=== PATIENT | female | born 1955 | race Caucasian/White ===

== ENCOUNTER → 2019-08-16 | Outpatient (CLI) | payer MEDICARE, OTHER ==
[2019-08-16 16:14] LABS: HCT 39.5 % (34.0-46.0); HGB 12.7 gm/dL (11.4-16.0); MCH 26.3 pg (25.0-35.0); MCHC 32.1 g/dL (31.0-37.0); MCV 81.9 fL (80.0-100.0); Mean Platelet Volume 6.3; Platelet Count 313 k/uL (150-450); RBC 4.82 m/uL (3.80-5.40); RDW 14.7 % (11.5-15.5); WBC 6.7 k/uL (3.8-10.6)
[2019-08-16 16:20] LABS: INR 0.9 (<1.2); Partial Thromboplastin Time 24.9 sec (22.0-30.0); Prothrombin Time 9.8 sec (9.0-12.0)
[2019-08-16 16:54] LABS: ALT 26 U/L (9-52); AST 27 U/L (14-36); African American GFR (CKD) >90 (>60 ml/min/1.73 sqM); Albumin 4.6 g/dL (3.5-5.0); Alkaline Phosphatase 90 U/L (38-126); Anion Gap 10 mmol/L; Blood Urea Nitrogen 20 mg/dL (7-17); Carbon Dioxide 24 mmol/L (22-30); Chloride 104 mmol/L (98-107); Cholesterol 239 mg/dL (<200); Glucose 126 mg/dL (74-99); HDL Cholesterol 35 mg/dL (40-60); LDL Cholesterol,Calculated 151 mg/dL (0-99); Magnesium 1.9 mg/dL (1.6-2.3); Phosphorus 4.3 mg/dL (2.5-4.5); Potassium 4.5 mmol/L (3.5-5.1); Sodium 138 mmol/L (137-145); Total Bilirubin 0.6 mg/dL (0.2-1.3); Total Protein 8.1 g/dL (6.3-8.2); Triglycerides 264 mg/dL (<150)
[2019-08-17 00:29] LABS: Iron 64 ug/dL (50-170); Total Iron Binding Capacity 457 ug/dL (228-460)
[2019-08-17 00:39] LABS: Ferritin 9.2 ng/mL (10.0-291.0)
--- NOTE | 2019-08-17 04:02 | CT ---
EXAMINATION TYPE: CT abdomen pelvis w con DATE OF EXAM: 08/16/2019 COMPARISON: NONE HISTORY: 63-year-old female Epigastric pain and nausea. Diverticulitis, K57.30. TECHNIQUE: Contiguous axial scanning of the abdomen and pelvis following administration of 100 ml Iso sunny 300 IV contrast. Delayed images through the kidneys and coronal/sagittal reconstructions perform ed. CT DLP: 1454 mGycm Automated exposure control for dose reduction was used. FINDINGS: Heart borderline to mildly enlarged without pericardial effusion. Lung bases clear without pleural ef fusion. There may be a tiny hiatal hernia. Postsurgical changes of Eusebio-en-Y gastric bypass. No contrast accu mulation seen within the excluded stomach. Mild fluid within the excluded stomach. No focal liver lesion. Mild prominence to the bile duct and 8.6 mm within acceptable limits given pos tcholecystectomy status. Portal venous system is patent. Adrenal glands, kidneys, spleen, and pancreas appear within normal limits. A few scattered borderline sized mesenteric lymph nodes measuring up to 9 mm, for example, coronal im age 39. Borderline to mildly enlarged aortocaval lymph node at 1 cm, axial image 32. Findings likely reactive/post inflammatory. Mild atherosclerotic calcifications abdominal aorta and iliac arteries. Moderate to large sized left periumbilical omental fat-containing hernia. The abdominal wall defect m easures 4.5 cm wide and the hernia sac measures 9.0 cm wide and 10.4 cm craniocaudal, refer to sagitt al image 55. Additional small ventral midline epigastric hernias containing either omental fat or Reyes-type her nias involving the mid transverse colon. These multiple hernias span up to 8.6 cm craniocaudal, refer to sagittal image 55 with the largest of these measuring up to 4.4 cm wide. No dilated small bowel, free fluid, or free air. Normal appendix. Scattered siul-mg-obklrucy stool. No pericolonic inflammatory change. Bladder is urine distended. Uterus anteverted. Neither ovary well seen, likely small and postmenopaus al. Bulging laxity of the levator ani musculature with low positioning of the pelvic floor. No abnorm al fluid collection in the pelvis or pelvic lymphadenopathy. Bones: Hypertrophic facet arthropathy lower lumbar spine with grade 1 anterolisthesis at L4-L5. Moder ate to severe degenerative disc disease L5-S1. IMPRESSION: 1. MODERATE TO LARGE SIZED LEFT PERIUMBILICAL OMENTAL FAT CONTAINING HERNIA (ABDOMINAL WALL DEFECT ME ASURING 4.5 CM WIDE AND HERNIA SAC MEASURING UP TO 10.4 X 9.0 CM). 2. ADDITIONAL MULTIPLE SMALL VENTRAL MIDLINE EPIGASTRIC AND SUPRAUMBILICAL HERNIAS CONTAINING EITHER OMENTAL FAT OR REYES-TYPE HERNIAS INVOLVING THE MID TRANSVERSE COLON. THESE MULTIPLE HERNIAS SPAN U P TO 8.6 CM CRANIOCAUDAL WITH THE LARGEST HERNIA SAC MEASURING 4.4 CM WIDE. 3. POSSIBLE TINY HIATAL HERNIA. POSTSURGICAL CHANGES OF EUSEBIO-EN-Y GASTRIC BYPASS. PELVIC FLOOR RELAXA TION. NO SIGNIFICANT COLONIC DIVERTICULOSIS SEEN.
[2019-08-17 12:22] LABS: Zinc, Serum 80 ug/dL (60-130)
[2019-08-17 13:41] LABS: Vitamin A 43 ug/dL (38-106)
[2019-08-18 09:51] LABS: Vit B1(Thiamine) 62 ug/L (38-122)
== END | disposition home or self-care (01) ==
LOC: RADCTMAIN 14:49
PROVIDERS: ATTEND Surgery Plastic and Reconstructive Surgery
DX: K42.9 Umbilical hernia without obstruction or gangrene (principal); Z98.890 Other specified postprocedural states; E66.01 Morbid (severe) obesity due to excess calories; D50.8 Other iron deficiency anemias; K90.89 Other intestinal malabsorption; E55.9 Vitamin D deficiency, unspecified; K74.1 Hepatic sclerosis; N19 Unspecified kidney failure; K50.90 Crohn's disease, unspecified, without complications; E89.1 Postprocedural hypoinsulinemia
CPT/HCPCS: 84255; 84134; 84425; 80061; 80053; 82607; 82728; 82525; 82565; 82746; 83540; 83550; 83735; 84100; 84443; 84520; 84590; 84630; 85027; 85610; 85730; 82306; 83970; 83036; 74177; 36415; Q9967 ×2

== ENCOUNTER 2019-08-24 00:34 | Inpatient (IN) | payer MEDICARE, OTHER ==
[2019-08-24] MEDS ORDERED: ASPIRIN 81 MG PO STA (00:45)
[2019-08-24 01:01] LABS: Basophils % (A) 1 %; Eosinophils # (A) 0.1 k/uL (0-0.7); Eosinophils % (A) 2 %; HCT 38.8 % (34.0-46.0); HGB 12.6 gm/dL (11.4-16.0); Hypochromasia Slight; Lymphocytes # (A) 1.6 k/uL (1.0-4.8); Lymphocytes % (A) 26 %; MCH 26.8 pg (25.0-35.0); MCHC 32.4 g/dL (31.0-37.0); MCV 82.8 fL (80.0-100.0); Mean Platelet Volume 5.8; Monocytes # (A) 0.5 k/uL (0-1.0); Monocytes % (A) 8 %; Neutrophils # (A) 3.7 k/uL (1.3-7.7); Neutrophils % (A) 60 %; Platelet Count 272 k/uL (150-450); RBC 4.68 m/uL (3.80-5.40); RDW 14.6 % (11.5-15.5); WBC 6.2 k/uL (3.8-10.6)
[2019-08-24] MEDS ORDERED: NITROGLYCERIN OINT 1 INCH/GM PACKET TOPICAL STA (01:04)
[2019-08-24 01:15] LABS: ALT 24 U/L (9-52); AST 25 U/L (14-36); African American GFR (CKD) >90 (>60 ml/min/1.73 sqM); Albumin 4.5 g/dL (3.5-5.0); Alkaline Phosphatase 107 U/L (38-126); Anion Gap 11 mmol/L; Blood Urea Nitrogen 18 mg/dL (7-17); Calcium 9.4 mg/dL (8.4-10.2); Carbon Dioxide 23 mmol/L (22-30); Chloride 106 mmol/L (98-107); Glucose 141 mg/dL (74-99); Magnesium 2.1 mg/dL (1.6-2.3); Non-African American GFR(CKD) >90 (>60 ml/min/1.73 sqM); Sodium 140 mmol/L (137-145); Total Bilirubin 0.3 mg/dL (0.2-1.3); Total Protein 8.1 g/dL (6.3-8.2)
[2019-08-24 01:19] LABS: INR 0.9 (<1.2); Partial Thromboplastin Time 20.4 sec (22.0-30.0); Prothrombin Time 9.5 sec (9.0-12.0)
--- NOTE | 2019-08-24 01:32 | ED ---
Chest Pain HPI - General Chief Complaint: Chest Pain Stated Complaint: Chest Pain Source: patient, family Mode of arrival: ambulatory Limitations: no limitations - History of Present Illness Initial Comments: Lashonda is a 63 yo female with PMH of CAD and stenting in the past. Patient recently has been dealing with chest pain recently which she has attributed to her hiatal hernia. Patient reports that over the past few weeks she has been experiencing chest pain after eating, chest pain with any walking fast or activity, pain resolved with rest. Patient reports that this morning she was resting at home when she began to feel pressure in her chest. This is not similar to her previous cardiac chest pain but was worse than her usual GI pain so she decided to come to the ER for evaluation. Patient states that she underwent cardiac stenting in her early 40s. Since that time she takes a baby aspirin daily. She does not follow up with supervisor nurse. She was evaluated by supervisor nurse a few months ago and had an echo and was advised that she was medically cleared for surgical procedure or endoscopy. Patient is scheduled for endoscopy later today due to her persistent epigastric and chest pain. Patient does not believe she's had a cardiac catheterization or stress test since her stenting approximately 20 years ago. - Related Data Home Medications Medication Instructions Recorded Confirmed Aspirin 81 mg PO DAILY 08/23/19 08/23/19 Levothyroxine Sodium [Synthroid] 50 mcg PO DAILY 08/23/19 08/23/19 Lisinopril [Zestril] 10 mg PO DAILY 08/23/19 08/23/19 Pantoprazole Sodium [Protonix] 40 mg PO DAILY 08/23/19 08/23/19 amLODIPine [Norvasc] 5 mg PO DAILY 08/23/19 08/23/19 metFORMIN HCL [Glucophage] 500 mg PO BID 08/23/19 08/23/19 Allergies Allergy/AdvReac Type Severity Reaction Status Date / Time No Known Allergies Allergy Verified 08/24/19 00:44 Review of Systems ROS Statement: Those systems with pertinent positive or pertinent negative responses have been documented in the HPI. ROS Other: All systems not noted in ROS Statement are negative. EKG Findings - EKG Comments: EKG Findings:: EKG was obtained due to complaint of chest pain, EKG was obtained at 12:40 AM, rate 76 rhythm is sinus there is normal intervals, SD 138, QRS 138, QTC is 450 there is a left bundle branch block. There are no acute ST elevations or depressions no evidence of acute ischemia or infarction. There is no previous EKG for comparison. Past Medical History Past Medical History: Diabetes Mellitus, Hypertension Additional Past Medical History / Comment(s): hernia History of Any Multi-Drug Resistant Organisms: None Reported Past Surgical History: Bariatric Surgery, Section, Cholecystectomy, Heart Catheterization With Stent Past Psychological History: No Psychological Hx Reported Smoking Status: Never smoker Past Alcohol Use History: None Reported Past Drug Use History: None Reported General Exam - General Exam Comments Initial Comments: Physical Exam GENERAL: Patient is well-developed and well-nourished. Patient is nontoxic and well- hydrated and is in no distress. HENT: Normocephalic, Atraumatic. EYES: PERRL, EOMI PULMONARY: Unlabored respirations. No audible rales rhonchi or wheezing was noted. CARDIOVASCULAR: There is a regular rate and rhythm Systolic murmur Warm and well perfused extremities, radial, DP and PT pulses present and equal bilaterally No pulsatile abdominal mass, no abdominal bruit ABDOMEN: Soft and nontender with normal bowel sounds. SKIN: Skin is clear with no lesions or rashes and otherwise unremarkable. : Deferred NEUROLOGIC: Patient is alert and oriented x3. Moving all extremities spontaneously MUSCULOSKELETAL: Normal extremities with adequate strength and full range of motion. No lower extremity swelling or edema. No calf tenderness. PSYCHIATRIC: Normal psychiatric evaluation. Limitations: no limitations Course Vital Signs 08/24/19 08/24/19 00:39 01:44 Temperature 98.2 F 98.3 F Pulse Rate 73 70 Respiratory 18 18 Rate Blood Pressure 198/93 187/90 O2 Sat by Pulse 98 97 Oximetry Chest Pain [facility] The patient was seen and evaluated, history is obtained from the patient. Patient has been experiencing intermittent exertional chest pain that resolves with rest for a number of weeks to months. Patient is attributed this to a GI s ource however it sounds very suspicious for cardiac etiology. This evening patient developed pain at rest that was worse than her typical GI pain and prompted her to come to the ER for evaluation. EKG has a left bundle branch block there is no previous for evaluation. A full cardiac workup was initiated. Labs resulted with a mildly elevated troponin, I have a very high suspicion patient is experiencing cardiac ischemia due to coronary artery disease therefore heparin was ordered. Nitro paste was given. Patient's blood pressure remained elevated despite nitro paste and a dose of Lopressor. Patient will be admitted to the hospital for an acute coronary syndrome workup. Serial troponins were ordered. Nitropaste was ordered. Patient started on heparin drip. Cardiology was consult at. Disposition Clinical Impression: Unstable angina, Coronary artery disease, Hypertension, Obesity Disposition: ADMITTED IP TO THIS HOSP Condition: Serious Referrals: Thai Philip MD [Primary Care Provider] - 1-2 days
[2019-08-24] MEDS ORDERED: HEPARIN SODIUM,PORCINE 5,000 UNIT/ML 1 ML VIAL IV ONE (01:33)
--- NOTE | 2019-08-24 01:35 | XR ---
EXAMINATION TYPE: XR chest 2V DATE OF EXAM: 08/24/2019 COMPARISON: 07/06/2012 HISTORY: Chest pain TECHNIQUE: Frontal and lateral views of the chest are obtained. FINDINGS: Heart and mediastinum are normal. Lungs are clear. Diaphragm is normal. Bony thorax appear s normal. There are chest leads. IMPRESSION: Normal chest. No change.
[2019-08-24] MEDS: HEPARIN SOD,PORK IN 0.45% NACL 25,000 UNIT in 0.45% NACL 1 250ML.BAG IV SCH (01:45)
[2019-08-24] MEDS ORDERED: METOPROLOL TARTRATE 25 MG TAB PO STA (01:55)
[2019-08-24 06:23] LABS: Glucose,Whole Blood 160 mg/dL (75-99)
[2019-08-24] MEDS: NITROGLYCERIN OINT 1 INCH/GM PACKET TOPICAL SCH ×3 (06:30→17:10)
[2019-08-24] MEDS: INSULIN ASPART (NovoLOG) 100 UNIT/ML VIAL SQ SCH ×4 (06:30→22:03)
[2019-08-24] MEDS ORDERED: LOSARTAN 25 MG TAB PO SCH (09:00)
--- NOTE | 2019-08-24 09:00 | P.CRDCN ---
History of Present Illness Consult date: 08/24/19 Requesting physician: Emiliano Daigle Consult reason: chest pain Chief complaint: Chest pain History of present illness: This is a 63-year-old female with history of diabetes, hypertension, hyperlipidemia, hypothyroidism, strong family history of premature coronary artery disease, coronary artery disease herself, patient states that she has had myocardial infarctions in the past and stent placement done on 3 separate occasions, over 10 years ago according to her. She does not follow regularly with the rod finisher in the office. She is a nonsmoker. Patient does have a hernia in her abdomen, and has been experiencing some discomfort in the mid chest region which she has been attributing to her hernia. Patient states that prior to coming to the hospital discomfort she had in her chest was different and for this reason she took a sublingual nitroglycerin, she states that it relieved the symptoms and shortly thereafter she again experienced more symptoms. Patient did have some mild associated diaphoresis with this. Patient was actually scheduled today for an EGD procedure which has since been canceled. Chest x-ray is normal. EKG on presentation here showed a normal sinus rhythm with a left bundle-branch block pattern. Subsequent EKG showed a sinus bradycardia with a left bundle-branch block pattern. Blood pressure on arrival 198/93, heart rate in the 70s, 98% on room air. Blood pressure 188/80 this morning, heart rate in the 50s, 98% on room air. Laboratory data reviewed, white blood cell count 6.2, hemoglobin 12.6, platelet count 272. Sodium 140, potassium 4.0, BUN 18, creatinine 0.7. Initial troponin on presentation here 0.066, BNP . On the 14 of this month patient did have a CT of the abdomen performed which revealed a moderate to large sized left. Emboli, fat- containing hernia. Additional multiple small ventral midline epigastric and super a umbilical hernia as also noted. At the time of my examination this morning, the patient is currently chest pain-free. Past Medical History Past Medical History: Diabetes Mellitus, Hypertension Additional Past Medical History / Comment(s): hernia History of Any Multi-Drug Resistant Organisms: None Reported Past Surgical History: Bariatric Surgery, Section, Cholecystectomy, Heart Catheterization With Stent Past Anesthesia/Blood Transfusion Reactions: Previous Problems w/ Anesthesia, Postoperative Nausea & Vomiting (PONV) Additional Past Anesthesia/Blood Transfusion Reaction / Comment(s): post of nausea Date of Last Stent Placement:: 2003 Past Psychological History: No Psychological Hx Reported Smoking Status: Never smoker Past Alcohol Use History: None Reported Past Drug Use History: None Reported Medications and Allergies Home Medications Medication Instructions Recorded Confirmed Type Aspirin 81 mg PO DAILY 08/23/19 08/24/19 History Levothyroxine Sodium [Synthroid] 50 mcg PO DAILY 08/23/19 08/24/19 History Lisinopril [Zestril] 10 mg PO DAILY 08/23/19 08/24/19 History Pantoprazole Sodium [Protonix] 40 mg PO DAILY 08/23/19 08/24/19 History amLODIPine [Norvasc] 5 mg PO DAILY 08/23/19 08/24/19 History metFORMIN HCL [Glucophage] 500 mg PO BID 08/23/19 08/24/19 History Atorvastatin [Lipitor] 20 mg PO DAILY 08/24/19 08/24/19 History Allergies Allergy/AdvReac Type Severity Reaction Status Date / Time No Known Allergies Allergy Verified 08/24/19 00:44 Physical Exam Vitals: Vital Signs Temp Pulse Pulse Resp BP BP Pulse Ox 08/24/19 06:33 188/81 08/24/19 03:56 50 L 18 08/24/19 03:54 98.4 F 50 L 18 185/86 98 08/24/19 01:56 98.5 F 61 18 202/89 97 08/24/19 01:44 98.3 F 70 18 187/90 97 08/24/19 00:39 98.2 F 73 18 198/93 98 Intake and Output 08/23/19 08/24/19 08/24/19 22:59 06:59 14:59 Intake Total 0 Balance 0 Intake: Oral 0 Other: Voiding Method Toilet # Voids 1 Weight 86.1 kg PHYSICAL EXAMINATION: GENERAL: 63-year-old female in no acute distress at the time of my examination HEENT: Head is atraumatic, normocephalic. Pupils equal, round. Sclera anicteric. Conjunctiva are clear. Mucous membranes of the mouth are moist. Neck is supple. There is no elevated jugular venous pressure. No carotid bruit is heard. HEART EXAMINATION: Heart S1, S2 normal. No murmur or gallop heard. CHEST EXAMINATION: Lungs are clear to auscultation and precussion. No chest wall tenderness is noted on palpation or with deep breathing. ABDOMEN: Soft, obese, nontender. Bowel sounds are heard. No organomegaly noted. EXTREMITIES: 2+ peripheral pulses with no evidence of peripheral edema and no calf tenderness noted. NEUROLOGIC patient is awake, alert and oriented 3 . . Results 08/24/19 00:51 08/24/19 00:51 Cardiac Enzymes 08/24/19 08/24/19 Range/Units 00:51 00:51 AST 25 (14-36) U/L Troponin I 0.066 H* (0.000-0.034) ng/mL Coagulation 08/24/19 08/24/19 Range/Units 00:51 07:42 PT 9.5 (9.0-12.0) sec APTT 20.4 L 39.0 H (22.0-30.0) sec CBC 08/24/19 Range/Units 00:51 WBC 6.2 (3.8-10.6) k/uL RBC 4.68 (3.80-5.40) m/uL Hgb 12.6 (11.4-16.0) gm/dL Hct 38.8 (34.0-46.0) % Plt Count 272 (150-450) k/uL Comprehensive Metabolic Panel 08/24/19 Range/Units 00:51 Sodium 140 (137-145) mmol/L Potassium 4.0 (3.5-5.1) mmol/L Chloride 106 (98-107) mmol/L Carbon Dioxide 23 (22-30) mmol/L BUN 18 H (7-17) mg/dL Creatinine 0.70 (0.52-1.04) mg/dL Glucose 141 H (74-99) mg/dL Calcium 9.4 (8.4-10.2) mg/dL AST 25 (14-36) U/L ALT 24 (9-52) U/L Alkaline Phosphatase 107 (38-126) U/L Total Protein 8.1 (6.3-8.2) g/dL Albumin 4.5 (3.5-5.0) g/dL Current Medications Generic Name Dose Route Start Last Admin Trade Name Freq PRN Reason Stop Dose Admin Aspirin 325 mg 08/25/19 09:00 Aspirin PO DAILY TABATHA Heparin Sodium/Sodium Chloride 250 mls @ 9.634 mls/hr 08/24/19 01:45 08/24/19 01:45 25,000 unit/ Sodium Chloride IV 12 units/kg/hr .Q24H TABATHA 9.634 mls/hr Administration Protocol 12 UNITS/KG/HR Insulin Aspart 0 unit 08/24/19 07:30 08/24/19 06:30 Novolog SQ 1 unit ACHS TABATHA Administration Protocol Nitroglycerin 1 inch 08/24/19 06:00 08/24/19 06:30 Nitro-Bid Oint TOPICAL 1 inch Q6HR TABATHA Administration Intake and Output 08/23/19 08/24/19 08/24/19 22:59 06:59 14:59 Intake Total 0 Balance 0 Intake: Oral 0 Other: Voiding Method Toilet # Voids 1 Weight 86.1 kg 08/24/19 00:51 08/24/19 00:51 EKG Interpretations (text) EKG on presentation here showed a normal sinus rhythm with a left bundle-branch block. Assessment and Plan Plan: Assessment and plan #1 symptoms of midsternal chest pressure with associated diaphoresis, initial troponin 0.066, EKG shows a normal sinus rhythm with left bundle branch block pattern. Possible acute coronary syndrome. #2 large umbilical Hernia #3 known history of coronary artery disease with prior stent placement 3, the most recent being more than 10 years ago. 4 diabetes #5 hyperlipidemia #6 hypertensive urgency #7 strong family history of premature coronary artery disease Plan We'll obtain an echocardiogram with Doppler study as well as 2 subsequent t roponins. Her clinical picture is suggestive of possible acute coronary syndrome. She has been advised that she will need to undergo cardiac catheterization, the risks and the benefits of the procedure were explained to the patient in detail. We will also attempt to obtain records of patient's pr ior procedures. Continue aspirin, she metoprolol, and Lipitor 80 mg now and daily. Continue Nitropaste We'll also start the patient on an JIM inhibitor. Further recommendations will be based on these findings and the patient's clinical course. DNP note has been reviewed, I agree with a documented findings and plan of care. Patient was seen and examined.
[2019-08-24] MEDS ORDERED: ALPRAZolam 0.25 MG TAB PO PRN (09:13)
[2019-08-24] MEDS ORDERED: NITROGLYCERIN SL TABS 0.4 MG TAB SUBLINGUAL PRN (09:13)
[2019-08-24] MEDS ORDERED: ASPIRIN 325 MG TAB PO STA (09:13)
[2019-08-24] MEDS ORDERED: ATORVASTATIN 80 MG TAB PO STA (09:13)
[2019-08-24] MEDS ORDERED: SODIUM CHLORIDE 0.9% 1,000 ML in EMPTY BAG 1 BAG IV ONE (09:13)
[2019-08-24] MEDS ORDERED: ALPRAZolam 0.5 MG TAB PO PRN (09:13)
[2019-08-24] MEDS: METOPROLOL TARTRATE 25 MG TAB PO SCH ×2 (09:24→22:03)
[2019-08-24] MEDS: ATORVASTATIN 80 MG TAB PO SCH (09:24)
[2019-08-24] MEDS: ACETAMINOPHEN TAB 325 MG TAB PO PRN (09:24)
[2019-08-24] MEDS ORDERED: LISINOPRIL 10 MG TAB PO SCH ×2 (10:45→21:00)
--- NOTE | 2019-08-24 11:24 | P.GSCN ---
<Shahana Giraldo A - Last Filed: 08/24/19 11:18> History of Present Illness Consult date: 08/24/19 Reason for Consult: known patient Requesting physician: Emiliano Daigle History of present illness: CHIEF COMPLAINT: Known patient HISTORY OF PRESENT ILLNESS: 63-year-old female with a history of Eusebio-en-Y gastric bypass who was originally scheduled for EGD today with Dr. Yarbrough. Patient reports she developed chest pain and nausea last night and came to the ER to be evaluated. She has been evaluated by cardiology and is scheduled for a cardiac cath today. PAST MEDICAL HISTORY: See list. PAST SURGICAL HISTORY: See list. MEDICATIONS: See list. ALLERGIES: See list. SOCIAL HISTORY: No illicit drug use. REVIEW OF SYSTEMS: CONSTITUTIONAL: Denies fever or chills. HEENT: Denies blurred vision, vision changes, or eye pain. Denies hemoptysis ENDOCRINE: Denies heat or cold intolerance. CARDIOVASCULAR: Reports chest pain. RESPIRATORY: No shortness of breath. GASTROINTESTINAL: Reports nausea prior to hospitalization which has resolved. NEURO: Denies history of seizures. PSYCH: No depression or suicidal ideation HEMATOLOGIC: Denies bleeding disorders. LYMPHATIC: The patient denies any lumps and bumps around the neck. GENITOURINARY: Denies any blood in urine or increased urinary frequency. MUSCULOSKELETAL: Denies myalgias. Denies joint swelling. Denies decreased range of motion beyond patients baseline. SKIN: Denies pruitis. Denies rash. PHYSICAL EXAM: VITAL SIGNS: Reviewed. GENERAL: Well-developed in no acute distress. HEENT: No sclera icterus. Extraocular movements grossly intact. Moist buccal mucosa. Head is atraumatic, normocephalic. Hears conversational speech. No nasal drainage. NECK: Supple without lymphadenopathy. CHEST: Non-labored respirations and equal bilateral excursions. CARDIOVASCULAR: Regular rate with regular rhythm. Palpable 2+ radial pulses. ABDOMEN: Soft. Nondistended. Nontender. MUSCULOSKELETAL: No clubbing or cyanosis. NEUROLOGIC: No focal or lateralizing signs. Cranial nerves II through XII grossly intact. PSYCH: Appropriate affect. Alert and oriented to person, place and time. SKIN: Well perfused. Good skin turgor. LABORATORY DATA: WBC 6.2. Hemoglobin 12.6. Platelet count 272. Sodium 140. Potassium 4.0. BUN 18. Creatinine 0.70. Magnesium 2.1. Bilirubin 0.3. AST 25. ALT 24. BNP 436. Troponin 0.066. 0.071. IMAGING: CT abdomen and pelvis completed on 08/17/2019: Moderate to large sized left periumbilical omental fat containing hernia. Additional multiple small ventral midline epigastric and suprapubic umbilical hernias containing omental fat or Reyes type hernias involving the mid transverse colon. Possible small hiatal hernia. ASSESSMENT: 1. Chest pain 2. History of Eusebio-en-Y gastric bypass 3. History of known multiple hernias PLAN: Patients EGD has been cancelled for today. She has been evaluated by cardiology with plans for cardiac cath today. EGD will be rescheduled when patient is medically stable Nurse practitioner note has been reviewed by physician. Signing provider agrees with the documented findings, assessment, and plan of care. Past Medical History Past Medical History: Diabetes Mellitus, Hypertension Additional Past Medical History / Comment(s): hernia History of Any Multi-Drug Resistant Organisms: None Reported Past Surgical History: Bariatric Surgery, Section, Cholecystectomy, Heart Catheterization With Stent Past Anesthesia/Blood Transfusion Reactions: Previous Problems w/ Anesthesia, Postoperative Nausea & Vomiting (PONV) Additional Past Anesthesia/Blood Transfusion Reaction / Comm: post of nausea Date of Last Stent Placement:: 2003 Past Psychological History: No Psychological Hx Reported Smoking Status: Never smoker Past Alcohol Use History: None Reported Past Drug Use History: None Reported Medications and Allergies Home Medications Medication Instructions Recorded Confirmed Type Aspirin 81 mg PO DAILY 08/23/19 08/24/19 History Levothyroxine Sodium [Synthroid] 50 mcg PO DAILY 08/23/19 08/24/19 History Lisinopril [Zestril] 10 mg PO DAILY 08/23/19 08/24/19 History Pantoprazole Sodium [Protonix] 40 mg PO DAILY 08/23/19 08/24/19 History Atorvastatin [Lipitor] 20 mg PO DAILY 08/24/19 08/24/19 History metFORMIN HCL ER [Glucophage Xr] 500 mg PO BID 08/24/19 08/24/19 History Allergies Allergy/AdvReac Type Severity Reaction Status Date / Time No Known Allergies Allergy Verified 08/24/19 08:59 Surgical - Exam Vital Signs Temp Pulse Resp BP Pulse Ox 98.2 F 73 18 198/93 98 08/24/19 00:39 08/24/19 00:39 08/24/19 00:39 08/24/19 00:39 08/24/19 00:39 Results - Labs 08/24/19 00:51 08/24/19 00:51 Abnormal Lab Results - Last 24 Hours (Table) 08/24/19 08/24/19 08/24/19 Range/Units 00:51 00:51 00:51 APTT 20.4 L (22.0-30.0) sec BUN 18 H (7-17) mg/dL Glucose 141 H (74-99) mg/dL POC Glucose (mg/dL) (75-99) mg/dL Troponin I 0.066 H* (0.000-0.034) ng/mL 08/24/19 08/24/19 08/24/19 Range/Units 06:21 07:42 07:42 APTT 39.0 H (22.0-30.0) sec BUN (7-17) mg/dL Glucose (74-99) mg/dL POC Glucose (mg/dL) 160 H (75-99) mg/dL Troponin I 0.071 H* (0.000-0.034) ng/mL Diabetes panel 08/24/19 Range/Units 00:51 Sodium 140 (137-145) mmol/L Potassium 4.0 (3.5-5.1) mmol/L Chloride 106 (98-107) mmol/L Carbon Dioxide 23 (22-30) mmol/L BUN 18 H (7-17) mg/dL Creatinine 0.70 (0.52-1.04) mg/dL Glucose 141 H (74-99) mg/dL Calcium 9.4 (8.4-10.2) mg/dL AST 25 (14-36) U/L ALT 24 (9-52) U/L Alkaline Phosphatase 107 (38-126) U/L Total Protein 8.1 (6.3-8.2) g/dL Albumin 4.5 (3.5-5.0) g/dL Calcium panel 08/24/19 Range/Units 00:51 Calcium 9.4 (8.4-10.2) mg/dL Albumin 4.5 (3.5-5.0) g/dL Pituitary panel 08/24/19 Range/Units 00:51 Sodium 140 (137-145) mmol/L Potassium 4.0 (3.5-5.1) mmol/L Chloride 106 (98-107) mmol/L Carbon Dioxide 23 (22-30) mmol/L BUN 18 H (7-17) mg/dL Creatinine 0.70 (0.52-1.04) mg/dL Glucose 141 H (74-99) mg/dL Calcium 9.4 (8.4-10.2) mg/dL Adrenal panel 08/24/19 Range/Units 00:51 Sodium 140 (137-145) mmol/L Potassium 4.0 (3.5-5.1) mmol/L Chloride 106 (98-107) mmol/L Carbon Dioxide 23 (22-30) mmol/L BUN 18 H (7-17) mg/dL Creatinine 0.70 (0.52-1.04) mg/dL Glucose 141 H (74-99) mg/dL Calcium 9.4 (8.4-10.2) mg/dL Total Bilirubin 0.3 (0.2-1.3) mg/dL AST 25 (14-36) U/L ALT 24 (9-52) U/L Alkaline Phosphatase 107 (38-126) U/L Total Protein 8.1 (6.3-8.2) g/dL Albumin 4.5 (3.5-5.0) g/dL <Zaira Yarbrough - Last Filed: 08/25/19 20:06> History of Present Illness History of present illness: She was undergoing cardiac cath. Cardiac cath results pending. Upper endoscopy once medically stable and may be rescheduled as outpatient Past Medical History - Past Family History Mother Family Medical History: CVA/TIA, Diabetes Mellitus, Hypertension Father Family Medical History: Hyperlipidemia, Hypertension Brother(s) Family Medical History: Coronary Artery Disease (CAD) Additional Family Medical History / Comment(s): Both brother and sister diagnosed with heart disease for the age of 60, multiple family members on patient's mother's side with coronary artery disease status post bypass Sister(s) Family Medical History: Coronary Artery Disease (CAD) Surgical - Exam Vital Signs Temp Pulse Resp BP Pulse Ox 98.2 F 73 18 198/93 98 08/24/19 00:39 08/24/19 00:39 08/24/19 00:39 08/24/19 00:39 08/24/19 00:39 Results - Labs 08/25/19 05:14 08/25/19 05:14 Abnormal Lab Results - Last 24 Hours (Table) 08/24/19 08/24/19 08/25/19 Range/Units 20:00 21:01 05:14 Hgb (11.4-16.0) gm/dL Hct (34.0-46.0) % APTT 134.6 H* (22.0-30.0) sec Chloride (98-107) mmol/L Glucose (74-99) mg/dL POC Glucose (mg/dL) 160 H (75-99) mg/dL Hemoglobin A1c 6.9 H (4.0-6.0) % Albumin (3.5-5.0) g/dL Triglycerides (<150) mg/dL LDL Cholesterol, Calc (0-99) mg/dL HDL Cholesterol (40-60) mg/dL Ur Leukocyte Esterase (Negative) Urine Bacteria (None) /hpf Urine Mucus (None) /hpf 08/25/19 08/25/19 08/25/19 Range/Units 05:14 05:14 06:45 Hgb 10.8 L (11.4-16.0) gm/dL Hct 33.5 L (34.0-46.0) % APTT (22.0-30.0) sec Chloride 109 H (98-107) mmol/L Glucose 126 H (74-99) mg/dL POC Glucose (mg/dL) 137 H (75-99) mg/dL Hemoglobin A1c (4.0-6.0) % Albumin 3.4 L (3.5-5.0) g/dL Triglycerides 249 H (<150) mg/dL LDL Cholesterol, Calc 102 H (0-99) mg/dL HDL Cholesterol 25 L (40-60) mg/dL Ur Leukocyte Esterase (Negative) Urine Bacteria (None) /hpf Urine Mucus (None) /hpf 08/25/19 08/25/19 08/25/19 Range/Units 10:50 11:37 14:43 Hgb (11.4-16.0) gm/dL Hct (34.0-46.0) % APTT 30.7 H (22.0-30.0) sec Chloride (98-107) mmol/L Glucose (74-99) mg/dL POC Glucose (mg/dL) 158 H (75-99) mg/dL Hemoglobin A1c (4.0-6.0) % Albumin (3.5-5.0) g/dL Triglycerides (<150) mg/dL LDL Cholesterol, Calc (0-99) mg/dL HDL Cholesterol (40-60) mg/dL Ur Leukocyte Esterase Trace H (Negative) Urine Bacteria Rare H (None) /hpf Urine Mucus Rare H (None) /hpf 08/25/19 Range/Units 16:52 Hgb (11.4-16.0) gm/dL Hct (34.0-46.0) % APTT (22.0-30.0) sec Chloride (98-107) mmol/L Glucose (74-99) mg/dL POC Glucose (mg/dL) 121 H (75-99) mg/dL Hemoglobin A1c (4.0-6.0) % Albumin (3.5-5.0) g/dL Triglycerides (<150) mg/dL LDL Cholesterol, Calc (0-99) mg/dL HDL Cholesterol (40-60) mg/dL Ur Leukocyte Esterase (Negative) Urine Bacteria (None) /hpf Urine Mucus (None) /hpf Microbiology - Last 24 Hours (Table) 08/25/19 11:05 Nasal Screen MRSA/MSSA - Preliminary Nasal Swab Diabetes panel 08/25/19 08/25/19 Range/Units 05:14 05:14 Sodium 139 (137-145) mmol/L Potassium 4.1 (3.5-5.1) mmol/L Chloride 109 H (98-107) mmol/L Carbon Dioxide 23 (22-30) mmol/L BUN 17 (7-17) mg/dL Creatinine 0.66 (0.52-1.04) mg/dL Glucose 126 H (74-99) mg/dL Hemoglobin A1c 6.9 H (4.0-6.0) % Calcium 9.0 (8.4-10.2) mg/dL AST 22 (14-36) U/L ALT 30 (9-52) U/L Alkaline Phosphatase 69 (38-126) U/L Total Protein 6.4 (6.3-8.2) g/dL Albumin 3.4 L (3.5-5.0) g/dL Triglycerides 249 H (<150) mg/dL HDL Cholesterol 25 L (40-60) mg/dL Calcium panel 08/25/19 Range/Units 05:14 Calcium 9.0 (8.4-10.2) mg/dL Albumin 3.4 L (3.5-5.0) g/dL Pituitary panel 08/25/19 Range/Units 05:14 Sodium 139 (137-145) mmol/L Potassium 4.1 (3.5-5.1) mmol/L Chloride 109 H (98-107) mmol/L Carbon Dioxide 23 (22-30) mmol/L BUN 17 (7-17) mg/dL Creatinine 0.66 (0.52-1.04) mg/dL Glucose 126 H (74-99) mg/dL Calcium 9.0 (8.4-10.2) mg/dL Adrenal panel 08/25/19 Range/Units 05:14 Sodium 139 (137-145) mmol/L Potassium 4.1 (3.5-5.1) mmol/L Chloride 109 H (98-107) mmol/L Carbon Dioxide 23 (22-30) mmol/L BUN 17 (7-17) mg/dL Creatinine 0.66 (0.52-1.04) mg/dL Glucose 126 H (74-99) mg/dL Calcium 9.0 (8.4-10.2) mg/dL Total Bilirubin 0.4 (0.2-1.3) mg/dL AST 22 (14-36) U/L ALT 30 (9-52) U/L Alkaline Phosphatase 69 (38-126) U/L Total Protein 6.4 (6.3-8.2) g/dL Albumin 3.4 L (3.5-5.0) g/dL
[2019-08-24 11:57] LABS: Glucose,Whole Blood 147 mg/dL (75-99)
--- NOTE | 2019-08-24 12:00 | ECHOF ---
Referral Reason:chest pain MEASUREMENTS -------- HEIGHT: 154.9 cm WEIGHT: 85.7 kg BP: 188/81 RVIDd: 2.2 cm (< 3.3) IVSd: 1.7 cm (0.6 - 1.1) LVIDd: 4.2 cm (3.9 - 5.3) LVPWd: 1.8 cm (0.6 - 1.1) IVSs: 2.2 cm LVIDs: 2.6 cm LVPWs: 2.5 cm LAESV Index (A-L): 17.49 ml/m Ao Diam: 3.0 cm (2.0 - 3.7) AV Cusp: 2.1 cm (1.5 - 2.6) LA Diam: 4.2 cm (2.7 - 3.8) MV EXCURSION: 17.354 mm (> 18.000) MV EF SLOPE: 62 mm/s (70 - 150) EPSS: 0.8 cm MV E Dany: 0.72 m/s MV DecT: 241 ms MV A Dany: 0.97 m/s MV E/A Ratio: 0.75 RAP: 5.00 mmHg RVSP: 21.23 mmHg TAPSE: 20.82 mm FINDINGS -------- Sinus rhythm. This was a technically adequate study. The left ventricular size is normal. There is severe concentric left ventricular hypertrophy. Ove rall left ventricular systolic function is normal with, an EF between 55 - 60 %. Normal LAP Grade 1 Diastolic Dysfunction. The right ventricle is normal in size. The left atrial size is normal. Normal LA size by volume 22+/-6 ml/m2. The right atrial size is normal. Interatrial and interventricular septum intact. The aortic valve is trileaflet and appears structurally normal. The mitral valve is normal. The mitral valve leaflets are mildly thickened. Mild mitral regurgita tion is present. The tricuspid valve appears structurally normal. Mild tricuspid regurgitation present. Right vent ricular systolic pressure is normal at < 35 mmHg. There is no pulmonic regurgitation present. The aortic root size is normal. Normal inferior vena cava with normal inspiratory collapse consistent with estimated right atrial pre ssure of 5 mmHg. There is no pericardial effusion. CONCLUSIONS -------- 1. Sinus rhythm. 2. This was a technically adequate study. 3. The left ventricular size is normal. 4. There is severe concentric left ventricular hypertrophy. 5. Overall left ventricular systolic function is normal with, an EF between 55 - 60 %. 6. Normal LAP Grade 1 Diastolic Dysfunction. 7. The right ventricle is normal in size. 8. The left atrial size is normal. 9. Normal LA size by volume 22+/-6 ml/m2. 10. The right atrial size is normal. 11. Interatrial and interventricular septum intact. 12. The aortic valve is trileaflet and appears structurally normal. 13. The mitral valve is normal. 14. The mitral valve leaflets are mildly thickened. 15. Mild mitral regurgitation is present. 16. The tricuspid valve appears structurally normal. 17. Mild tricuspid regurgitation present. 18. Right ventricular systolic pressure is normal at < 35 mmHg. 19. There is no pulmonic regurgitation present. 20. The aortic root size is normal. 21. Normal inferior vena cava with normal inspiratory collapse consistent with estimated right atrial pressure of 5 mmHg. 22. There is no pericardial effusion. PIPE BUFFER: Dina eByer RDCS
[2019-08-24] MEDS: LEVOTHYROXINE 50 MCG TAB PO SCH (14:56)
[2019-08-24] MEDS: PANTOPRAZOLE 40 MG TABLET PO SCH (14:56)
[2019-08-24 17:01] LABS: Glucose,Whole Blood 122 mg/dL (75-99)
[2019-08-24] MEDS ORDERED: LIDOCAINE 1% INJ 10MG/ML (20 ML MDV) ONE (17:18)
[2019-08-24] MEDS ORDERED: VERAPAMIL 2.5 MG/ML 2 ML AMP ONE (17:18)
[2019-08-24] MEDS ORDERED: IV FLUID CONTINUATION 1,000 ML IV ONE (17:20)
--- NOTE | 2019-08-24 17:37 | P.HPIM ---
History of Present Illness H&P Date: 08/24/19 Chief Complaint: Chest heaviness History of presenting complaint: This is a very pleasant 63-year-old patient of Dr. Roca. Chronic stable medical conditions include diabetes, hypertension, hiatal hernia, hypothyroid, primary osteoarthritis. Patient has a known history of coronary artery disease stent. Last was several years ago. Has not had a stress test since then. Patient also being worked up by Dr. Walden for her hiatal hernia. Was supposed to have her endoscopy done today. Some of the symptoms she's been having was felt to be from a hiatal hernia. Does get some bloating and discomfort in the upper abdomen. Patient now presented to us last night she had heaviness in the central part of the chest. Last 4 good 2 hours. There was nausea. Dizziness. Emmett flushed. There was no radiation radiation to the neck or the arm. Troponin was started to to be positive. Review of systems: GEN.: Tired EYES: None HEENT: None NECK: None RESPIRATORY: None CARDIOVASCULAR: As above GASTROINTESTINAL: As above GENITOURINARY: None MUSCULOSKELETAL: Joint pains LYMPHATICS: None HEMATOLOGICAL: None PSYCHIATRY: None NEUROLOGICAL: None Past medical history to include: Coronary artery disease stent over 70 years ago, diverticulosis type II, hypertension, hiatal hernia with GERD Social history: Does not smoke or drink alcohol. Lives with her daughter. Physical examination: VITAL SIGNS: 98.2, 73, 18, 198/93, 98% room air GENERAL: BMI 35.3, sitting up but anxious. EYES: Pupils equal. Conjunctiva normal. HEENT: External appearance of nose and ears normal, oral cavity grossly normal. NECK: JVD not raised; masses not palpable. HEART: First and second heart sounds are normal; no edema. LUNGS: Respiratory rate normal; clear to auscultation. ABDOMEN: Soft, mild epigastric tenderness, liver spleen not palpable, no masses palpable. PSYCH: Alert and oriented x3; mood and affect normal. NEUROLOGICAL: Cranial nerves grossly intact; no facial asymmetry, power and sensation grossly intact. LYMPHATICS: No lymph nodes palpable in the axilla and neck MUSCULOSKELETAL: Evidence of OA in the hands INVESTIGATIONS, reviewed in the clinical context: White count 6.2 hemoglobin 12.6 platelets 272 potassium 4 creatinine 0.7 Troponin I 0.066, 0.071, 0.065 ProBNP 436 EKG tracing personally reviewed by me-sinus rhythm left bundle branch block Chest x-ray film personally reviewed by me-lung galvin clear Assessment: -Acute non-Q-wave myocardial infarction -Known coronary artery disease with prior stent -Diabetes mellitus type 2 on oral hypoglycemic -Essential hypertension -Hiatal hernia, symptomatic with GERD -Hypothyroid -Primary osteoarthritis -Obesity BMI 35.3 Plan: Home medications resumed. Patient with IV heparin. Patient will need a cardiac catheterization. Hypothermia could be addressed down the road. Care was discussed with the patient. Questions were answered. Consultations made both cardiology and Dr. Walden from general surgery Past Medical History Past Medical History: Diabetes Mellitus, Hypertension Additional Past Medical History / Comment(s): hernia History of Any Multi-Drug Resistant Organisms: None Reported Past Surgical History: Bariatric Surgery, Section, Cholecystectomy, Heart Catheterization With Stent Past Anesthesia/Blood Transfusion Reactions: Previous Problems w/ Anesthesia, Postoperative Nausea & Vomiting (PONV) Additional Past Anesthesia/Blood Transfusion Reaction / Comment(s): post of nausea Date of Last Stent Placement:: 2003 Past Psychological History: No Psychological Hx Reported Smoking Status: Never smoker Past Alcohol Use History: None Reported Past Drug Use History: None Reported - Past Family History Mother Family Medical History: Diabetes Mellitus, Hypertension Father Family Medical History: Hyperlipidemia, Hypertension Medications and Allergies Home Medications Medication Instructions Recorded Confirmed Type Aspirin 81 mg PO DAILY 08/23/19 08/24/19 History Levothyroxine Sodium [Synthroid] 50 mcg PO DAILY 08/23/19 08/24/19 History Lisinopril [Zestril] 10 mg PO DAILY 08/23/19 08/24/19 History Pantoprazole Sodium [Protonix] 40 mg PO DAILY 08/23/19 08/24/19 History Atorvastatin [Lipitor] 20 mg PO DAILY 08/24/19 08/24/19 History metFORMIN HCL ER [Glucophage Xr] 500 mg PO BID 08/24/19 08/24/19 History Allergies Allergy/AdvReac Type Severity Reaction Status Date / Time No Known Allergies Allergy Verified 08/24/19 08:59 Physical Exam Vitals: Vital Signs Temp Pulse Pulse Resp BP BP Pulse Ox 08/24/19 15:16 48 L 176/79 97 08/24/19 12:00 46 L 157/71 97 08/24/19 09:14 96.8 F L 54 L 175/79 96 08/24/19 08:00 96.8 F L 54 L 175/79 96 08/24/19 06:33 188/81 08/24/19 03:56 50 L 18 08/24/19 03:54 98.4 F 50 L 18 185/86 98 08/24/19 01:56 98.5 F 61 18 202/89 97 08/24/19 01:44 98.3 F 70 18 187/90 97 08/24/19 00:39 98.2 F 73 18 198/93 98 Intake and Output 08/24/19 08/24/19 08/24/19 06:59 14:59 22:59 Intake Total 424.503 0 Balance 424.503 0 Intake: Intake, IV Titration 424.503 Amount Heparin Sod,Pork in 0.45% 74.503 NaCl 25,000 unit In 0.45 % NaCl 1 250ml.bag @ 12 UNITS/KG/HR 9.634 mls/hr IV .Q24H [facility] Rx#: [id number] Sodium Chloride 0.9% 1, 350 000 ml In Empty Bag 1 bag @ 1 ML/KG/HR 86.1 mls/hr IV .[id number] [facility] Rx#: [id number] Oral 0 0 Other: Voiding Method Toilet # Voids 1 3 # Bowel Movements 1 Weight 86.1 kg Results CBC & Chem 7: 08/24/19 00:51 08/24/19 00:51 Labs: Abnormal Lab Results - Last 24 Hours (Table) 08/24/19 08/24/19 08/24/19 Range/Units 00:51 00:51 00:51 APTT 20.4 L (22.0-30.0) sec BUN 18 H (7-17) mg/dL Glucose 141 H (74-99) mg/dL POC Glucose (mg/dL) (75-99) mg/dL Troponin I 0.066 H* (0.000-0.034) ng/mL 08/24/19 08/24/19 08/24/19 Range/Units 06:21 07:42 07:42 APTT 39.0 H (22.0-30.0) sec BUN (7-17) mg/dL Glucose (74-99) mg/dL POC Glucose (mg/dL) 160 H (75-99) mg/dL Troponin I 0.071 H* (0.000-0.034) ng/mL 08/24/19 08/24/19 08/24/19 Range/Units 11:43 12:07 16:42 APTT (22.0-30.0) sec BUN (7-17) mg/dL Glucose (74-99) mg/dL POC Glucose (mg/dL) 147 H 122 H (75-99) mg/dL Troponin I 0.065 H* (0.000-0.034) ng/mL Thrombosis Risk Factor Assmnt - Choose All That Apply Any of the Below Risk Factors Present?: Yes Other Risk Factors: Yes Each Risk Factor Represents 2 Points: Age 61-74 years Other congenital or acquired thrombophilia - If yes, enter type in comment: No Thrombosis Risk Factor Assessment Total Risk Factor Score: 2 Thrombosis Risk Factor Assessment Level: Low Risk
[2019-08-24] MEDS ORDERED: MIDAZOLAM 2 MG/2 ML VIAL IV ONE ×3 (17:38→17:45)
[2019-08-24] MEDS ORDERED: hydrALAZINE HCL 20 MG/ML 1 ML VIAL IV ONE (17:40)
[2019-08-24] MEDS ORDERED: LIDOCAINE 1% INJ 10MG/ML (20 ML MDV) SQ ONE (17:41)
[2019-08-24] MEDS ORDERED: hydrALAZINE HCL 20 MG/ML 1 ML VIAL ONE (17:41)
[2019-08-24] MEDS ORDERED: ENALAPRILAT 1.25 MG/ML 1 ML VIAL IV ONE ×2 (17:43→17:46)
[2019-08-24] MEDS ORDERED: HEPARIN SODIUM 1,000 UN/ML (10ML VL) IV ONE (17:44)
[2019-08-24] MEDS ORDERED: VERAPAMIL SYRINGE (5 MG/10 ML) INTRAARTER ONE ×3 (17:44→17:58)
[2019-08-24] MEDS ORDERED: HEPARIN SODIUM 1,000 UN/ML (10ML VL) ONE (17:45)
[2019-08-24] MEDS ORDERED: ENALAPRILAT 1.25 MG/ML 1 ML VIAL ONE (17:47)
[2019-08-24] MEDS ORDERED: IOPAMIDOL-370 125ML BTL INJ ONE ×3 (17:56→17:59)
[2019-08-24] MEDS ORDERED: SODIUM CHLORIDE 0.9% 1,000 ML IV ONE (18:11)
[2019-08-24] MEDS ORDERED: RX INFO: IV CONTRAST WAS GIVEN 1 EACH MISC MISCELLANE PRN (18:14)
[2019-08-24] MEDS ORDERED: SODIUM CHLORIDE 0.9% 1,000 ML IV SCH (18:15)
[2019-08-24 18:24] LABS: Glucose,Whole Blood 113 mg/dL (75-99)
[2019-08-24 20:12] LABS: Basophils % (A) 0 %; Eosinophils # (A) 0.1 k/uL (0-0.7); Eosinophils % (A) 2 %; HCT 36.8 % (34.0-46.0); HGB 11.5 gm/dL (11.4-16.0); Hypochromasia Moderate; Lymphocytes # (A) 2.5 k/uL (1.0-4.8); Lymphocytes % (A) 37 %; MCH 26.6 pg (25.0-35.0); MCHC 31.4 g/dL (31.0-37.0); MCV 84.6 fL (80.0-100.0); Mean Platelet Volume 5.8; Monocytes # (A) 0.4 k/uL (0-1.0); Monocytes % (A) 6 %; Neutrophils # (A) 3.5 k/uL (1.3-7.7); Neutrophils % (A) 52 %; Platelet Count 273 k/uL (150-450); RBC 4.35 m/uL (3.80-5.40); RDW 14.7 % (11.5-15.5); WBC 6.7 k/uL (3.8-10.6)
[2019-08-24 20:34] LABS: Prothrombin Time 10.5 sec (9.0-12.0)
[2019-08-24 20:42] LABS: Partial Thromboplastin Time 134.6 sec (22.0-30.0)
[2019-08-24] MEDS ORDERED: metFORMIN 500 MG TAB PO SCH (21:00)
[2019-08-24 21:03] LABS: Glucose,Whole Blood 160 mg/dL (75-99)
--- NOTE | 2019-08-24 22:01 | CC ---
CARDIAC CATHETERIZATION REPORT DATE OF SERVICE: August 24, 2019 PERFORMING PHYSICIAN: Mc Payton MD. PROCEDURE PERFORMED: 1. Selective right and left coronary angiogram. 2. Left heart catheterization. INDICATION: This is a very pleasant 63-year-old female patient with a past medical history significant for coronary artery disease and prior coronary artery stenting as well as diabetes, hypertension, and dyslipidemia, presented to the hospital with chest discomfort and ruled in for acute [id number] myocardial infarction. She underwent an echocardiogram which revealed normal LV function. Because of that, a heart catheterization was advised. APPROACH: Right radial artery. COMPLICATION: None. LEVEL OF SEDATION: Moderate with sedation length of 20 minutes. PROCEDURE DESCRIPTION: After obtaining an informed consent, the patient was brought to the cardiac construction or leak gang laborer. The right radial artery was cannulated using micropuncture technique, the micropuncture wire passed easily then I placed a 6-Maltese sheath in the right radial artery. After that, I did give the patient 2 mg of verapamil IA and 10,000 units of heparin IV. Subsequently I did selective right and left coronary angiogram using JR4 and JL3.5 catheters. Heart catheterization was performed using 5-Maltese pigtail catheter. The procedure was completed without any complication. SELECTIVE CORONARY ANGIOGRAM: 1. The right coronary artery is a large caliber vessel and it is a dominant vessel. The proximal RCA appeared to have mild disease only. The mid RCA appeared to have mild disease only as well. The RCA distally is chronically occluded just before the bifurcation into PDA and PLV branches and fills by collaterals from the left coronary system. 2. The left main is calcified with eccentric lesion involving the bifurcation of the circumflex and LAD and the lesion appeared to be in the range of 70%. 3. The left circumflex is a large caliber vessel. It is a nondominant vessel. The ostial circ appeared to be involved in the lesion from the left main and appeared to be diseased in the range of 80% to 90%. The circumflex in the midportion is stented with mild to moderate in-stent restenosis. The stent extends into OM1, which is a large caliber vessel and seems to have mild disease only. 4. The LAD: The ostial LAD appeared to be involved in the lesion from the left main. The proximal LAD appeared to have intermediate disease only. It gives rise into a large diagonal branch which has intermediate to severe disease in the midportion. The mid LAD has another tubular lesion appeared to be in the range of 70% to 80%. The LAD does reach the apex. HEMODYNAMICS: The left ventricular end-diastolic pressure appeared to be 12 mmHg without significant gradient across aortic valve. CONCLUSION: 1. Calcified right and left coronary systems. 2. 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 3. Severe disease involving the distal left main as well as involving the ostial left circumflex and LAD. 4. Critical disease involving the left circumflex. 5. Severe disease involving the LAD/diagonal system. POSTPROCEDURE MANAGEMENT: 1. Given the above anatomy, I did recommend the patient to be seen by cardiothoracic surgeon for evaluation of coronary artery bypass grafting. 2. Beside that, I am going to increase the dose of losartan for better blood pressure control. 3. Continue aspirin as well as high-intensity statin. 4. Restart the patient back on heparin once we achieve hemostasis at the right radial site. 5. Transfer the patient to the intensive care unit. MMODL / IJN: [id number] /
[2019-08-25] MEDS: NITROGLYCERIN OINT 1 INCH/GM PACKET TOPICAL SCH ×5 (00:33→23:05)
[2019-08-25] MEDS: HEPARIN SOD,PORK IN 0.45% NACL 25,000 UNIT in 0.45% NACL 1 250ML.BAG IV SCH ×2 (05:08→08:33)
[2019-08-25 06:01] LABS: HCT 33.5 % (34.0-46.0); HGB 10.8 gm/dL (11.4-16.0); MCH 26.7 pg (25.0-35.0); MCHC 32.1 g/dL (31.0-37.0); MCV 83.1 fL (80.0-100.0); Mean Platelet Volume 6.6; Platelet Count 256 k/uL (150-450); RBC 4.03 m/uL (3.80-5.40); RDW 15.1 % (11.5-15.5); WBC 6.7 k/uL (3.8-10.6)
[2019-08-25 06:11] LABS: ALT 30 U/L (9-52); AST 22 U/L (14-36); African American GFR (CKD) >90 (>60 ml/min/1.73 sqM); Albumin 3.4 g/dL (3.5-5.0); Alkaline Phosphatase 69 U/L (38-126); Anion Gap 7 mmol/L; Blood Urea Nitrogen 17 mg/dL (7-17); Carbon Dioxide 23 mmol/L (22-30); Chloride 109 mmol/L (98-107); Cholesterol 177 mg/dL (<200); Glucose 126 mg/dL (74-99); HDL Cholesterol 25 mg/dL (40-60); LDL Cholesterol,Calculated 102 mg/dL (0-99); Non-African American GFR(CKD) >90 (>60 ml/min/1.73 sqM); Potassium 4.1 mmol/L (3.5-5.1); Sodium 139 mmol/L (137-145); Total Bilirubin 0.4 mg/dL (0.2-1.3); Total Protein 6.4 g/dL (6.3-8.2); Triglycerides 249 mg/dL (<150)
[2019-08-25 06:47] LABS: Glucose,Whole Blood 137 mg/dL (75-99)
[2019-08-25] MEDS: INSULIN ASPART (NovoLOG) 100 UNIT/ML VIAL SQ SCH ×4 (07:00→20:23)
[2019-08-25] MEDS: PANTOPRAZOLE 40 MG TABLET PO SCH (07:00)
[2019-08-25] MEDS: LEVOTHYROXINE 50 MCG TAB PO SCH (07:00)
[2019-08-25] MEDS: LOSARTAN 50 MG TAB PO SCH (08:33)
[2019-08-25] MEDS: ASPIRIN 81 MG PO SCH (08:33)
[2019-08-25] MEDS: ATORVASTATIN 80 MG TAB PO SCH (08:33)
[2019-08-25] MEDS: METOPROLOL TARTRATE 25 MG TAB PO SCH (08:48)
[2019-08-25] MEDS ORDERED: ASPIRIN 325 MG TAB PO SCH (09:00)
--- NOTE | 2019-08-25 09:00 | P.CNPUL ---
History of Present Illness Consult date: 08/25/19 Requesting physician: Yonny Marcano Reason for consult: other (Critical care management) Chief complaint: Epigastric pain, chest pain History of present illness: This is a very pleasant 63-year-old female patient who follows with Dr. Roca as her primary care physician. She has a history of diabetes mellitus, gastroesophageal reflux disease, hypertension, hyperlipidemia, hypothyroidism, coronary artery disease with previous stent placement. She also has a history of gastric bypass surgery and a hiatal hernia. She was actually scheduled to come see Dr. Walden yesterday for an EGD based on recent complaints of indigestion especially following meals. The night before however the pain gets too uncomfortable and she presented here early in the morning on 08/24/2019 with ongoing chest discomfort. She was utilizing nitroglycerin with some relief. She did undergo coronary cardiac catheterization yesterday and was found to have chronic total occlusion of the distal RCA which may be an in-stent stenosis, severe disease involving the distal left main as well as the ostial left cir cumflex and LAD. Preserved LV function with ejection fraction 55-60%. She's been seen and evaluated by cardiothoracic surgery. We are consulted for the same. She is currently resting comfortably in bed. Awake and alert in no acute distress. Denies any chest discomfort currently. No shortness of breath, cough or congestion. No palpitations or lightheadedness. On room air. No previous history of any form of pulmonary disease. No COPD or asthma. Nonsmoker. No inhalers or oxygen at home. Lung function testing pending. Chest x-ray reveals no acute cardiopulmonary process. She remains on a heparin drip. White count 6.7. Hemoglobin 10.8. Peak troponin 0.071. Creatinine 0.66. Review of Systems REVIEW OF SYSTEMS: CONSTITUTIONAL: Denies any recent significant weight loss or weight gain. EYES: Denies change in vision. EARS, NOSE, MOUTH, THROAT: Denies headaches, denies sore throat. CARDIOVASCULAR: Positive for chest pain, no palpitations or syncopal episodes. RESPIRATORY: Denies shortness of breath, cough, congestion or hemoptysis. GASTROINTESTINAL: Denies change in appetite, positive for epigastric pain GENITOURINARY: Denies hematuria, denies infections. MUSKULOSKELETAL: Denies pain, denies swelling. INTEGUMENTARY: Denies rash, denies eczema. NEUROLOGICAL: Denies recent memory loss, no recent seizure activity. PSYCHIATRIC: Denies anxiety, denies depression. HEMATOLOGIC/LYMPHATIC: Denies anemia, denies enlarged lymph nodes. Past Medical History Past Medical History: Diabetes Mellitus, Hypertension Additional Past Medical History / Comment(s): hernia History of Any Multi-Drug Resistant Organisms: None Reported Past Surgical History: Bariatric Surgery, Section, Cholecystectomy, Heart Catheterization With Stent Past Anesthesia/Blood Transfusion Reactions: Previous Problems w/ Anesthesia, Postoperative Nausea & Vomiting (PONV) Additional Past Anesthesia/Blood Transfusion Reaction / Comment(s): post of nausea Date of Last Stent Placement:: 2003 Past Psychological History: No Psychological Hx Reported Smoking Status: Never smoker Past Alcohol Use History: None Reported Past Drug Use History: None Reported - Past Family History Mother Family Medical History: Diabetes Mellitus, Hypertension Father Family Medical History: Hyperlipidemia, Hypertension Medications and Allergies Home Medications Medication Instructions Recorded Confirmed Type Aspirin 81 mg PO DAILY 08/23/19 08/24/19 History Levothyroxine Sodium [Synthroid] 50 mcg PO DAILY 08/23/19 08/24/19 History Lisinopril [Zestril] 10 mg PO DAILY 08/23/19 08/24/19 History Pantoprazole Sodium [Protonix] 40 mg PO DAILY 08/23/19 08/24/19 History Atorvastatin [Lipitor] 20 mg PO DAILY 08/24/19 08/24/19 History metFORMIN HCL ER [Glucophage Xr] 500 mg PO BID 08/24/19 08/24/19 History Allergies Allergy/AdvReac Type Severity Reaction Status Date / Time No Known Allergies Allergy Verified 08/24/19 08:59 Physical Exam Vitals: Vital Signs Temp Pulse Pulse Pulse Resp BP BP 08/25/19 08:00 98 F 53 L 18 131/59 08/25/19 07:00 66 26 H 122/57 08/25/19 06:00 51 L 22 114/56 08/25/19 05:00 45 L 26 H 122/52 08/25/19 04:00 55 L 21 131/56 08/25/19 03:00 49 L 20 132/57 08/25/19 02:00 53 L 17 124/51 08/25/19 01:00 50 L 21 123/62 08/25/19 00:00 98.6 F 45 L 23 140/63 08/24/19 23:00 44 L 20 132/57 08/24/19 22:00 55 L 28 H 141/61 08/24/19 21:00 60 18 137/66 08/24/19 20:45 50 L 16 137/66 08/24/19 20:30 52 L 18 138/63 08/24/19 20:15 54 L 17 141/64 08/24/19 20:00 98.7 F 51 L 16 143/66 08/24/19 19:45 54 L 18 138/65 08/24/19 19:30 52 L 18 124/63 08/24/19 19:15 52 L 18 134/63 08/24/19 19:00 53 L 18 141/67 08/24/19 18:45 53 L 18 154/65 08/24/19 18:30 54 L 18 140/63 08/24/19 15:16 48 L 176/79 08/24/19 12:00 46 L 157/71 08/24/19 09:14 96.8 F L 54 L 175/79 Pulse Ox 08/25/19 08:00 08/25/19 07:00 97 08/25/19 06:00 95 08/25/19 05:00 95 08/25/19 04:00 95 08/25/19 03:00 96 08/25/19 02:00 08/25/19 01:00 94 L 08/25/19 00:00 94 L 08/24/19 23:00 90 L 08/24/19 22:00 93 L 08/24/19 21:00 96 08/24/19 20:45 96 08/24/19 20:30 97 08/24/19 20:15 95 08/24/19 20:00 97 08/24/19 19:45 97 08/24/19 19:30 97 08/24/19 19:15 97 08/24/19 19:00 96 08/24/19 18:45 97 08/24/19 18:30 96 08/24/19 15:16 97 08/24/19 12:00 97 08/24/19 09:14 96 Intake and Output 08/24/19 08/25/19 08/25/19 22:59 06:59 14:59 Intake Total 600 975.497 0 Output Total 500 800 Balance 100 175.497 0 Intake: IV 300 600 0 Sodium Chloride 0.9% 1, 225 600 0 000 ml @ 75 mls/hr IV . [id number] [facility] Rx#:[id number] Intake, IV Titration 175.497 Amount Heparin Sod,Pork in 0.45% 175.497 NaCl 25,000 unit In 0.45 % NaCl 1 250ml.bag @ 12 UNITS/KG/HR 9.634 mls/hr IV .Q24H [facility] Rx#: [id number] Oral 300 200 Output: Urine 500 800 Other: # Voids 0 # Bowel Movements 1 Weight 87.3 kg GENERAL EXAM: Alert, active, comfortable in no apparent distress. On room air. HEAD: Normocephalic. EYES: Normal reaction of pupils, equal size. NOSE: Clear with pink turbinates. THROAT: No erythema or exudates. NECK: No masses, no JVD. CHEST: No chest wall deformity. LUNGS: Equal air entry with no crackles, wheeze, rhonchi or dullness. CVS: S1 and S2 normal with no audible murmur, regular rhythm. ABDOMEN: No hepatosplenomegaly, normal bowel sounds, no guarding or rigidity. SPINE: No scoliosis or deformity SKIN: No rashes CENTRAL NERVOUS SYSTEM: No focal deficits, tone is normal in all 4 extremities. EXTREMITIES: There is no peripheral edema. No clubbing, no cyanosis. Peripheral pulses are intact. Results - Laboratory Findings CBC and BMP: 08/25/19 05:14 08/25/19 05:14 PT/INR, D-dimer PT 10.5 sec (9.0-12.0) 08/24/19 20:00 INR 1.0 (<1.2) 08/24/19 20:00 Abnormal lab findings: Abnormal Labs 08/24/19 08/24/19 08/24/19 00:51 00:51 00:51 Hgb Hct APTT 20.4 L Chloride BUN 18 H Glucose 141 H POC Glucose (mg/dL) Troponin I 0.066 H* Albumin Triglycerides LDL Cholesterol, Calc HDL Cholesterol 08/24/19 08/24/19 08/24/19 06:21 07:42 07:42 Hgb Hct APTT 39.0 H Chloride BUN Glucose POC Glucose (mg/dL) 160 H Troponin I 0.071 H* Albumin Triglycerides LDL Cholesterol, Calc HDL Cholesterol 08/24/19 08/24/19 08/24/19 11:43 12:07 16:42 Hgb Hct APTT Chloride BUN Glucose POC Glucose (mg/dL) 147 H 122 H Troponin I 0.065 H* Albumin Triglycerides LDL Cholesterol, Calc HDL Cholesterol 08/24/19 08/24/19 08/24/19 18:22 20:00 21:01 Hgb Hct APTT 134.6 H* Chloride BUN Glucose POC Glucose (mg/dL) 113 H 160 H Troponin I Albumin Triglycerides LDL Cholesterol, Calc HDL Cholesterol 08/25/19 08/25/19 08/25/19 05:14 05:14 06:45 Hgb 10.8 L Hct 33.5 L APTT Chloride 109 H BUN Glucose 126 H POC Glucose (mg/dL) 137 H Troponin I Albumin 3.4 L Triglycerides 249 H LDL Cholesterol, Calc 102 H HDL Cholesterol 25 L - Diagnostic Findings Chest x-ray: image reviewed (No acute cardiopulmonary process) Assessment and Plan Assessment: #1 Chest discomfort and patient found to have significant coronary artery disease with calcified right and left coronary systems. Chronic total occlusion of the distal RCA suspected in-stent restenosis, severe disease involving the distal left main as well as involving the ostial left circumflex and LAD. #2 Diabetes mellitus #3 Hypertension #4 Previous coronary artery disease with stent placements #5 Hyperlipidemia #6 Hypothyroidism #7 Previous gastric bypass surgery Plan: The patient was seen and evaluated by Dr. Webber. Chest x-ray and labs reviewed. No previous history of pulmonary disease. Pulmonary function testing pending. She is educated regarding use the incentive spirometer and cough and deep b reathing exercises. We'll await further input from cardiothoracic surgery. We will continue to follow and make further recommendations based on her clinical status. I, the cosigning physician, performed a history & physical examination of the patient. Lungs sounds are clear. Maintaining good O2 saturations in the 90s on room air. I discussed the assessment and plan of care with my nurse practitioner, Yulisa Welsh. I attest to the above consultation as dictated by her. Time with Patient: Greater than 30
--- NOTE | 2019-08-25 10:03 | US ---
EXAMINATION TYPE: US carotid duplex BILAT DATE OF EXAM: 08/25/2019 COMPARISON: NONE CLINICAL HISTORY: preop cabg. no stroke history EXAM MEASUREMENTS: RIGHT: Peak Systolic Velocity (PSV) cm/sec ----- Right CCA: 94.8 ----- Right ICA: 126 ----- Right ECA: 148 ICA/CCA ratio: 1.3 RIGHT: End Diastole cm/sec ----- Right CCA: 20.8 ----- Right ICA: 35.7 ----- Right ECA: 2.4 LEFT: Peak Systolic Velocity (PSV) cm/sec ----- Left CCA: 133 ----- Left ICA: 166 ----- Left ECA: 112 ICA/CCA ratio: 1.2 LEFT: End Diastole cm/sec ----- Left CCA: 33.7 ----- Left ICA: 45.5 ----- Left ECA: 17.5 VERTEBRALS (direction of flow): Right Vertebral: Antegrade Left Vertebral: Antegrade Rhythm: Normal homogenous plaque with the an area of shadowing plaque seen at left bulb, no significant stenosis see n. IMPRESSION: 1. Elevated velocities throughout suggests hypertension rather than renal cysts with normal internal carotid artery to common carotid artery ratios bilaterally. 2. Mild degree of homogeneous atheromatous plaquing within the left carotid bulb. Criteria for Assigning % of Stenosis / Diameter reduction (Estimation based on the indirect measurements of the internal carotid artery velocities (ICA PSV). 1. Normal (no stenosis)=ICA PSV < 125 cm/s: ratio < 2.0: ICA EDV<40 cm/s. 2. Less than 50% stenosis=ICA PSV < 125 cm/s: ratio < 2.0: ICA EDV<40 cm/s. 3. 50 to 69% stenosis=ICA PSV of 125 to 230 cm/s: ration 2.0 ? 4.0: ICA EDV 40-100 cm/s. 4. Greater than 70% stenosis to near occlusion= ICA PSV > 230 cm/s: ratio > 4.0: ICA EDV > 100 cm/s. 5. Near occlusion= ICA PSV velocities may be low or undetectable: variable ratio and ICA EDV. 6. Total occlusion=unable to detect flow.
[2019-08-25 11:15] LABS: Appearance,Urine Clear (Clear); Bacteria,Urine Rare /hpf; Bilirubin,Urine Negative (Negative); Blood,Urine Negative (Negative); Color,Urine Light Yellow; Glucose,Urine (UA) Negative (Negative); Ketones,Urine Negative (Negative); Leukocyte Esterase,Urine Trace (Negative); Mucus,Urine Rare /hpf; Nitrite,Urine Negative (Negative); PH, Urine 5.5 (5.0-8.0); Protein,Urine Negative (Negative); RBC,Urine <1 /hpf (0-5); Specific Gravity,Urine 1.007 (1.001-1.035); Urobilinogen,Urine <2.0 mg/dL (<2.0)
--- NOTE | 2019-08-25 11:25 | P.PN ---
<Shahana Giraldo A - Last Filed: 08/25/19 11:22> Subjective Progress Note Date: 08/25/19 CHIEF COMPLAINT: Known patient HISTORY OF PRESENT ILLNESS: Patient examined this wearing the bedside with Dr. Yarbrough. She underwent cardiac catheterization yesterday revealing chronic total occlusion of the distal RCA, severe disease involving the distal left main and ostial left circumflex and LAD, critical disease involving the left circumflex, and severe disease involving the LAD/diagonal system. She is currently being evaluated by cardiothoracic surgery for possible CABG. Patient denies any abdominal pain or chest pain at the time of examination. She denies heartburn or reflux symptoms. Denies nausea or vomiting. She is passing flatus. PHYSICAL EXAM: VITAL SIGNS: Reviewed. GENERAL: Well-developed in no acute distress. HEENT: No sclera icterus. Extraocular movements grossly intact. Moist buccal mucosa. Head is atraumatic, normocephalic. Hears conversational speech. No nasal drainage. NECK: Supple without lymphadenopathy. CHEST: Non-labored respirations and equal bilateral excursions. CARDIOVASCULAR: Regular rate with regular rhythm. Palpable 2+ radial pulses. ABDOMEN: Soft. Nondistended. Nontender. MUSCULOSKELETAL: No clubbing or cyanosis. NEUROLOGIC: No focal or lateralizing signs. Cranial nerves II through XII grossly intact. PSYCH: Appropriate affect. Alert and oriented to person, place and time. SKIN: Well perfused. Good skin turgor. ASSESSMENT: 1. Chest pain, s/p cardiac catheterization yesterday revealing chronic total occlusion of the distal RCA, severe disease involving the distal left main and ostial left circumflex and LAD, critical disease involving the left circumflex, and severe disease involving the LAD/diagonal system 2. History of Eusebio-en-Y gastric bypass 3. History of known multiple hernias PLAN: Patient originally scheduled for EGD yesterday. This was cancelled as patient developed chest pain. Patient currently being worked up for possible CABG No plans for EGD at this time. Recommend continuing Protonix. Patient may follow up with Dr. Yarbrough outpatient after her acute issues have resolved Nurse practitioner note has been reviewed by physician. Signing provider agrees with the documented findings, assessment, and plan of care. Objective - Vital Signs Vital signs: Vital Signs Temp 98 F 08/25/19 08:00 Pulse 49 L 08/25/19 11:00 Resp 18 11/22/19 11:00 BP 132/53 08/25/19 11:00 Pulse Ox 96 08/25/19 11:00 Intake & Output 08/24/19 08/25/19 08/25/19 18:59 06:59 18:59 Intake Total 438.918 2696.497 560 Output Total 1300 400 Balance 499.503 200.497 160 Weight 87.3 kg Intake: IV 75 825 60 Sodium Chloride 0.9% 1, 825 0 000 ml @ 75 mls/hr IV . [id number] [facility] Rx#:[id number] normal saline at KVO 60 Intake, IV Titration 424.503 175.497 Amount Heparin Sod,Pork in 0.45% 74.503 175.497 NaCl 25,000 unit In 0.45 % NaCl 1 250ml.bag @ 12 UNITS/KG/HR 9.634 mls/hr IV .Q24H [facility]1983 Rx#: [id number] Sodium Chloride 0.9% 1, 350 000 ml In Empty Bag 1 bag @ 1 ML/KG/HR 86.1 mls/hr IV .[id number] [facility] Rx#: [id number] Oral 0 500 500 Output: Urine 1300 400 Other: Voiding Method Toilet # Voids 3 0 # Bowel Movements 1 - Labs CBC & Chem 7: 08/25/19 05:14 08/25/19 05:14 Labs: Abnormal Lab Results - Last 24 Hours (Table) 08/24/19 08/24/19 08/24/19 Range/Units 11:43 12:07 16:42 Hgb (11.4-16.0) gm/dL Hct (34.0-46.0) % APTT (22.0-30.0) sec Chloride (98-107) mmol/L Glucose (74-99) mg/dL POC Glucose (mg/dL) 147 H 122 H (75-99) mg/dL Troponin I 0.065 H* (0.000-0.034) ng/mL Albumin (3.5-5.0) g/dL Triglycerides (<150) mg/dL LDL Cholesterol, Calc (0-99) mg/dL HDL Cholesterol (40-60) mg/dL Ur Leukocyte Esterase (Negative) Urine Bacteria (None) /hpf Urine Mucus (None) /hpf 08/24/19 08/24/19 08/24/19 Range/Units 18:22 20:00 21:01 Hgb (11.4-16.0) gm/dL Hct (34.0-46.0) % APTT 134.6 H* (22.0-30.0) sec Chloride (98-107) mmol/L Glucose (74-99) mg/dL POC Glucose (mg/dL) 113 H 160 H (75-99) mg/dL Troponin I (0.000-0.034) ng/mL Albumin (3.5-5.0) g/dL Triglycerides (<150) mg/dL LDL Cholesterol, Calc (0-99) mg/dL HDL Cholesterol (40-60) mg/dL Ur Leukocyte Esterase (Negative) Urine Bacteria (None) /hpf Urine Mucus (None) /hpf 08/25/19 08/25/19 08/25/19 Range/Units 05:14 05:14 06:45 Hgb 10.8 L (11.4-16.0) gm/dL Hct 33.5 L (34.0-46.0) % APTT (22.0-30.0) sec Chloride 109 H (98-107) mmol/L Glucose 126 H (74-99) mg/dL POC Glucose (mg/dL) 137 H (75-99) mg/dL Troponin I (0.000-0.034) ng/mL Albumin 3.4 L (3.5-5.0) g/dL Triglycerides 249 H (<150) mg/dL LDL Cholesterol, Calc 102 H (0-99) mg/dL HDL Cholesterol 25 L (40-60) mg/dL Ur Leukocyte Esterase (Negative) Urine Bacteria (None) /hpf Urine Mucus (None) /hpf 08/25/19 Range/Units 10:50 Hgb (11.4-16.0) gm/dL Hct (34.0-46.0) % APTT (22.0-30.0) sec Chloride (98-107) mmol/L Glucose (74-99) mg/dL POC Glucose (mg/dL) (75-99) mg/dL Troponin I (0.000-0.034) ng/mL Albumin (3.5-5.0) g/dL Triglycerides (<150) mg/dL LDL Cholesterol, Calc (0-99) mg/dL HDL Cholesterol (40-60) mg/dL Ur Leukocyte Esterase Trace H (Negative) Urine Bacteria Rare H (None) /hpf Urine Mucus Rare H (None) /hpf <Zaira Yarbrough - Last Filed: 08/25/19 20:09> Subjective Cardiac catheterization results reviewed. Findings also discussed with the patient. Recent CT of the abdomen and pelvis results also reviewed. I did discuss with her that any general surgical intervention at this time can be de ferred pending more pressing issue of need for CABG. As a precaution, recommend omeprazole or Protonix as patient is high risk for marginal ulcers which may be a surgical emergency if untreated. Otherwise, may follow up as outpatient. We'll sign off. Objective - Vital Signs Vital signs: Vital Signs Temp 98.4 F 08/25/19 16:00 Pulse 48 L 08/25/19 17:00 Resp 14 08/25/19 17:00 BP 132/56 08/25/19 17:00 Pulse Ox 94 L 08/25/19 17:00 Intake & Output 08/25/19 08/25/19 08/26/19 06:59 18:59 06:59 Intake Total 1500.497 771.292 Output Total 1300 400 Balance 200.497 371.292 Weight 87.3 kg Intake: IV 825 200 Sodium Chloride 0.9% 1, 825 0 000 ml @ 75 mls/hr IV . [id number] [facility] Rx#:[id number] normal saline at KVO 200 Intake, IV Titration 175.497 71.292 Amount Heparin Sod,Pork in 0.45% 175.497 71.292 NaCl 25,000 unit In 0.45 % NaCl 1 250ml.bag @ 12 UNITS/KG/HR 9.634 mls/hr IV .Q24H [facility] Rx#: [id number] Oral 500 500 Output: Urine 1300 400 Other: Voiding Method Toilet # Voids 0 1 - Labs CBC & Chem 7: 08/25/19 05:14 08/25/19 05:14 Labs: Abnormal Lab Results - Last 24 Hours (Table) 08/24/19 08/24/19 08/25/19 Range/Units 20:00 21:01 05:14 Hgb (11.4-16.0) gm/dL Hct (34.0-46.0) % APTT 134.6 H* (22.0-30.0) sec Chloride (98-107) mmol/L Glucose (74-99) mg/dL POC Glucose (mg/dL) 160 H (75-99) mg/dL Hemoglobin A1c 6.9 H (4.0-6.0) % Albumin (3.5-5.0) g/dL Triglycerides (<150) mg/dL LDL Cholesterol, Calc (0-99) mg/dL HDL Cholesterol (40-60) mg/dL Ur Leukocyte Esterase (Negative) Urine Bacteria (None) /hpf Urine Mucus (None) /hpf 08/25/19 08/25/19 08/25/19 Range/Units 05:14 05:14 06:45 Hgb 10.8 L (11.4-16.0) gm/dL Hct 33.5 L (34.0-46.0) % APTT (22.0-30.0) sec Chloride 109 H (98-107) mmol/L Glucose 126 H (74-99) mg/dL POC Glucose (mg/dL) 137 H (75-99) mg/dL Hemoglobin A1c (4.0-6.0) % Albumin 3.4 L (3.5-5.0) g/dL Triglycerides 249 H (<150) mg/dL LDL Cholesterol, Calc 102 H (0-99) mg/dL HDL Cholesterol 25 L (40-60) mg/dL Ur Leukocyte Esterase (Negative) Urine Bacteria (None) /hpf Urine Mucus (None) /hpf 08/25/19 08/25/19 08/25/19 Range/Units 10:50 11:37 14:43 Hgb (11.4-16.0) gm/dL Hct (34.0-46.0) % APTT 30.7 H (22.0-30.0) sec Chloride (98-107) mmol/L Glucose (74-99) mg/dL POC Glucose (mg/dL) 158 H (75-99) mg/dL Hemoglobin A1c (4.0-6.0) % Albumin (3.5-5.0) g/dL Triglycerides (<150) mg/dL LDL Cholesterol, Calc (0-99) mg/dL HDL Cholesterol (40-60) mg/dL Ur Leukocyte Esterase Trace H (Negative) Urine Bacteria Rare H (None) /hpf Urine Mucus Rare H (None) /hpf 08/25/19 Range/Units 16:52 Hgb (11.4-16.0) gm/dL Hct (34.0-46.0) % APTT (22.0-30.0) sec Chloride (98-107) mmol/L Glucose (74-99) mg/dL POC Glucose (mg/dL) 121 H (75-99) mg/dL Hemoglobin A1c (4.0-6.0) % Albumin (3.5-5.0) g/dL Triglycerides (<150) mg/dL LDL Cholesterol, Calc (0-99) mg/dL HDL Cholesterol (40-60) mg/dL Ur Leukocyte Esterase (Negative) Urine Bacteria (None) /hpf Urine Mucus (None) /hpf Microbiology - Last 24 Hours (Table) 08/25/19 11:05 Nasal Screen MRSA/MSSA - Preliminary Nasal Swab
[2019-08-25 11:39] LABS: Glucose,Whole Blood 158 mg/dL (75-99)
--- NOTE | 2019-08-25 13:45 | P.GSCN ---
History of Present Illness Consult date: 08/25/19 Reason for Consult: Triple vessel coronary artery disease, surgical revascularization recommendations Requesting physician: Mc Payton History of present illness: This is a 63-year-old female who follows with Dr. Philip on an outpatient basis. She has a previous medical history of coronary artery disease status post stenting by Dr. Payton, no compliance with follow-up, hypertension, hyperlipidemia, hypothyroid, gestational diabetes, hiatal hernia, Eusebio-en-Y gastric bypass in 2003, and significant family history of early coronary artery disease. She presented to [facility] emergency room with complaints of chest heaviness located in the center of her chest with no radiation, associated with nausea which happened at rest, and no other aggravating or alleviating symptoms. She initially thought this was due to eating a sandwich half an hour prior but since the heaviness did not resolve she presented to the hospital. She states in the past that she had been a very active woman, but recently has become very sedentary secondary to pain she typically gets in the area of her upper mid abdomen we she has thought all along was from multiple hernias being monitored by general surgery. The type of pain she typically has is relieved by sublingual nitroglycerin. Her current complaints of chest heaviness felt different, thus she presented to the emergency room. EKG was completed demonstrating a normal sinus rhythm with a left bundle branch block. Troponins were elevated as high as 0.071 and she was ruled in for non-STEMI. She was admitted to the cardiac stepdown unit for further evaluation and treatment. Transthoracic echocardiogram was completed demonstrating severe concentric left ventricular hypertrophy, normal left ventricular systolic function with an EF 55-60%, grade 1 diastolic dysfunction, mild mitral regurgitation, and mild tricuspid regurgitation. She was recommended to undergo heart catheterization which was completed yesterday and which demonstrated severe triple-vessel c oronary artery disease with complete total occlusion of the right coronary artery with collateral from the left side, distal left main stenosis 70%, ostial circumflex stenosis 80-90%, mid circumflex with in stent stenosis, proximal LAD with mild disease and mid LAD with 70-80% stenosis, and a diagonal branch with severe disease. Due to these findings Dr. Marcano from cardiothoracic surgery was consulted for surgical revascularization recommendations. Review of Systems Review of systems was completed and was negative except as noted - Cardiovascular Reports as per HPI, Reports chest pain - Gastrointestinal Reports nausea Past Medical History Past Medical History: Coronary Artery Disease (CAD), Chest Pain / Angina, Diabetes Mellitus, Hyperlipidemia, Hypertension, Myocardial Infarction (AR), Thyroid Disorder Additional Past Medical History / Comment(s): hernia; patient states she had gestational diabetes History of Any Multi-Drug Resistant Organisms: None Reported Past Surgical History: Bariatric Surgery, Section, Cholecystectomy, Heart Catheterization With Stent Past Anesthesia/Blood Transfusion Reactions: Previous Problems w/ Anesthesia, Postoperative Nausea & Vomiting (PONV) Additional Past Anesthesia/Blood Transfusion Reaction / Comm: post of nausea Date of Last Stent Placement:: 2011 Past Psychological History: No Psychological Hx Reported Smoking Status: Never smoker Past Alcohol Use History: None Reported Past Drug Use History: None Reported - Past Family History Mother Family Medical History: CVA/TIA, Diabetes Mellitus, Hypertension Father Family Medical History: Hyperlipidemia, Hypertension Brother(s) Family Medical History: Coronary Artery Disease (CAD) Additional Family Medical History / Comment(s): Both brother and sister diagnosed with heart disease for the age of 60, multiple family members on patient's mother's side with coronary artery disease status post bypass Sister(s) Family Medical History: Coronary Artery Disease (CAD) Medications and Allergies Home Medications Medication Instructions Recorded Confirmed Type Aspirin 81 mg PO DAILY 08/23/19 08/24/19 History Levothyroxine Sodium [Synthroid] 50 mcg PO DAILY 08/23/19 08/24/19 History Lisinopril [Zestril] 10 mg PO DAILY 08/23/19 08/24/19 History Pantoprazole Sodium [Protonix] 40 mg PO DAILY 08/23/19 08/24/19 History Atorvastatin [Lipitor] 20 mg PO DAILY 08/24/19 08/24/19 History metFORMIN HCL ER [Glucophage Xr] 500 mg PO BID 08/24/19 08/24/19 History Allergies Allergy/AdvReac Type Severity Reaction Status Date / Time No Known Allergies Allergy Verified 08/24/19 08:59 Surgical - Exam Vital Signs Temp Pulse Resp BP Pulse Ox 98.2 F 73 18 198/93 98 08/24/19 00:39 08/24/19 00:39 08/24/19 00:39 08/24/19 00:39 08/24/19 00:39 - General well developed, well nourished, no distress, no pain, obese - Eyes PERRL, normal ocular movement - ENT no hearing loss - Neck no masses, no bruits, trachea midline - Respiratory Lungs sounds clear bilaterally. Respirations even, nonlabored. Currently on room air with oxygen saturation 96%. No chest wall deformities. No cyanosis or clubbing. - Cardiovascular S1, S2 present. Slow but regular rate and rhythm, sinus bradycardia on telemetry. Palpable peripheral pulses bilaterally. No edema present. No calf pain or tenderness noted. No varicosities noted. Negative Lisandro's test to left radial artery. Right radial artery heart catheterization site well approximated, no drainage. - Abdomen Abdomen: soft, non tender, bowel sounds - Genitourinary Deferred - Rectum Deferred - Integumentary no rash, no growths, no abnormal pigmentation - Neurologic normal coordination, normal sensation - Musculoskeletal normal posture - Psychiatric oriented to time, oriented to person, oriented to place, speech is normal, memory intact Results - Labs 08/25/19 05:14 08/25/19 05:14 Abnormal Lab Results - Last 24 Hours (Table) 08/24/19 08/24/19 08/24/19 Range/Units 16:42 18:22 20:00 Hgb (11.4-16.0) gm/dL Hct (34.0-46.0) % APTT 134.6 H* (22.0-30.0) sec Chloride (98-107) mmol/L Glucose (74-99) mg/dL POC Glucose (mg/dL) 122 H 113 H (75-99) mg/dL Albumin (3.5-5.0) g/dL Triglycerides (<150) mg/dL LDL Cholesterol, Calc (0-99) mg/dL HDL Cholesterol (40-60) mg/dL Ur Leukocyte Esterase (Negative) Urine Bacteria (None) /hpf Urine Mucus (None) /hpf 08/24/19 08/25/19 08/25/19 Range/Units 21:01 05:14 05:14 Hgb 10.8 L (11.4-16.0) gm/dL Hct 33.5 L (34.0-46.0) % APTT (22.0-30.0) sec Chloride 109 H (98-107) mmol/L Glucose 126 H (74-99) mg/dL POC Glucose (mg/dL) 160 H (75-99) mg/dL Albumin 3.4 L (3.5-5.0) g/dL Triglycerides 249 H (<150) mg/dL LDL Cholesterol, Calc 102 H (0-99) mg/dL HDL Cholesterol 25 L (40-60) mg/dL Ur Leukocyte Esterase (Negative) Urine Bacteria (None) /hpf Urine Mucus (None) /hpf 08/25/19 08/25/19 08/25/19 Range/Units 06:45 10:50 11:37 Hgb (11.4-16.0) gm/dL Hct (34.0-46.0) % APTT (22.0-30.0) sec Chloride (98-107) mmol/L Glucose (74-99) mg/dL POC Glucose (mg/dL) 137 H 158 H (75-99) mg/dL Albumin (3.5-5.0) g/dL Triglycerides (<150) mg/dL LDL Cholesterol, Calc (0-99) mg/dL HDL Cholesterol (40-60) mg/dL Ur Leukocyte Esterase Trace H (Negative) Urine Bacteria Rare H (None) /hpf Urine Mucus Rare H (None) /hpf Diabetes panel 08/25/19 Range/Units 05:14 Sodium 139 (137-145) mmol/L Potassium 4.1 (3.5-5.1) mmol/L Chloride 109 H (98-107) mmol/L Carbon Dioxide 23 (22-30) mmol/L BUN 17 (7-17) mg/dL Creatinine 0.66 (0.52-1.04) mg/dL Glucose 126 H (74-99) mg/dL Calcium 9.0 (8.4-10.2) mg/dL AST 22 (14-36) U/L ALT 30 (9-52) U/L Alkaline Phosphatase 69 (38-126) U/L Total Protein 6.4 (6.3-8.2) g/dL Albumin 3.4 L (3.5-5.0) g/dL Triglycerides 249 H (<150) mg/dL HDL Cholesterol 25 L (40-60) mg/dL Calcium panel 08/25/19 Range/Units 05:14 Calcium 9.0 (8.4-10.2) mg/dL Albumin 3.4 L (3.5-5.0) g/dL Pituitary panel 08/25/19 Range/Units 05:14 Sodium 139 (137-145) mmol/L Potassium 4.1 (3.5-5.1) mmol/L Chloride 109 H (98-107) mmol/L Carbon Dioxide 23 (22-30) mmol/L BUN 17 (7-17) mg/dL Creatinine 0.66 (0.52-1.04) mg/dL Glucose 126 H (74-99) mg/dL Calcium 9.0 (8.4-10.2) mg/dL Adrenal panel 08/25/19 Range/Units 05:14 Sodium 139 (137-145) mmol/L Potassium 4.1 (3.5-5.1) mmol/L Chloride 109 H (98-107) mmol/L Carbon Dioxide 23 (22-30) mmol/L BUN 17 (7-17) mg/dL Creatinine 0.66 (0.52-1.04) mg/dL Glucose 126 H (74-99) mg/dL Calcium 9.0 (8.4-10.2) mg/dL Total Bilirubin 0.4 (0.2-1.3) mg/dL AST 22 (14-36) U/L ALT 30 (9-52) U/L Alkaline Phosphatase 69 (38-126) U/L Total Protein 6.4 (6.3-8.2) g/dL Albumin 3.4 L (3.5-5.0) g/dL - Imaging Chest x-ray: report reviewed, image reviewed EKG: report reviewed, image reviewed Additional studies: Heart catheterization films as well as echocardiogram films were reviewed with Dr. Marcano Assessment and Plan Assessment: 1. Triple-vessel coronary artery disease, non-STEMI 2. Previous history of coronary artery disease with multiple stents placed, noncompliance with follow-up 3. Hypertension 4. Hyperlipidemia 5. Hypothyroid 6. Diabetes 7. Hiatal hernia 8. Significant family history of premature coronary artery disease 9. Eusebio-en-Y gastric bypass in 2003 Plan: The patient was seen and examined at the bedside with Dr. Marcano. Chart/ diagnostics were reviewed including heart catheterization films and echocardiogram films. The usual perioperative course was discussed in detail with the patient, risks and benefits were reviewed, all questions were answered. Preoperative testing was initiated. Patient should receive optimize medical management and does need time to recover from her myocardial infarction. Once all testing has been completed we will calculate an STS risk score and discussed with the patient. Barring any significant red flags of extreme high risk, the patient should receive surgical myocardial revascularization this admission. She should continue on aspirin and statin therapy. She has been unable to viktor erate Lopressor with significant bradycardia, perhaps switching to Coreg would provide better benefit for this patient. Pulmonology consulted for ventilator management and optimization of pulmonary status. We'll complete 5 m walk test. More recommendations to follow. Thank you Dr. Payton for this consult. We look forward to working with you in the care of your patient. Time with Patient: Greater than 30
--- NOTE | 2019-08-25 14:31 | P.PN ---
Subjective Progress Note Date: 08/25/19 Principal diagnosis: Acute coronary syndrome This is a pleasant 63-year-old female patient with a CAD and prior stenting, hypertension, dyslipidemia, was admitted to the hospital with acute coronary syndrome. She presented to the chest discomfort. She underwent a heart cathete rization which revealed severe triple-vessel CAD. The echocardiogram revealed normal LV function. She was referred to be seen by cardiothoracic surgeon for the evaluation of CABG. She was seen this morning. She remains asymptomatic. Currently she is on heparin IV. She is bradycardic and I will decrease the dose of metoprolol to 12.5 mg by mouth twice a day. Otherwise she is on aspirin, high intensity statin, as well as losartan. Objective - Vital Signs Vital signs: Vital Signs Temp 98.3 F 08/25/19 12:00 Pulse 43 L 08/25/19 14:00 Resp 17 08/25/19 14:00 BP 116/53 08/25/19 14:00 Pulse Ox 94 L 08/25/19 14:00 Intake & Output 08/24/19 08/25/19 08/25/19 18:59 06:59 18:59 Intake Total 398.834 8043.497 620 Output Total 1300 400 Balance 499.503 200.497 220 Weight 87.3 kg Intake: IV 75 825 120 Sodium Chloride 0.9% 1, 825 0 000 ml @ 75 mls/hr IV . [id number] [facility] Rx#:[id number] normal saline at KVO 120 Intake, IV Titration 424.503 175.497 Amount Heparin Sod,Pork in 0.45% 74.503 175.497 NaCl 25,000 unit In 0.45 % NaCl 1 250ml.bag @ 12 UNITS/KG/HR 9.634 mls/hr IV .Q24H [facility] Rx#: [id number] Sodium Chloride 0.9% 1, 350 000 ml In Empty Bag 1 bag @ 1 ML/KG/HR 86.1 mls/hr IV .[id number] [facility] Rx#: [id number] Oral 0 500 500 Output: Urine 1300 400 Other: Voiding Method Toilet # Voids 3 0 1 # Bowel Movements 1 - Constitutional General appearance: Present: no acute distress - Respiratory Respiratory: bilateral: CTA - Cardiovascular Rhythm: regular Heart sounds: normal: S1, S2 - Labs CBC & Chem 7: 08/25/19 05:14 08/25/19 05:14 Labs: Abnormal Lab Results - Last 24 Hours (Table) 08/24/19 08/24/19 08/24/19 Range/Units 16:42 18:22 20:00 Hgb (11.4-16.0) gm/dL Hct (34.0-46.0) % APTT 134.6 H* (22.0-30.0) sec Chloride (98-107) mmol/L Glucose (74-99) mg/dL POC Glucose (mg/dL) 122 H 113 H (75-99) mg/dL Albumin (3.5-5.0) g/dL Triglycerides (<150) mg/dL LDL Cholesterol, Calc (0-99) mg/dL HDL Cholesterol (40-60) mg/dL Ur Leukocyte Esterase (Negative) Urine Bacteria (None) /hpf Urine Mucus (None) /hpf 08/24/19 08/25/19 08/25/19 Range/Units 21:01 05:14 05:14 Hgb 10.8 L (11.4-16.0) gm/dL Hct 33.5 L (34.0-46.0) % APTT (22.0-30.0) sec Chloride 109 H (98-107) mmol/L Glucose 126 H (74-99) mg/dL POC Glucose (mg/dL) 160 H (75-99) mg/dL Albumin 3.4 L (3.5-5.0) g/dL Triglycerides 249 H (<150) mg/dL LDL Cholesterol, Calc 102 H (0-99) mg/dL HDL Cholesterol 25 L (40-60) mg/dL Ur Leukocyte Esterase (Negative) Urine Bacteria (None) /hpf Urine Mucus (None) /hpf 08/25/19 08/25/19 08/25/19 Range/Units 06:45 10:50 11:37 Hgb (11.4-16.0) gm/dL Hct (34.0-46.0) % APTT (22.0-30.0) sec Chloride (98-107) mmol/L Glucose (74-99) mg/dL POC Glucose (mg/dL) 137 H 158 H (75-99) mg/dL Albumin (3.5-5.0) g/dL Triglycerides (<150) mg/dL LDL Cholesterol, Calc (0-99) mg/dL HDL Cholesterol (40-60) mg/dL Ur Leukocyte Esterase Trace H (Negative) Urine Bacteria Rare H (None) /hpf Urine Mucus Rare H (None) /hpf Assessment and Plan Assessment: Assessment #1 acute non-ST patient myocardial infarction #2 severe left main and triple-vessel CAD #3 preserved left ventricle systolic function #4 multiple comorbid conditions Plan #1 decrease the dose of metoprolol #2 continue aspirin and statin #3 the patient is in process of being seen by cardiothoracic surgeon
[2019-08-25 14:43] LABS: Hemoglobin A1C 6.9 % (4.0-6.0)
[2019-08-25 16:54] LABS: Glucose,Whole Blood 121 mg/dL (75-99)
[2019-08-25 20:22] LABS: Glucose,Whole Blood 128 mg/dL (75-99)
[2019-08-25] MEDS: METOPROLOL TARTRATE 12.5 MG TAB PO SCH (20:56)
--- NOTE | 2019-08-25 22:49 | P.PN ---
Progress Note - Text Progress Note Date: 08/25/19 Chief Complaint: Chest heaviness History of presenting complaint: This is a very pleasant 63-year-old patient of Dr. Roca. Chronic stable medical conditions include diabetes, hypertension, hiatal hernia, hypothyroid, primary osteoarthritis. Patient has a known history of coronary artery disease stent. Last was several years ago. Has not had a stress test since then. Patient also being worked up by Dr. Walden for her hiatal hernia. Was supposed to have her endoscopy done today. Some of the symptoms she's been having was felt to be from a hiatal hernia. Does get some bloating and discomfort in the upper abdomen. Patient now presented to us last night she had heaviness in the central part of the chest. Last 4 good 2 hours. There was nausea. Dizziness. [place] flushed. There was no radiation radiation to the neck or the arm. Troponin was started to to be positive. Admitted with acute non-Q-wave AR. Had a cardiac catheterization on August 24. Showed severe triple-vessel disease. Cardiothoracic surgery was consulted. Today-sitting up. Oral distress. But anxious. No chest pain or short of breath. Review of systems: Was done for constitutional, cardiovascular, GI, pulmonary. relevant finding as above Active Medications Acetaminophen (Tylenol Tab) 650 mg PO Q6HR PRN PRN Reason: Fever and/ or Mild Pain Last Admin: 08/24/19 09:24 Dose: 650 mg Documented by: Alprazolam (Xanax) 0.25 mg PO Q6HR PRN PRN Reason: Mild Anxiety Alprazolam (Xanax) 0.5 mg PO Q6HR PRN PRN Reason: Moderate Anxiety Aspirin (Aspirin) 81 mg PO DAILY [facility] Last Admin: 08/25/19 08:33 Dose: 81 mg Documented by: Atorvastatin Calcium (Lipitor) 80 mg PO DAILY [facility] Last Admin: 08/25/19 08:33 Dose: 80 mg Documented by: Heparin Sodium/Sodium Chloride (25,000 unit/ Sodium Chloride) 250 mls @ 9.634 mls/hr IV .Q24H [facility]; Protocol Last Titration: 08/25/19 15:57 Dose: 15 units/kg/hr, 12.043 mls/hr Documented by: Insulin Aspart (Novolog) 0 unit SQ ACHS [facility]; Protocol Last Admin: 08/25/19 20:23 Dose: Not Given Documented by: Levothyroxine Sodium (Synthroid) 50 mcg PO DAILY@0630 [facility] Last Admin: 08/25/19 07:00 Dose: 50 mcg Documented by: Losartan Potassium (Cozaar) 50 mg PO DAILY [facility] Last Admin: 08/25/19 08:33 Dose: 50 mg Documented by: Metoprolol Tartrate (Lopressor) 12.5 mg PO BID [facility] Last Admin: 08/25/19 20:56 Dose: Not Given Documented by: Miscellaneous Information (Rx Info: Iv Contrast Was Given) 1 each MISCELLANE DAILY PRN PRN Reason: Per Protocol Stop: 08/26/19 18:15 Nitroglycerin (Nitro-Bid Oint) 1 inch TOPICAL Q6HR [facility] Last Admin: 08/25/19 17:55 Dose: 1 inch Documented by: Nitroglycerin (Nitrostat) 0.4 mg SUBLINGUAL Q5M PRN PRN Reason: Chest Pain Pantoprazole Sodium (Protonix) 40 mg PO AC-BRKFST [facility] Last Admin: 08/25/19 07:00 Dose: 40 mg Documented by: Physical examination: Vital signs-98.4, 51, 14, 124/50, 95% room air GENERAL: Sitting up, comfortable EYES: Pupils equal. Conjunctiva normal. HEENT: External appearance of nose and ears normal, oral cavity grossly normal. NECK: JVD not raised; masses not palpable. HEART: First and second heart sounds are normal; no edema. LUNGS: Respiratory rate normal; clear to auscultation. ABDOMEN: Soft, mild epigastric tenderness, liver spleen not palpable, no masses palpable. PSYCH: Alert and oriented x3; mood and affect slightly anxious MUSCULOSKELETAL: Evidence of OA in the hands INVESTIGATIONS, reviewed in the clinical context: White count 6.2 hemoglobin 12.6 platelets 272 potassium 4 creatinine 0.7 Troponin I 0.066, 0.071, 0.065 ProBNP 436 EKG tracing personally reviewed by me-sinus rhythm left bundle branch block Chest x-ray film personally reviewed by me-lung galvin clear Cardiac catheterization showing severe triple-vessel disease Assessment: -Acute non-Q-wave myocardial infarction -Severe triple-vessel disease- cardiac catheterization -Diabetes mellitus type 2 on oral hypoglycemic -Essential hypertension -Hiatal hernia, symptomatic with GERD -Hypothyroid -Primary osteoarthritis -Obesity BMI 35.3 Plan: Cardiothoracic surgery was consulted. Other medications to continue. Care was discussed with the patient. Hiatal hernia can be addressed down the road.
[2019-08-26] MEDS: PANTOPRAZOLE 40 MG TABLET PO SCH (06:11)
[2019-08-26] MEDS: NITROGLYCERIN OINT 1 INCH/GM PACKET TOPICAL SCH ×3 (06:11→17:40)
[2019-08-26] MEDS: LEVOTHYROXINE 50 MCG TAB PO SCH (06:11)
[2019-08-26] MEDS: HEPARIN SOD,PORK IN 0.45% NACL 25,000 UNIT in 0.45% NACL 1 250ML.BAG IV SCH ×3 (06:16→21:22)
[2019-08-26 06:34] LABS: Glucose,Whole Blood 136 mg/dL (75-99)
[2019-08-26] MEDS: INSULIN ASPART (NovoLOG) 100 UNIT/ML VIAL SQ SCH ×4 (06:46→20:49)
[2019-08-26] MEDS: ATORVASTATIN 80 MG TAB PO SCH (08:32)
[2019-08-26] MEDS: LOSARTAN 50 MG TAB PO SCH (08:32)
[2019-08-26] MEDS: ASPIRIN 81 MG PO SCH (08:32)
[2019-08-26] MEDS: METOPROLOL TARTRATE 12.5 MG TAB PO SCH ×2 (08:32→20:49)
--- NOTE | 2019-08-26 11:11 | P.PN ---
Subjective Progress Note Date: 08/26/19 Principal diagnosis: Coronary artery disease This is a very pleasant 63-year-old female patient who follows with Dr. Roca as her primary care physician. She has a history of diabetes mellitus, gastroesophageal reflux disease, hypertension, hyperlipidemia, hypothyroidism, coronary artery disease with previous stent placement. She also has a history of gastric bypass surgery and a hiatal hernia. She was actually scheduled to come see Dr. Walden yesterday for an EGD based on recent complaints of indigestion especially following meals. The night before however the pain gets too uncomfortable and she presented here early in the morning on 08/24/2019 with ongoing chest discomfort. She was utilizing nitroglycerin with some relief. She did undergo coronary cardiac catheterization yesterday and was found to have chronic total occlusion of the distal RCA which may be an in-stent stenosis, severe disease involving the distal left main as well as the ostial left cir cumflex and LAD. Preserved LV function with ejection fraction 55-60%. She's been seen and evaluated by cardiothoracic surgery. We are consulted for the same. She is currently resting comfortably in bed. Awake and alert in no acute distress. Denies any chest discomfort currently. No shortness of breath, cough or congestion. No palpitations or lightheadedness. On room air. No previous history of any form of pulmonary disease. No COPD or asthma. Nonsmoker. No inhalers or oxygen at home. Lung function testing pending. Chest x-ray reveals no acute cardiopulmonary process. She remains on a heparin drip. White count 6.7. Hemoglobin 10.8. Peak troponin 0.071. Creatinine 0.66. The patient is seen today 08/26/2019 in follow-up on the selective care unit. She is awake and alert in no acute distress. No further chest discomfort. No palpitations, dizziness or lightheadedness. No shortness of breath, cough or congestion. She is maintaining good O2 saturations in the mid 90s on room air. She's afebrile. Hemodynamically stable. She remains on a heparin drip. The plan is for coronary artery revascularization on 08/28/2019. Objective - Vital Signs Vital signs: Vital Signs Temp 97.8 F 08/26/19 08:27 Pulse 53 L 08/26/19 08:27 Resp 20 11/23/19 08:27 BP 122/73 08/26/19 08:27 Pulse Ox 95 08/26/19 08:27 Intake & Output 08/25/19 08/26/19 08/26/19 18:59 06:59 18:59 Intake Total 771.292 178.708 631.393 Output Total 400 Balance 371.292 178.708 631.393 Weight 86.2 kg Intake: IV 200 Sodium Chloride 0.9% 1, 0 000 ml @ 75 mls/hr IV . [id number] [facility] Rx#:[id number] normal saline at KVO 200 Intake, IV Titration 71.292 178.708 31.393 Amount Heparin Sod,Pork in 0.45% 71.292 178.708 31.393 NaCl 25,000 unit In 0.45 % NaCl 1 250ml.bag @ 12 UNITS/KG/HR 9.634 mls/hr IV .Q24H [facility] Rx#: [id number] Oral 500 600 Output: Urine 400 Other: Voiding Method Toilet Toilet # Voids 1 - Exam GENERAL EXAM: Alert, active, very pleasant 63-year-old female patient, on room air, comfortable in no apparent distress. HEAD: Normocephalic. EYES: Normal reaction of pupils, equal size. NOSE: Clear with pink turbinates. THROAT: No erythema or exudates. NECK: No masses, no JVD. CHEST: No chest wall deformity. LUNGS: Equal air entry with no crackles, wheeze, rhonchi or dullness. CVS: S1 and S2 normal with no audible murmur, regular rhythm. ABDOMEN: No hepatosplenomegaly, normal bowel sounds, no guarding or rigidity. SPINE: No scoliosis or deformity SKIN: No rashes CENTRAL NERVOUS SYSTEM: Alert and oriented 3. No focal deficits, tone is normal in all 4 extremities. EXTREMITIES: There is no peripheral edema. No clubbing, no cyanosis. Peripheral pulses are intact. - Labs CBC & Chem 7: 08/25/19 05:14 08/25/19 05:14 Labs: Abnormal Lab Results - Last 24 Hours (Table) 08/25/19 08/25/19 08/25/19 Range/Units 05:14 10:50 11:37 APTT (22.0-30.0) sec POC Glucose (mg/dL) 158 H (75-99) mg/dL Hemoglobin A1c 6.9 H (4.0-6.0) % Ur Leukocyte Esterase Trace H (Negative) Urine Bacteria Rare H (None) /hpf Urine Mucus Rare H (None) /hpf 08/25/19 08/25/19 08/25/19 Range/Units 14:43 16:52 20:21 APTT 30.7 H (22.0-30.0) sec POC Glucose (mg/dL) 121 H 128 H (75-99) mg/dL Hemoglobin A1c (4.0-6.0) % Ur Leukocyte Esterase (Negative) Urine Bacteria (None) /hpf Urine Mucus (None) /hpf 08/25/19 08/26/19 08/26/19 Range/Units 22:13 05:07 06:33 APTT 41.8 H 59.6 H (22.0-30.0) sec POC Glucose (mg/dL) 136 H (75-99) mg/dL Hemoglobin A1c (4.0-6.0) % Ur Leukocyte Esterase (Negative) Urine Bacteria (None) /hpf Urine Mucus (None) /hpf Microbiology - Last 24 Hours (Table) 08/25/19 11:05 Nasal Screen MRSA/MSSA - Preliminary Nasal Swab Assessment and Plan Assessment: #1 Chest discomfort and patient found to have significant coronary artery disease with calcified right and left coronary systems. Chronic total occlusion of the distal RCA suspected in-stent restenosis, severe disease involving the distal left main as well as involving the ostial left circumflex and LAD. The plan is for coronary artery revascularization on 08/28/2019 #2 Diabetes mellitus #3 Hypertension #4 Previous coronary artery disease with stent placements #5 Hyperlipidemia #6 Hypothyroidism #7 Previous gastric bypass surgery #8 Lifelong nonsmoker Plan: The patient was seen and evaluated by Dr. Webber. She is currently stable. She is again educated regarding the importance of the incentive spirometer and cough and deep breathing exercises. We will be following her in the immediate postoperative period. I, the cosigning physician, performed a history & physical examination of the patient. Lungs sounds are clear. Maintaining good O2 saturations in the 90s on room air. I discussed the assessment and plan of care with my nurse practitioner, Yulisa Welsh. I attest to the above note as dictated by her.
--- NOTE | 2019-08-26 11:18 | P.PN ---
Subjective Progress Note Date: 08/26/19 Principal diagnosis: Triple-vessel coronary artery disease with significant left main disease, non- STEMI this admission. Previous medical history of coronary artery disease status post stenting, noncompliance with cardiac follow-up, hypertension, hyperlipidemia, hypothyroidism, type 2 diabetes mellitus with hemoglobin A1c 6.9%, hiatal hernia, Eusebio-en-Y gastric bypass in 2003, and significant family history of premature coronary artery disease The patient is currently sitting up in bed in no acute distress. Denies any chest pain or shortness of breath. States she has been ambulatory in the hallway without any issues. No new concerns. Objective - Vital Signs Vital signs: Vital Signs Temp 97.8 F 08/26/19 08:27 Pulse 53 L 08/26/19 08:27 Resp 20 08/26/19 08:27 BP 122/73 08/26/19 08:27 Pulse Ox 95 08/26/19 08:27 Intake & Output 08/25/19 08/26/19 08/26/19 18:59 06:59 18:59 Intake Total 771.292 178.708 631.393 Output Total 400 Balance 371.292 178.708 631.393 Weight 86.2 kg Intake: IV 200 Sodium Chloride 0.9% 1, 0 000 ml @ 75 mls/hr IV . [id number] [facility] Rx#:[id number] normal saline at KVO 200 Intake, IV Titration 71.292 178.708 31.393 Amount Heparin Sod,Pork in 0.45% 71.292 178.708 31.393 NaCl 25,000 unit In 0.45 % NaCl 1 250ml.bag @ 12 UNITS/KG/HR 9.634 mls/hr IV .Q24H [facility] Rx#: [id number] Oral 500 600 Output: Urine 400 Other: Voiding Method Toilet Toilet # Voids 1 - Constitutional General appearance: Present: cooperative, no acute distress - Respiratory Details: Lungs sounds clear bilaterally. Respirations even, nonlabored. Currently on room air with oxygen saturation 96%. Able to achieve 1500 mL on her incentive spirometry. - Cardiovascular Details: S1, S2 present. Slow but regular rate and rhythm, sinus bradycardia on telemetry. Palpable peripheral pulses bilaterally. No edema present. No calf pain or tenderness noted. - Gastrointestinal Gastrointestinal Comment(s): Abdomen soft, nontender, nondistended. Active bowel sounds present 4 quadrants. Tolerating diet. - Genitourinary Genitourinary Comment(s): Continues to void clear, yellow urine. - Integumentary Integumentary Comment(s): Skin is warm and dry with evidence of good perfusion. - Neurologic Neurologic: Present: CNII-XII intact - Musculoskeletal Musculoskeletal: Present: gait normal, strength equal bilaterally - Psychiatric Psychiatric: Present: A&O x's 3, appropriate affect, intact judgment & insight - Allied health notes Allied health notes reviewed: nursing - Labs CBC & Chem 7: 08/25/19 05:14 08/25/19 05:14 Labs: Abnormal Lab Results - Last 24 Hours (Table) 08/25/19 08/25/19 08/25/19 Range/Units 05:14 10:50 11:37 APTT (22.0-30.0) sec POC Glucose (mg/dL) 158 H (75-99) mg/dL Hemoglobin A1c 6.9 H (4.0-6.0) % Ur Leukocyte Esterase Trace H (Negative) Urine Bacteria Rare H (None) /hpf Urine Mucus Rare H (None) /hpf 08/25/19 08/25/19 08/25/19 Range/Units 14:43 16:52 20:21 APTT 30.7 H (22.0-30.0) sec POC Glucose (mg/dL) 121 H 128 H (75-99) mg/dL Hemoglobin A1c (4.0-6.0) % Ur Leukocyte Esterase (Negative) Urine Bacteria (None) /hpf Urine Mucus (None) /hpf 08/25/19 08/26/19 08/26/19 Range/Units 22:13 05:07 06:33 APTT 41.8 H 59.6 H (22.0-30.0) sec POC Glucose (mg/dL) 136 H (75-99) mg/dL Hemoglobin A1c (4.0-6.0) % Ur Leukocyte Esterase (Negative) Urine Bacteria (None) /hpf Urine Mucus (None) /hpf Microbiology - Last 24 Hours (Table) 08/25/19 11:05 Nasal Screen MRSA/MSSA - Preliminary Nasal Swab Assessment and Plan Assessment: 1. Triple-vessel coronary artery disease with significant left main disease, no n-STEMI 2. Previous history of coronary artery disease with multiple stents placed, noncompliance with follow-up 3. Hypertension 4. Hyperlipidemia 5. Hypothyroid 6. Diabetes with hemoglobin A1c 6.9% 7. Hiatal hernia 8. Significant family history of premature coronary artery disease 9. Eusebio-en-Y gastric bypass in 2003 Plan: 1. Continue medical therapy with aspirin, statin, Cozaar, low-dose beta yana if able. Consider switching to Coreg. 2. Increase activity, ambulate as tolerated. 3. Encourage incentive spirometry use 4. Will complete 5 m walk test. STS risk score was calculated in discussed with the patient 5. Medical management per primary care service 6. Our plan is for urgent myocardial revascularization with left internal mammary artery usage, endoscopic vein harvest, and possible left radial artery harvesting with intraoperative transesophageal echocardiogram performed by Dr. Obregon on 08/28/2019. This was discussed with the patient and she is in agreement. 7. More recommendations to follow. Time with Patient: Greater than 30
[2019-08-26 11:54] LABS: Glucose,Whole Blood 123 mg/dL (75-99)
--- NOTE | 2019-08-26 12:14 | PN ---
PROGRESS NOTE Mrs. Guo is a 63-year-old female with a known history of coronary artery disease who presented with acute coronary syndrome, underwent cardiac catheterization, was found to have severe left main disease as well as severe disease in the right coronary artery. She has been evaluated by the surgical team and scheduled to undergo coronary artery bypass grafting on Wednesday. She had an echocardiogram that showed preserved ventricular size and systolic function. She continues to be at this time on aspirin once a day, Lipitor 80 mg daily, IV heparin, losartan 50 mg daily, metoprolol tartrate 12.5 mg twice a day and nitro paste. PHYSICAL EXAMINATION: Blood pressure 122/70 with a heart rate in the 50s. LUNGS: Clear. HEART: Regular rate and rhythm S1, S2. No S3. No rub. ABDOMEN: Soft nontender. EXTREMITIES: No edema. IMPRESSION: 1. Acute coronary artery syndrome with severe left main disease and totally occluded right coronary artery. 2. History of hyperlipidemia. 3. Hypertension. 4. Diabetes mellitus. RECOMMENDATION: She will continue on the IV heparin and proceed with coronary bypass grafting as scheduled on Wednesday. MMODL / IJN: [id number] /
[2019-08-26] MEDS: MUPIROCIN 2% OINT 22 GM TUBE NASAL SCH ×2 (12:24→21:23)
[2019-08-26 16:50] LABS: Glucose,Whole Blood 115 mg/dL (75-99)
[2019-08-26 20:28] LABS: Glucose,Whole Blood 121 mg/dL (75-99)
[2019-08-26] MEDS: ACETAMINOPHEN TAB 325 MG TAB PO PRN (22:57)
[2019-08-27] MEDS: NITROGLYCERIN OINT 1 INCH/GM PACKET TOPICAL SCH ×5 (00:26→23:25)
[2019-08-27 06:20] LABS: Glucose,Whole Blood 131 mg/dL (75-99)
[2019-08-27] MEDS: PANTOPRAZOLE 40 MG TABLET PO SCH (06:23)
[2019-08-27] MEDS: INSULIN ASPART (NovoLOG) 100 UNIT/ML VIAL SQ SCH ×4 (06:23→22:10)
[2019-08-27] MEDS: LEVOTHYROXINE 50 MCG TAB PO SCH (06:23)
[2019-08-27 06:30] LABS: HCT 33.8 % (34.0-46.0); Hypochromasia Moderate; MCH 27.3 pg (25.0-35.0); MCHC 32.5 g/dL (31.0-37.0); Mean Platelet Volume 5.8; Platelet Count 247 k/uL (150-450); RBC 4.02 m/uL (3.80-5.40); RDW 14.6 % (11.5-15.5); WBC 6.5 k/uL (3.8-10.6)
[2019-08-27 07:12] LABS: African American GFR (CKD) >90 (>60 ml/min/1.73 sqM); Anion Gap 9 mmol/L; Blood Urea Nitrogen 18 mg/dL (7-17); Carbon Dioxide 22 mmol/L (22-30); Chloride 110 mmol/L (98-107); Glucose 126 mg/dL (74-99); Non-African American GFR(CKD) 89 (>60 ml/min/1.73 sqM); Potassium 3.9 mmol/L (3.5-5.1); Sodium 141 mmol/L (137-145)
[2019-08-27] MEDS ORDERED: MD COMMUNICATION TO PHARMACY 1 EACH MISC PO ONE ×2 (08:03)
[2019-08-27] MEDS: MUPIROCIN 2% OINT 22 GM TUBE NASAL SCH ×2 (08:09→22:09)
[2019-08-27] MEDS: ASPIRIN 81 MG PO SCH (08:09)
[2019-08-27] MEDS: METOPROLOL TARTRATE 12.5 MG TAB PO SCH ×2 (08:09→21:18)
[2019-08-27] MEDS: LOSARTAN 50 MG TAB PO SCH (08:09)
[2019-08-27] MEDS: ATORVASTATIN 80 MG TAB PO SCH (08:09)
--- NOTE | 2019-08-27 09:22 | P.PN ---
Subjective Progress Note Date: 08/27/19 Principal diagnosis: Triple-vessel coronary artery disease with significant left main disease, non- STEMI this admission. Previous medical history of coronary artery disease status post stenting, noncompliance with cardiac follow-up, hypertension, hyperlipidemia, hypothyroidism, type 2 diabetes mellitus with hemoglobin A1c 6.9%, hiatal hernia, Eusebio-en-Y gastric bypass in 2003, and significant family history of premature coronary artery disease The patient is currently sitting up in bed in no acute distress. Denies any chest pain or shortness of breath, although she states she is very anxious about pending surgery tomorrow. States she has been ambulatory in the hallway without any issues. Objective - Vital Signs Vital signs: Vital Signs Temp 97.6 F 08/27/19 08:11 Pulse 60 08/27/19 08:11 Resp 20 08/27/19 08:11 BP 187/84 08/27/19 08:11 Pulse Ox 97 08/27/19 08:11 Intake & Output 08/26/19 08/27/19 08/27/19 18:59 06:59 18:59 Intake Total 1760.593 294.707 Output Total 300 Balance 1760.593 -5.293 Weight 86 kg Intake: IV 109.2 40 Heparin Sod,Pork in 0.45% 109.2 40 NaCl 25,000 unit In 0.45 % NaCl 1 250ml.bag @ 12 UNITS/KG/HR 9.634 mls/hr IV .Q24H [facility] Rx#: [id number] Intake, IV Titration 191.393 254.707 Amount Heparin Sod,Pork in 0.45% 31.393 174.707 NaCl 25,000 unit In 0.45 % NaCl 1 250ml.bag @ 12 UNITS/KG/HR 9.634 mls/hr IV .Q24H [facility] Rx#: [id number] IV Fluid Continuation 1, 80 000 ml @ 0 mls/hr IV .STK -MED ONE Rx#:[id number] Sodium Chloride 0.9% 1, 160 000 ml @ 0 mls/hr IV .STK -MED ONE Rx#:[id number] Oral 1460 Output: Urine 300 Other: Voiding Method Toilet # Voids 4 - Constitutional General appearance: Present: cooperative, no acute distress, obese - Respiratory Details: Lungs sounds clear bilaterally. Respirations even, nonlabored. Currently on room air with oxygen saturation 94%. Able to achieve 0714-9708 mL on her incentive spirometry. - Cardiovascular Details: S1, S2 present. Slow but regular rate and rhythm, sinus bradycardia on telemetry. Palpable peripheral pulses bilaterally. No edema present. No calf pain or tenderness noted. - Gastrointestinal Gastrointestinal Comment(s): Abdomen soft, nontender, nondistended. Active bowel sounds present 4 q uadrants. Tolerating diet. - Genitourinary Genitourinary Comment(s): Continues to void clear, yellow urine. - Integumentary Integumentary Comment(s): Skin is warm and dry with evidence of good perfusion. - Neurologic Neurologic: Present: CNII-XII intact - Musculoskeletal Musculoskeletal: Present: gait normal, strength equal bilaterally - Psychiatric Psychiatric: Present: A&O x's 3, appropriate affect, intact judgment & insight - Allied health notes Allied health notes reviewed: nursing - Labs CBC & Chem 7: 08/27/19 05:58 08/27/19 05:58 Labs: Abnormal Lab Results - Last 24 Hours (Table) 08/26/19 08/26/19 08/26/19 Range/Units 10:19 11:52 16:48 Hgb (11.4-16.0) gm/dL Hct (34.0-46.0) % APTT (22.0-30.0) sec Chloride (98-107) mmol/L BUN (7-17) mg/dL Glucose (74-99) mg/dL POC Glucose (mg/dL) 123 H 115 H (75-99) mg/dL Crossmatch See Detail 08/26/19 08/27/19 08/27/19 Range/Units 20:26 05:58 05:58 Hgb (11.4-16.0) gm/dL Hct (34.0-46.0) % APTT 77.0 H (22.0-30.0) sec Chloride 110 H (98-107) mmol/L BUN 18 H (7-17) mg/dL Glucose 126 H (74-99) mg/dL POC Glucose (mg/dL) 121 H (75-99) mg/dL Crossmatch 08/27/19 08/27/19 Range/Units 05:58 06:18 Hgb 11.0 L (11.4-16.0) gm/dL Hct 33.8 L (34.0-46.0) % APTT (22.0-30.0) sec Chloride (98-107) mmol/L BUN (7-17) mg/dL Glucose (74-99) mg/dL POC Glucose (mg/dL) 131 H (75-99) mg/dL Crossmatch Microbiology - Last 24 Hours (Table) 08/25/19 11:05 Nasal Screen MRSA/MSSA - Final Nasal Swab Staphylococcus aureus,Not MRSA Assessment and Plan Assessment: 1. Triple-vessel coronary artery disease with significant left main disease, non-STEMI 2. Previous history of coronary artery disease with multiple stents placed, noncompliance with follow-up 3. Hypertension 4. Hyperlipidemia 5. Hypothyroid 6. Diabetes with hemoglobin A1c 6.9% 7. Hiatal hernia 8. Significant family history of premature coronary artery disease 9. Eusebio-en-Y gastric bypass in 2003 Plan: 1. Continue medical therapy with aspirin, statin, low-dose beta yana if able. Consider switching to Coreg. Discontinue Cozaar to prevent hypotension intra/postoperatively 2. Increase activity, ambulate as tolerated. 3. Encourage incentive spirometry use 4. Will complete 5 m walk test. STS risk score was calculated and discussed with the patient 5. Medical management per primary care service 6. Our plan is for urgent myocardial revascularization with left internal mammary artery usage, endoscopic vein harvest, and possible left radial artery harvesting with intraoperative transesophageal echocardiogram performed by Dr. Obregon on 08/28/2019. This was discussed with the patient and she is in agreement. 7. Nothing to eat or drink after midnight. 8. Continue to reinforce preoperative teaching. 9. More recommendations to follow. Time with Patient: Greater than 30
--- NOTE | 2019-08-27 10:13 | PN ---
PROGRESS NOTE Ms. Guo is a 63-year-old female with known history of coronary artery disease who presented with evidence of acute coronary syndrome, underwent cardiac catheterization, scheduled to undergo coronary artery bypass grafting tomorrow. She is feeling well today. She denies any symptoms of chest pain. Her breathing is stable. No dizziness. No palpitation. She continues to be in sinus mechanism. Hemodynamically, she continues to be stable on IV heparin. PHYSICAL EXAMINATION: Blood pressure is 140/70 with a heart rate in the 50s. LUNGS: Clear. HEART: Regular rate and rhythm S1, S2. No S3. No rub. ABDOMEN: Soft nontender. EXTREMITIES: No edema. LAB DATA: Lab data revealed BUN and creatinine of 18 and 0.7, potassium 3.9, hemoglobin of 11. IMPRESSION: 1. Triple-vessel coronary artery disease with left main disease scheduled for coronary artery bypass grafting. 2. Prior history of coronary artery disease and percutaneous revascularization of the RCA. 3. Hypertension. 4. Hyperlipidemia. 5. Diabetes mellitus. RECOMMENDATIONS: We will continue present therapy. Proceed with surgical intervention as planned for tomorrow. MMODL / IJN: [id number] /
--- NOTE | 2019-08-27 10:34 | P.PN ---
Subjective Progress Note Date: 08/27/19 Principal diagnosis: Coronary artery disease This is a very pleasant 63-year-old female patient who follows with Dr. Roca as her primary care physician. She has a history of diabetes mellitus, gastroesophageal reflux disease, hypertension, hyperlipidemia, hypothyroidism, coronary artery disease with previous stent placement. She also has a history of gastric bypass surgery and a hiatal hernia. She was actually scheduled to come see Dr. Walden yesterday for an EGD based on recent complaints of indigestion especially following meals. The night before however the pain gets too uncomfortable and she presented here early in the morning on 08/24/2019 with ongoing chest discomfort. She was utilizing nitroglycerin with some relief. She did undergo coronary cardiac catheterization yesterday and was found to have chronic total occlusion of the distal RCA which may be an in-stent stenosis, severe disease involving the distal left main as well as the ostial left circ umflex and LAD. Preserved LV function with ejection fraction 55-60%. She's been seen and evaluated by cardiothoracic surgery. We are consulted for the same. She is currently resting comfortably in bed. Awake and alert in no acute distress. Denies any chest discomfort currently. No shortness of breath, cough or congestion. No palpitations or lightheadedness. On room air. No previous history of any form of pulmonary disease. No COPD or asthma. Nonsmoker. No inhalers or oxygen at home. Lung function testing pending. Chest x-ray reveals no acute cardiopulmonary process. She remains on a heparin drip. White count 6.7. Hemoglobin 10.8. Peak troponin 0.071. Creatinine 0.66. The patient is seen today 08/26/2019 in follow-up on the selective care unit. She is awake and alert in no acute distress. No further chest discomfort. No palpitations, dizziness or lightheadedness. No shortness of breath, cough or congestion. She is maintaining good O2 saturations in the mid 90s on room air. She's afebrile. Hemodynamically stable. She remains on a heparin drip. The plan is for coronary artery revascularization on 08/28/2019. On 08/27/2019 patient seen in follow-up on selective care unit, she is awake and alert, in no acute distress, no complaints of chest pain overnight, no shortness of breath, vital signs are stable, she is on room air, with a pulse ox of 97%, no fever or chills, she remains on heparin infusion, she is plan for bypass surgery tomorrow by Dr. Obregon, she is working on incentive spirometer, she is achieving 0564-6169 mL on it. Objective - Vital Signs Vital signs: Vital Signs Temp 97.6 F 08/27/19 08:11 Pulse 60 08/27/19 08:11 Resp 20 08/27/19 08:11 BP 187/84 08/27/19 08:11 Pulse Ox 97 08/27/19 08:11 Intake & Output 08/26/19 08/27/19 08/27/19 18:59 06:59 18:59 Intake Total 1760.593 294.707 Output Total 300 Balance 1760.593 -5.293 Weight 86 kg Intake: IV 109.2 40 Heparin Sod,Pork in 0.45% 109.2 40 NaCl 25,000 unit In 0.45 % NaCl 1 250ml.bag @ 12 UNITS/KG/HR 9.634 mls/hr IV .Q24H [facility] Rx#: [id number] Intake, IV Titration 191.393 254.707 Amount Heparin Sod,Pork in 0.45% 31.393 174.707 NaCl 25,000 unit In 0.45 % NaCl 1 250ml.bag @ 12 UNITS/KG/HR 9.634 mls/hr IV .Q24H [facility] Rx#: [id number] IV Fluid Continuation 1, 80 000 ml @ 0 mls/hr IV .STK -MED ONE Rx#:[id number] Sodium Chloride 0.9% 1, 160 000 ml @ 0 mls/hr IV .STK -MED ONE Rx#:[id number] Oral 1460 Output: Urine 300 Other: Voiding Method Toilet # Voids 4 - Exam GENERAL EXAM: Alert, very pleasant, 63-year-old white female, with a room air p ulse ox of 97% slightly anxious but comfortable in no apparent distress. HEAD: Normocephalic/atraumatic. EYES: Normal reaction of pupils, equal size. Conjunctiva pink, sclera white. NOSE: Clear with pink turbinates. THROAT: No erythema or exudates. NECK: No masses, no JVD, no thyroid enlargement, no adenopathy. CHEST: No chest wall deformity. Symmetrical expansion. LUNGS: Equal air entry with no crackles, wheeze, rhonchi or dullness. CVS: Regular rate and rhythm, normal S1 and S2, no gallops, no murmurs, no rubs ABDOMEN: Soft, nontender. No hepatosplenomegaly, normal bowel sounds, no guard ing or rigidity. EXTREMITIES: No clubbing, no edema, no cyanosis, 2+ pulses and upper and lower extremities. MUSCULOSKELETAL: Muscle strength and tone normal. SPINE: No scoliosis or deformity SKIN: No rashes CENTRAL NERVOUS SYSTEM: Alert and oriented -3. No focal deficits, tone is normal in all 4 extremities. PSYCHIATRIC: Alert and oriented -3. Appropriate affect. Intact judgment and insight. - Labs CBC & Chem 7: 08/27/19 05:58 08/27/19 05:58 Labs: Abnormal Lab Results - Last 24 Hours (Table) 08/26/19 08/26/19 08/26/19 Range/Units 10:19 11:52 16:48 Hgb (11.4-16.0) gm/dL Hct (34.0-46.0) % APTT (22.0-30.0) sec Chloride (98-107) mmol/L BUN (7-17) mg/dL Glucose (74-99) mg/dL POC Glucose (mg/dL) 123 H 115 H (75-99) mg/dL Crossmatch See Detail 08/26/19 08/27/19 08/27/19 Range/Units 20:26 05:58 05:58 Hgb (11.4-16.0) gm/dL Hct (34.0-46.0) % APTT 77.0 H (22.0-30.0) sec Chloride 110 H (98-107) mmol/L BUN 18 H (7-17) mg/dL Glucose 126 H (74-99) mg/dL POC Glucose (mg/dL) 121 H (75-99) mg/dL Crossmatch 08/27/19 08/27/19 Range/Units 05:58 06:18 Hgb 11.0 L (11.4-16.0) gm/dL Hct 33.8 L (34.0-46.0) % APTT (22.0-30.0) sec Chloride (98-107) mmol/L BUN (7-17) mg/dL Glucose (74-99) mg/dL POC Glucose (mg/dL) 131 H (75-99) mg/dL Crossmatch Microbiology - Last 24 Hours (Table) 08/25/19 11:05 Nasal Screen MRSA/MSSA - Final Nasal Swab Staphylococcus aureus,Not MRSA Assessment and Plan Plan: Assessment: #1 Chest discomfort and patient found to have significant coronary artery disease with calcified right and left coronary systems. Chronic total occlusion of the distal RCA suspected in-stent restenosis, severe disease involving the distal left main as well as involving the ostial left circumflex and LAD. The plan is for coronary artery revascularization on 08/28/2019 #2 Diabetes mellitus #3 Hypertension #4 Previous coronary artery disease with stent placements #5 Hyperlipidemia #6 Hypothyroidism #7 Previous gastric bypass surgery #8 Lifelong nonsmoker Plan: Continue current medical treatment, continue encouraging deep breathing and coughing, incentive spirometry exercises. No complaints of chest pain or shortness of breath. Patient has been ambulating without any issues. We'll continue to follow patient is scheduled for bypass surgery tomorrow by Dr. Obregon I performed a history & physical examination of the patient and discussed their management with my nurse practitioner, Saniya Camacho. I reviewed the nurse practitioner's note and agree with the documented findings and plan of care. Lung sounds are positive for clear breath sounds. The findings and the impression was discussed with the patient. I attest to the documentation by the nurse practitioner. Time with Patient: Less than 30
[2019-08-27 12:01] LABS: Glucose,Whole Blood 114 mg/dL (75-99)
[2019-08-27 17:05] LABS: Glucose,Whole Blood 93 mg/dL (75-99)
[2019-08-27] MEDS: HEPARIN SOD,PORK IN 0.45% NACL 25,000 UNIT in 0.45% NACL 1 250ML.BAG IV SCH (18:33)
[2019-08-27 20:17] LABS: Glucose,Whole Blood 131 mg/dL (75-99)
[2019-08-27] MEDS ORDERED: LACTATED RINGERS 1,000 ML IV SCH (20:27)
[2019-08-27] MEDS ORDERED: MIDAZOLAM 2 MG/2 ML VIAL IV PRN (20:27)
--- NOTE | 2019-08-28 00:52 | P.PN ---
Subjective Progress Note Date: 08/26/19 Principal diagnosis: Triple-vessel coronary artery disease This is a very pleasant 63-year-old patient of Dr. Roca. Chronic stable medical conditions include diabetes, hypertension, hiatal hernia, hypothyroid, primary osteoarthritis. Patient has a known history of coronary artery disease stent. Last was several years ago. Has not had a stress test since then. Patient also being worked up by Dr. Walden for her hiatal hernia. Was supposed to have her endoscopy done today. Some of the symptoms she's been having was felt to be from a hiatal hernia. Does get some bloating and discomfort in the upper abdomen. Patient now presented to us last night she had heaviness in the central part of the chest. Last 4 good 2 hours. There was nausea. Dizziness. [place] flushed. There was no radiation radiation to the neck or the arm. Troponin was started to to be positive. Admitted with acute non-Q-wave [place]. Had a cardiac catheterization on August 24. Showed severe triple-vessel disease. Cardiothoracic surgery was consulted. Today-sitting up. Oral distress. But anxious. No chest pain or short of breath. White count 6.2 hemoglobin 12.6 platelets 272 potassium 4 creatinine 0.7 Troponin I 0.066, 0.071, 0.065 ProBNP 436 EKG tracing personally reviewed by me-sinus rhythm left bundle branch block Chest x-ray film personally reviewed by me-lung galvin clear Cardiac catheterization showing severe triple-vessel disease 08/26/2019 Patient is currently in the bed comfortably. No complaints of chest pain or shortness of breath. No nausea vomiting or abdominal pain. No headache or dizziness or lightheadedness. Saturating well on room air. Patient is on heparin drip. Plan for coronary revascularization on 08/28/2019. Pulmonary and CT surgery is following. Review of systems: Was done for constitutional, cardiovascular, GI, pulmonary. relevant finding as above Medications reviewed. Objective - Vital Signs Vital signs: Vital Signs Temp 97.1 F L 08/26/19 15:57 Pulse 49 L 08/26/19 15:57 Resp 20 08/26/19 15:57 BP 144/65 08/26/19 15:57 Pulse Ox 97 08/26/19 15:57 Intake & Output 08/25/19 08/26/19 08/26/19 18:59 06:59 18:59 Intake Total 771.292 977.723 3882.593 Output Total 400 Balance 371.292 096.903 0949.593 Weight 86.2 kg Intake: IV 200 109.2 Heparin Sod,Pork in 0.45% 109.2 NaCl 25,000 unit In 0.45 % NaCl 1 250ml.bag @ 12 UNITS/KG/HR 9.634 mls/hr IV .Q24H [facility] Rx#: [id number] Sodium Chloride 0.9% 1, 0 000 ml @ 75 mls/hr IV . [id number] [facility] Rx#:[id number] normal saline at KVO 200 Intake, IV Titration 71.292 178.708 191.393 Amount Heparin Sod,Pork in 0.45% 71.292 178.708 31.393 NaCl 25,000 unit In 0.45 % NaCl 1 250ml.bag @ 12 UNITS/KG/HR 9.634 mls/hr IV .Q24H [facility] Rx#: [id number] Sodium Chloride 0.9% 1, 160 000 ml @ 0 mls/hr IV .STK -MED ONE Rx#:[id number] Oral 500 960 Output: Urine 400 Other: Voiding Method Toilet Toilet # Voids 1 - Exam PHYSICAL EXAMINATION: Patient is lying in the bed comfortably, no acute distress, awake alert and oriented.. HEENT: Normocephalic. Neck is supple. Pupils reactive. Nostrils clear. Oral cavity is moist. Ears reveal no drainage. Neck reveals no JVD, carotid bruits, or thyromegaly. CHEST EXAMINATION: Trachea is central. Symmetrical expansion. Lung galvin clear to auscultation and percussion. CARDIAC: Normal S1, S2 with no gallops. No murmurs ABDOMEN: Soft. Bowel sounds normal. No organomegaly. No abdominal bruits. Extremities: reveal no edema. No clubbing or cyanosis Neurologically awake, alert, oriented x3 with well-coordinated movements. No f ocal deficits noted Skin: No rash or skin lesions. Psychiatric: Coperative. Nonsuicidal Musculoskeletal: No joint swelling or deformity. Normal range of motion. - Labs CBC & Chem 7: 08/27/19 05:58 08/27/19 05:58 Labs: Abnormal Lab Results - Last 24 Hours (Table) 08/25/19 08/25/19 08/26/19 Range/Units 20:21 22:13 05:07 APTT 41.8 H 59.6 H (22.0-30.0) sec POC Glucose (mg/dL) 128 H (75-99) mg/dL Crossmatch 08/26/19 08/26/19 08/26/19 Range/Units 06:33 10:19 11:52 APTT (22.0-30.0) sec POC Glucose (mg/dL) 136 H 123 H (75-99) mg/dL Crossmatch See Detail 08/26/19 Range/Units 16:48 APTT (22.0-30.0) sec POC Glucose (mg/dL) 115 H (75-99) mg/dL Crossmatch Microbiology - Last 24 Hours (Table) 08/25/19 11:05 Nasal Screen MRSA/MSSA - Preliminary Nasal Swab Assessment and Plan Assessment: -Acute non-Q-wave myocardial infarction -Severe triple-vessel disease- cardiac catheterization -Diabetes mellitus type 2 on oral hypoglycemic -Essential hypertension -Hiatal hernia, symptomatic with GERD -Hypothyroid -Primary osteoarthritis -Obesity BMI 35.3 Plan: Cardiothoracic surgery was consulted. Other medications to continue. Care was discussed with the patient. Hiatal hernia can be addressed down the road. Scheduled for coronary revascularization on 08/28/2019. Time with Patient: Greater than 30
--- NOTE | 2019-08-28 00:54 | P.PN ---
Subjective Progress Note Date: 08/27/19 Principal diagnosis: Triple-vessel coronary artery disease This is a very pleasant 63-year-old patient of Dr. Roca. Chronic stable medical conditions include diabetes, hypertension, hiatal hernia, hypothyroid, primary osteoarthritis. Patient has a known history of coronary artery disease stent. Last was several years ago. Has not had a stress test since then. Patient also being worked up by Dr. Walden for her hiatal hernia. Was supposed to have her endoscopy done today. Some of the symptoms she's been having was felt to be from a hiatal hernia. Does get some bloating and discomfort in the upper abdomen. Patient now presented to us last night she had heaviness in the central part of the chest. Last 4 good 2 hours. There was nausea. Dizziness. [place] flushed. There was no radiation radiation to the neck or the arm. Troponin was started to to be positive. Admitted with acute non-Q-wave [place]. Had a cardiac catheterization on August 24. Showed severe triple-vessel disease. Cardiothoracic surgery was consulted. Today-sitting up. Oral distress. But anxious. No chest pain or short of breath. White count 6.2 hemoglobin 12.6 platelets 272 potassium 4 creatinine 0.7 Troponin I 0.066, 0.071, 0.065 ProBNP 436 EKG tracing personally reviewed by me-sinus rhythm left bundle branch block Chest x-ray film personally reviewed by me-lung galvin clear Cardiac catheterization showing severe triple-vessel disease 08/26/2019 Patient is currently in the bed comfortably. No complaints of chest pain or shortness of breath. No nausea vomiting or abdominal pain. No headache or dizziness or lightheadedness. Saturating well on room air. Patient is on heparin drip. Plan for coronary revascularization on 08/28/2019. Pulmonary and CT surgery is following. 1123 2018 Patient is currently sitting in the bed. Denied any new complaints. No chest pain or shortness of breath. No nausea vomiting. No headache or dizziness or lightheadedness. Upper extremity duplex Was done. Scheduled for coronary vascular patient on 08/28/2019 No other acute overnight issues. Review of systems: Was done for constitutional, cardiovascular, GI, pulmonary. relevant finding as above Medications reviewed. Objective - Vital Signs Vital signs: Vital Signs Temp 98.3 F 08/27/19 15:00 Pulse 54 L 08/27/19 15:00 Resp 20 08/27/19 15:00 BP 136/64 08/27/19 15:00 Pulse Ox 96 08/27/19 15:00 Intake & Output 08/27/19 08/27/19 08/28/19 06:59 18:59 06:59 Intake Total 294.707 699.882 Output Total 300 Balance -5.293 699.882 Weight 86 kg Intake: IV 40 109.2 Heparin Sod,Pork in 0.45% 40 109.2 NaCl 25,000 unit In 0.45 % NaCl 1 250ml.bag @ 12 UNITS/KG/HR 9.634 mls/hr IV .Q24H [facility] Rx#: [id number] Intake, IV Titration 254.707 250.682 Amount Heparin Sod,Pork in 0.45% 174.707 250.682 NaCl 25,000 unit In 0.45 % NaCl 1 250ml.bag @ 12 UNITS/KG/HR 9.634 mls/hr IV .Q24H [facility] Rx#: [id number] IV Fluid Continuation 1, 80 000 ml @ 0 mls/hr IV .STK -MED ONE Rx#:[id number] Oral 340 Output: Urine 300 Other: Voiding Method Toilet # Voids 4 - Exam PHYSICAL EXAMINATION: Patient is lying in the bed comfortably, no acute distress, awake alert and oriented.. HEENT: Normocephalic. Neck is supple. Pupils reactive. Nostrils clear. Oral cavity is moist. Ears reveal no drainage. Neck reveals no JVD, carotid bruits, or thyromegaly. CHEST EXAMINATION: Trachea is central. Symmetrical expansion. Lung galvin clear to auscultation and percussion. CARDIAC: Normal S1, S2 with no gallops. No murmurs ABDOMEN: Soft. Bowel sounds normal. No organomegaly. No abdominal bruits. Extremities: reveal no edema. No clubbing or cyanosis Neurologically awake, alert, oriented x3 with well-coordinated movements. No focal deficits noted Skin: No rash or skin lesions. Psychiatric: Coperative. Nonsuicidal Musculoskeletal: No joint swelling or deformity. Normal range of motion. - Labs CBC & Chem 7: 08/27/19 05:58 08/27/19 05:58 Labs: Abnormal Lab Results - Last 24 Hours (Table) 08/26/19 08/27/19 08/27/19 Range/Units 10:19 05:58 05:58 Hgb (11.4-16.0) gm/dL Hct (34.0-46.0) % APTT 77.0 H (22.0-30.0) sec Chloride 110 H (98-107) mmol/L BUN 18 H (7-17) mg/dL Glucose 126 H (74-99) mg/dL POC Glucose (mg/dL) (75-99) mg/dL Crossmatch See Detail 08/27/19 08/27/19 08/27/19 Range/Units 05:58 06:18 12:00 Hgb 11.0 L (11.4-16.0) gm/dL Hct 33.8 L (34.0-46.0) % APTT (22.0-30.0) sec Chloride (98-107) mmol/L BUN (7-17) mg/dL Glucose (74-99) mg/dL POC Glucose (mg/dL) 131 H 114 H (75-99) mg/dL Crossmatch 08/27/19 Range/Units 20:16 Hgb (11.4-16.0) gm/dL Hct (34.0-46.0) % APTT (22.0-30.0) sec Chloride (98-107) mmol/L BUN (7-17) mg/dL Glucose (74-99) mg/dL POC Glucose (mg/dL) 131 H (75-99) mg/dL Crossmatch Microbiology - Last 24 Hours (Table) 08/25/19 11:05 Nasal Screen MRSA/MSSA - Final Nasal Swab Staphylococcus aureus,Not MRSA Assessment and Plan Assessment: -Acute non-Q-wave myocardial infarction -Severe triple-vessel disease- cardiac catheterization -Diabetes mellitus type 2 on oral hypoglycemic -Essential hypertension -Hiatal hernia, symptomatic with GERD -Hypothyroid -Primary osteoarthritis -Obesity BMI 35.3 Plan: Cardiothoracic surgery was consulted. Other medications to continue. Care was discussed with the patient. Hiatal hernia can be addressed down the road. Scheduled for coronary revascularization on 08/28/2019.
[2019-08-28] MEDS: ATORVASTATIN 80 MG TAB PO SCH (04:27)
[2019-08-28] MEDS ORDERED: SODIUM BICARB 8.4% 50 ML SYR (1 MEQ/ML) IV ONE (05:00)
[2019-08-28] MEDS ORDERED: CLEVIDIPINE BUTYRATE 25 MG in EMPTY BAG 1 BAG IV SCH (05:00)
[2019-08-28] MEDS ORDERED: PAPAVERINE 360 MG in SODIUM CHLORIDE 0.9% 90 ML IV ONE (05:00)
[2019-08-28] MEDS ORDERED: ALBUMIN HUMAN 25% 50 ML in EMPTY BAG 1 BAG IVPB ONE (05:00)
[2019-08-28] MEDS ORDERED: HEPARIN SODIUM 1,000 UN/ML (10ML VL) IV ONE (05:00)
[2019-08-28] MEDS ORDERED: DEXTROSE 5% IN WATER 1,000 ML with POTASSIUM CHLORIDE 110 MEQ, MAGNESIUM SULFATE 16 MEQ... IV SCH ×5 (05:00)
[2019-08-28] MEDS ORDERED: ceFAZolin 2 GM in SODIUM CHLORIDE 0.9% 30 ML IVPB ONE (05:00)
[2019-08-28] MEDS ORDERED: PHENYLEPHRINE 40 MG in SODIUM CHLORIDE 0.9% 250 ML IV ONE (05:00)
[2019-08-28] MEDS ORDERED: HEPARIN SODIUM,PORCINE 5,000 UNIT in SODIUM CHLORIDE 0.9% 500 ML 500 ML IV ONE (05:00)
[2019-08-28] MEDS ORDERED: DEXTROSE 5% IN WATER 1,000 ML with POTASSIUM CHLORIDE 25 MEQ, SODIUM CHLORIDE 2.5MEQ/ML... IV SCH ×6 (05:00)
[2019-08-28] MEDS ORDERED: ceFAZolin 2,000 MG in SODIUM CHLORIDE 0.9% 30 ML IVPB ONE (05:00)
[2019-08-28] MEDS ORDERED: CALCIUM CHLORIDE 100 MG/ML 10 ML SYRINGE IVP ONE (05:00)
[2019-08-28] MEDS ORDERED: MANNITOL 25% 12.5 GM/50 ML VIAL IV ONE ×2 (05:00)
[2019-08-28] MEDS ORDERED: ALBUMIN HUMAN 5% 500 ML in EMPTY BAG 1 BAG IVPB ONE ×6 (05:00)
[2019-08-28] MEDS ORDERED: PROPOFOL 1,000 MG in EMPTY BAG 1 BAG IV PRN (05:00)
[2019-08-28] MEDS ORDERED: PHENYLEPHRINE 10 MG/ML VIAL IV ONE (05:00)
[2019-08-28] MEDS ORDERED: ATORVASTATIN 10 MG TAB PO ONE (05:00)
[2019-08-28] MEDS ORDERED: ASPIRIN 325 MG TAB PO ONE (05:00)
[2019-08-28] MEDS ORDERED: LACTATED RINGERS 1,000 ML IV SCH (05:00)
[2019-08-28] MEDS ORDERED: MAGNESIUM SULFATE SYG 4.06 MEQ/ML SYRINGE IV ONE (05:00)
[2019-08-28] MEDS ORDERED: METOPROLOL TARTRATE 12.5 MG TAB PO ONE (05:00)
[2019-08-28] MEDS ORDERED: NOREPINEPHRINE 4 MG in SODIUM CHLORIDE 0.9% 250 ML IV SCH (05:00)
[2019-08-28] MEDS ORDERED: PROTAMINE SULFATE 10 MG/ML 25 ML VIAL IV ONE ×2 (05:00→07:43)
[2019-08-28] MEDS ORDERED: INSULIN REGULAR 100 UNIT in SODIUM CHLORIDE 0.9% 100 ML IV SCH (05:00)
[2019-08-28] MEDS ORDERED: PROTAMINE SULFATE 250 MG in EMPTY BAG 1 BAG IV ONE (05:00)
[2019-08-28] MEDS ORDERED: DILTIAZEM 125 MG in SODIUM CHLORIDE 0.9% 100 ML IV SCH (05:00)
[2019-08-28] MEDS ORDERED: NITROGLYCERIN-D5W PMX 25 MG/250 ML BTL IV ONE (05:00)
[2019-08-28] MEDS ORDERED: TRANEXAMIC ACID 2,000 MG in SODIUM CHLORIDE 0.9% 80 ML IV ONE (05:00)
[2019-08-28] MEDS ORDERED: CHLORHEXIDINE GLUCONATE 15 ML CUP MUCOUS MEM ONE (05:00)
[2019-08-28] MEDS: NITROGLYCERIN OINT 1 INCH/GM PACKET TOPICAL SCH (06:14)
[2019-08-28] MEDS: LEVOTHYROXINE 50 MCG TAB PO SCH (06:14)
[2019-08-28] MEDS: PANTOPRAZOLE 40 MG TABLET PO SCH (06:15)
[2019-08-28] MEDS: INSULIN ASPART (NovoLOG) 100 UNIT/ML VIAL SQ SCH (06:15)
[2019-08-28] MEDS ORDERED: SODIUM CHLORIDE 0.9% 250 ML BAG ONE (07:43)
[2019-08-28] MEDS ORDERED: PROPOFOL 10 MG/ML 20 ML VIAL IV ONE (07:43)
[2019-08-28] MEDS ORDERED: fentaNYL (PF) 50 MCG/ML 2 ML AMP ONE (07:43)
[2019-08-28] MEDS ORDERED: MIDAZOLAM 2 MG/2 ML VIAL ONE (07:43)
[2019-08-28] MEDS ORDERED: fentaNYL (PF) 50 MCG/ML 50 ML VIAL ONE (07:43)
[2019-08-28] MEDS ORDERED: POTASSIUM CHLORIDE OPEN HEART 20 MEQ/50 ML BAG IVPB ONE (07:43)
[2019-08-28] MEDS ORDERED: NITROGLYCERIN-D5W PMX 50 MG/250 ML BOTTLE IV ONE (07:43)
[2019-08-28] MEDS ORDERED: PHENYLEPHRINE-0.9% NACL SYG 1 MG/10 ML SYRINGE ONE (07:43)
[2019-08-28] MEDS ORDERED: ROCURONIUM BROMIDE 10 MG/ML 10 ML VIAL IV ONE (07:43)
[2019-08-28] MEDS ORDERED: INSULIN REGULAR 100 UNIT/ML VIAL ONE (07:43)
[2019-08-28] MEDS ORDERED: HEPARIN SODIUM,PORCINE 10,000 UNIT/ML 1 ML VIAL ONE (07:43)
[2019-08-28] MEDS ORDERED: VECURONIUM 10 MG VIAL IV ONE (07:43)
[2019-08-28] MEDS ORDERED: SODIUM CHLORIDE 0.9% IRRIG 1,000 ML BTL IRRIGATION ONE (07:43)
[2019-08-28] MEDS ORDERED: TRANEXAMIC ACID 1,000 MG/10 ML VIAL ONE (07:43)
[2019-08-28] MEDS ORDERED: LIDOCAINE 2% SYG (PF) 100 MG/5 ML ONE (07:43)
[2019-08-28] MEDS ORDERED: CALCIUM CHLORIDE 100 MG/ML 10 ML SYRINGE ONE (07:43)
[2019-08-28] MEDS ORDERED: ELECTROLYTE-R (PH 7.4) 1,000 ML IV.SOLN IV ONE (07:43)
[2019-08-28] MEDS ORDERED: ALBUMIN HUMAN 5% (25gm) 500 ML VIAL IVPB ONE (07:43)
[2019-08-28] MEDS ORDERED: MAGNESIUM SULFATE 4 MEQ/ML 10ML VIAL ONE (07:43)
[2019-08-28] MEDS ORDERED: GLYCOPYRROLATE 0.2 MG/ML 2 ML VIAL ONE (07:43)
[2019-08-28 08:47] LABS: ABG Hematocrit 29 % (34.0-46.0); ABG Ionized Calcium 4.8 mg/dL (4.5-5.3); ABG Lactic Acid Whole Blood 1.1 mmol/L (0.5-1.6); ABG PH 7.39 (7.35-7.45); ABG Potassium Whole Blood 3.8 mmol/L (3.4-4.5); ABG Sodium Whole Blood 141 mmol/L (135-146)
[2019-08-28] MEDS: ceFAZolin 1,000 MG in SODIUM CHLORIDE 0.9% IRRIGATIO 1,000 ML IRRIGATION ONE ×2 (09:35→16:51)
--- NOTE | 2019-08-28 09:45 | P.ANPRN ---
Procedure Note - Anesthesia - Invasive Line Right Central Line Time Out Performed: Yes Date of Procedure: 08/28/19 Time of Procedure: 07:24 Location of Patient: Phase I Preparation: Sterile Prep, Sterile Dressing Arterial Line Location: Radial Ultrasound Used: Yes Purpose - Visualization and Identification of Vasculature: Yes Needle Guage: 20g angiocath Image Stored and Saved: Yes Narrative: Central line placement per sterile protocol utilized. Anesthesia note Procedure: Right jugular central venous catheter insertion: 8.5-Iraqi Cordis Sterile protocol followed.] neck prepped. Ultrasound used. Lidocaine 1% used. Using ultrasound local anesthetic was instilled site over right internal jugular. Angiocath was used to gain access via ultrasound. Once free flow non- pulsatile blood flow was confirmed, 12 inch extension tubing was then placed on Angiocath. Once central venous pressure was confirmed, J-wire was then placed through Angiocath. Angiocath was then withdrawn. Local was instilled at J-wire site. Small skin jeanine was then made with provided sterile scalpel. 8.5-Iraqi Cordis was then inserted over the wire while maintaining control of wire at all times. Uneventful insertion with dilation. Free flow nonpulsatile blood flow through Cordis. Hooked up to IV tubing. Secured with suture. Dressings applied. Drapes Removed. Attempts 1. Image saved to chart. Ultrasound utilized to locate vessel Right Lyndon Pasquale Time Out Performed: Yes (At time of central line) Date of Procedure: 08/28/19 Time of Procedure: 07:37 Location of Patient: Phase I Preparation: Sterile Prep, Sterile Dressing Arterial Line Location: Radial Ultrasound Used: Yes Purpose - Visualization and Identification of Vasculature: Yes Image Stored and Saved: Yes Narrative: Central line placement per sterile protocol utilized. Procedure right Lyndon-Pasquale catheter placed through right internal jugular central venous catheter Sterile protocol maintained from previous procedure. Lyndon-Pasquale catheter sterilely placed in sheath and flushed prior to insertion in right IJ Cordis. After advancing 15 cm Lyndon-Pasquale catheter was then slowly inserted with balloon up during deep inspiration. CVP waveform around 30 cm. PA waveform at around 45 cm. Lyndon-Pasquale catheter wedged around 51 cm. Balloon down. Catheter withdrawn [address] 47 cm. No wedge. Proximal and distal s ites locked on sheath. Attempts x1. Sterile drapes removed and dressings applied.
[2019-08-28 09:53] LABS: ABG Base Excess -0.7 mmol/L; ABG Glucose Whole Blood 112 mg/dL (75-99); ABG HCO3 25 mmol/L (21-25); ABG Hematocrit 29 % (34.0-46.0); ABG Ionized Calcium 4.8 mg/dL (4.5-5.3); ABG Lactic Acid Whole Blood 0.5 mmol/L (0.5-1.6); ABG Oxygen Saturation 98.6 % (94-97); ABG PCO2 46 mmHg (35-45); ABG PH 7.35 (7.35-7.45); ABG PO2 169 mmHg (83-108); ABG Potassium Whole Blood 3.9 mmol/L (3.4-4.5); ABG Sodium Whole Blood 141 mmol/L (135-146); ABG TCO2 27 mmol/L (19-24)
[2019-08-28 11:01] LABS: ABG Base Excess -0.7 mmol/L; ABG Glucose Whole Blood 195 mg/dL (75-99); ABG HCO3 25 mmol/L (21-25); ABG Ionized Calcium 4.4 mg/dL (4.5-5.3); ABG Lactic Acid Whole Blood 0.9 mmol/L (0.5-1.6); ABG Oxygen Saturation 99.2 % (94-97); ABG PCO2 43 mmHg (35-45); ABG PH 7.37 (7.35-7.45); ABG PO2 282 mmHg (83-108); ABG Potassium Whole Blood 4.9 mmol/L (3.4-4.5); ABG Sodium Whole Blood 135 mmol/L (135-146); ABG TCO2 26 mmol/L (19-24)
[2019-08-28 11:35] LABS: ABG Glucose Whole Blood 197 mg/dL (75-99); ABG HCO3 25 mmol/L (21-25); ABG Ionized Calcium 4.4 mg/dL (4.5-5.3); ABG Lactic Acid Whole Blood 1.2 mmol/L (0.5-1.6); ABG Oxygen Saturation 99.4 % (94-97); ABG PCO2 41 mmHg (35-45); ABG PO2 295 mmHg (83-108); ABG Potassium Whole Blood 4.7 mmol/L (3.4-4.5); ABG Sodium Whole Blood 136 mmol/L (135-146); ABG TCO2 26 mmol/L (19-24)
[2019-08-28 12:07] LABS: ABG Base Excess -1.4 mmol/L; ABG Glucose Whole Blood 193 mg/dL (75-99); ABG HCO3 24 mmol/L (21-25); ABG Ionized Calcium 4.4 mg/dL (4.5-5.3); ABG Lactic Acid Whole Blood 1.7 mmol/L (0.5-1.6); ABG Oxygen Saturation 99.5 % (94-97); ABG PCO2 42 mmHg (35-45); ABG PH 7.36 (7.35-7.45); ABG PO2 349 mmHg (83-108); ABG Potassium Whole Blood 4.3 mmol/L (3.4-4.5); ABG Sodium Whole Blood 138 mmol/L (135-146); ABG TCO2 25 mmol/L (19-24)
[2019-08-28 12:37] LABS: ABG Base Excess -1.4 mmol/L; ABG Glucose Whole Blood 165 mg/dL (75-99); ABG HCO3 24 mmol/L (21-25); ABG Ionized Calcium 4.5 mg/dL (4.5-5.3); ABG Lactic Acid Whole Blood 1.6 mmol/L (0.5-1.6); ABG Oxygen Saturation 99.4 % (94-97); ABG PCO2 43 mmHg (35-45); ABG PH 7.36 (7.35-7.45); ABG PO2 331 mmHg (83-108); ABG Sodium Whole Blood 138 mmol/L (135-146); ABG TCO2 25 mmol/L (19-24)
[2019-08-28 13:48] LABS: ABG Base Excess 0.7 mmol/L; ABG Glucose Whole Blood 111 mg/dL (75-99); ABG HCO3 24 mmol/L (21-25); ABG Oxygen Saturation 98.4 % (94-97); ABG PCO2 40 mmHg (35-45); ABG PO2 153 mmHg (83-108); ABG TCO2 25 mmol/L (19-24)
[2019-08-28 13:50] LABS: ABG Hematocrit 20 % (34.0-46.0)
[2019-08-28 13:51] LABS: ABG Hematocrit 20 % (34.0-46.0)
[2019-08-28 13:52] LABS: ABG Hematocrit 19 % (34.0-46.0)
[2019-08-28 13:53] LABS: ABG Hematocrit 21 % (34.0-46.0)
[2019-08-28 13:58] LABS: ABG Base Excess -1.9 mmol/L; ABG Glucose Whole Blood 101 mg/dL (75-99); ABG HCO3 23 mmol/L (21-25); ABG Ionized Calcium 5.2 mg/dL (4.5-5.3); ABG Lactic Acid Whole Blood 1.7 mmol/L (0.5-1.6); ABG PCO2 37 mmHg (35-45); ABG PO2 165 mmHg (83-108); ABG Potassium Whole Blood 3.6 mmol/L (3.4-4.5); ABG Sodium Whole Blood 139 mmol/L (135-146); ABG TCO2 24 mmol/L (19-24)
[2019-08-28 14:29] LABS: ABG Hematocrit 21 % (34.0-46.0)
[2019-08-28] MEDS ORDERED: IPRATROPIUM-ALBUTEROL 3 ML NEB INHALATION PRN (14:31)
[2019-08-28] MEDS ORDERED: Potassium Replacement Protocol 1 EACH MISC MISCELLANE PRN (14:31)
[2019-08-28] MEDS ORDERED: Magnesium Replacement Protocol 1 EACH MISC MISCELLANE PRN (14:31)
[2019-08-28] MEDS ORDERED: DEXTROSE 5% IN WATER 100 ML with AMIODARONE 150 MG IV PRN (14:31)
[2019-08-28] MEDS ORDERED: AMIODARONE 360 MG in DEXTROSE 5% IN WATER 200 ML IV PRN ×2 (14:31)
[2019-08-28] MEDS ORDERED: AMIODARONE 300 MG in DEXTROSE 5% IN WATER 250 ML IV PRN ×2 (14:31)
[2019-08-28] MEDS ORDERED: BENZOCAINE/MENTHOL LOZENG 1 EACH LOZENGE MUCOUS MEM PRN (14:31)
[2019-08-28] MEDS ORDERED: PROPOFOL 1,000 MG in EMPTY BAG 1 BAG IV SCH (14:31)
[2019-08-28] MEDS ORDERED: Phosphorus Replacement Protoco 1 EACH MISC MISCELLANE PRN (14:31)
[2019-08-28] MEDS ORDERED: CALCIUM GLUCONATE 2 GM in SODIUM CHLORIDE 0.9% 100 ML IVPB PRN (15:00)
[2019-08-28] MEDS: CLEVIDIPINE BUTYRATE 25 MG in EMPTY BAG 1 BAG IV SCH (15:18)
[2019-08-28 15:19] LABS: Glucose,Whole Blood 80 mg/dL (75-99)
[2019-08-28] MEDS: LACTATED RINGERS 1,000 ML IV SCH (15:21)
[2019-08-28] MEDS: NITROGLYCERIN-D5W PMX 50 MG in DEXTROSE/WATER 1 250ML.BAG IV SCH (15:22)
[2019-08-28 15:33] LABS: Ionized Calcium 5.3 mg/dL (4.5-5.3)
[2019-08-28 15:35] LABS: INR 1.1 (<1.2); Partial Thromboplastin Time 23.8 sec (22.0-30.0); Prothrombin Time 11.5 sec (9.0-12.0)
--- NOTE | 2019-08-28 15:35 | XR ---
EXAMINATION TYPE: XR chest 1V portable DATE OF EXAM: 08/28/2019 HISTORY: Post Op CABG COMPARISON: 08/24/2019 TECHNIQUE: Single view of the chest is submitted. FINDINGS: Endotracheal tube, NG tube, SG catheter, mediastianal drains and chest tubes are appropriately placed . Post operative changes of CABG. No sizeable pneumothorax. Scattered Pleural-parencymal opacities may reflect atelectasis. The heart is not enlarged. IMPRESSION: 1. Post operative changes of CABG.
--- NOTE | 2019-08-28 15:35 | PN ---
PROGRESS NOTE Mrs. Guo is a 63-year-old female who presented with acute coronary artery syndrome. She has a known history of coronary artery disease, was found to have critical left main disease and totally occluded right coronary artery, underwent coronary artery bypass grafting today with GAO to LAD, saphenous vein graft to the right coronary artery, obtuse marginal branch and diagonal. She is intubated, sedated, paced, on no pressors. Hemodynamically, she is stable. PHYSICAL EXAMINATION: Blood pressure running in the 120s/70 was paced at 80. LUNGS: Clear anteriorly. HEART: Regular rate and rhythm. S1, S2, plus rub. No gallop. ABDOMEN: Soft. Hypoactive bowel sounds. No organomegaly. Obese. EXTREMITIES: JIM wrapping in place. IMPRESSION: 1. Status post coronary artery bypass grafting, stable postoperatively. 2. Prior history of stenting of the right coronary artery. 3. History of hypertension. 4. Hyperlipidemia. 5. Diabetes mellitus. RECOMMENDATION: Will continue routine postoperative care, hopefully extubate and wean soon. Will follow her rhythm and depending on that, her temporary pacemaker setting will be adjusted. Prior to surgery, patient had no significant bradyarrhythmia. Depending on her progress, further recommendation will be made. MMODL / IJN: [id number] /
[2019-08-28 15:42] LABS: ALT 42 U/L (9-52); AST 59 U/L (14-36); African American GFR (CKD) >90 (>60 ml/min/1.73 sqM); Albumin 2.9 g/dL (3.5-5.0); Alkaline Phosphatase 34 U/L (38-126); Anion Gap 4 mmol/L; Blood Urea Nitrogen 10 mg/dL (7-17); Calcium 8.5 mg/dL (8.4-10.2); Carbon Dioxide 26 mmol/L (22-30); Chloride 111 mmol/L (98-107); Glucose 71 mg/dL (74-99); Magnesium 2.6 mg/dL (1.6-2.3); Non-African American GFR(CKD) >90 (>60 ml/min/1.73 sqM); Potassium 4.9 mmol/L (3.5-5.1); Sodium 141 mmol/L (137-145); Total Bilirubin 0.6 mg/dL (0.2-1.3)
[2019-08-28 15:53] LABS: ABG Base Excess -1.6 mmol/L; ABG HCO3 26 mmol/L (21-25); ABG Oxygen Saturation 98.5 % (94-97); ABG PCO2 63 mmHg (35-45); ABG PH 7.22 (7.35-7.45); ABG PO2 232 mmHg (83-108); ABG TCO2 28 mmol/L (19-24); Allen Test Performed? Yes
[2019-08-28 16:01] LABS: Glucose,Whole Blood 123 mg/dL (75-99)
[2019-08-28] MEDS: IPRATROPIUM-ALBUTEROL 3 ML NEB INHALATION SCH ×3 (16:18→20:20)
[2019-08-28 16:32] LABS: Basophils # (A) 0.1 k/uL (0-0.2); Basophils % (A) 1 %; Eosinophils # (A) 0.1 k/uL (0-0.7); Eosinophils % (A) 1 %; HCT 24.5 % (34.0-46.0); Hypochromasia Slight; Lymphocytes # (A) 1.5 k/uL (1.0-4.8); Lymphocytes % (A) 15 %; MCH 27.3 pg (25.0-35.0); MCHC 32.5 g/dL (31.0-37.0); Mean Platelet Volume 6.3; Monocytes # (A) 0.7 k/uL (0-1.0); Monocytes % (A) 8 %; Neutrophils # (A) 7.1 k/uL (1.3-7.7); Neutrophils % (A) 74 %; Platelet Count 134 k/uL (150-450); RBC 2.92 m/uL (3.80-5.40); RDW 14.9 % (11.5-15.5); WBC 9.6 k/uL (3.8-10.6)
--- NOTE | 2019-08-28 16:37 | P.PN ---
Subjective Progress Note Date: 08/28/19 Principal diagnosis: Coronary artery disease This is a very pleasant 63-year-old female patient who follows with Dr. Roca as her primary care physician. She has a history of diabetes mellitus, gastroesophageal reflux disease, hypertension, hyperlipidemia, hypothyroidism, coronary artery disease with previous stent placement. She also has a history of gastric bypass surgery and a hiatal hernia. She was actually scheduled to come see Dr. Walden yesterday for an EGD based on recent complaints of indigestion especially following meals. The night before however the pain gets too uncomfortable and she presented here early in the morning on 08/24/2019 with ongoing chest discomfort. She was utilizing nitroglycerin with some relief. She did undergo coronary cardiac catheterization yesterday and was found to have chronic total occlusion of the distal RCA which may be an in-stent stenosis, severe disease involving the distal left main as well as the ostial left circ umflex and LAD. Preserved LV function with ejection fraction 55-60%. She's been seen and evaluated by cardiothoracic surgery. We are consulted for the same. She is currently resting comfortably in bed. Awake and alert in no acute distress. Denies any chest discomfort currently. No shortness of breath, cough or congestion. No palpitations or lightheadedness. On room air. No previous history of any form of pulmonary disease. No COPD or asthma. Nonsmoker. No inhalers or oxygen at home. Lung function testing pending. Chest x-ray reveals no acute cardiopulmonary process. She remains on a heparin drip. White count 6.7. Hemoglobin 10.8. Peak troponin 0.071. Creatinine 0.66. The patient is seen today 08/26/2019 in follow-up on the selective care unit. She is awake and alert in no acute distress. No further chest discomfort. No palpitations, dizziness or lightheadedness. No shortness of breath, cough or congestion. She is maintaining good O2 saturations in the mid 90s on room air. She's afebrile. Hemodynamically stable. She remains on a heparin drip. The plan is for coronary artery revascularization on 08/28/2019. On 08/27/2019 patient seen in follow-up on selective care unit, she is awake and alert, in no acute distress, no complaints of chest pain overnight, no shortness of breath, vital signs are stable, she is on room air, with a pulse ox of 97%, no fever or chills, she remains on heparin infusion, she is plan for bypass surgery tomorrow by Dr. Obregon, she is working on incentive spirometer, she is achieving 3702-4474 mL on it. On 08/28/2019 patient seen in follow-up in the intensive care unit after 4 vessel coronary bypass grafting surgery with GAO to the LAD, SVG to the diagonal, and serial to the OM, and PDA. Patient is seen still sedated, intubated on mechanical ventilator with current vent settings of SIMV mode of ventilation, with a rate of 12, tidal volume of 350, FiO2 of 100% and PEEP of 10. Postoperative blood gases have been reviewed, showing pO2 of 232, patient has been switched to assist control mode of ventilation with a rate of 20, tidal volume 350, FiO2 dropped down to 60% and PEEP is at 10, postoperative chest x- ray reviewed showing no sizable pneumothorax, ET tube NG tube PA catheter in appropriate positions. He is tidal on the left pleural chest tubes with scant amount of sanguinous output, no air leak noted, epicardial wires in place, connected to temporary pacemaker patient is being a truly paced at a rate of 80 BPM, underlying rhythm sinus bradycardia at a rate of 40-50 BPM, current drips include nitroglycerin at 5 mics per minute, insulin drip is at 0.5 units per hour, and chylothorax is at 4 mg per hour. Patient is hemodynamically stable, output is 4.3 and cardiac index is 2.3. Objective - Vital Signs Vital signs: Vital Signs Temp 98.6 F 08/28/19 06:37 Pulse 48 L 08/28/19 06:37 Resp 17 08/28/19 04:00 BP 176/72 08/28/19 06:37 Pulse Ox 98 08/28/19 06:37 Intake & Output 08/27/19 08/28/19 08/28/19 18:59 06:59 18:59 Intake Total 699.882 420 64.067 Output Total 2135 Balance 699.882 420 -2070.933 Weight 85.2 kg Intake: IV 109.2 100 62 Heparin Sod,Pork in 0.45% 109.2 NaCl 25,000 unit In 0.45 % NaCl 1 250ml.bag @ 12 UNITS/KG/HR 9.634 mls/hr IV .Q24H TABATHA Rx#: [id number] Intake, IV Titration 250.682 80 2.067 Amount Clevidipine Butyrate 25 2.067 mg In Empty Bag 1 bag @ 1 MG/HR 2 mls/hr IV .Q24H TABATHA Rx#:[id number] Heparin Sod,Pork in 0.45% 250.682 NaCl 25,000 unit In 0.45 % NaCl 1 250ml.bag @ 12 UNITS/KG/HR 9.634 mls/hr IV .Q24H TABATHA Rx#: [id number] Lactated Ringers 1,000 ml 80 @ 20 mls/hr IV .Q24H TABATHA Rx#:[id number] Oral 340 240 Output: Urine 935 Estimated Blood Loss 1200 Other: Voiding Method Toilet # Voids 2 - Exam GENERAL EXAM: Sedated, intubated 63-year-old white female, in no acute distress HEAD: Normocephalic/atraumatic. EYES: Normal reaction of pupils, equal size. Conjunctiva pink, sclera white. NOSE: Clear with pink turbinates. THROAT: No erythema or exudates. NECK: No masses, no JVD, no thyroid enlargement, no adenopathy. CHEST: No chest wall deformity. Symmetrical expansion. Midsternal incision's clean dry and intact, 2 mediastinal and left pleural chest tubes in place with scant amount of serous output in the Pleur-evac, no air leak, epicardial wires to temporary pacemaker patient is being paced atrially at a rate of 80 BPM, underlying rhythm is 40-50 BPM sinus rhythm LUNGS: Equal air entry with no crackles, wheeze, rhonchi or dullness. CVS: Regular rate and rhythm, normal S1 and S2, no gallops, no murmurs, no rubs ABDOMEN: Soft, nontender. No hepatosplenomegaly, normal bowel sounds, no guarding or rigidity. EXTREMITIES: No clubbing, no edema, no cyanosis, 2+ pulses and upper and lower extremities. MUSCULOSKELETAL: Muscle strength and tone normal. SPINE: No scoliosis or deformity SKIN: No rashes CENTRAL NERVOUS SYSTEM: Sedated, intubated. No focal deficits, tone is normal in all 4 extremities. - Labs CBC & Chem 7: 08/27/19 05:58 08/28/19 15:07 Labs: Abnormal Lab Results - Last 24 Hours (Table) 08/26/19 08/27/19 08/27/19 Range/Units 10:19 20:16 23:57 APTT 43.2 H (22.0-30.0) sec ABG pH (7.35-7.45) ABG pCO2 (35-45) mmHg ABG pO2 (83-108) mmHg ABG HCO3 (21-25) mmol/L ABG Total CO2 (19-24) mmol/L ABG O2 Saturation (94-97) % ABG Hematocrit (34.0-46.0) % ABG Potassium (3.4-4.5) mmol/L ABG Ionized Calcium (4.5-5.3) mg/dL ABG Glucose (75-99) mg/dL ABG Lactic Acid (0.5-1.6) mmol/L Hemoglobin (11.4-16.0) gm/dL Chloride (98-107) mmol/L Glucose (74-99) mg/dL POC Glucose (mg/dL) 131 H (75-99) mg/dL Magnesium (1.6-2.3) mg/dL AST (14-36) U/L Alkaline Phosphatase (38-126) U/L Total Protein (6.3-8.2) g/dL Albumin (3.5-5.0) g/dL Arterial Blood Potassium (3.4-4.5) mmol/L Arterial Blood Glucose (75-99) mg/dL Crossmatch See Detail 08/28/19 08/28/19 08/28/19 Range/Units 08:47 09:53 11:01 APTT (22.0-30.0) sec ABG pH (7.35-7.45) ABG pCO2 46 H (35-45) mmHg ABG pO2 153 H 169 H 282 H (83-108) mmHg ABG HCO3 (21-25) mmol/L ABG Total CO2 25 H 27 H 26 H (19-24) mmol/L ABG O2 Saturation 98.4 H 98.6 H 99.2 H (94-97) % ABG Hematocrit 29 L 29 L 20 L* (34.0-46.0) % ABG Potassium 4.9 H (3.4-4.5) mmol/L ABG Ionized Calcium 4.4 L (4.5-5.3) mg/dL ABG Glucose 111 H 112 H 195 H (75-99) mg/dL ABG Lactic Acid (0.5-1.6) mmol/L Hemoglobin 9.5 L 9.5 L 6.7 L* (11.4-16.0) gm/dL Chloride (98-107) mmol/L Glucose (74-99) mg/dL POC Glucose (mg/dL) (75-99) mg/dL Magnesium (1.6-2.3) mg/dL AST (14-36) U/L Alkaline Phosphatase (38-126) U/L Total Protein (6.3-8.2) g/dL Albumin (3.5-5.0) g/dL Arterial Blood Potassium 4.9 H (3.4-4.5) mmol/L Arterial Blood Glucose 111 H 112 H 195 H (75-99) mg/dL Crossmatch 08/28/19 08/28/19 08/28/19 Range/Units 11:35 12:07 12:37 APTT (22.0-30.0) sec ABG pH (7.35-7.45) ABG pCO2 (35-45) mmHg ABG pO2 295 H 349 H 331 H (83-108) mmHg ABG HCO3 (21-25) mmol/L ABG Total CO2 26 H 25 H 25 H (19-24) mmol/L ABG O2 Saturation 99.4 H 99.5 H 99.4 H (94-97) % ABG Hematocrit 20 L* 19 L* 21 L (34.0-46.0) % ABG Potassium 4.7 H (3.4-4.5) mmol/L ABG Ionized Calcium 4.4 L 4.4 L (4.5-5.3) mg/dL ABG Glucose 197 H 193 H 165 H (75-99) mg/dL ABG Lactic Acid 1.7 H (0.5-1.6) mmol/L Hemoglobin 6.7 L* 6.2 L* 6.7 L* (11.4-16.0) gm/dL Chloride (98-107) mmol/L Glucose (74-99) mg/dL POC Glucose (mg/dL) (75-99) mg/dL Magnesium (1.6-2.3) mg/dL AST (14-36) U/L Alkaline Phosphatase (38-126) U/L Total Protein (6.3-8.2) g/dL Albumin (3.5-5.0) g/dL Arterial Blood Potassium 4.7 H (3.4-4.5) mmol/L Arterial Blood Glucose 197 H 193 H 165 H (75-99) mg/dL Crossmatch 08/28/19 08/28/19 08/28/19 Range/Units 13:58 15:07 15:50 APTT (22.0-30.0) sec ABG pH (7.35-7.45) ABG pCO2 (35-45) mmHg ABG pO2 165 H (83-108) mmHg ABG HCO3 (21-25) mmol/L ABG Total CO2 (19-24) mmol/L ABG O2 Saturation 99.0 H (94-97) % ABG Hematocrit 21 L (34.0-46.0) % ABG Potassium (3.4-4.5) mmol/L ABG Ionized Calcium (4.5-5.3) mg/dL ABG Glucose 101 H (75-99) mg/dL ABG Lactic Acid 1.7 H (0.5-1.6) mmol/L Hemoglobin 6.8 L* (11.4-16.0) gm/dL Chloride 111 H (98-107) mmol/L Glucose 71 L (74-99) mg/dL POC Glucose (mg/dL) 123 H (75-99) mg/dL Magnesium 2.6 H (1.6-2.3) mg/dL AST 59 H (14-36) U/L Alkaline Phosphatase 34 L (38-126) U/L Total Protein 5.0 L (6.3-8.2) g/dL Albumin 2.9 L (3.5-5.0) g/dL Arterial Blood Potassium (3.4-4.5) mmol/L Arterial Blood Glucose 101 H (75-99) mg/dL Crossmatch 08/28/19 Range/Units 15:51 APTT (22.0-30.0) sec ABG pH 7.22 L (7.35-7.45) ABG pCO2 63 H (35-45) mmHg ABG pO2 232 H (83-108) mmHg ABG HCO3 26 H (21-25) mmol/L ABG Total CO2 28 H (19-24) mmol/L ABG O2 Saturation 98.5 H (94-97) % ABG Hematocrit (34.0-46.0) % ABG Potassium (3.4-4.5) mmol/L ABG Ionized Calcium (4.5-5.3) mg/dL ABG Glucose (75-99) mg/dL ABG Lactic Acid (0.5-1.6) mmol/L Hemoglobin (11.4-16.0) gm/dL Chloride (98-107) mmol/L Glucose (74-99) mg/dL POC Glucose (mg/dL) (75-99) mg/dL Magnesium (1.6-2.3) mg/dL AST (14-36) U/L Alkaline Phosphatase (38-126) U/L Total Protein (6.3-8.2) g/dL Albumin (3.5-5.0) g/dL Arterial Blood Potassium (3.4-4.5) mmol/L Arterial Blood Glucose (75-99) mg/dL Crossmatch Assessment and Plan Plan: Assessment: #1. Coronary artery disease, status post four-vessel bypass grafting including GAO to LAD, SVG to the diagonal, SaO2 the OM and PDA, operative day 0 #2. Routine ventilator management #3. Chest discomfort on presentation and patient found to have significant coronary artery disease with calcified right and left coronary systems. Chronic total occlusion of the distal RCA suspected in-stent restenosis, severe disease involving the distal left main as well as involving the ostial left circumflex and LAD. Patient was found to have preserved left ventricular systolic function the EF of 55% #4. Diabetes mellitus #5. Hypertension #6. Previous coronary artery disease with stent placements #7. Hyperlipidemia #8. Hypothyroidism #9. Previous gastric bypass surgery #10. Lifelong nonsmoker Plan: Vent setting adjustments have been made based on the postoperative blood gas, hemodynamically patient is stable, no significant bleeding from the chest tubes. We'll proceed with weaning and spontaneous breathing trials once the patient awakens and starts following commands. Continue with nebulized bronchodilators. Incentive spirometry to the bedside after extubation, follow-up chest x-ray in the morning. Continue close hemodynamic monitoring. Pain control, deep breathing and coughing after extubation. I performed a history & physical examination of the patient and discussed their management with my nurse practitioner, Saniya Camacho. I reviewed the nurse practitioner's note and agree with the documented findings and plan of care. Lung sounds are positive for clear breath sounds. The findings and the impression was discussed with the patient. I attest to the documentation by the nurse practitioner. Time with Patient: Greater than 30
[2019-08-28 16:44] LABS: Glucose,Whole Blood 116 mg/dL (75-99)
[2019-08-28 17:07] LABS: ABG Base Excess -0.9 mmol/L; ABG HCO3 25 mmol/L (21-25); ABG Oxygen Saturation 96.4 % (94-97); ABG PCO2 46 mmHg (35-45); ABG PH 7.34 (7.35-7.45); ABG PO2 97 mmHg (83-108); ABG TCO2 26 mmol/L (19-24); Allen Test Performed? Yes
[2019-08-28 17:30] LABS: Glucose,Whole Blood 153 mg/dL (75-99)
[2019-08-28 18:05] LABS: Basophils # (A) 0.1 k/uL (0-0.2); Basophils % (A) 1 %; Eosinophils % (A) 0 %; HCT 26.3 % (34.0-46.0); HGB 8.5 gm/dL (11.4-16.0); Lymphocytes % (A) 8 %; MCH 26.9 pg (25.0-35.0); MCHC 32.5 g/dL (31.0-37.0); MCV 82.8 fL (80.0-100.0); Mean Platelet Volume 6.8; Monocytes # (A) 1.1 k/uL (0-1.0); Monocytes % (A) 9 %; Neutrophils # (A) 10.1 k/uL (1.3-7.7); Neutrophils % (A) 80 %; Platelet Count 213 k/uL (150-450); RBC 3.17 m/uL (3.80-5.40); RDW 15.3 % (11.5-15.5); WBC 12.5 k/uL (3.8-10.6)
[2019-08-28 18:06] LABS: Glucose,Whole Blood 151 mg/dL (75-99)
[2019-08-28] MEDS: ACETAMINOPHEN IV (For NPO) 1,000 MG in EMPTY BAG 1 BAG IVPB SCH ×2 (18:39→22:51)
[2019-08-28] MEDS: KETOROLAC 30 MG/ML 1 ML VIAL IVP SCH (19:07)
[2019-08-28 19:10] LABS: Glucose,Whole Blood 124 mg/dL (75-99)
[2019-08-28 19:50] LABS: Glucose,Whole Blood 127 mg/dL (75-99)
[2019-08-28 19:52] LABS: ABG Base Excess -0.6 mmol/L; ABG HCO3 24 mmol/L (21-25); ABG Oxygen Saturation 98.7 % (94-97); ABG PCO2 41 mmHg (35-45); ABG PH 7.39 (7.35-7.45); ABG PO2 202 mmHg (83-108); ABG TCO2 26 mmol/L (19-24); Allen Test Performed? Yes
[2019-08-28 20:43] LABS: Glucose,Whole Blood 129 mg/dL (75-99)
[2019-08-28 20:47] LABS: Basophils # (A) 0.1 k/uL (0-0.2); Basophils % (A) 1 %; Eosinophils % (A) 0 %; HCT 25.1 % (34.0-46.0); HGB 8.2 gm/dL (11.4-16.0); Hypochromasia Slight; Lymphocytes # (A) 0.6 k/uL (1.0-4.8); Lymphocytes % (A) 5 %; MCH 27.2 pg (25.0-35.0); MCHC 32.6 g/dL (31.0-37.0); MCV 83.4 fL (80.0-100.0); Mean Platelet Volume 7.1; Monocytes # (A) 0.8 k/uL (0-1.0); Monocytes % (A) 7 %; Neutrophils # (A) 10.2 k/uL (1.3-7.7); Neutrophils % (A) 86 %; Platelet Count 174 k/uL (150-450); RBC 3.01 m/uL (3.80-5.40); WBC 11.8 k/uL (3.8-10.6)
[2019-08-28 21:15] LABS: Glucose,Whole Blood 138 mg/dL (75-99)
--- NOTE | 2019-08-28 21:53 | OP ---
OPERATIVE REPORT DATE OF SURGERY: 08/28/2019. PREOPERATIVE DIAGNOSIS: Coronary artery disease. POSTOPERATIVE DIAGNOSIS: Coronary artery disease. DESCRIPTION OF PROCEDURE: 1. Coronary artery bypass grafting x 4 vessels (left internal mammary artery to left anterior descending artery, saphenous vein graft to diagonal artery, saphenous vein graft to obtuse marginal artery, saphenous vein graft to posterior descending artery). 2. Endoscopic harvest, left greater saphenous vein. 3. Epiaortic ultrasound. 4. Transesophageal echocardiogram. SURGEON: Tanner Obregon MD. DRY [facility]AT ROOM ATTENDANT: 1. JILLIAN Sanchez. 2. JILLIAN Kim. ANESTHESIA: General. SPECIMEN: None. COMPLICATION: None. INDICATION: The patient is a 63-year-old female with a history of coronary artery disease status post coronary stents, diabetes mellitus, hypertension, hiatal hernia, osteoarthritis, and obesity who presented to the hospital with chest pain. Workup was consistent with non- ST elevation myocardial infarction. Cardiac catheterization was performed which revealed multivessel coronary artery disease. Coronary artery bypass was recommended. The risks, benefits, and alternatives of the procedure were discussed at length with the patient. All of her questions were answered. Consent was obtained. FINDINGS: The left internal mammary artery was a good vessel with brisk flow. The saphenous vein was a good conduit. The LAD contained diffuse plaque, but measured 1.3 mm. The diagonal artery measured 1.3 mm. The obtuse marginal artery contained proximal calcific plaque measured 1.3 mm. The posterior descending artery measured 1.3 mm. PROCEDURE IN DETAIL: The patient was taken to the operating room and placed supine on the operating table. Her left radial artery was tested by Lisandro's test and found to be dependent and therefore unusable. After the induction of general anesthesia, she was prepped and draped in the usual sterile fashion. Preoperative transesophageal echocardiogram confirmed a preserved ejection fraction with trace mitral regurgitation. A median sternotomy was performed. The left internal mammary artery was harvested in the standard fashion taking care to clip all branches. Intravenous heparin was administered, and the vessel was transected distally revealing brisk flow. Simultaneously, greater saphenous vein was harvested from the left lower extremity using endoscopic technique. All branches were tied. Both the vein and mammary artery were good conduits. A pericardial cradle was created. The ascending aorta was palpated. There was some calcific plaque noted at the takeoff of the innominate artery, but the remainder of the ascending aorta appeared to be free of obvious disease. Epiaortic ultrasound was then performed on the ascending aorta. Again no calcific plaque or atheromatous disease was identified on this vessel. An arterial cannula was placed in the distal ascending aorta. A venous cannula was placed through the right atrium and directed into the IVC. Of note, the right atrial tissue was quite friable. Both antegrade and retrograde catheters were placed as well. The patient was then placed on cardiopulmonary bypass with good decompression of the heart. The aortic cross-clamp was applied. Cold blood potassium cardioplegia was delivered in both antegrade and retrograde fashion to achieve arrest of the heart. Of note, cardioplegia was delivered every 15 to 20 minutes while the patient remained under crossclamp. I began by inspecting the inferior wall. The heart catheterization revealed a totally occluded proximal RCA. I did find a PDA vessel which appeared to be amenable for bypass. A small arteriotomy was created. This vessel accepted a 1 mm probe. Using saphenous vein in a reversed fashion, an end-to-side anastomosis was created. This was performed using running 7-0 Prolene suture. The graft was hemostatic and had good flow. Next, the lateral wall was inspected. The obtuse marginal was identified. It became small distally, so I dissected it out more proximally. A small arteriotomy was created. This vessel accepted a 1 mm probe. Using saphenous vein in a reversed fashion, an end-to- side anastomosis created. This was performed using running 7-0 Prolene suture. The graft was hemostatic and had good flow. Next, the anterior wall was inspected. The diagonal artery and LAD were both identified. The diagonal artery was dissected free. A small arteriotomy was created. This vessel accepted a 1 mm probe. Using saphenous vein in a reversed fashion, an end-to-side anastomosis was created. This was performed using a running 7-0 Prolene suture. The graft was hemostatic and had good flow. Finally the LAD was dissected free in its midportion. Distally, it became quite small. Along its course, there was spiral plaque but a soft spot for bypass was chosen. A small arteriotomy was created. This vessel accepted a 1 mm probe. Using the left internal mammary artery, an end-to-side anastomosis created. This was performed a running 8-0 Prolene suture. The graft was hemostatic. The mammary pedicle was then tacked down to the anterior surface of the heart. Attention was then turned to the proximal anastomoses. These were performed in end-to- side fashion using running 6-0 Prolene sutures. One liter of warm blood was delivered in retrograde fashion. Both lidocaine and magnesium were administered as well. The aortic cross-clamp was removed. The vein grafts were de-aired in the standard fashion. All distal anastomoses were inspected and appeared to be hemostatic. Temporary atrial and ventricular pacing wires were placed and brought through the skin. The patient was then weaned off cardiopulmonary bypass. She without any additional pressor support. Of note, she did have a baseline intrinsic heart rate in the 30s and low 40s. For that reason, I elected to keep her paced. The atrial wires were not working well, so a 2nd set were placed. Followup transesophageal echocardiogram confirmed preserved ejection fraction. No change in the trivial mitral regurgitation. Protamine was administered. There were no adverse reactions. The remaining cannulas were then removed. The mediastinum was copiously irrigated with warm saline solution. All surgical sites were inspected and appeared to be hemostatic. Soft tissues were reapproximated over the ascending aorta as well as over the apex of the heart. Straight 32-Thai chest tubes were placed in the left pleural space as well as the mediastinum. These were all secured to the skin using sutures. The sternum was then reapproximated using the [place] cable system. The wires were placed in a figure of eight fashion. At the completion of the closure, the sternum was well-aligned. The remainder of the wound was closed in multiple layers. Sterile dressing was applied. The patient appeared to tolerate the procedure well. There were no immediate complications. She returned to the ICU in critical but stable condition. MMODL / IJN: [id number] / TR
[2019-08-28 22:07] LABS: Glucose,Whole Blood 121 mg/dL (75-99)
[2019-08-28] MEDS: MUPIROCIN 2% OINT 22 GM TUBE NASAL SCH (22:15)
[2019-08-28] MEDS: HEPARIN SODIUM,PORCINE 5,000 UNIT/ML 1 ML VIAL SQ SCH (22:42)
[2019-08-28] MEDS: ONDANSETRON 4 MG/2 ML VIAL IVP PRN (22:50)
[2019-08-29] MEDS ORDERED: HYDROcodone/APAP 5-325MG 1 EACH TAB PO PRN ×2 (02:09)
[2019-08-29] MEDS ORDERED: ONDANSETRON 4 MG/2 ML VIAL ONE (02:43)
[2019-08-29] MEDS ORDERED: METOCLOPRAMIDE 5 MG/ML 2 ML VIAL ONE (02:43)
[2019-08-29] MEDS ORDERED: HYDROcodone/APAP 5-325MG 1 EACH TAB ONE (02:43)
[2019-08-29] MEDS ORDERED: KETOROLAC 30 MG/ML 1 ML VIAL ONE (02:43)
[2019-08-29 05:02] LABS: Glucose,Whole Blood 135 mg/dL (75-99)
[2019-08-29 05:02] LABS: Glucose,Whole Blood 129 mg/dL (75-99)
[2019-08-29 05:02] LABS: Glucose,Whole Blood 131 mg/dL (75-99)
[2019-08-29 05:02] LABS: Glucose,Whole Blood 127 mg/dL (75-99)
[2019-08-29 05:02] LABS: Glucose,Whole Blood 114 mg/dL (75-99)
[2019-08-29 05:02] LABS: Glucose,Whole Blood 127 mg/dL (75-99)
[2019-08-29 05:09] LABS: Glucose,Whole Blood 123 mg/dL (75-99)
[2019-08-29] MEDS: KETOROLAC 30 MG/ML 1 ML VIAL IVP SCH ×4 (05:42→20:33)
[2019-08-29] MEDS: ALBUMIN HUMAN 5% 250 ML in EMPTY BAG 1 BAG IVPB PRN ×3 (06:04→12:45)
[2019-08-29 06:21] LABS: Glucose,Whole Blood 134 mg/dL (75-99)
[2019-08-29] MEDS: NITROGLYCERIN-D5W PMX 50 MG in DEXTROSE/WATER 1 250ML.BAG IV SCH (06:45)
[2019-08-29] MEDS: LEVOTHYROXINE 50 MCG TAB PO SCH (06:50)
[2019-08-29 07:07] LABS: Glucose,Whole Blood 131 mg/dL (75-99)
[2019-08-29 07:22] LABS: Ionized Calcium 4.8 mg/dL (4.5-5.3)
[2019-08-29 07:23] LABS: Basophils % (A) 0 %; Eosinophils % (A) 0 %; HGB 7.5 gm/dL (11.4-16.0); Hypochromasia Slight; Lymphocytes # (A) 0.9 k/uL (1.0-4.8); Lymphocytes % (A) 10 %; MCHC 32.5 g/dL (31.0-37.0); MCV 82.8 fL (80.0-100.0); Mean Platelet Volume 7.6; Monocytes # (A) 0.7 k/uL (0-1.0); Monocytes % (A) 8 %; Neutrophils # (A) 7.5 k/uL (1.3-7.7); Neutrophils % (A) 81 %; Platelet Count 137 k/uL (150-450); RBC 2.77 m/uL (3.80-5.40); RDW 15.1 % (11.5-15.5); WBC 9.3 k/uL (3.8-10.6)
[2019-08-29 07:34] LABS: ALT 64 U/L (9-52); AST 67 U/L (14-36); African American GFR (CKD) >90 (>60 ml/min/1.73 sqM); Alkaline Phosphatase 48 U/L (38-126); Anion Gap 6 mmol/L; Blood Urea Nitrogen 10 mg/dL (7-17); Calcium 8.4 mg/dL (8.4-10.2); Carbon Dioxide 23 mmol/L (22-30); Chloride 106 mmol/L (98-107); Glucose 116 mg/dL (74-99); Non-African American GFR(CKD) >90 (>60 ml/min/1.73 sqM); Sodium 135 mmol/L (137-145); Total Bilirubin 0.4 mg/dL (0.2-1.3); Total Protein 5.2 g/dL (6.3-8.2)
--- NOTE | 2019-08-29 08:07 | PN ---
PROGRESS NOTE Mrs. Guo is a 63-year-old female with a history of coronary artery disease underwent coronary artery bypass grafting yesterday. She is extubated, sitting up in the chair, complaining of some soreness, but has no evidence of malignant arrhythmia. She was atrial paced because of sinus bradycardia, but her underlying rate is in the mid 60s. She is on no pressor. Hemodynamically, she is stable. She continues to be at this time on aspirin once a day, Lipitor 40 mg daily, Plavix 75 mg daily, metoprolol 12.5 mg twice a day. PHYSICAL EXAMINATION: Blood pressure 115/50 with the heart rate in the 70s. LUNGS: With decreased air exchange at the bases. No wheezes. HEART: Regular rate and rhythm. S1, S2, plus rub. No gallop. ABDOMEN: Soft, nontender. EXTREMITIES: No significant edema. LAB DATA: Lab data revealed Hemoglobin 7.5, BUN and creatinine 10 and 0.65. AST 67, ALT of 64. IMPRESSION: 1. Status post coronary artery bypass grafting, stable. 2. Bradycardia, improved. 3. History of prior stenting of the LAD. 4. Diabetes. 5. Hypertension. 6. Hyperlipidemia. RECOMMENDATION: From the cardiac standpoint, she is stable. I will continue to monitor her rhythm. Continue to increase her level activity and depending on her rate, further recommendation will be made. MMODL / IJN: [id number] /
[2019-08-29] MEDS: IPRATROPIUM-ALBUTEROL 3 ML NEB INHALATION SCH ×4 (08:18→19:36)
--- NOTE | 2019-08-29 08:20 | XR ---
EXAMINATION TYPE: XR chest 1V portable DATE OF EXAM: 08/29/2019 Comparison: 08/28/2019 Clinical History: 63-year-old female Post Operative Cardiac Surgery Findings: Right IJ Erie-Pasquale catheter, tip likely in the proximal right main pulmonary artery. Epicardial pacer leads. Left-sided chest tube. No appreciable pneumothorax. Heart remains enlarged. Some mild patchy bibasilar densities remain though aeration is improving from prior exam. Interval extubation and jonathan bobo of NG tube. Impression: Stable cardiomegaly. Mild patchy bibasilar atelectasis with improving aeration from prior exam. Left- sided chest tube without appreciable pneumothorax.
[2019-08-29 08:29] LABS: Glucose,Whole Blood 160 mg/dL (75-99)
--- NOTE | 2019-08-29 08:36 | P.PN ---
Subjective Progress Note Date: 08/29/19 Principal diagnosis: Triple-vessel coronary artery disease with significant left main disease, non- STEMI this admission. Previous medical history of coronary artery disease status post stenting, noncompliance with cardiac follow-up, hypertension, hyperlipidemia, hypothyroidism, type 2 diabetes mellitus with hemoglobin A1c 6.9%, hiatal hernia, Eusebio-en-Y gastric bypass in 2003, and significant family history of premature coronary artery disease POD #1 urgent coronary artery bypass grafting x 4 vessels, left internal mammary artery to the left anterior descending artery, reverse saphenous vein graft from the aorta to the diagonal artery, reverse saphenous vein graft from the aorta to the obtuse marginal artery, reverse saphenous vein graft from the aorta to the posterior descending artery. Endoscopic harvesting of the left greater saphenous vein. Epi-aortic ultrasound and intraoperative transesophageal echocardiogram. Postoperative acute blood loss anemia, expected outcome given hemodilution and cardiopulmonary bypass pump The patient is currently sitting up in a recliner in the intensive care unit in no acute distress. She was successfully extubated last night at 20:14. States pain is mostly controlled on current medication regimen, denies shortness of b reath. States she does feel sleepy and a bit nauseous. Remains hemodynamically stable on no pressors or inotropes. Atrially paced on telemetry with underlying rhythm sinus bradycardia in the high 50s. Minimal output in chest tubes, adequate urine output overnight. No new concerns. Objective - Vital Signs Vital signs: Vital Signs Temp 98.5 F 08/29/19 04:00 Pulse 78 08/29/19 07:00 Resp 26 H 08/29/19 07:00 BP 176/72 08/28/19 06:37 Pulse Ox 96 08/29/19 07:00 Intake & Output 08/28/19 08/29/19 08/29/19 18:59 06:59 18:59 Intake Total 705.663 9195.358 59 Output Total 3150 1489 35 Balance -2871.366 4.358 24 Weight 90.8 kg Intake: IV 266.5 857.0 59 CO/CI NaCl 0.9 90 Lactated Ringers 1,000 ml 150 600 50 @ 20 mls/hr IV .Q24H [facility] Rx#:[id number] Nitroglycerin-D5w Pmx 50 4.5 1.5 mg In Dextrose/Water 1 250ml.bag @ 5 MCG/MIN 1.5 mls/hr IV .Q24H [facility] Rx#: [id number] Nitroglycerine-D5w Pmx 50 16.5 mg Pressure bag 0.9 99 9 ceFAZolin 2 gm In Sodium 50 50 Chloride 0.9% 50 ml @ 100 mls/hr IVPB Q8HR [facility] Rx# :[id number] Intake, IV Titration 12.134 636.358 Amount ACETAMINOPHEN IV (For NPO 100 ) 1,000 mg In Empty Bag 1 bag @ 400 mls/hr IVPB Q6HR [facility] Rx#:[id number] Albumin Human 5% 250 ml 500 In Empty Bag 1 bag @ 250 mls/hr IVPB Q1HR PRN Rx#: [id number] Clevidipine Butyrate 25 7.934 mg In Empty Bag 1 bag @ 1 MG/HR 2 mls/hr IV .Q24H [facility] Rx#:[id number] Insulin Regular 100 unit 4.200 13.283 In Sodium Chloride 0.9% 100 ml @ Titrate IV .Q0M [facility] Rx#:[id number] Nitroglycerin-D5w Pmx 50 23.075 mg In Dextrose/Water 1 250ml.bag @ 5 MCG/MIN 1.5 mls/hr IV .Q24H [facility] Rx#: [id number] Output: Chest Tube Drainage 75 164 10 Chest Tube Mediastinal 55 131 10 Left pleural 20 33 0 Urine 1875 1325 25 Estimated Blood Loss 1200 Other: Voiding Method Indwelling Catheter Indwelling Catheter ABP, PAP, CO, CI - Last Documented Arterial Blood Pressure 115/47 Pulmonary Artery Pressure 17/10 Cardiac Output 5.1 Cardiac Index 2.8 - Constitutional General appearance: Present: cooperative, no acute distress, obese - Respiratory Details: Lungs sounds diminished bilaterally. Respirations even, nonlabored. Currently on 4 L nasal cannula with oxygen saturation 98%. Able to achieve 1000 mL on her incentive spirometry. Weak cough. Mediastinal chest tube to continuous wall suction, 110 mL serosanguineous drainage overnight, 210 mL since surgery, no air leak present. Left pleural chest tube to continuous wall suction, 36 mL serosanguineous drainage overnight, 60 mL since surgery, no air leak present. - Cardiovascular Details: S1, S2 present. Regular rate and rhythm, atrially placed at 76 bpm on telemetry, underlying rhythm sinus bradycardia in the high 50s. A/V epicardial pacemaker wires present, connected to generator, AAI mode with rate 76 bpm. Sternum stable. Palpable peripheral pulses bilaterally. Generalized edema present. No calf pain or tenderness noted. Right internal jugular Tyler/Cordis, right radial arterial line present. Last CO/CI 5.1/2.8 on no inotropes or pressors. Heart hugger in place with patient demonstrating appropriate use. Antiembolism stockings, SCDs present. - Gastrointestinal Gastrointestinal Comment(s): Abdomen soft, nontender, nondistended, obese. Hypoactive bowel sounds present 4 quadrants. Tolerating clear liquids. Negative flatus. - Genitourinary Genitourinary Comment(s): Porras present draining clear, yellow urine. Output 50-110 mL/h overnight. - Integumentary Integumentary Comment(s): Skin is warm and dry with evidence of good perfusion. Anterior chest incision well approximated and covered with dry intact dressing. Left lower extremity EVH site well approximated. - Neurologic Neurologic: Present: CNII-XII intact - Musculoskeletal Musculoskeletal: Present: strength equal bilaterally - Psychiatric Psychiatric: Present: A&O x's 3, appropriate affect, intact judgment & insight - Allied health notes Allied health notes reviewed: nursing - Labs CBC & Chem 7: 08/29/19 04:00 08/29/19 04:00 Labs: Abnormal Lab Results - Last 24 Hours (Table) 08/26/19 08/28/19 08/28/19 Range/Units 10:19 08:47 09:53 WBC (3.8-10.6) k/uL RBC (3.80-5.40) m/uL Hgb (11.4-16.0) gm/dL Hct (34.0-46.0) % Plt Count (150-450) k/uL Neutrophils # (1.3-7.7) k/uL Lymphocytes # (1.0-4.8) k/uL Monocytes # (0-1.0) k/uL ABG pH (7.35-7.45) ABG pCO2 46 H (35-45) mmHg ABG pO2 153 H 169 H (83-108) mmHg ABG HCO3 (21-25) mmol/L ABG Total CO2 25 H 27 H (19-24) mmol/L ABG O2 Saturation 98.4 H 98.6 H (94-97) % ABG Hematocrit 29 L 29 L (34.0-46.0) % ABG Potassium (3.4-4.5) mmol/L ABG Ionized Calcium (4.5-5.3) mg/dL ABG Glucose 111 H 112 H (75-99) mg/dL ABG Lactic Acid (0.5-1.6) mmol/L Hemoglobin 9.5 L 9.5 L (11.4-16.0) gm/dL Sodium (137-145) mmol/L Chloride (98-107) mmol/L Glucose (74-99) mg/dL POC Glucose (mg/dL) (75-99) mg/dL Magnesium (1.6-2.3) mg/dL AST (14-36) U/L ALT (9-52) U/L Alkaline Phosphatase (38-126) U/L Total Protein (6.3-8.2) g/dL Albumin (3.5-5.0) g/dL Arterial Blood Potassium (3.4-4.5) mmol/L Arterial Blood Glucose 111 H 112 H (75-99) mg/dL Crossmatch See Detail 08/28/19 08/28/19 08/28/19 Range/Units 11:01 11:35 12:07 WBC (3.8-10.6) k/uL RBC (3.80-5.40) m/uL Hgb (11.4-16.0) gm/dL Hct (34.0-46.0) % Plt Count (150-450) k/uL Neutrophils # (1.3-7.7) k/uL Lymphocytes # (1.0-4.8) k/uL Monocytes # (0-1.0) k/uL ABG pH (7.35-7.45) ABG pCO2 (35-45) mmHg ABG pO2 282 H 295 H 349 H (83-108) mmHg ABG HCO3 (21-25) mmol/L ABG Total CO2 26 H 26 H 25 H (19-24) mmol/L ABG O2 Saturation 99.2 H 99.4 H 99.5 H (94-97) % ABG Hematocrit 20 L* 20 L* 19 L* (34.0-46.0) % ABG Potassium 4.9 H 4.7 H (3.4-4.5) mmol/L ABG Ionized Calcium 4.4 L 4.4 L 4.4 L (4.5-5.3) mg/dL ABG Glucose 195 H 197 H 193 H (75-99) mg/dL ABG Lactic Acid 1.7 H (0.5-1.6) mmol/L Hemoglobin 6.7 L* 6.7 L* 6.2 L* (11.4-16.0) gm/dL Sodium (137-145) mmol/L Chloride (98-107) mmol/L Glucose (74-99) mg/dL POC Glucose (mg/dL) (75-99) mg/dL Magnesium (1.6-2.3) mg/dL AST (14-36) U/L ALT (9-52) U/L Alkaline Phosphatase (38-126) U/L Total Protein (6.3-8.2) g/dL Albumin (3.5-5.0) g/dL Arterial Blood Potassium 4.9 H 4.7 H (3.4-4.5) mmol/L Arterial Blood Glucose 195 H 197 H 193 H (75-99) mg/dL Crossmatch 08/28/19 08/28/19 08/28/19 Range/Units 12:37 13:58 15:07 WBC (3.8-10.6) k/uL RBC (3.80-5.40) m/uL Hgb (11.4-16.0) gm/dL Hct (34.0-46.0) % Plt Count (150-450) k/uL Neutrophils # (1.3-7.7) k/uL Lymphocytes # (1.0-4.8) k/uL Monocytes # (0-1.0) k/uL ABG pH (7.35-7.45) ABG pCO2 (35-45) mmHg ABG pO2 331 H 165 H (83-108) mmHg ABG HCO3 (21-25) mmol/L ABG Total CO2 25 H (19-24) mmol/L ABG O2 Saturation 99.4 H 99.0 H (94-97) % ABG Hematocrit 21 L 21 L (34.0-46.0) % ABG Potassium (3.4-4.5) mmol/L ABG Ionized Calcium (4.5-5.3) mg/dL ABG Glucose 165 H 101 H (75-99) mg/dL ABG Lactic Acid 1.7 H (0.5-1.6) mmol/L Hemoglobin 6.7 L* 6.8 L* (11.4-16.0) gm/dL Sodium (137-145) mmol/L Chloride 111 H (98-107) mmol/L Glucose 71 L (74-99) mg/dL POC Glucose (mg/dL) (75-99) mg/dL Magnesium 2.6 H (1.6-2.3) mg/dL AST 59 H (14-36) U/L ALT (9-52) U/L Alkaline Phosphatase 34 L (38-126) U/L Total Protein 5.0 L (6.3-8.2) g/dL Albumin 2.9 L (3.5-5.0) g/dL Arterial Blood Potassium (3.4-4.5) mmol/L Arterial Blood Glucose 165 H 101 H (75-99) mg/dL Crossmatch 08/28/19 08/28/19 08/28/19 Range/Units 15:07 15:50 15:51 WBC (3.8-10.6) k/uL RBC 2.92 L (3.80-5.40) m/uL Hgb 8.0 L D (11.4-16.0) gm/dL Hct 24.5 L (34.0-46.0) % Plt Count 134 L (150-450) k/uL Neutrophils # (1.3-7.7) k/uL Lymphocytes # (1.0-4.8) k/uL Monocytes # (0-1.0) k/uL ABG pH 7.22 L (7.35-7.45) ABG pCO2 63 H (35-45) mmHg ABG pO2 232 H (83-108) mmHg ABG HCO3 26 H (21-25) mmol/L ABG Total CO2 28 H (19-24) mmol/L ABG O2 Saturation 98.5 H (94-97) % ABG Hematocrit (34.0-46.0) % ABG Potassium (3.4-4.5) mmol/L ABG Ionized Calcium (4.5-5.3) mg/dL ABG Glucose (75-99) mg/dL ABG Lactic Acid (0.5-1.6) mmol/L Hemoglobin (11.4-16.0) gm/dL Sodium (137-145) mmol/L Chloride (98-107) mmol/L Glucose (74-99) mg/dL POC Glucose (mg/dL) 123 H (75-99) mg/dL Magnesium (1.6-2.3) mg/dL AST (14-36) U/L ALT (9-52) U/L Alkaline Phosphatase (38-126) U/L Total Protein (6.3-8.2) g/dL Albumin (3.5-5.0) g/dL Arterial Blood Potassium (3.4-4.5) mmol/L Arterial Blood Glucose (75-99) mg/dL Crossmatch 08/28/19 08/28/19 08/28/19 Range/Units 16:32 17:04 17:18 WBC (3.8-10.6) k/uL RBC (3.80-5.40) m/uL Hgb (11.4-16.0) gm/dL Hct (34.0-46.0) % Plt Count (150-450) k/uL Neutrophils # (1.3-7.7) k/uL Lymphocytes # (1.0-4.8) k/uL Monocytes # (0-1.0) k/uL ABG pH 7.34 L (7.35-7.45) ABG pCO2 46 H (35-45) mmHg ABG pO2 (83-108) mmHg ABG HCO3 (21-25) mmol/L ABG Total CO2 26 H (19-24) mmol/L ABG O2 Saturation (94-97) % ABG Hematocrit (34.0-46.0) % ABG Potassium (3.4-4.5) mmol/L ABG Ionized Calcium (4.5-5.3) mg/dL ABG Glucose (75-99) mg/dL ABG Lactic Acid (0.5-1.6) mmol/L Hemoglobin (11.4-16.0) gm/dL Sodium (137-145) mmol/L Chloride (98-107) mmol/L Glucose (74-99) mg/dL POC Glucose (mg/dL) 116 H 153 H (75-99) mg/dL Magnesium (1.6-2.3) mg/dL AST (14-36) U/L ALT (9-52) U/L Alkaline Phosphatase (38-126) U/L Total Protein (6.3-8.2) g/dL Albumin (3.5-5.0) g/dL Arterial Blood Potassium (3.4-4.5) mmol/L Arterial Blood Glucose (75-99) mg/dL Crossmatch 08/28/19 08/28/19 08/28/19 Range/Units 17:54 17:55 18:58 WBC 12.5 H (3.8-10.6) k/uL RBC 3.17 L (3.80-5.40) m/uL Hgb 8.5 L (11.4-16.0) gm/dL Hct 26.3 L (34.0-46.0) % Plt Count (150-450) k/uL Neutrophils # 10.1 H (1.3-7.7) k/uL Lymphocytes # (1.0-4.8) k/uL Monocytes # 1.1 H (0-1.0) k/uL ABG pH (7.35-7.45) ABG pCO2 (35-45) mmHg ABG pO2 (83-108) mmHg ABG HCO3 (21-25) mmol/L ABG Total CO2 (19-24) mmol/L ABG O2 Saturation (94-97) % ABG Hematocrit (34.0-46.0) % ABG Potassium (3.4-4.5) mmol/L ABG Ionized Calcium (4.5-5.3) mg/dL ABG Glucose (75-99) mg/dL ABG Lactic Acid (0.5-1.6) mmol/L Hemoglobin (11.4-16.0) gm/dL Sodium (137-145) mmol/L Chloride (98-107) mmol/L Glucose (74-99) mg/dL POC Glucose (mg/dL) 151 H 124 H (75-99) mg/dL Magnesium (1.6-2.3) mg/dL AST (14-36) U/L ALT (9-52) U/L Alkaline Phosphatase (38-126) U/L Total Protein (6.3-8.2) g/dL Albumin (3.5-5.0) g/dL Arterial Blood Potassium (3.4-4.5) mmol/L Arterial Blood Glucose (75-99) mg/dL Crossmatch 08/28/19 08/28/19 08/28/19 Range/Units 19:39 19:47 20:25 WBC 11.8 H (3.8-10.6) k/uL RBC 3.01 L (3.80-5.40) m/uL Hgb 8.2 L (11.4-16.0) gm/dL Hct 25.1 L (34.0-46.0) % Plt Count (150-450) k/uL Neutrophils # 10.2 H (1.3-7.7) k/uL Lymphocytes # 0.6 L (1.0-4.8) k/uL Monocytes # (0-1.0) k/uL ABG pH (7.35-7.45) ABG pCO2 (35-45) mmHg ABG pO2 202 H (83-108) mmHg ABG HCO3 (21-25) mmol/L ABG Total CO2 26 H (19-24) mmol/L ABG O2 Saturation 98.7 H (94-97) % ABG Hematocrit (34.0-46.0) % ABG Potassium (3.4-4.5) mmol/L ABG Ionized Calcium (4.5-5.3) mg/dL ABG Glucose (75-99) mg/dL ABG Lactic Acid (0.5-1.6) mmol/L Hemoglobin (11.4-16.0) gm/dL Sodium (137-145) mmol/L Chloride (98-107) mmol/L Glucose (74-99) mg/dL POC Glucose (mg/dL) 127 H (75-99) mg/dL Magnesium (1.6-2.3) mg/dL AST (14-36) U/L ALT (9-52) U/L Alkaline Phosphatase (38-126) U/L Total Protein (6.3-8.2) g/dL Albumin (3.5-5.0) g/dL Arterial Blood Potassium (3.4-4.5) mmol/L Arterial Blood Glucose (75-99) mg/dL Crossmatch 1108/28/19 08/28/19 Range/Units 20:30 21:05 21:56 WBC (3.8-10.6) k/uL RBC (3.80-5.40) m/uL Hgb (11.4-16.0) gm/dL Hct (34.0-46.0) % Plt Count (150-450) k/uL Neutrophils # (1.3-7.7) k/uL Lymphocytes # (1.0-4.8) k/uL Monocytes # (0-1.0) k/uL ABG pH (7.35-7.45) ABG pCO2 (35-45) mmHg ABG pO2 (83-108) mmHg ABG HCO3 (21-25) mmol/L ABG Total CO2 (19-24) mmol/L ABG O2 Saturation (94-97) % ABG Hematocrit (34.0-46.0) % ABG Potassium (3.4-4.5) mmol/L ABG Ionized Calcium (4.5-5.3) mg/dL ABG Glucose (75-99) mg/dL ABG Lactic Acid (0.5-1.6) mmol/L Hemoglobin (11.4-16.0) gm/dL Sodium (137-145) mmol/L Chloride (98-107) mmol/L Glucose (74-99) mg/dL POC Glucose (mg/dL) 129 H 138 H 121 H (75-99) mg/dL Magnesium (1.6-2.3) mg/dL AST (14-36) U/L ALT (9-52) U/L Alkaline Phosphatase (38-126) U/L Total Protein (6.3-8.2) g/dL Albumin (3.5-5.0) g/dL Arterial Blood Potassium (3.4-4.5) mmol/L Arterial Blood Glucose (75-99) mg/dL Crossmatch 08/28/19 08/28/19 08/29/19 Range/Units 22:57 23:59 01:02 WBC (3.8-10.6) k/uL RBC (3.80-5.40) m/uL Hgb (11.4-16.0) gm/dL Hct (34.0-46.0) % Plt Count (150-450) k/uL Neutrophils # (1.3-7.7) k/uL Lymphocytes # (1.0-4.8) k/uL Monocytes # (0-1.0) k/uL ABG pH (7.35-7.45) ABG pCO2 (35-45) mmHg ABG pO2 (83-108) mmHg ABG HCO3 (21-25) mmol/L ABG Total CO2 (19-24) mmol/L ABG O2 Saturation (94-97) % ABG Hematocrit (34.0-46.0) % ABG Potassium (3.4-4.5) mmol/L ABG Ionized Calcium (4.5-5.3) mg/dL ABG Glucose (75-99) mg/dL ABG Lactic Acid (0.5-1.6) mmol/L Hemoglobin (11.4-16.0) gm/dL Sodium (137-145) mmol/L Chloride (98-107) mmol/L Glucose (74-99) mg/dL POC Glucose (mg/dL) 114 H 127 H 127 H (75-99) mg/dL Magnesium (1.6-2.3) mg/dL AST (14-36) U/L ALT (9-52) U/L Alkaline Phosphatase (38-126) U/L Total Protein (6.3-8.2) g/dL Albumin (3.5-5.0) g/dL Arterial Blood Potassium (3.4-4.5) mmol/L Arterial Blood Glucose (75-99) mg/dL Crossmatch 08/29/19 08/29/19 08/29/19 Range/Units 01:57 02:57 04:00 WBC (3.8-10.6) k/uL RBC 2.77 L (3.80-5.40) m/uL Hgb 7.5 L (11.4-16.0) gm/dL Hct 23.0 L (34.0-46.0) % Plt Count 137 L (150-450) k/uL Neutrophils # (1.3-7.7) k/uL Lymphocytes # 0.9 L (1.0-4.8) k/uL Monocytes # (0-1.0) k/uL ABG pH (7.35-7.45) ABG pCO2 (35-45) mmHg ABG pO2 (83-108) mmHg ABG HCO3 (21-25) mmol/L ABG Total CO2 (19-24) mmol/L ABG O2 Saturation (94-97) % ABG Hematocrit (34.0-46.0) % ABG Potassium (3.4-4.5) mmol/L ABG Ionized Calcium (4.5-5.3) mg/dL ABG Glucose (75-99) mg/dL ABG Lactic Acid (0.5-1.6) mmol/L Hemoglobin (11.4-16.0) gm/dL Sodium (137-145) mmol/L Chloride (98-107) mmol/L Glucose (74-99) mg/dL POC Glucose (mg/dL) 135 H 131 H (75-99) mg/dL Magnesium (1.6-2.3) mg/dL AST (14-36) U/L ALT (9-52) U/L Alkaline Phosphatase (38-126) U/L Total Protein (6.3-8.2) g/dL Albumin (3.5-5.0) g/dL Arterial Blood Potassium (3.4-4.5) mmol/L Arterial Blood Glucose (75-99) mg/dL Crossmatch 08/29/19 08/29/19 08/29/19 Range/Units 04:00 04:02 04:58 WBC (3.8-10.6) k/uL RBC (3.80-5.40) m/uL Hgb (11.4-16.0) gm/dL Hct (34.0-46.0) % Plt Count (150-450) k/uL Neutrophils # (1.3-7.7) k/uL Lymphocytes # (1.0-4.8) k/uL Monocytes # (0-1.0) k/uL ABG pH (7.35-7.45) ABG pCO2 (35-45) mmHg ABG pO2 (83-108) mmHg ABG HCO3 (21-25) mmol/L ABG Total CO2 (19-24) mmol/L ABG O2 Saturation (94-97) % ABG Hematocrit (34.0-46.0) % ABG Potassium (3.4-4.5) mmol/L ABG Ionized Calcium (4.5-5.3) mg/dL ABG Glucose (75-99) mg/dL ABG Lactic Acid (0.5-1.6) mmol/L Hemoglobin (11.4-16.0) gm/dL Sodium 135 L (137-145) mmol/L Chloride (98-107) mmol/L Glucose 116 H (74-99) mg/dL POC Glucose (mg/dL) 129 H 123 H (75-99) mg/dL Magnesium (1.6-2.3) mg/dL AST 67 H (14-36) U/L ALT 64 H (9-52) U/L Alkaline Phosphatase (38-126) U/L Total Protein 5.2 L (6.3-8.2) g/dL Albumin 3.0 L (3.5-5.0) g/dL Arterial Blood Potassium (3.4-4.5) mmol/L Arterial Blood Glucose (75-99) mg/dL Crossmatch 08/29/19 08/29/19 Range/Units 06:10 06:56 WBC (3.8-10.6) k/uL RBC (3.80-5.40) m/uL Hgb (11.4-16.0) gm/dL Hct (34.0-46.0) % Plt Count (150-450) k/uL Neutrophils # (1.3-7.7) k/uL Lymphocytes # (1.0-4.8) k/uL Monocytes # (0-1.0) k/uL ABG pH (7.35-7.45) ABG pCO2 (35-45) mmHg ABG pO2 (83-108) mmHg ABG HCO3 (21-25) mmol/L ABG Total CO2 (19-24) mmol/L ABG O2 Saturation (94-97) % ABG Hematocrit (34.0-46.0) % ABG Potassium (3.4-4.5) mmol/L ABG Ionized Calcium (4.5-5.3) mg/dL ABG Glucose (75-99) mg/dL ABG Lactic Acid (0.5-1.6) mmol/L Hemoglobin (11.4-16.0) gm/dL Sodium (137-145) mmol/L Chloride (98-107) mmol/L Glucose (74-99) mg/dL POC Glucose (mg/dL) 134 H 131 H (75-99) mg/dL Magnesium (1.6-2.3) mg/dL AST (14-36) U/L ALT (9-52) U/L Alkaline Phosphatase (38-126) U/L Total Protein (6.3-8.2) g/dL Albumin (3.5-5.0) g/dL Arterial Blood Potassium (3.4-4.5) mmol/L Arterial Blood Glucose (75-99) mg/dL Crossmatch - Imaging and Cardiology Chest x-ray: report reviewed, image reviewed Assessment and Plan Assessment: 1. Triple-vessel coronary artery disease with significant left main disease, non-STEMI, status post four-vessel CABG 2. Previous history of coronary artery disease with multiple stents placed, noncompliance with follow-up 3. Hypertension 4. Hyperlipidemia 5. Hypothyroid 6. Diabetes with hemoglobin A1c 6.9% 7. Hiatal hernia 8. Significant family history of premature coronary artery disease 9. Eusebio-en-Y gastric bypass in 2003 10. Preoperative nasal screen positive for MSSA 11. Postoperative acute blood loss anemia Plan: 1. Continue medical therapy with aspirin, statin, Plavix, low-dose beta yana. Likely will be unable to increase beta yana due to bradycardia. Discontinue IV nitro 2. Wean O2 as tolerated. Encourage incentive spirometry is 10 times every hour while awake. Bronchodilators per pulmonary 3. Increase activity, ambulate as tolerated. PT/OT/cardiac rehab following. 4. Will monitor daily labs and x-rays. Electrolytes replacement per protocol. No transfusions at this time. 5. Pain control with current medication regimen. 6. Insulin management per primary care service 7. Discontinue Tyler. Connect Cordis to continuous CVP monitoring 8. Will keep chest tubes, Porras catheter for another 24 hours 9. Continue mupirocin 10. More recommendations to follow. Time with Patient: Greater than 30
[2019-08-29] MEDS: HEPARIN SODIUM,PORCINE 5,000 UNIT/ML 1 ML VIAL SQ SCH ×3 (08:53→23:37)
[2019-08-29] MEDS: ATORVASTATIN 40 MG TAB PO SCH (08:53)
[2019-08-29] MEDS: ASPIRIN 325 MG TAB PO SCH (08:53)
[2019-08-29] MEDS: CLOPIDOGREL 75 MG TAB PO SCH (08:53)
[2019-08-29] MEDS: MUPIROCIN 2% OINT 22 GM TUBE NASAL SCH ×2 (08:54→20:35)
--- NOTE | 2019-08-29 08:59 | P.PN ---
Subjective Progress Note Date: 08/29/19 Principal diagnosis: Coronary artery disease This is a very pleasant 63-year-old female patient who follows with Dr. Roca as her primary care physician. She has a history of diabetes mellitus, gastroesophageal reflux disease, hypertension, hyperlipidemia, hypothyroidism, coronary artery disease with previous stent placement. She also has a history of gastric bypass surgery and a hiatal hernia. She was actually scheduled to come see Dr. Walden yesterday for an EGD based on recent complaints of indigestion especially following meals. The night before however the pain gets too uncomfortable and she presented here early in the morning on 08/24/2019 with ongoing chest discomfort. She was utilizing nitroglycerin with some relief. She did undergo coronary cardiac catheterization yesterday and was found to have chronic total occlusion of the distal RCA which may be an in-stent stenosis, severe disease involving the distal left main as well as the ostial left circ umflex and LAD. Preserved LV function with ejection fraction 55-60%. She's been seen and evaluated by cardiothoracic surgery. We are consulted for the same. She is currently resting comfortably in bed. Awake and alert in no acute distress. Denies any chest discomfort currently. No shortness of breath, cough or congestion. No palpitations or lightheadedness. On room air. No previous history of any form of pulmonary disease. No COPD or asthma. Nonsmoker. No inhalers or oxygen at home. Lung function testing pending. Chest x-ray reveals no acute cardiopulmonary process. She remains on a heparin drip. White count 6.7. Hemoglobin 10.8. Peak troponin 0.071. Creatinine 0.66. The patient is seen today 08/26/2019 in follow-up on the selective care unit. She is awake and alert in no acute distress. No further chest discomfort. No palpitations, dizziness or lightheadedness. No shortness of breath, cough or congestion. She is maintaining good O2 saturations in the mid 90s on room air. She's afebrile. Hemodynamically stable. She remains on a heparin drip. The plan is for coronary artery revascularization on 08/28/2019. On 08/27/2019 patient seen in follow-up on selective care unit, she is awake and alert, in no acute distress, no complaints of chest pain overnight, no shortness of breath, vital signs are stable, she is on room air, with a pulse ox of 97%, no fever or chills, she remains on heparin infusion, she is plan for bypass surgery tomorrow by Dr. Obregon, she is working on incentive spirometer, she is achieving 5037-9980 mL on it. On 08/28/2019 patient seen in follow-up in the intensive care unit after 4 vessel coronary bypass grafting surgery with GAO to the LAD, SVG to the diagonal, and serial to the OM, and PDA. Patient is seen still sedated, intubated on mechanical ventilator with current vent settings of SIMV mode of ventilation, with a rate of 12, tidal volume of 350, FiO2 of 100% and PEEP of 10. Postoperative blood gases have been reviewed, showing pO2 of 232, patient has been switched to assist control mode of ventilation with a rate of 20, tidal volume 350, FiO2 dropped down to 60% and PEEP is at 10, postoperative chest x- ray reviewed showing no sizable pneumothorax, ET tube NG tube PA catheter in appropriate positions. He is tidal on the left pleural chest tubes with scant amount of sanguinous output, no air leak noted, epicardial wires in place, connected to temporary pacemaker patient is being a truly paced at a rate of 80 BPM, underlying rhythm sinus bradycardia at a rate of 40-50 BPM, current drips include nitroglycerin at 5 mics per minute, insulin drip is at 0.5 units per hour, and chylothorax is at 4 mg per hour. Patient is hemodynamically stable, output is 4.3 and cardiac index is 2.3. On 08/29/2019 patient seen in follow-up in the intensive care unit, this is postoperative day 1, status post four-vessel coronary artery bypass grafting, patient was successfully extubated yesterday on postop day 0, at around 2000 in the evening, doing very well this morning, she sits up in the chair, on 4 L per nasal cannula, with a pulse ox of 94%, hemodynamically stable, sinus bradycardia on the monitor, she still being paced occasionally, with the AAI mode with a rate of 60, Cardiac output and index are 4.8 and 2.6 this morning, PA pressure 24/5, CVP is 1, patient has received 500 mL of 5% albumin this morning, this morning's labs have been reviewed, with blood cell count is 9.3, hemoglobin is 7.5, and renal profile is within normal limits, sodium is 135, potassium is 5.0. Lactated Ringer's at a rate of 50, insulin drip is at 3 units per hour, nitroglycerin and clevidipine drip are discontinued. Patient is sitting up in the recliner, in no acute distress, she is achieving 1500 on her incentive s pirometry today, pain is controlled, 2 mediastinal and left pleural chest tubes with no output, no air leak. Lung sounds are clear, diminished at the bases. Patient has been started on clear liquid diet, she is tolerating diet well. Today's chest x-ray has been reviewed, and is negative for any acute abnormalities. Objective - Vital Signs Vital signs: Vital Signs Temp 36.8 F L 08/29/19 08:00 Pulse 66 08/29/19 08:33 Resp 14 08/29/19 08:00 BP 111/53 08/29/19 08:00 Pulse Ox 95 08/29/19 08:00 Intake & Output 08/28/19 08/29/19 08/29/19 18:59 06:59 18:59 Intake Total 075.182 6252.358 121.4 Output Total 3150 1489 295 Balance -2871.366 4.358 -173.6 Weight 90.8 kg Intake: IV 266.5 857.0 118 CO/CI NaCl 0.9 90 Lactated Ringers 1,000 ml 150 600 100 @ 20 mls/hr IV .Q24H [facility] Rx#:[id number] Nitroglycerin-D5w Pmx 50 4.5 1.5 mg In Dextrose/Water 1 250ml.bag @ 5 MCG/MIN 1.5 mls/hr IV .Q24H [facility] Rx#: [id number] Nitroglycerine-D5w Pmx 50 16.5 mg Pressure bag 0.9 99 18 ceFAZolin 2 gm In Sodium 50 50 Chloride 0.9% 50 ml @ 100 mls/hr IVPB Q8HR [facility] Rx# :[id number] Intake, IV Titration 12.134 636.358 3.4 Amount ACETAMINOPHEN IV (For NPO 100 ) 1,000 mg In Empty Bag 1 bag @ 400 mls/hr IVPB Q6HR [facility] Rx#:[id number] Albumin Human 5% 250 ml 500 In Empty Bag 1 bag @ 250 mls/hr IVPB Q1HR PRN Rx#: [id number] Clevidipine Butyrate 25 7.934 mg In Empty Bag 1 bag @ 1 MG/HR 2 mls/hr IV .Q24H [facility] Rx#:[id number] Insulin Regular 100 unit 4.200 13.283 3.4 In Sodium Chloride 0.9% 100 ml @ Titrate IV .Q0M [facility] Rx#:[id number] Nitroglycerin-D5w Pmx 50 23.075 mg In Dextrose/Water 1 250ml.bag @ 5 MCG/MIN 1.5 mls/hr IV .Q24H [facility] Rx#: [id number] Output: Chest Tube Drainage 75 164 70 Chest Tube Mediastinal 55 131 70 Left pleural 20 33 0 Urine 1875 1325 225 Estimated Blood Loss 1200 Other: Voiding Method Indwelling Catheter Indwelling Catheter ABP, PAP, CO, CI - Last Documented Arterial Blood Pressure 84/40 Pulmonary Artery Pressure 28/7 Cardiac Output 5.1 Cardiac Index 2.8 - Exam GENERAL EXAM: Awake and alert, pleasant 63-year-old white female On 4 L of oxygen with a pulse ox of 93%, in no acute distress HEAD: Normocephalic/atraumatic. EYES: Normal reaction of pupils, equal size. Conjunctiva pink, sclera white. NOSE: Clear with pink turbinates. THROAT: No erythema or exudates. NECK: No masses, no JVD, no thyroid enlargement, no adenopathy. CHEST: No chest wall deformity. Symmetrical expansion. Midsternal incision's clean dry and intact, 2 mediastinal and left pleural chest tubes in place with scant amount of serous output in the Pleur-evac, no air leak, epicardial wires to temporary pacemaker patient is Occasionally paced, underlying rhythm is sinus bradycardia, AAI mode of pacing with a rate of 60, underlying rhythm is 40-50 BPM sinus rhythm LUNGS: Equal air entry with no crackles, wheeze, rhonchi or dullness. CVS: Regular rate and rhythm, normal S1 and S2, no gallops, no murmurs, no rubs ABDOMEN: Soft, nontender. No hepatosplenomegaly, normal bowel sounds, no guarding or rigidity. EXTREMITIES: No clubbing, no edema, no cyanosis, 2+ pulses and upper and lower extremities. MUSCULOSKELETAL: Muscle strength and tone normal. SPINE: No scoliosis or deformity SKIN: No rashes CENTRAL NERVOUS SYSTEM: Awake and alert, oriented 3. No focal deficits, tone is normal in all 4 extremities. - Labs CBC & Chem 7: 08/29/19 04:00 08/29/19 04:00 Labs: Abnormal Lab Results - Last 24 Hours (Table) 08/26/19 08/28/19 08/28/19 Range/Units 10: 08:47 09:53 WBC (3.8-10.6) k/uL RBC (3.80-5.40) m/uL Hgb (11.4-16.0) gm/dL Hct (34.0-46.0) % Plt Count (150-450) k/uL Neutrophils # (1.3-7.7) k/uL Lymphocytes # (1.0-4.8) k/uL Monocytes # (0-1.0) k/uL ABG pH (7.35-7.45) ABG pCO2 46 H (35-45) mmHg ABG pO2 153 H 169 H (83-108) mmHg ABG HCO3 (21-25) mmol/L ABG Total CO2 25 H 27 H (19-24) mmol/L ABG O2 Saturation 98.4 H 98.6 H (94-97) % ABG Hematocrit 29 L 29 L (34.0-46.0) % ABG Potassium (3.4-4.5) mmol/L ABG Ionized Calcium (4.5-5.3) mg/dL ABG Glucose 111 H 112 H (75-99) mg/dL ABG Lactic Acid (0.5-1.6) mmol/L Hemoglobin 9.5 L 9.5 L (11.4-16.0) gm/dL Sodium (137-145) mmol/L Chloride (98-107) mmol/L Glucose (74-99) mg/dL POC Glucose (mg/dL) (75-99) mg/dL Magnesium (1.6-2.3) mg/dL AST (14-36) U/L ALT (9-52) U/L Alkaline Phosphatase (38-126) U/L Total Protein (6.3-8.2) g/dL Albumin (3.5-5.0) g/dL Arterial Blood Potassium (3.4-4.5) mmol/L Arterial Blood Glucose 111 H 112 H (75-99) mg/dL Crossmatch See Detail 08/28/19 08/28/19 08/28/19 Range/Units 11:01 11:35 12:07 WBC (3.8-10.6) k/uL RBC (3.80-5.40) m/uL Hgb (11.4-16.0) gm/dL Hct (34.0-46.0) % Plt Count (150-450) k/uL Neutrophils # (1.3-7.7) k/uL Lymphocytes # (1.0-4.8) k/uL Monocytes # (0-1.0) k/uL ABG pH (7.35-7.45) ABG pCO2 (35-45) mmHg ABG pO2 282 H 295 H 349 H (83-108) mmHg ABG HCO3 (21-25) mmol/L ABG Total CO2 26 H 26 H 25 H (19-24) mmol/L ABG O2 Saturation 99.2 H 99.4 H 99.5 H (94-97) % ABG Hematocrit 20 L* 20 L* 19 L* (34.0-46.0) % ABG Potassium 4.9 H 4.7 H (3.4-4.5) mmol/L ABG Ionized Calcium 4.4 L 4.4 L 4.4 L (4.5-5.3) mg/dL ABG Glucose 195 H 197 H 193 H (75-99) mg/dL ABG Lactic Acid 1.7 H (0.5-1.6) mmol/L Hemoglobin 6.7 L* 6.7 L* 6.2 L* (11.4-16.0) gm/dL Sodium (137-145) mmol/L Chloride (98-107) mmol/L Glucose (74-99) mg/dL POC Glucose (mg/dL) (75-99) mg/dL Magnesium (1.6-2.3) mg/dL AST (14-36) U/L ALT (9-52) U/L Alkaline Phosphatase (38-126) U/L Total Protein (6.3-8.2) g/dL Albumin (3.5-5.0) g/dL Arterial Blood Potassium 4.9 H 4.7 H (3.4-4.5) mmol/L Arterial Blood Glucose 195 H 197 H 193 H (75-99) mg/dL Crossmatch 08/28/19 08/28/19 08/28/19 Range/Units 12:37 13:58 15:07 WBC (3.8-10.6) k/uL RBC (3.80-5.40) m/uL Hgb (11.4-16.0) gm/dL Hct (34.0-46.0) % Plt Count (150-450) k/uL Neutrophils # (1.3-7.7) k/uL Lymphocytes # (1.0-4.8) k/uL Monocytes # (0-1.0) k/uL ABG pH (7.35-7.45) ABG pCO2 (35-45) mmHg ABG pO2 331 H 165 H (83-108) mmHg ABG HCO3 (21-25) mmol/L ABG Total CO2 25 H (19-24) mmol/L ABG O2 Saturation 99.4 H 99.0 H (94-97) % ABG Hematocrit 21 L 21 L (34.0-46.0) % ABG Potassium (3.4-4.5) mmol/L ABG Ionized Calcium (4.5-5.3) mg/dL ABG Glucose 165 H 101 H (75-99) mg/dL ABG Lactic Acid 1.7 H (0.5-1.6) mmol/L Hemoglobin 6.7 L* 6.8 L* (11.4-16.0) gm/dL Sodium (137-145) mmol/L Chloride 111 H (98-107) mmol/L Glucose 71 L (74-99) mg/dL POC Glucose (mg/dL) (75-99) mg/dL Magnesium 2.6 H (1.6-2.3) mg/dL AST 59 H (14-36) U/L ALT (9-52) U/L Alkaline Phosphatase 34 L (38-126) U/L Total Protein 5.0 L (6.3-8.2) g/dL Albumin 2.9 L (3.5-5.0) g/dL Arterial Blood Potassium (3.4-4.5) mmol/L Arterial Blood Glucose 165 H 101 H (75-99) mg/dL Crossmatch 11/08/28/19 08/28/19 Range/Units 15:07 15:50 15:51 WBC (3.8-10.6) k/uL RBC 2.92 L (3.80-5.40) m/uL Hgb 8.0 L D (11.4-16.0) gm/dL Hct 24.5 L (34.0-46.0) % Plt Count 134 L (150-450) k/uL Neutrophils # (1.3-7.7) k/uL Lymphocytes # (1.0-4.8) k/uL Monocytes # (0-1.0) k/uL ABG pH 7.22 L (7.35-7.45) ABG pCO2 63 H (35-45) mmHg ABG pO2 232 H (83-108) mmHg ABG HCO3 26 H (21-25) mmol/L ABG Total CO2 28 H (19-24) mmol/L ABG O2 Saturation 98.5 H (94-97) % ABG Hematocrit (34.0-46.0) % ABG Potassium (3.4-4.5) mmol/L ABG Ionized Calcium (4.5-5.3) mg/dL ABG Glucose (75-99) mg/dL ABG Lactic Acid (0.5-1.6) mmol/L Hemoglobin (11.4-16.0) gm/dL Sodium (137-145) mmol/L Chloride (98-107) mmol/L Glucose (74-99) mg/dL POC Glucose (mg/dL) 123 H (75-99) mg/dL Magnesium (1.6-2.3) mg/dL AST (14-36) U/L ALT (9-52) U/L Alkaline Phosphatase (38-126) U/L Total Protein (6.3-8.2) g/dL Albumin (3.5-5.0) g/dL Arterial Blood Potassium (3.4-4.5) mmol/L Arterial Blood Glucose (75-99) mg/dL Crossmatch 08/28/19 08/28/19 08/28/19 Range/Units 16:32 17:04 17:18 WBC (3.8-10.6) k/uL RBC (3.80-5.40) m/uL Hgb (11.4-16.0) gm/dL Hct (34.0-46.0) % Plt Count (150-450) k/uL Neutrophils # (1.3-7.7) k/uL Lymphocytes # (1.0-4.8) k/uL Monocytes # (0-1.0) k/uL ABG pH 7.34 L (7.35-7.45) ABG pCO2 46 H (35-45) mmHg ABG pO2 (83-108) mmHg ABG HCO3 (21-25) mmol/L ABG Total CO2 26 H (19-24) mmol/L ABG O2 Saturation (94-97) % ABG Hematocrit (34.0-46.0) % ABG Potassium (3.4-4.5) mmol/L ABG Ionized Calcium (4.5-5.3) mg/dL ABG Glucose (75-99) mg/dL ABG Lactic Acid (0.5-1.6) mmol/L Hemoglobin (11.4-16.0) gm/dL Sodium (137-145) mmol/L Chloride (98-107) mmol/L Glucose (74-99) mg/dL POC Glucose (mg/dL) 116 H 153 H (75-99) mg/dL Magnesium (1.6-2.3) mg/dL AST (14-36) U/L ALT (9-52) U/L Alkaline Phosphatase (38-126) U/L Total Protein (6.3-8.2) g/dL Albumin (3.5-5.0) g/dL Arterial Blood Potassium (3.4-4.5) mmol/L Arterial Blood Glucose (75-99) mg/dL Crossmatch 08/28/19 08/28/19 08/28/19 Range/Units 17:54 17:55 18:58 WBC 12.5 H (3.8-10.6) k/uL RBC 3.17 L (3.80-5.40) m/uL Hgb 8.5 L (11.4-16.0) gm/dL Hct 26.3 L (34.0-46.0) % Plt Count (150-450) k/uL Neutrophils # 10.1 H (1.3-7.7) k/uL Lymphocytes # (1.0-4.8) k/uL Monocytes # 1.1 H (0-1.0) k/uL ABG pH (7.35-7.45) ABG pCO2 (35-45) mmHg ABG pO2 (83-108) mmHg ABG HCO3 (21-25) mmol/L ABG Total CO2 (19-24) mmol/L ABG O2 Saturation (94-97) % ABG Hematocrit (34.0-46.0) % ABG Potassium (3.4-4.5) mmol/L ABG Ionized Calcium (4.5-5.3) mg/dL ABG Glucose (75-99) mg/dL ABG Lactic Acid (0.5-1.6) mmol/L Hemoglobin (11.4-16.0) gm/dL Sodium (137-145) mmol/L Chloride (98-107) mmol/L Glucose (74-99) mg/dL POC Glucose (mg/dL) 151 H 124 H (75-99) mg/dL Magnesium (1.6-2.3) mg/dL AST (14-36) U/L ALT (9-52) U/L Alkaline Phosphatase (38-126) U/L Total Protein (6.3-8.2) g/dL Albumin (3.5-5.0) g/dL Arterial Blood Potassium (3.4-4.5) mmol/L Arterial Blood Glucose (75-99) mg/dL Crossmatch 08/28/19 08/28/19 08/28/19 Range/Units 19:39 19:47 20:25 WBC 11.8 H (3.8-10.6) k/uL RBC 3.01 L (3.80-5.40) m/uL Hgb 8.2 L (11.4-16.0) gm/dL Hct 25.1 L (34.0-46.0) % Plt Count (150-450) k/uL Neutrophils # 10.2 H (1.3-7.7) k/uL Lymphocytes # 0.6 L (1.0-4.8) k/uL Monocytes # (0-1.0) k/uL ABG pH (7.35-7.45) ABG pCO2 (35-45) mmHg ABG pO2 202 H (83-108) mmHg ABG HCO3 (21-25) mmol/L ABG Total CO2 26 H (19-24) mmol/L ABG O2 Saturation 98.7 H (94-97) % ABG Hematocrit (34.0-46.0) % ABG Potassium (3.4-4.5) mmol/L ABG Ionized Calcium (4.5-5.3) mg/dL ABG Glucose (75-99) mg/dL ABG Lactic Acid (0.5-1.6) mmol/L Hemoglobin (11.4-16.0) gm/dL Sodium (137-145) mmol/L Chloride (98-107) mmol/L Glucose (74-99) mg/dL POC Glucose (mg/dL) 127 H (75-99) mg/dL Magnesium (1.6-2.3) mg/dL AST (14-36) U/L ALT (9-52) U/L Alkaline Phosphatase (38-126) U/L Total Protein (6.3-8.2) g/dL Albumin (3.5-5.0) g/dL Arterial Blood Potassium (3.4-4.5) mmol/L Arterial Blood Glucose (75-99) mg/dL Crossmatch 08/28/19 08/28/19 08/28/19 Range/Units 20:30 21:05 21:56 WBC (3.8-10.6) k/uL RBC (3.80-5.40) m/uL Hgb (11.4-16.0) gm/dL Hct (34.0-46.0) % Plt Count (150-450) k/uL Neutrophils # (1.3-7.7) k/uL Lymphocytes # (1.0-4.8) k/uL Monocytes # (0-1.0) k/uL ABG pH (7.35-7.45) ABG pCO2 (35-45) mmHg ABG pO2 (83-108) mmHg ABG HCO3 (21-25) mmol/L ABG Total CO2 (19-24) mmol/L ABG O2 Saturation (94-97) % ABG Hematocrit (34.0-46.0) % ABG Potassium (3.4-4.5) mmol/L ABG Ionized Calcium (4.5-5.3) mg/dL ABG Glucose (75-99) mg/dL ABG Lactic Acid (0.5-1.6) mmol/L Hemoglobin (11.4-16.0) gm/dL Sodium (137-145) mmol/L Chloride (98-107) mmol/L Glucose (74-99) mg/dL POC Glucose (mg/dL) 129 H 138 H 121 H (75-99) mg/dL Magnesium (1.6-2.3) mg/dL AST (14-36) U/L ALT (9-52) U/L Alkaline Phosphatase (38-126) U/L Total Protein (6.3-8.2) g/dL Albumin (3.5-5.0) g/dL Arterial Blood Potassium (3.4-4.5) mmol/L Arterial Blood Glucose (75-99) mg/dL Crossmatch 08/28/19 08/28/19 08/29/19 Range/Units 22:57 23:59 01:02 WBC (3.8-10.6) k/uL RBC (3.80-5.40) m/uL Hgb (11.4-16.0) gm/dL Hct (34.0-46.0) % Plt Count (150-450) k/uL Neutrophils # (1.3-7.7) k/uL Lymphocytes # (1.0-4.8) k/uL Monocytes # (0-1.0) k/uL ABG pH (7.35-7.45) ABG pCO2 (35-45) mmHg ABG pO2 (83-108) mmHg ABG HCO3 (21-25) mmol/L ABG Total CO2 (19-24) mmol/L ABG O2 Saturation (94-97) % ABG Hematocrit (34.0-46.0) % ABG Potassium (3.4-4.5) mmol/L ABG Ionized Calcium (4.5-5.3) mg/dL ABG Glucose (75-99) mg/dL ABG Lactic Acid (0.5-1.6) mmol/L Hemoglobin (11.4-16.0) gm/dL Sodium (137-145) mmol/L Chloride (98-107) mmol/L Glucose (74-99) mg/dL POC Glucose (mg/dL) 114 H 127 H 127 H (75-99) mg/dL Magnesium (1.6-2.3) mg/dL AST (14-36) U/L ALT (9-52) U/L Alkaline Phosphatase (38-126) U/L Total Protein (6.3-8.2) g/dL Albumin (3.5-5.0) g/dL Arterial Blood Potassium (3.4-4.5) mmol/L Arterial Blood Glucose (75-99) mg/dL Crossmatch 08/29/19 08/29/19 08/29/19 Range/Units 01:57 02:57 04:00 WBC (3.8-10.6) k/uL RBC 2.77 L (3.80-5.40) m/uL Hgb 7.5 L (11.4-16.0) gm/dL Hct 23.0 L (34.0-46.0) % Plt Count 137 L (150-450) k/uL Neutrophils # (1.3-7.7) k/uL Lymphocytes # 0.9 L (1.0-4.8) k/uL Monocytes # (0-1.0) k/uL ABG pH (7.35-7.45) ABG pCO2 (35-45) mmHg ABG pO2 (83-108) mmHg ABG HCO3 (21-25) mmol/L ABG Total CO2 (19-24) mmol/L ABG O2 Saturation (94-97) % ABG Hematocrit (34.0-46.0) % ABG Potassium (3.4-4.5) mmol/L ABG Ionized Calcium (4.5-5.3) mg/dL ABG Glucose (75-99) mg/dL ABG Lactic Acid (0.5-1.6) mmol/L Hemoglobin (11.4-16.0) gm/dL Sodium (137-145) mmol/L Chloride (98-107) mmol/L Glucose (74-99) mg/dL POC Glucose (mg/dL) 135 H 131 H (75-99) mg/dL Magnesium (1.6-2.3) mg/dL AST (14-36) U/L ALT (9-52) U/L Alkaline Phosphatase (38-126) U/L Total Protein (6.3-8.2) g/dL Albumin (3.5-5.0) g/dL Arterial Blood Potassium (3.4-4.5) mmol/L Arterial Blood Glucose (75-99) mg/dL Crossmatch 08/29/19 08/29/19 08/29/19 Range/Units 04:00 04:02 04:58 WBC (3.8-10.6) k/uL RBC (3.80-5.40) m/uL Hgb (11.4-16.0) gm/dL Hct (34.0-46.0) % Plt Count (150-450) k/uL Neutrophils # (1.3-7.7) k/uL Lymphocytes # (1.0-4.8) k/uL Monocytes # (0-1.0) k/uL ABG pH (7.35-7.45) ABG pCO2 (35-45) mmHg ABG pO2 (83-108) mmHg ABG HCO3 (21-25) mmol/L ABG Total CO2 (19-24) mmol/L ABG O2 Saturation (94-97) % ABG Hematocrit (34.0-46.0) % ABG Potassium (3.4-4.5) mmol/L ABG Ionized Calcium (4.5-5.3) mg/dL ABG Glucose (75-99) mg/dL ABG Lactic Acid (0.5-1.6) mmol/L Hemoglobin (11.4-16.0) gm/dL Sodium 135 L (137-145) mmol/L Chloride (98-107) mmol/L Glucose 116 H (74-99) mg/dL POC Glucose (mg/dL) 129 H 123 H (75-99) mg/dL Magnesium (1.6-2.3) mg/dL AST 67 H (14-36) U/L ALT 64 H (9-52) U/L Alkaline Phosphatase (38-126) U/L Total Protein 5.2 L (6.3-8.2) g/dL Albumin 3.0 L (3.5-5.0) g/dL Arterial Blood Potassium (3.4-4.5) mmol/L Arterial Blood Glucose (75-99) mg/dL Crossmatch 08/29/19 08/29/19 08/29/19 Range/Units 06:10 06:56 08:17 WBC (3.8-10.6) k/uL RBC (3.80-5.40) m/uL Hgb (11.4-16.0) gm/dL Hct (34.0-46.0) % Plt Count (150-450) k/uL Neutrophils # (1.3-7.7) k/uL Lymphocytes # (1.0-4.8) k/uL Monocytes # (0-1.0) k/uL ABG pH (7.35-7.45) ABG pCO2 (35-45) mmHg ABG pO2 (83-108) mmHg ABG HCO3 (21-25) mmol/L ABG Total CO2 (19-24) mmol/L ABG O2 Saturation (94-97) % ABG Hematocrit (34.0-46.0) % ABG Potassium (3.4-4.5) mmol/L ABG Ionized Calcium (4.5-5.3) mg/dL ABG Glucose (75-99) mg/dL ABG Lactic Acid (0.5-1.6) mmol/L Hemoglobin (11.4-16.0) gm/dL Sodium (137-145) mmol/L Chloride (98-107) mmol/L Glucose (74-99) mg/dL POC Glucose (mg/dL) 134 H 131 H 160 H (75-99) mg/dL Magnesium (1.6-2.3) mg/dL AST (14-36) U/L ALT (9-52) U/L Alkaline Phosphatase (38-126) U/L Total Protein (6.3-8.2) g/dL Albumin (3.5-5.0) g/dL Arterial Blood Potassium (3.4-4.5) mmol/L Arterial Blood Glucose (75-99) mg/dL Crossmatch Assessment and Plan Plan: Assessment: #1. Coronary artery disease, status post four-vessel bypass grafting including GAO to LAD, SVG to the diagonal, SaO2 the OM and PDA, operative day 1 #2. Routine ventilator management, Patient was successfully extubated yesterday on postoperative day 0, at 2000 in the evening, OR exit time 1450 on 08/28/2019, patient was extubated in under 6 hours of OR exit #3. Chest discomfort on presentation and patient found to have significant coronary artery disease with calcified right and left coronary systems. Chronic total occlusion of the distal RCA suspected in-stent restenosis, severe disease involving the distal left main as well as involving the ostial left circumflex and LAD. Patient was found to have preserved left ventricular systolic function the EF of 55% #4. Diabetes mellitus #5. Hypertension #6. Previous coronary artery disease with stent placements #7. Hyperlipidemia #8. Hypothyroidism #9. Previous gastric bypass surgery #10. Lifelong nonsmoker Plan: Continue encouraging deep breathing and coughing, she is doing well, today's chest x-ray has been reviewed showing no significant abnormality, no dynamic patient is stable, has received additional volume in the form of 5% albumin, is off vasoactive drips, doing well, tolerating oral diet, pain is controlled, increase activity. We'll continue to monitor in the intensive care unit, will follow. I performed a history & physical examination of the patient and discussed their management with my nurse practitioner, Saniya Camacho. I reviewed the nurse practitioner's note and agree with the documented findings and plan of care. Lung sounds are positive for clear breath sounds. The findings and the impression was discussed with the patient. I attest to the documentation by the nurse practitioner. Time with Patient: Less than 30
[2019-08-29] MEDS ORDERED: PANTOPRAZOLE 40 MG/10 ML VIAL IVP SCH (09:00)
[2019-08-29 09:33] LABS: Glucose,Whole Blood 143 mg/dL (75-99)
[2019-08-29 10:23] LABS: Glucose,Whole Blood 133 mg/dL (75-99)
[2019-08-29] MEDS: METOPROLOL TARTRATE 12.5 MG TAB PO SCH ×2 (10:24→20:35)
[2019-08-29] MEDS: LACTATED RINGERS 1,000 ML IV SCH (10:32)
[2019-08-29] MEDS: ONDANSETRON 4 MG/2 ML VIAL IVP PRN ×2 (10:36→16:34)
[2019-08-29 11:16] LABS: Glucose,Whole Blood 132 mg/dL (75-99)
[2019-08-29 12:44] LABS: Glucose,Whole Blood 138 mg/dL (75-99)
[2019-08-29 13:43] LABS: Glucose,Whole Blood 153 mg/dL (75-99)
[2019-08-29 13:45] VITALS: BMI 37.2
[2019-08-29 14:18] LABS: Glucose,Whole Blood 134 mg/dL (75-99)
[2019-08-29] MEDS: METOCLOPRAMIDE 5 MG/ML 2 ML VIAL IVP PRN ×2 (14:39→20:39)
[2019-08-29 15:21] LABS: Glucose,Whole Blood 124 mg/dL (75-99)
[2019-08-29] MEDS: CLEVIDIPINE BUTYRATE 25 MG in EMPTY BAG 1 BAG IV SCH (16:16)
[2019-08-29 16:20] LABS: Glucose,Whole Blood 117 mg/dL (75-99)
[2019-08-29] MEDS: ASCORBIC ACID 500 MG TAB PO SCH (16:35)
[2019-08-29] MEDS: FERROUS SULFATE 325 MG TAB PO SCH (16:35)
[2019-08-29 17:15] LABS: Glucose,Whole Blood 152 mg/dL (75-99)
[2019-08-29 18:55] LABS: Glucose,Whole Blood 189 mg/dL (75-99)
[2019-08-29 20:29] LABS: Glucose,Whole Blood 146 mg/dL (75-99)
[2019-08-29 20:32] LABS: Ionized Calcium 4.6 mg/dL (4.5-5.3)
[2019-08-29] MEDS: SENNOSIDES-DOCUSATE SODIUM 1 EACH TAB PO SCH (20:35)
[2019-08-29 20:42] LABS: African American GFR (CKD) >90 (>60 ml/min/1.73 sqM); Anion Gap 6 mmol/L; Blood Urea Nitrogen 14 mg/dL (7-17); Calcium 8.5 mg/dL (8.4-10.2); Carbon Dioxide 25 mmol/L (22-30); Chloride 105 mmol/L (98-107); Glucose 133 mg/dL (74-99); Magnesium 2.2 mg/dL (1.6-2.3); Non-African American GFR(CKD) >90 (>60 ml/min/1.73 sqM); Phosphorus 3.3 mg/dL (2.5-4.5); Potassium 4.1 mmol/L (3.5-5.1); Sodium 136 mmol/L (137-145)
[2019-08-29 23:51] LABS: Glucose,Whole Blood 104 mg/dL (75-99)
[2019-08-30] MEDS: ACETAMINOPHEN TAB 500 MG TAB PO PRN ×3 (00:13→20:59)
[2019-08-30] MEDS: KETOROLAC 30 MG/ML 1 ML VIAL IVP SCH ×3 (02:59→13:48)
[2019-08-30] MEDS: ONDANSETRON 4 MG/2 ML VIAL IVP PRN ×2 (02:59→13:16)
[2019-08-30 03:05] LABS: Glucose,Whole Blood 135 mg/dL (75-99)
[2019-08-30 05:01] LABS: Glucose,Whole Blood 120 mg/dL (75-99)
[2019-08-30 05:46] LABS: Basophils % (A) 0 %; Eosinophils # (A) 0.1 k/uL (0-0.7); Eosinophils % (A) 1 %; Lymphocytes % (A) 13 %; MCH 27.3 pg (25.0-35.0); MCHC 32.6 g/dL (31.0-37.0); MCV 83.7 fL (80.0-100.0); Mean Platelet Volume 7.1; Monocytes # (A) 0.6 k/uL (0-1.0); Monocytes % (A) 9 %; Neutrophils # (A) 5.4 k/uL (1.3-7.7); Neutrophils % (A) 75 %; Platelet Count 137 k/uL (150-450); RDW 15.8 % (11.5-15.5); WBC 7.2 k/uL (3.8-10.6)
[2019-08-30 05:49] LABS: Ionized Calcium 4.6 mg/dL (4.5-5.3)
[2019-08-30 05:59] LABS: ALT 41 U/L (9-52); AST 49 U/L (14-36); African American GFR (CKD) >90 (>60 ml/min/1.73 sqM); Albumin 3.3 g/dL (3.5-5.0); Alkaline Phosphatase 42 U/L (38-126); Anion Gap 6 mmol/L; Blood Urea Nitrogen 14 mg/dL (7-17); Calcium 8.5 mg/dL (8.4-10.2); Carbon Dioxide 25 mmol/L (22-30); Chloride 105 mmol/L (98-107); Glucose 107 mg/dL (74-99); Non-African American GFR(CKD) 89 (>60 ml/min/1.73 sqM); Potassium 4.3 mmol/L (3.5-5.1); Sodium 136 mmol/L (137-145); Total Bilirubin 0.6 mg/dL (0.2-1.3); Total Protein 5.4 g/dL (6.3-8.2)
[2019-08-30 06:07] LABS: Glucose,Whole Blood 126 mg/dL (75-99)
[2019-08-30 06:11] LABS: HGB 6.3 gm/dL (11.4-16.0)
[2019-08-30 06:12] LABS: HCT 19.3 % (34.0-46.0)
[2019-08-30] MEDS: LEVOTHYROXINE 50 MCG TAB PO SCH (06:47)
[2019-08-30] MEDS: ASCORBIC ACID 500 MG TAB PO SCH ×2 (06:47→17:33)
[2019-08-30] MEDS: PANTOPRAZOLE 40 MG TABLET PO SCH (06:48)
[2019-08-30] MEDS: FERROUS SULFATE 325 MG TAB PO SCH ×2 (06:48→17:33)
[2019-08-30 06:49] LABS: HCT 20.3 % (34.0-46.0); MCH 27.2 pg (25.0-35.0); MCHC 32.4 g/dL (31.0-37.0); MCV 83.9 fL (80.0-100.0); Mean Platelet Volume 7.1; Platelet Count 138 k/uL (150-450); RBC 2.42 m/uL (3.80-5.40); RDW 15.8 % (11.5-15.5); WBC 8.2 k/uL (3.8-10.6)
[2019-08-30 06:53] LABS: HGB 6.6 gm/dL (11.4-16.0)
--- NOTE | 2019-08-30 07:26 | PN ---
PROGRESS NOTE Mrs. Guo is a 63-year-old female with history of coronary artery disease who underwent coronary artery bypass grafting. She is feeling better today. She is predominantly on her own rhythm, not paced. She is in sinus mechanism. She has no chest pain. Her breathing is stable. She feels tired, but better overall. No dizziness. No palpitation. No vomiting. She continues to be at this time on aspirin once a day, Lipitor 40 mg daily, Plavix 75 mg daily, metoprolol tartrate 125 mg twice a day. PHYSICAL EXAMINATION: Blood pressure 124/60 with a heart rate in the 60s. LUNGS: With a few crackles at the bases. HEART: Regular rate and rhythm, S1, S2, plus rub. No gallop. ABDOMEN: Soft, nontender. EXTREMITIES: No significant edema. LAB DATA: Revealed a hemoglobin of 6.6, platelet count 138. BUN and creatinine 14 and 0.72. IMPRESSION: 1. Status post coronary artery bypass grafting, stable. 2. Episode of bradycardia, resolved. 3. Anemia postoperatively. 4. History of diabetes. 5. Hypertension. 6. Hyperlipidemia. RECOMMENDATION: From the cardiac standpoint, she is doing better. Will continue present therapy. Follow her blood pressure and increase her physical activity. Continue incentive spirometry. Follow her hemoglobin and depending on the trend, adjustment will be made. MMODL / IJN: [id number] /
[2019-08-30] MEDS: ASPIRIN 325 MG TAB PO SCH (08:18)
[2019-08-30] MEDS: METOPROLOL TARTRATE 12.5 MG TAB PO SCH ×2 (08:18→21:00)
[2019-08-30] MEDS: ATORVASTATIN 40 MG TAB PO SCH (08:18)
[2019-08-30] MEDS: HEPARIN SODIUM,PORCINE 5,000 UNIT/ML 1 ML VIAL SQ SCH ×3 (08:18→23:59)
[2019-08-30] MEDS: CLOPIDOGREL 75 MG TAB PO SCH (08:18)
[2019-08-30] MEDS: MUPIROCIN 2% OINT 22 GM TUBE NASAL SCH ×2 (08:19→21:00)
[2019-08-30] MEDS: IPRATROPIUM-ALBUTEROL 3 ML NEB INHALATION SCH ×4 (08:20→19:38)
[2019-08-30 08:34] LABS: Glucose,Whole Blood 209 mg/dL (75-99)
[2019-08-30] MEDS: INSULIN ASPART (NovoLOG) 100 UNIT/ML VIAL SQ SCH ×4 (08:37→21:00)
[2019-08-30] MEDS ORDERED: MAGNESIUM HYDROXIDE 2,400 MG/10 ML CUP PO PRN (08:39)
--- NOTE | 2019-08-30 08:44 | XR ---
EXAMINATION TYPE: XR chest 1V portable DATE OF EXAM: 08/30/2019 COMPARISON: 08/29/2019 INDICATION: Postoperative cardiac surgery TECHNIQUE: Single frontal view of the chest is obtained. FINDINGS: The heart size is enlarged. The pulmonary vasculature is normal. The lungs are clear. No pneumothorax is evident. Multiple EKG leads overlie the left apex causing some limitation. Left-si ded chest tube remains present. Right central venous catheter sheath is present. Enochs-Pasquale catheter i s been removed. IMPRESSION: 1. Cardiomegaly. 2. Left-sided chest tube and right central venous catheter sheath remained present. No obvious large pneumothorax is identified. Left apical artifact limits evaluation for small pneumothorax.
--- NOTE | 2019-08-30 09:39 | P.ARTDOP ---
Arterial Doppler The left radial artery was assessed for size only. The left radial artery proximally was 2.7 x 2.7, mid section 2.4 x 2.5, distally 2.5 x 2.2 cm This radial artery meets criteria in for size for use as conduit. No statement can be made about the adequacy of collateralization.
--- NOTE | 2019-08-30 09:44 | P.VSCSTY ---
Greater Saphenous Vein Mapping This is bilateral lower extremity greater saphenous vein mapping. Date of service: 08/25/2019 Vein quality and ultrasound appearance: We see no extravasation or extraluminal flow.. Vein size groin right : 6.8 x 5.6 groin left: 7.8 x 5.2 High thigh right: 3.3 x 4.1 high thigh left: 3.2 x 3.2 Mid thigh right: 2.7 x 3.2 mid thigh left: 3.5 x 3.8 Above-knee right: 4.0 x 2.7 above- knee left: 3.2 x 3.6 Below knee right: 1.9 x 2.2 below-knee left: 2.3 x 2.4 Mid calf right: 1.3 x 1.4 mid calf left: 1.8 x 2.0 Ankle right: 1.9 x 2.0 ankle left: 2.0 x 2.2 Impression: Usable bilateral greater saphenous vein. Below the knee both sides become a bit small for conduit.
--- NOTE | 2019-08-30 10:05 | P.PN ---
Subjective Progress Note Date: 08/30/19 Principal diagnosis: Triple-vessel coronary artery disease with significant left main disease, non- STEMI this admission. Previous medical history of coronary artery disease status post stenting, noncompliance with cardiac follow-up, hypertension, hyperlipidemia, hypothyroidism, type 2 diabetes mellitus with hemoglobin A1c 6.9%, hiatal hernia, Eusebio-en-Y gastric bypass in 2003, and significant family history of premature coronary artery disease POD #2 urgent coronary artery bypass grafting x 4 vessels, left internal mammary artery to the left anterior descending artery, reverse saphenous vein graft from the aorta to the diagonal artery, reverse saphenous vein graft from the aorta to the obtuse marginal artery, reverse saphenous vein graft from the aorta to the posterior descending artery. Endoscopic harvesting of the left greater saphenous vein. Epi-aortic ultrasound and intraoperative transesophageal echocardiogram. Postoperative acute blood loss anemia, expected outcome given hemodilution and cardiopulmonary bypass pump The patient is currently sitting up in bed in the intensive care unit in no acute distress following 120 foot walk in the hallway. She has been tolerating O2 on 2L NC. States pain is controlled even while ambulating on current medication regimen, denies shortness of breath. Denies chest pain. States she feels sleepy and intermittently nauseous. Remains hemodynamically stable on no pressors or inotropes. Atrially paced on telemetry with underlying rhythm sinus bradycardia in the high 50s. Minimal output in chest tubes, adequate urine output overnight. No new concerns. Objective - Vital Signs Vital signs: Vital Signs Temp 98.1 F 08/30/19 04:00 Pulse 62 08/30/19 08:32 Resp 26 H 08/30/19 07:00 BP 124/57 08/30/19 07:00 Pulse Ox 96 08/30/19 07:00 Intake & Output 08/29/19 08/30/19 08/30/19 18:59 06:59 18:59 Intake Total 1694.758 567.442 Output Total 730 765 Balance 964.758 -197.558 Weight 90.8 kg 91.8 kg Intake: IV 693 552 Lactated Ringers 1,000 ml 550 480 @ 20 mls/hr IV .Q24H [facility] Rx#:[id number] Pressure bag 0.9 93 72 ceFAZolin 2 gm In Sodium 50 Chloride 0.9% 50 ml @ 100 mls/hr IVPB Q8HR [facility] Rx# :[id number] Intake, IV Titration 521.758 15.442 Amount Albumin Human 5% 250 ml 500 In Empty Bag 1 bag @ 250 mls/hr IVPB Q1HR PRN Rx#: [id number] Insulin Regular 100 unit 21.758 15.442 In Sodium Chloride 0.9% 100 ml @ Titrate IV .Q0M [facility] Rx#:[id number] Oral 480 Output: Chest Tube Drainage 225 160 Chest Tube Mediastinal 200 130 Left pleural 25 30 Urine 505 605 Other: Voiding Method Indwelling Catheter Indwelling Catheter ABP, PAP, CO, CI - Last Documented Arterial Blood Pressure 134/45 Pulmonary Artery Pressure 62/62 Cardiac Output 4.8 Cardiac Index 2.6 - Constitutional General appearance: Present: cooperative, no acute distress, obese - Respiratory Details: Lungs sounds diminished bilaterally. Crackles present in left lower posterior lung field. Respirations even, symmetric and nonlabored. Trialed on RA during ambulation in the hallway and SpO2 remained 87%. Currently on 2 L nasal cannula with oxygen saturation 92%. Able to achieve 1000 mL on her incentive spirometry. Weak cough. Mediastinal chest tube to continuous wall suction, 70 mL serosanguineous drainage overnight, no air leak present. Left pleural chest tube to continuous wall suction, 30 mL serosanguineous drainage overnight, no air leak present. - Cardiovascular Details: S1, S2 present. Heart sounds diminished. Regular rate and rhythm, atrially placed at 60 bpm on telemetry, underlying rhythm sinus bradycardia in the high 50s. A/V epicardial pacemaker wires present, connected to generator, AAI mode with backup rate 60 bpm. Sternum stable. Palpable peripheral pulses bilaterally. Generalized +1 edema present. No calf pain or tenderness noted. Right internal jugular Cordis present. Not requring inotropes or pressors. Heart hugger in place with patient demonstrating appropriate use. Antiembolism stockings, SCDs present. - Gastrointestinal Gastrointestinal Comment(s): Abdomen soft, nontender, nondistended, obese. Hypoactive bowel sounds present 4 quadrants. No organomegaly or masses appreciated. No guarding present. Tolerating clear liquids. Negative flatus. - Genitourinary Genitourinary Comment(s): Made adequate clear, yellow urine overnight about 50ml/hr. Kevin catheter removed this morning. Has not urinated since removal. - Integumentary Integumentary Comment(s): Skin is pale, warm, and dry with evidence of good perfusion. Non diaphoretic. Anterior chest incision well approximated and covered with dry, clean, and intact dressing. Left lower extremity EVH site well approximated. - Neurologic Neurologic: Present: CNII-XII intact - Musculoskeletal Musculoskeletal: Present: gait normal, strength equal bilaterally - Psychiatric Psychiatric: Present: A&O x's 3, appropriate affect, intact judgment & insight - Allied health notes Allied health notes reviewed: nursing - Labs CBC & Chem 7: 08/30/19 06:32 08/30/19 04:48 Labs: Abnormal Lab Results - Last 24 Hours (Table) 08/29/19 08/29/19 08/29/19 Range/Units 10:11 11:04 12:33 RBC (3.80-5.40) m/uL Hgb (11.4-16.0) gm/dL Hct (34.0-46.0) % RDW (11.5-15.5) % Plt Count (150-450) k/uL Sodium (137-145) mmol/L Glucose (74-99) mg/dL POC Glucose (mg/dL) 133 H 132 H 138 H (75-99) mg/dL AST (14-36) U/L Total Protein (6.3-8.2) g/dL Albumin (3.5-5.0) g/dL 08/29/19 08/29/19 08/29/19 Range/Units 13:31 14:07 15:10 RBC (3.80-5.40) m/uL Hgb (11.4-16.0) gm/dL Hct (34.0-46.0) % RDW (11.5-15.5) % Plt Count (150-450) k/uL Sodium (137-145) mmol/L Glucose (74-99) mg/dL POC Glucose (mg/dL) 153 H 134 H 124 H (75-99) mg/dL AST (14-36) U/L Total Protein (6.3-8.2) g/dL Albumin (3.5-5.0) g/dL 08/29/19 08/29/19 08/29/19 Range/Units 16:09 17:03 18:44 RBC (3.80-5.40) m/uL Hgb (11.4-16.0) gm/dL Hct (34.0-46.0) % RDW (11.5-15.5) % Plt Count (150-450) k/uL Sodium (137-145) mmol/L Glucose (74-99) mg/dL POC Glucose (mg/dL) 117 H 152 H 189 H (75-99) mg/dL AST (14-36) U/L Total Protein (6.3-8.2) g/dL Albumin (3.5-5.0) g/dL 08/29/19 08/29/19 08/29/19 Range/Units 20:17 20:18 23:39 RBC (3.80-5.40) m/uL Hgb (11.4-16.0) gm/dL Hct (34.0-46.0) % RDW (11.5-15.5) % Plt Count (150-450) k/uL Sodium 136 L (137-145) mmol/L Glucose 133 H (74-99) mg/dL POC Glucose (mg/dL) 146 H 104 H (75-99) mg/dL AST (14-36) U/L Total Protein (6.3-8.2) g/dL Albumin (3.5-5.0) g/dL 08/30/19 08/30/19 08/30/19 Range/Units 02:54 04:48 04:48 RBC 2.30 L (3.80-5.40) m/uL Hgb 6.3 L* (11.4-16.0) gm/dL Hct 19.3 L* (34.0-46.0) % RDW 15.8 H (11.5-15.5) % Plt Count 137 L (150-450) k/uL Sodium 136 L (137-145) mmol/L Glucose 107 H (74-99) mg/dL POC Glucose (mg/dL) 135 H (75-99) mg/dL AST 49 H (14-36) U/L Total Protein 5.4 L (6.3-8.2) g/dL Albumin 3.3 L (3.5-5.0) g/dL 08/30/19 08/30/19 08/30/19 Range/Units 04:50 05:56 06:32 RBC 2.42 L (3.80-5.40) m/uL Hgb 6.6 L* (11.4-16.0) gm/dL Hct 20.3 L (34.0-46.0) % RDW 15.8 H (11.5-15.5) % Plt Count 138 L (150-450) k/uL Sodium (137-145) mmol/L Glucose (74-99) mg/dL POC Glucose (mg/dL) 120 H 126 H (75-99) mg/dL AST (14-36) U/L Total Protein (6.3-8.2) g/dL Albumin (3.5-5.0) g/dL 08/30/19 Range/Units 08:23 RBC (3.80-5.40) m/uL Hgb (11.4-16.0) gm/dL Hct (34.0-46.0) % RDW (11.5-15.5) % Plt Count (150-450) k/uL Sodium (137-145) mmol/L Glucose (74-99) mg/dL POC Glucose (mg/dL) 209 H (75-99) mg/dL AST (14-36) U/L Total Protein (6.3-8.2) g/dL Albumin (3.5-5.0) g/dL - Imaging and Cardiology Chest x-ray: report reviewed, image reviewed Assessment and Plan Assessment: 1. Triple-vessel coronary artery disease with significant left main disease, non-STEMI, status post four-vessel CABG 2. Previous history of coronary artery disease with multiple stents placed, noncompliance with follow-up 3. Hypertension 4. Hyperlipidemia 5. Hypothyroid 6. Diabetes with hemoglobin A1c 6.9% 7. Hiatal hernia 8. Significant family history of premature coronary artery disease 9. Eusebio-en-Y gastric bypass in 2003 10. Preoperative nasal screen positive for MSSA 11. Postoperative acute blood loss anemia Plan: 1. Continue medical therapy with aspirin, statin, Plavix, low-dose beta bloc ker. Likely will be unable to increase beta yana due to bradycardia. 2. Wean O2 as tolerated. Encourage incentive spirometry is 10 times every hour while awake. Bronchodilators per pulmonary 3. Increase activity, ambulate as tolerated. PT/OT/cardiac rehab following. 4. Will monitor daily labs and x-rays. Electrolytes replacement per protocol. No transfusions at this time. 5. Pain control with current medication regimen. 6. Insulin management per primary care service. 7. Discontinue Cordis. 8. Discontinue mediastinal chest tubes, as well as kevin catheter. Keep left pleural chest tube for another 24 hrs. 9. Continue mupirocin 10. More recommendations to follow. Time with Patient: Greater than 30
--- NOTE | 2019-08-30 10:28 | P.PN ---
Subjective Progress Note Date: 08/30/19 Principal diagnosis: Coronary artery disease This is a very pleasant 63-year-old female patient who follows with Dr. Roca as her primary care physician. She has a history of diabetes mellitus, gastroesophageal reflux disease, hypertension, hyperlipidemia, hypothyroidism, coronary artery disease with previous stent placement. She also has a history of gastric bypass surgery and a hiatal hernia. She was actually scheduled to come see Dr. Walden yesterday for an EGD based on recent complaints of indigestion especially following meals. The night before however the pain gets too uncomfortable and she presented here early in the morning on 08/24/2019 with ongoing chest discomfort. She was utilizing nitroglycerin with some relief. She did undergo coronary cardiac catheterization yesterday and was found to have chronic total occlusion of the distal RCA which may be an in-stent stenosis, severe disease involving the distal left main as well as the ostial left circ umflex and LAD. Preserved LV function with ejection fraction 55-60%. She's been seen and evaluated by cardiothoracic surgery. We are consulted for the same. She is currently resting comfortably in bed. Awake and alert in no acute distress. Denies any chest discomfort currently. No shortness of breath, cough or congestion. No palpitations or lightheadedness. On room air. No previous history of any form of pulmonary disease. No COPD or asthma. Nonsmoker. No inhalers or oxygen at home. Lung function testing pending. Chest x-ray reveals no acute cardiopulmonary process. She remains on a heparin drip. White count 6.7. Hemoglobin 10.8. Peak troponin 0.071. Creatinine 0.66. The patient is seen today 08/26/2019 in follow-up on the selective care unit. She is awake and alert in no acute distress. No further chest discomfort. No palpitations, dizziness or lightheadedness. No shortness of breath, cough or congestion. She is maintaining good O2 saturations in the mid 90s on room air. She's afebrile. Hemodynamically stable. She remains on a heparin drip. The plan is for coronary artery revascularization on 08/28/2019. On 08/27/2019 patient seen in follow-up on selective care unit, she is awake and alert, in no acute distress, no complaints of chest pain overnight, no shortness of breath, vital signs are stable, she is on room air, with a pulse ox of 97%, no fever or chills, she remains on heparin infusion, she is plan for bypass surgery tomorrow by Dr. Obregon, she is working on incentive spirometer, she is achieving 1059-4960 mL on it. On 08/28/2019 patient seen in follow-up in the intensive care unit after 4 vessel coronary bypass grafting surgery with GAO to the LAD, SVG to the diagonal, and serial to the OM, and PDA. Patient is seen still sedated, intubated on mechanical ventilator with current vent settings of SIMV mode of ventilation, with a rate of 12, tidal volume of 350, FiO2 of 100% and PEEP of 10. Postoperative blood gases have been reviewed, showing pO2 of 232, patient has been switched to assist control mode of ventilation with a rate of 20, tidal volume 350, FiO2 dropped down to 60% and PEEP is at 10, postoperative chest x- ray reviewed showing no sizable pneumothorax, ET tube NG tube PA catheter in appropriate positions. He is tidal on the left pleural chest tubes with scant amount of sanguinous output, no air leak noted, epicardial wires in place, connected to temporary pacemaker patient is being a truly paced at a rate of 80 BPM, underlying rhythm sinus bradycardia at a rate of 40-50 BPM, current drips include nitroglycerin at 5 mics per minute, insulin drip is at 0.5 units per hour, and chylothorax is at 4 mg per hour. Patient is hemodynamically stable, output is 4.3 and cardiac index is 2.3. On 08/29/2019 patient seen in follow-up in the intensive care unit, this is postoperative day 1, status post four-vessel coronary artery bypass grafting, patient was successfully extubated yesterday on postop day 0, at around 2000 in the evening, doing very well this morning, she sits up in the chair, on 4 L per nasal cannula, with a pulse ox of 94%, hemodynamically stable, sinus bradycardia on the monitor, she still being paced occasionally, with the AAI mode with a rate of 60, Cardiac output and index are 4.8 and 2.6 this morning, PA pressure 24/5, CVP is 1, patient has received 500 mL of 5% albumin this morning, this morning's labs have been reviewed, with blood cell count is 9.3, hemoglobin is 7.5, and renal profile is within normal limits, sodium is 135, potassium is 5.0. Lactated Ringer's at a rate of 50, insulin drip is at 3 units per hour, nitroglycerin and clevidipine drip are discontinued. Patient is sitting up in the recliner, in no acute distress, she is achieving 1500 on her incentive s pirometry today, pain is controlled, 2 mediastinal and left pleural chest tubes with no output, no air leak. Lung sounds are clear, diminished at the bases. Patient has been started on clear liquid diet, she is tolerating diet well. Today's chest x-ray has been reviewed, and is negative for any acute abnormalities. On 08/30/2019 patient seen in follow-up in the intensive care unit, this is pos toperative day 2, status post four-vessel coronary artery bypass grafting, patient is doing well, she is currently up ambulating, she has ambulated 220 feet this morning, tolerated activity very well. She is on 2 L of oxygen with a pulse ox of 96%, hemodynamically stable, she is still pacing at a rate of 60, and AAI mode. No vasoactive drips, maintenance IV fluid lactated Ringer's at a rate of 50, and spirometer effort is 750. This morning's labs have been reviewed, white blood cell count is 8.2, hemoglobin is 6.6, platelet count is 138. Patient has 2 mediastinal and left pleural chest tube, there is been 330 mL of thin serosanguineous output from the mediastinal chest tubes, and only 55 out of the left pleural. No air leak noted, CT surgeries plan on removing the chest tubes today, [place]-Pasquale catheter has been discontinued, and the catheter has been discontinued. Objective - Vital Signs Vital signs: Vital Signs Temp 98.1 F 08/30/19 04:00 Pulse 62 08/30/19 08:32 Resp 26 H 08/30/19 07:00 BP 124/57 08/30/19 07:00 Pulse Ox 96 08/30/19 07:00 Intake & Output 08/29/19 08/30/19 08/30/19 18:59 06:59 18:59 Intake Total 1694.758 567.442 Output Total 730 765 Balance 964.758 -197.558 Weight 90.8 kg 91.8 kg Intake: IV 693 552 Lactated Ringers 1,000 ml 550 480 @ 20 mls/hr IV .Q24H [facility] Rx#:[id number] Pressure bag 0.9 93 72 ceFAZolin 2 gm In Sodium 50 Chloride 0.9% 50 ml @ 100 mls/hr IVPB Q8HR [facility] Rx# :[id number] Intake, IV Titration 521.758 15.442 Amount Albumin Human 5% 250 ml 500 In Empty Bag 1 bag @ 250 mls/hr IVPB Q1HR [facility] Rx#: [id number] Insulin Regular 100 unit 21.758 15.442 In Sodium Chloride 0.9% 100 ml @ Titrate IV .Q0M [facility] Rx#:[id number] Oral 480 Output: Chest Tube Drainage 225 160 Chest Tube Mediastinal 200 130 Left pleural 25 30 Urine 505 605 Other: Voiding Method Indwelling Catheter Indwelling Catheter ABP, PAP, CO, CI - Last Documented Arterial Blood Pressure 134/45 Pulmonary Artery Pressure 62/62 Cardiac Output 4.8 Cardiac Index 2.6 - Exam GENERAL EXAM: Awake and alert, pleasant 63-year-old white female On 2 L of oxygen with a pulse ox of 96%, in no acute distress HEAD: Normocephalic/atraumatic. EYES: Normal reaction of pupils, equal size. Conjunctiva pink, sclera white. NOSE: Clear with pink turbinates. THROAT: No erythema or exudates. NECK: No masses, no JVD, no thyroid enlargement, no adenopathy. CHEST: No chest wall deformity. Symmetrical expansion. Midsternal incision's clean dry and intact, 2 mediastinal and left pleural chest tubes in place with scant amount of serous output in the Pleur-evac, no air leak, epicardial wires to temporary pacemaker patient is Occasionally paced, underlying rhythm is sinus bradycardia, AAI mode of pacing with a rate of 60, underlying rhythm is 40-50 BPM sinus rhythm LUNGS: Equal air entry with no crackles, wheeze, rhonchi or dullness. CVS: Regular rate and rhythm, normal S1 and S2, no gallops, no murmurs, no rubs ABDOMEN: Soft, nontender. No hepatosplenomegaly, normal bowel sounds, no guarding or rigidity. EXTREMITIES: No clubbing, no edema, no cyanosis, 2+ pulses and upper and lower extremities. MUSCULOSKELETAL: Muscle strength and tone normal. SPINE: No scoliosis or deformity SKIN: No rashes CENTRAL NERVOUS SYSTEM: Awake and alert, oriented 3. No focal deficits, tone is normal in all 4 extremities. - Labs CBC & Chem 7: 08/30/19 06:32 08/30/19 04:48 Labs: Abnormal Lab Results - Last 24 Hours (Table) 08/29/19 08/29/19 08/29/19 Range/Units 11:04 12:33 13:31 RBC (3.80-5.40) m/uL Hgb (11.4-16.0) gm/dL Hct (34.0-46.0) % RDW (11.5-15.5) % Plt Count (150-450) k/uL Sodium (137-145) mmol/L Glucose (74-99) mg/dL POC Glucose (mg/dL) 132 H 138 H 153 H (75-99) mg/dL AST (14-36) U/L Total Protein (6.3-8.2) g/dL Albumin (3.5-5.0) g/dL 08/29/19 08/29/19 08/29/19 Range/Units 14:07 15:10 16:09 RBC (3.80-5.40) m/uL Hgb (11.4-16.0) gm/dL Hct (34.0-46.0) % RDW (11.5-15.5) % Plt Count (150-450) k/uL Sodium (137-145) mmol/L Glucose (74-99) mg/dL POC Glucose (mg/dL) 134 H 124 H 117 H (75-99) mg/dL AST (14-36) U/L Total Protein (6.3-8.2) g/dL Albumin (3.5-5.0) g/dL 08/29/19 08/29/19 08/29/19 Range/Units 17:03 18:44 20:17 RBC (3.80-5.40) m/uL Hgb (11.4-16.0) gm/dL Hct (34.0-46.0) % RDW (11.5-15.5) % Plt Count (150-450) k/uL Sodium (137-145) mmol/L Glucose (74-99) mg/dL POC Glucose (mg/dL) 152 H 189 H 146 H (75-99) mg/dL AST (14-36) U/L Total Protein (6.3-8.2) g/dL Albumin (3.5-5.0) g/dL 08/29/19 08/29/19 08/30/19 Range/Units 20:18 23:39 02:54 RBC (3.80-5.40) m/uL Hgb (11.4-16.0) gm/dL Hct (34.0-46.0) % RDW (11.5-15.5) % Plt Count (150-450) k/uL Sodium 136 L (137-145) mmol/L Glucose 133 H (74-99) mg/dL POC Glucose (mg/dL) 104 H 135 H (75-99) mg/dL AST (14-36) U/L Total Protein (6.3-8.2) g/dL Albumin (3.5-5.0) g/dL 08/30/19 08/30/19 08/30/19 Range/Units 04:48 04:48 04:50 RBC 2.30 L (3.80-5.40) m/uL Hgb 6.3 L* (11.4-16.0) gm/dL Hct 19.3 L* (34.0-46.0) % RDW 15.8 H (11.5-15.5) % Plt Count 137 L (150-450) k/uL Sodium 136 L (137-145) mmol/L Glucose 107 H (74-99) mg/dL POC Glucose (mg/dL) 120 H (75-99) mg/dL AST 49 H (14-36) U/L Total Protein 5.4 L (6.3-8.2) g/dL Albumin 3.3 L (3.5-5.0) g/dL 08/30/19 08/30/19 08/30/19 Range/Units 05:56 06:32 08:23 RBC 2.42 L (3.80-5.40) m/uL Hgb 6.6 L* (11.4-16.0) gm/dL Hct 20.3 L (34.0-46.0) % RDW 15.8 H (11.5-15.5) % Plt Count 138 L (150-450) k/uL Sodium (137-145) mmol/L Glucose (74-99) mg/dL POC Glucose (mg/dL) 126 H 209 H (75-99) mg/dL AST (14-36) U/L Total Protein (6.3-8.2) g/dL Albumin (3.5-5.0) g/dL Assessment and Plan Plan: Assessment: #1. Coronary artery disease, status post four-vessel bypass grafting including GAO to LAD, SVG to the diagonal, SaO2 the OM and PDA, operative day 2 #2. Routine ventilator management, Patient was successfully extubated yesterday on postoperative day 0, at 2000 in the evening, OR exit time 1450 on 08/28/2019, patient was extubated in under 6 hours of OR exit #3. Chest discomfort on presentation and patient found to have significant coronary artery disease with calcified right and left coronary systems. Chronic total occlusion of the distal RCA suspected in-stent restenosis, severe disease involving the distal left main as well as involving the ostial left circumflex and LAD. Patient was found to have preserved left ventricular systolic function the EF of 55% #4. Diabetes mellitus #5. Hypertension #6. Previous coronary artery disease with stent placements #7. Hyperlipidemia #8. Hypothyroidism #9. Previous gastric bypass surgery #10. Lifelong nonsmoker Plan: Continue current medical management, continue DuoNeb breathing and coughing, patient is tolerating ambulation, doing very well, hemodynamically stable, despite removal of the chest tubes today, [place]-Pasquale catheter has been removed, and a Porras catheter has been removed, no acute issues overnight, no vasoactive drips, today's labs have been noted, today's chest x-ray has been reviewed, showing cardiomegaly, and no sign of pneumothorax. We'll continue to follow. I performed a history & physical examination of the patient and discussed their management with my nurse practitioner, Saniya Camacho. I reviewed the nurse practitioner's note and agree with the documented findings and plan of care. Lung sounds are positive for clear breath sounds. The findings and the impression was discussed with the patient. I attest to the documentation by the nurse practitioner. Time with Patient: Less than 30
[2019-08-30 11:51] LABS: Glucose,Whole Blood 132 mg/dL (75-99)
[2019-08-30] MEDS: LACTATED RINGERS 1,000 ML IV SCH (13:17)
--- NOTE | 2019-08-30 13:46 | P.PN ---
Subjective This is a very pleasant 63-year-old patient of Dr. Roca. Chronic stable medical conditions include diabetes, hypertension, hiatal hernia, hypothyroid, primary osteoarthritis. Patient has a known history of coronary artery disease stent. Last was several years ago. Has not had a stress test since then. Patient also being worked up by Dr. Walden for her hiatal hernia. Was supposed to have her endoscopy done today. Some of the symptoms she's been having was felt to be from a hiatal hernia. Does get some bloating and discomfort in the upper abdomen. Patient now presented to us last night she had heaviness in the central part of the chest. Last 4 good 2 hours. There was nausea. Dizziness. [place] flushed. There was no radiation radiation to the neck or the arm. Troponin was started to to be positive. Admitted with acute non-Q-wave MT. Had a cardiac catheterization on August 24. Showed severe triple-vessel disease. Cardiothoracic surgery was consulted. Today-sitting up. Oral distress. But anxious. No chest pain or short of breath. White count 6.2 hemoglobin 12.6 platelets 272 potassium 4 creatinine 0.7 Troponin I 0.066, 0.071, 0.065 ProBNP 436 EKG tracing personally reviewed by me-sinus rhythm left bundle branch block Chest x-ray film personally reviewed by de-lung galvin clear Cardiac catheterization showing severe triple-vessel disease 08/26/2019 Patient is currently in the bed comfortably. No complaints of chest pain or shortness of breath. No nausea vomiting or abdominal pain. No headache or diz ziness or lightheadedness. Saturating well on room air. Patient is on heparin drip. Plan for coronary revascularization on 08/28/2019. Pulmonary and CT surgery is following. 1123 2018 Patient is currently sitting in the bed. Denied any new complaints. No chest pain or shortness of breath. No nausea vomiting. No headache or dizziness or lightheadedness. Upper extremity duplex Was done. Scheduled for coronary vascular patient on 08/28/2019 No other acute overnight issues. 08/28/2019 pt is excepted to go for coronary artery bypass graft today . she is hemodynamically stable and labs and mediation are reviewed Review of systems: Was done for constitutional, cardiovascular, GI, pulmonary. relevant finding as above Medications reviewed. Objective - Vital Signs Vital signs: Vital Signs Temp 98.6 F 08/28/19 06:37 Pulse 48 L 08/28/19 06:37 Resp 17 08/28/19 04:00 BP 176/72 08/28/19 06:37 Pulse Ox 98 08/28/19 06:37 Intake & Output 08/27/19 08/28/19 08/28/19 18:59 06:59 18:59 Intake Total 699.882 420 33 Balance 699.882 420 33 Weight 85.2 kg Intake: IV 109.2 100 33 Heparin Sod,Pork in 0.45% 109.2 NaCl 25,000 unit In 0.45 % NaCl 1 250ml.bag @ 12 UNITS/KG/HR 9.634 mls/hr IV .Q24H [facility] Rx#: [id number] Intake, IV Titration 250.682 80 Amount Heparin Sod,Pork in 0.45% 250.682 NaCl 25,000 unit In 0.45 % NaCl 1 250ml.bag @ 12 UNITS/KG/HR 9.634 mls/hr IV .Q24H [facility] Rx#: [id number] Lactated Ringers 1,000 ml 80 @ 20 mls/hr IV .Q24H [facility] Rx#:[id number] Oral 340 240 Other: Voiding Method Toilet # Voids 2 - Exam Patient is lying in the bed comfortably, no acute distress, awake alert and fabian ented.. HEENT: Normocephalic. Neck is supple. Pupils reactive. Nostrils clear. Oral cavity is moist. Ears reveal no drainage. Neck reveals no JVD, carotid bruits, or thyromegaly. CHEST EXAMINATION: Trachea is central. Symmetrical expansion. Lung galvin clear to auscultation and percussion. CARDIAC: Normal S1, S2 with no gallops. No murmurs ABDOMEN: Soft. Bowel sounds normal. No organomegaly. No abdominal bruits. Extremities: reveal no edema. No clubbing or cyanosis Neurologically awake, alert, oriented x3 with well-coordinated movements. No focal deficits noted Skin: No rash or skin lesions. Psychiatric: Coperative. Nonsuicidal Musculoskeletal: No joint swelling or deformity. Normal range of motion. - Labs CBC & Chem 7: 08/30/19 06:32 08/30/19 04:48 Labs: Abnormal Lab Results - Last 24 Hours (Table) 08/26/19 08/27/19 08/27/19 Range/Units 10:19 12:00 20:16 APTT (22.0-30.0) sec POC Glucose (mg/dL) 114 H 131 H (75-99) mg/dL Crossmatch See Detail 08/27/19 Range/Units 23:57 APTT 43.2 H (22.0-30.0) sec POC Glucose (mg/dL) (75-99) mg/dL Crossmatch Assessment and Plan Assessment: -Acute non-Q-wave myocardial infarction -Severe triple-vessel disease- cardiac catheterization -Diabetes mellitus type 2 on oral hypoglycemic -Essential hypertension -Hiatal hernia, symptomatic with GERD -Hypothyroid -Primary osteoarthritis -Obesity BMI 35.3 Plan: Cardiothoracic surgery was consulted. Other medications to continue. Care was discussed with the patient. Hiatal hernia can be addressed down the road. Scheduled for coronary revascularization today
[2019-08-30] MEDS ORDERED: KETOROLAC 30 MG/ML 1 ML VIAL IVP PRN (14:40)
[2019-08-30 16:53] LABS: Glucose,Whole Blood 133 mg/dL (75-99)
[2019-08-30] MEDS: METOCLOPRAMIDE 5 MG/ML 2 ML VIAL IVP SCH ×3 (17:33→23:59)
--- NOTE | 2019-08-30 20:26 | P.PN ---
Progress Note - Text Progress Note Date: 08/30/19 Chief Complaint: Chest heaviness History of presenting complaint: This is a very pleasant 63-year-old patient of Dr. Roca. Chronic stable medical conditions include diabetes, hypertension, hiatal hernia, hypothyroid, primary osteoarthritis. Patient has a known history of coronary artery disease stent. Last was several years ago. Has not had a stress test since then. Patient also being worked up by Dr. Walden for her hiatal hernia. Was supposed to have her endoscopy done today. Some of the symptoms she's been having was felt to be from a hiatal hernia. Does get some bloating and discomfort in the upper abdomen. Patient now presented to us last night she had heaviness in the central part of the chest. Last 4 good 2 hours. There was nausea. Dizziness. [place] flushed. There was no radiation radiation to the neck or the arm. Troponin was started to to be positive. Admitted with acute non-Q-wave NV. Had a cardiac catheterization on August 24. Showed severe triple-vessel disease. Underwent coronary artery bypass four-vessel started on 08/28/2019.. Today-in the ICU. Eating better. Did walk in the hallway. Mild shortness of breath. No dizziness or lightheadedness. Review of systems: Was done for constitutional, cardiovascular, GI, pulmonary. relevant finding as above Active Medications Acetaminophen (Tylenol Tab) 1,000 mg PO Q6HR PRN PRN Reason: Fever and/ or Mild Pain Last Admin: 08/30/19 06:48 Dose: 1,000 mg Documented by: Hydrocodone Bitart/Acetaminophen ([place] 5-325) 1 each PO Q4HR PRN PRN Reason: Moderate Pain Last Admin: 08/29/19 16:34 Dose: 1 each Documented by: Albuterol/Ipratropium (Duoneb 0.5 Mg-3 Mg/3 Ml Soln) 3 ml INHALATION RT-Q2H PRN PRN Reason: Shortness Of Breath Or Wheezing Albuterol/Ipratropium (Duoneb 0.5 Mg-3 Mg/3 Ml Soln) 3 ml INHALATION RT-QID [facility] Last Admin: 08/30/19 19:38 Dose: 3 ml Documented by: Ascorbic Acid (Vitamin C) 500 mg PO BID-W/MEALS [facility] Last Admin: 11/27/19 17:33 Dose: 500 mg Documented by: Aspirin (Aspirin) 325 mg PO DAILY [facility] Last Admin: 08/30/19 08:18 Dose: 325 mg Documented by: Atorvastatin Calcium (Lipitor) 40 mg PO DAILY [facility] Last Admin: 08/30/19 08:18 Dose: 40 mg Documented by: Benzocaine/Menthol (Cepacol Lozenge) 1 each MUCOUS MEM Q2H PRN PRN Reason: Sore Throat Clopidogrel Bisulfate (Plavix) 75 mg PO DAILY [facility] Last Admin: 08/30/19 08:18 Dose: 75 mg Documented by: Ferrous Sulfate (Feosol) 325 mg PO BID-W/MEALS [facility] Last Admin: 08/30/19 17:33 Dose: 325 mg Documented by: Heparin Sodium (Porcine) (Heparin) 5,000 unit SQ Q8HR [facility] Last Admin: 08/30/19 17:33 Dose: 5,000 unit Documented by: Amiodarone HCl 150 mg/ (Dextrose/Water) 103 mls @ 618 mls/hr IV .Q10M PRN; Protocol PRN Reason: A.FIB/FLUTTER Amiodarone HCl 360 mg/ (Dextrose/Water) 200 mls @ 33.333 mls/hr IV .Q6H PRN; Protocol PRN Reason: A.FIB/FLUTTER Amiodarone HCl 300 mg/ (Dextrose/Water) 250 mls @ 25 mls/hr IV .Q10H PRN; Protocol PRN Reason: A.FIB/FLUTTER Insulin Aspart (Novolog) 0 unit SQ ACHS [facility]; Protocol Last Admin: 08/30/19 17:34 Dose: 1 unit Documented by: Ketorolac Tromethamine (Toradol) 15 mg IVP Q6HR PRN PRN Reason: Pain Stop: 09/02/19 18:01 Levothyroxine Sodium (Synthroid) 50 mcg PO DAILY@0630 [facility] Last Admin: 08/30/19 06:47 Dose: 50 mcg Documented by: Magnesium Hydroxide (Milk Of Magnesia) 2,400 mg PO DAILY PRN PRN Reason: Constipation Metoclopramide HCl (Reglan) 10 mg IVP Q4H [facility] Last Admin: 08/30/19 17:45 Dose: Not Given Documented by: Metoprolol Tartrate (Lopressor) 12.5 mg PO BID [facility] Last Admin: 08/30/19 08:18 Dose: 12.5 mg Documented by: Miscellaneous Information (Potassium Per Protocol) 1 each MISCELLANE DAILY PRN; Protocol PRN Reason: Per Protocol Miscellaneous Information (Magnesium Per Protocol) 1 each MISCELLANE DAILY PRN; Protocol PRN Reason: Per Protocol Miscellaneous Information (Phosphorus Per Protocol) 1 each MISCELLANE DAILY PRN; Protocol PRN Reason: Per Protocol Mupirocin (Bactroban Oint) 1 applic NASAL BID [facility] Stop: 08/31/19 21:01 Last Admin: 08/30/19 08:19 Dose: 1 applic Documented by: Ondansetron HCl (Zofran) 4 mg IVP Q6HR PRN PRN Reason: Nausea And Vomiting Last Admin: 08/30/19 13:16 Dose: 4 mg Documented by: Pantoprazole Sodium (Protonix) 40 mg PO AC-BRKFST [facility] Last Admin: 08/30/19 06:48 Dose: 40 mg Documented by: Senna/Docusate Sodium (Senokot-S) 2 each PO HS [facility] Last Admin: 08/29/19 20:35 Dose: 2 each Documented by: Sodium Chloride (Saline Flush) 10 ml IV BID [facility] Last Admin: 08/30/19 08:19 Dose: 10 ml Documented by: Physical examination: Vital signs-97.8, 60, 20, 11 6/48, 95% on 2 L GENERAL: Laying bed, comfortable EYES: Pupils equal. Conjunctiva normal. HEENT: External appearance of nose and ears normal, oral cavity grossly normal. NECK: JVD not raised; masses not palpable. HEART: First and second heart sounds are normal; no edema. LUNGS: Respiratory rate increased, decreased breath sounds ABDOMEN: Soft, mild epigastric tenderness, liver spleen not palpable, no masses palpable. PSYCH: Alert and oriented x3; mood and affect slightly anxious MUSCULOSKELETAL: Evidence of OA in the hands INVESTIGATIONS, reviewed in the clinical context: White count 8.2 hemoglobin 6.6 platelets 138 potassium 4.3 creatinine 0.7 to Previous testing White count 6.2 hemoglobin 12.6 platelets 272 potassium 4 creatinine 0.7 Troponin I 0.066, 0.071, 0.065 ProBNP 436 EKG tracing personally reviewed by me-sinus rhythm left bundle branch block Chest x-ray film personally reviewed by me-lung galvin clear Cardiac catheterization showing severe triple-vessel disease Assessment: -Acute non-Q-wave myocardial infarction -Severe triple-vessel disease-followed by 4vessel coronary bypass -Acute postop blood loss severe anemia as expected from surgery -Diabetes mellitus type 2 on oral hypoglycemic -Essential hypertension -Hiatal hernia, symptomatic with GERD -Hypothyroid -Primary osteoarthritis -Obesity BMI 35.3 -Left bundle branch block Plan: Cardiothoracic surgery team did order unit of blood. Patient overall feeling better. Follow hemoglobin in the morning. Has been out walking on the floor
[2019-08-30 20:58] LABS: Glucose,Whole Blood 143 mg/dL (75-99)
[2019-08-30] MEDS: SENNOSIDES-DOCUSATE SODIUM 1 EACH TAB PO SCH (21:00)
[2019-08-31] MEDS: METOCLOPRAMIDE 5 MG/ML 2 ML VIAL IVP SCH ×6 (03:52→23:16)
[2019-08-31] MEDS: ACETAMINOPHEN TAB 500 MG TAB PO PRN ×2 (03:53→20:36)
[2019-08-31 06:36] LABS: African American GFR (CKD) >90 (>60 ml/min/1.73 sqM); Anion Gap 6 mmol/L; Blood Urea Nitrogen 17 mg/dL (7-17); Calcium 8.6 mg/dL (8.4-10.2); Carbon Dioxide 25 mmol/L (22-30); Chloride 108 mmol/L (98-107); Glucose 126 mg/dL (74-99); Non-African American GFR(CKD) >90 (>60 ml/min/1.73 sqM); Potassium 4.8 mmol/L (3.5-5.1); Sodium 139 mmol/L (137-145)
[2019-08-31 06:49] LABS: Anisocytosis Slight; MCH 27.3 pg (25.0-35.0); MCHC 33.6 g/dL (31.0-37.0); MCV 81.3 fL (80.0-100.0); Mean Platelet Volume 7.6; Platelet Count 140 k/uL (150-450); RBC 2.28 m/uL (3.80-5.40); RDW 16.3 % (11.5-15.5); WBC 7.2 k/uL (3.8-10.6)
[2019-08-31 06:50] LABS: HGB 6.2 gm/dL (11.4-16.0)
[2019-08-31 06:52] LABS: HCT 18.6 % (34.0-46.0)
[2019-08-31 07:05] LABS: Glucose,Whole Blood 137 mg/dL (75-99)
--- NOTE | 2019-08-31 07:11 | XR ---
EXAMINATION TYPE: XR chest 1V portable DATE OF EXAM: 08/31/2019 CLINICAL HISTORY: Difficulty breathing progress study. TECHNIQUE: Single AP portable upright view of the chest is obtained. COMPARISON: Chest x-ray from one day earlier and older studies. FINDINGS: Overlying sternal wires and mediastinal clips are redemonstrated. Persistent cardiomegaly. Persistent left-sided chest tube. Overlying EKG leads and wires. Chronic medical change with right b asilar opacity redemonstrated. Developing right upper lung opacity may be present. No pneumothorax bi laterally. Suspect tiny bilateral pleural effusions. IMPRESSION: No pneumothorax with left-sided chest tube. Persistent cardiomegaly with right basilar at electasis and/or infiltrate redemonstrated. Developing right upper lung infiltrate is noted. Progress study advised.
[2019-08-31] MEDS: INSULIN ASPART (NovoLOG) 100 UNIT/ML VIAL SQ SCH ×4 (07:16→21:40)
[2019-08-31] MEDS: PANTOPRAZOLE 40 MG TABLET PO SCH (07:17)
[2019-08-31] MEDS: FERROUS SULFATE 325 MG TAB PO SCH ×2 (07:17→17:00)
[2019-08-31] MEDS: ASCORBIC ACID 500 MG TAB PO SCH ×2 (07:17→17:00)
[2019-08-31] MEDS: LEVOTHYROXINE 50 MCG TAB PO SCH (07:17)
[2019-08-31] MEDS: IPRATROPIUM-ALBUTEROL 3 ML NEB INHALATION SCH ×4 (08:11→19:32)
[2019-08-31] MEDS: HEPARIN SODIUM,PORCINE 5,000 UNIT/ML 1 ML VIAL SQ SCH ×3 (08:34→23:15)
[2019-08-31] MEDS: ATORVASTATIN 40 MG TAB PO SCH (08:35)
[2019-08-31] MEDS: METOPROLOL TARTRATE 12.5 MG TAB PO SCH ×2 (08:35→20:33)
[2019-08-31] MEDS: CLOPIDOGREL 75 MG TAB PO SCH (08:35)
[2019-08-31] MEDS: MUPIROCIN 2% OINT 22 GM TUBE NASAL SCH ×2 (08:35→20:33)
[2019-08-31] MEDS: ASPIRIN 325 MG TAB PO SCH (08:35)
[2019-08-31] MEDS ORDERED: METOPROLOL TARTRATE 12.5 MG TAB PO SCH (09:00)
[2019-08-31] MEDS ORDERED: FUROSEMIDE 10 MG/ML 4 ML VIAL IV ONE (10:00)
--- NOTE | 2019-08-31 10:50 | P.PN ---
Subjective Progress Note Date: 08/31/19 This is a very pleasant 63-year-old female patient who follows with Dr. Roca as her primary care physician. She has a history of diabetes mellitus, gastroesophageal reflux disease, hypertension, hyperlipidemia, hypothyroidism, coronary artery disease with previous stent placement. She also has a history of gastric bypass surgery and a hiatal hernia. She was actually scheduled to come see Dr. Walden yesterday for an EGD based on recent complaints of indigestion especially following meals. The night before however the pain gets too uncomfortable and she presented here early in the morning on 08/24/2019 with ongoing chest discomfort. She was utilizing nitroglycerin with some relief. She did undergo coronary cardiac catheterization yesterday and was found to have chronic total occlusion of the distal RCA which may be an in-stent stenosis, severe disease involving the distal left main as well as the ostial left circumflex and LAD. Preserved LV function with ejection fraction 55-60%. She's been seen and evaluated by cardiothoracic surgery. We are consulted for the same. She is currently resting comfortably in bed. Awake and alert in no acute distress. Denies any chest discomfort currently. No shortness of breath, cough or congestion. No palpitations or lightheadedness. On room air. No previous history of any form of pulmonary disease. No COPD or asthma. Nonsmoker. No inhalers or oxygen at home. Lung function testing pending. Chest x-ray reveals no acute cardiopulmonary process. She remains on a heparin drip. White count 6.7. Hemoglobin 10.8. Peak troponin 0.071. Creatinine 0.66. The patient is seen today 08/26/2019 in follow-up on the selective care unit. She is awake and alert in no acute distress. No further chest discomfort. No palpitations, dizziness or lightheadedness. No shortness of breath, cough or congestion. She is maintaining good O2 saturations in the mid 90s on room air. She's afebrile. Hemodynamically stable. She remains on a heparin drip. The plan is for coronary artery revascularization on 08/28/2019. On 08/27/2019 patient seen in follow-up on selective care unit, she is awake and alert, in no acute distress, no complaints of chest pain overnight, no shortness of breath, vital signs are stable, she is on room air, with a pulse ox of 97%, no fever or chills, she remains on heparin infusion, she is plan for bypass surgery tomorrow by Dr. Obregon, she is working on incentive spirometer, she is achieving 0606-5459 mL on it. On 08/28/2019 patient seen in follow-up in the intensive care unit after 4 vessel coronary bypass grafting surgery with GAO to the LAD, SVG to the diagonal, and serial to the OM, and PDA. Patient is seen still sedated, intubated on mechanical ventilator with current vent settings of SIMV mode of ventilation, with a rate of 12, tidal volume of 350, FiO2 of 100% and PEEP of 10. Postoperative blood gases have been reviewed, showing pO2 of 232, patient has been switched to assist control mode of ventilation with a rate of 20, tidal volume 350, FiO2 dropped down to 60% and PEEP is at 10, postoperative chest x- ray reviewed showing no sizable pneumothorax, ET tube NG tube PA catheter in appropriate positions. He is tidal on the left pleural chest tubes with scant amount of sanguinous output, no air leak noted, epicardial wires in place, connected to temporary pacemaker patient is being a truly paced at a rate of 80 BPM, underlying rhythm sinus bradycardia at a rate of 40-50 BPM, current drips include nitroglycerin at 5 mics per minute, insulin drip is at 0.5 units per hour, and chylothorax is at 4 mg per hour. Patient is hemodynamically stable, output is 4.3 and cardiac index is 2.3. On 08/29/2019 patient seen in follow-up in the intensive care unit, this is postoperative day 1, status post four-vessel coronary artery bypass grafting, patient was successfully extubated yesterday on postop day 0, at around 2000 in the evening, doing very well this morning, she sits up in the chair, on 4 L per nasal cannula, with a pulse ox of 94%, hemodynamically stable, sinus bradycardia on the monitor, she still being paced occasionally, with the AAI mode with a rate of 60, Cardiac output and index are 4.8 and 2.6 this morning, PA pressure 24/5, CVP is 1, patient has received 500 mL of 5% albumin this morning, this morning's labs have been reviewed, with blood cell count is 9.3, hemoglobin is 7.5, and renal profile is within normal limits, sodium is 135, potassium is 5.0. Lactated Ringer's at a rate of 50, insulin drip is at 3 units per hour, nitroglycerin and clevidipine drip are discontinued. Patient is sitting up in the recliner, in no acute distress, she is achieving 1500 on her incentive spirometry today, pain is controlled, 2 mediastinal and left pleural chest tubes with no output, no air leak. Lung sounds are clear, diminished at the bases. Patient has been started on clear liquid diet, she is tolerating diet well. Today's chest x-ray has been reviewed, and is negative for any acute abnormalities. On 08/30/2019 patient seen in follow-up in the intensive care unit, this is postoperative day 2, status post four-vessel coronary artery bypass grafting, patient is doing well, she is currently up ambulating, she has ambulated 220 feet this morning, tolerated activity very well. She is on 2 L of oxygen with a pulse ox of 96%, hemodynamically stable, she is still pacing at a rate of 60, and AAI mode. No vasoactive drips, maintenance IV fluid lactated Ringer's at a rate of 50, and spirometer effort is 750. This morning's labs have been review ed, white blood cell count is 8.2, hemoglobin is 6.6, platelet count is 138. Patient has 2 mediastinal and left pleural chest tube, there is been 330 mL of thin serosanguineous output from the mediastinal chest tubes, and only 55 out of the left pleural. No air leak noted, CT surgeries plan on removing the chest tubes today, Orwell-Pasquale catheter has been discontinued, and the catheter has been discontinued. 08/31/2019 I'm seeing the patient in follow-up. The patient is postop day #3. Doing extremely well. The mediastinal chest tube is still in place and this will be removed. She is in a sinus rhythm for now and the pacemaker leads have been removed. Orwell-Pasquale have been removed. This has been removed. The [place] will be also removed today. No fever. Using incentive spirometer. Pulling approximately 1000 on her incentive spirometer. No leg swelling. No chest pain. Sternum stable clean and intact. No hemodynamic instability. No other significant events overnight. S x-ray from today showing some cardiomegaly and mild pulmonary vascular congestion. Left-sided chest tube is still in place. The hemoglobin today is at 6.2 and the patient will be receiving a unit of packed RBC. We'll are holding off any blood transfusion however, with this further drop in hemoglobin down to 6. were going to give her units of packed RBC. Platelet count is stable at 140. Objective - Vital Signs Vital signs: Vital Signs Temp 98 F 08/31/19 08:00 Pulse 64 08/31/19 08:25 Resp 18 08/31/19 08:00 BP 149/64 08/31/19 08:00 Pulse Ox 93 L 08/31/19 08:00 Intake & Output 08/30/19 08/31/19 08/31/19 18:59 06:59 18:59 Intake Total 295 240 Output Total 910 800 100 Balance -615 -560 -100 Weight 87.3 kg Intake: IV 295 Lactated Ringers 1,000 ml 280 @ 20 mls/hr IV .Q24H [facility] Rx#:[id number] Pressure bag 0.9 15 Oral 240 Output: Chest Tube Drainage 60 100 Chest Tube Mediastinal 40 Left pleural 20 100 Urine 850 800 Other: Voiding Method Indwelling Catheter Indwelling Catheter Toilet ABP, PAP, CO, CI - Last Documented Arterial Blood Pressure 134/45 Pulmonary Artery Pressure 62/62 Cardiac Output 4.8 Cardiac Index 2.6 - Exam GENERAL EXAM: Awake and alert, pleasant 63-year-old white female On 2 L of oxygen with a pulse ox of 96%, in no acute distress HEAD: Normocephalic/atraumatic. EYES: Normal reaction of pupils, equal size. Conjunctiva pink, sclera white. NOSE: Clear with pink turbinates. THROAT: No erythema or exudates. NECK: No masses, no JVD, no thyroid enlargement, no adenopathy. CHEST: No chest wall deformity. Symmetrical expansion. Left pleural chest tube is still in place with no evidence of any air leak. LUNGS: Equal air entry with no crackles, wheeze, rhonchi or dullness. CVS: Regular rate and rhythm, normal S1 and S2, no gallops, no murmurs, no rubs ABDOMEN: Soft, nontender. No hepatosplenomegaly, normal bowel sounds, no guarding or rigidity. EXTREMITIES: No clubbing, no edema, no cyanosis, 2+ pulses and upper and lower extremities. MUSCULOSKELETAL: Muscle strength and tone normal. SPINE: No scoliosis or deformity SKIN: No rashes CENTRAL NERVOUS SYSTEM: Awake and alert, oriented 3. No focal deficits, tone is normal in all 4 extremities. - Labs CBC & Chem 7: 08/31/19 05:40 08/31/19 05:40 Labs: Abnormal Lab Results - Last 24 Hours (Table) 08/30/19 08/30/19 08/30/19 Range/Units 11:40 16:42 20:47 RBC (3.80-5.40) m/uL Hgb (11.4-16.0) gm/dL Hct (34.0-46.0) % RDW (11.5-15.5) % Plt Count (150-450) k/uL Chloride (98-107) mmol/L Glucose (74-99) mg/dL POC Glucose (mg/dL) 132 H 133 H 143 H (75-99) mg/dL 08/31/19 08/31/19 08/31/19 Range/Units 05:40 05:40 06:53 RBC 2.28 L (3.80-5.40) m/uL Hgb 6.2 L* (11.4-16.0) gm/dL Hct 18.6 L* (34.0-46.0) % RDW 16.3 H (11.5-15.5) % Plt Count 140 L (150-450) k/uL Chloride 108 H (98-107) mmol/L Glucose 126 H (74-99) mg/dL POC Glucose (mg/dL) 137 H (75-99) mg/dL Assessment and Plan Plan: #1. Coronary artery disease, status post four-vessel bypass grafting including GAO to LAD, SVG to the diagonal, SaO2 the OM and PDA, operative day 3 #2. Thoracotomy, and the patient has a left pleural chest tube still in place. #3. Chest discomfort on presentation and patient found to have significant coronary artery disease with calcified right and left coronary systems. Chronic total occlusion of the distal RCA suspected in-stent restenosis, severe disease involving the distal left main as well as involving the ostial left circumflex and LAD. Patient was found to have preserved left ventricular systolic function the EF of 55% #4. Diabetes mellitus #5. Hypertension #6. Previous coronary artery disease with stent placements #7. Hyperlipidemia #8. Hypothyroidism #9. Previous gastric bypass surgery #10. Lifelong nonsmoker #11, anemia with further drop in hemoglobin at 6.2 and his and expected outcome of surgery and is an acute anemia probably a blood loss anemia Plan Transfuse with a unit of packed RBC. Remove the left pleural chest tube. Hemodynamically stable. She is a selective overflow into going to remove to selective at a later stage once bed available. She is on his vascular low blood sugar control. She is ambulating. No other significant events overnight. We will follow.
--- NOTE | 2019-08-31 11:29 | P.PN ---
Subjective Progress Note Date: 08/31/19 Principal diagnosis: Triple-vessel coronary artery disease with significant left main disease, non- STEMI this admission. Previous medical history of coronary artery disease status post stenting, noncompliance with cardiac follow-up, hypertension, hyperlipidemia, hypothyroidism, type 2 diabetes mellitus with hemoglobin A1c 6.9%, hiatal hernia, obesity with a history of Eusebio-en-Y gastric bypass in 2003, and significant family history of premature coronary artery disease POD #3 urgent coronary artery bypass grafting x 4 vessels, left internal mammary artery to the left anterior descending artery, a reverse greater saphenous vein graft from the aorta to the diagonal coronary artery, a reverse greater saphenous vein graft from the aorta to the obtuse marginal coronary artery, a reverse greater saphenous vein graft from the aorta to the posterior descending coronary artery. Endoscopic harvesting of the left greater saphenous vein. Epi-aortic ultrasound and intraoperative transesophageal echocardiogram. Postoperative acute blood loss anemia, expected outcome given hemodilution and cardiopulmonary bypass pump. The patient is currently sitting up to the bedside chair in the intensive care unit. She is in no acute distress. Denies any complaints of pain or shortness of breath, although she reports that she is having continued episodes of nausea. She feels the nausea is related to the Kiron as she has been receiving for pain. She is hemodynamically stable and is currently on no inotropic or pressor support. Atrial and ventricular epicardial pacemaker wires are in place and grounded. She remains with a left pleural chest tube in place to low continuous wall suction -20 cm H2O. No air leak is present. Draining thin serosanguineous drainage with 140 mL output in the last 24 hours. Oxygen saturations are 95% on 2 L nasal cannula and she is achieving 750 mL on her incentive spirometry. She reports ambulating in the intensive care unit hallway yesterday with minimal assistance from nursing staff, physical and occupational therapy and tolerated w alking about 300 feet. Objective - Vital Signs Vital signs: Vital Signs Temp 98 F 08/31/19 08:00 Pulse 64 08/31/19 08:25 Resp 18 08/31/19 08:00 BP 149/64 08/31/19 08:00 Pulse Ox 93 L 08/31/19 08:00 Intake & Output 08/30/19 08/31/19 08/31/19 18:59 06:59 18:59 Intake Total 295 240 Output Total 910 800 100 Balance -615 -560 -100 Weight 87.3 kg Intake: IV 295 Lactated Ringers 1,000 ml 280 @ 20 mls/hr IV .Q24H [facility] Rx#:[id number] Pressure bag 0.9 15 Oral 240 Output: Chest Tube Drainage 60 100 Chest Tube Mediastinal 40 Left pleural 20 100 Urine 850 800 Other: Voiding Method Indwelling Catheter Indwelling Catheter Toilet ABP, PAP, CO, CI - Last Documented Arterial Blood Pressure 134/45 Pulmonary Artery Pressure 62/62 Cardiac Output 4.8 Cardiac Index 2.6 - Constitutional General appearance: Present: cooperative, no acute distress, obese - Respiratory Details: Lung sounds are essentially clear throughout, few scattered crackles to bilateral bases. Respirations are symmetrical and nonlabored. Oxygen saturation 95% on 2 L nasal cannula and she is achieving 750 mL on her incentive spirometry. Left pleural chest tube remains in place to low continuous wall suction -20 cm H2O and is draining thin serosanguineous drainage. No air leak is present. - Cardiovascular Details: Regular rhythm and rate. S1 and S2 present, negative for S3, gallop or murmur. Sternum is stable. Atrial and ventricular epicardial pacemaker wires in place and grounded. Generalized +1 edema. Heart hugger is in place and she is demonstrating appropriate use. Knee-high IFTIKHAR hose and sequential compression devices in place to bilateral lower extremities. - Gastrointestinal Gastrointestinal Comment(s): Abdomen is soft, nontender and nondistended. Hypoactive bowel sounds present in all 4 abdominal quadrants. No organomegaly appreciated. No guarding or rigidity. Tolerating oral intake. Passing flatus. - Genitourinary Genitourinary Comment(s): Voiding clear yellow urine. - Integumentary Integumentary Comment(s): Skin is warm and dry. No clubbing or cyanosis is present. Midline sternal incision is clean, dry and approximated. No drainage or redness is present. Gauze dressing is clean, dry and intact. Left lower extremity EVH site is clean, dry and approximated. No drainage or redness is present. - Neurologic Neurologic: Present: CNII-XII intact - Musculoskeletal Musculoskeletal: Present: gait normal, strength equal bilaterally - Psychiatric Psychiatric: Present: A&O x's 3, appropriate affect, intact judgment & insight - Allied health notes Allied health notes reviewed: nursing - Labs CBC & Chem 7: 08/31/19 05:40 08/31/19 05:40 Labs: Abnormal Lab Results - Last 24 Hours (Table) 08/30/19 08/30/19 08/30/19 Range/Units 11:40 16:42 20:47 RBC (3.80-5.40) m/uL Hgb (11.4-16.0) gm/dL Hct (34.0-46.0) % RDW (11.5-15.5) % Plt Count (150-450) k/uL Chloride (98-107) mmol/L Glucose (74-99) mg/dL POC Glucose (mg/dL) 132 H 133 H 143 H (75-99) mg/dL 08/31/19 08/31/19 08/31/19 Range/Units 05:40 05:40 06:53 RBC 2.28 L (3.80-5.40) m/uL Hgb 6.2 L* (11.4-16.0) gm/dL Hct 18.6 L* (34.0-46.0) % RDW 16.3 H (11.5-15.5) % Plt Count 140 L (150-450) k/uL Chloride 108 H (98-107) mmol/L Glucose 126 H (74-99) mg/dL POC Glucose (mg/dL) 137 H (75-99) mg/dL - Imaging and Cardiology Chest x-ray: report reviewed, image reviewed Assessment and Plan Assessment: 1. Triple-vessel coronary artery disease with significant left main disease, non-STEMI, status post four-vessel myocardial revascularization 2. Previous history of coronary artery disease with multiple stents placed, noncompliance with follow-up 3. Hypertension 4. Hyperlipidemia 5. Hypothyroid 6. Diabetes with hemoglobin A1c 6.9% 7. Hiatal hernia 8. Significant family history of premature coronary artery disease 9. Obesity with history of Eusebio-en-Y gastric bypass in 2003 10. Preoperative nasal screen positive for MSSA 11. Postoperative acute blood loss anemia Plan: 1. Continue medical therapy with full strength aspirin, statin, Plavix, and beta yana. We will increase her beta yana as tolerated. 2. Wean O2 as tolerated. Encourage incentive spirometry is 10 times every hour while awake. Bronchodilators per pulmonary 3. Increase activity, ambulate as tolerated. PT/OT/cardiac rehab following. 4. Will monitor daily labs and chest x-rays. Electrolytes replacement per protocol. Transfuse 1 unit of PRBCs today for a hemoglobin of 6.2. Lasix 40 mg IV 1 post blood transfusion. 5. Pain control with current medication regimen. Discontinue Kiron as the patient reports it is making her nauseous. 6. Insulin management per primary care service. 7. Atrial and ventricular epicardial pacemaker wires removed without incident at 9:20 AM this morning. She is on bed rest for 1 hour post pacemaker wire removal. 8. Left pleural chest tube removed without incident. 4 x 4 gauze to cover, Vaseline impregnated gauze to cover and secured with tape. 9. Start Cozaar 25 mg by mouth daily at noon for afterload reduction. 10. More recommendations to follow based on patient's clinical course. Time with Patient: Greater than 30
[2019-08-31 12:04] LABS: Glucose,Whole Blood 135 mg/dL (75-99)
--- NOTE | 2019-08-31 13:11 | PN ---
PROGRESS NOTE Lashonda is a 63-year-old lady with left main stenosis, hypertension, dyslipidemia, hypothyroidism, type 2 diabetes who underwent bypass surgery. Has had postoperative blood loss and anemia. This morning her hemoglobin is 6.2, and she is going to be transfused. Other than feeling somewhat fatigued and tired the patient is doing well. Remains in sinus rhythm. EXAM: Blood pressure is 149/60. There is no jugular venous distention. Chest exam reveals diminished air entry bilaterally. Heart exam reveals first and second heart sounds. No gallop. Abdomen is soft. Exam of extremities did not reveal any edema. ASSESSMENT: 1. Coronary artery disease status post coronary artery bypass graft. 2. Acute blood loss anemia. PLAN: Patient will continue the aspirin, Plavix, Lipitor, Cozaar and Lopressor. If necessary, we will increase the dose of Cozaar. MMODL / IJN: [id number] /
[2019-08-31] MEDS: LOSARTAN 25 MG TAB PO SCH (13:33)
[2019-08-31 17:03] LABS: Glucose,Whole Blood 130 mg/dL (75-99)
[2019-08-31] MEDS ORDERED: LOSARTAN 25 MG TAB PO STA (17:16)
[2019-08-31] MEDS: SENNOSIDES-DOCUSATE SODIUM 1 EACH TAB PO SCH (20:32)
--- NOTE | 2019-08-31 20:47 | P.PN ---
Progress Note - Text Progress Note Date: 08/31/19 Chief Complaint: Chest heaviness History of presenting complaint: This is a very pleasant 63-year-old patient of Dr. Roca. Chronic stable medical conditions include diabetes, hypertension, hiatal hernia, hypothyroid, primary osteoarthritis. Patient has a known history of coronary artery disease stent. Last was several years ago. Has not had a stress test since then. Patient also being worked up by Dr. Walden for her hiatal hernia. Was supposed to have her endoscopy done today. Some of the symptoms she's been having was felt to be from a hiatal hernia. Does get some bloating and discomfort in the upper abdomen. Patient now presented to us last night she had heaviness in the central part of the chest. Last 4 good 2 hours. There was nausea. Dizziness. [place] flushed. There was no radiation radiation to the neck or the arm. Troponin was started to to be positive. Admitted with acute non-Q-wave WI. Had a cardiac catheterization on August 24. Showed severe triple-vessel disease. Underwent coronary artery bypass four-vessel started on 08/28/2019.. Today-in the ICU. Breathing stable. No new issues. Did tolerate her diet. Has been ambulating. Hemoglobin was down to 6.2. Unit of blood transfused. Review of systems: Was done for constitutional, cardiovascular, GI, pulmonary. relevant finding as above Active Medications Acetaminophen (Tylenol Tab) 1,000 mg PO Q6HR PRN PRN Reason: Fever and/ or Mild Pain Last Admin: 08/31/19 20:36 Dose: 1,000 mg Documented by: Albuterol/Ipratropium (Duoneb 0.5 Mg-3 Mg/3 Ml Soln) 3 ml INHALATION RT-Q2H PRN PRN Reason: Shortness Of Breath Or Wheezing Albuterol/Ipratropium (Duoneb 0.5 Mg-3 Mg/3 Ml Soln) 3 ml INHALATION RT-QID [facility] Last Admin: 08/31/19 19:32 Dose: 3 ml Documented by: Ascorbic Acid (Vitamin C) 500 mg PO BID-W/MEALS [facility] Last Admin: 08/31/19 17:00 Dose: 500 mg Documented by: Aspirin (Aspirin) 325 mg PO DAILY [facility] Last Admin: 08/31/19 08:35 Dose: 325 mg Documented by: Atorvastatin Calcium (Lipitor) 40 mg PO DAILY [facility] Last Admin: 08/31/19 08:35 Dose: 40 mg Documented by: Benzocaine/Menthol (Cepacol Lozenge) 1 each MUCOUS MEM Q2H PRN PRN Reason: Sore Throat Clopidogrel Bisulfate (Plavix) 75 mg PO DAILY [facility] Last Admin: 08/31/19 08:35 Dose: 75 mg Documented by: Ferrous Sulfate (Feosol) 325 mg PO BID-W/MEALS [facility] Last Admin: 08/31/19 17:00 Dose: 325 mg Documented by: Heparin Sodium (Porcine) (Heparin) 5,000 unit SQ Q8HR [facility] Last Admin: 08/31/19 16:40 Dose: 5,000 unit Documented by: Amiodarone HCl 150 mg/ (Dextrose/Water) 103 mls @ 618 mls/hr IV .Q10M PRN; Protocol PRN Reason: A.FIB/FLUTTER Amiodarone HCl 360 mg/ (Dextrose/Water) 200 mls @ 33.333 mls/hr IV .Q6H PRN; Protocol PRN Reason: A.FIB/FLUTTER Amiodarone HCl 300 mg/ (Dextrose/Water) 250 mls @ 25 mls/hr IV .Q10H PRN; Protocol PRN Reason: A.FIB/FLUTTER Insulin Aspart (Novolog) 0 unit SQ ACHS [facility]; Protocol Last Admin: 08/31/19 16:53 Dose: Not Given Documented by: Ketorolac Tromethamine (Toradol) 15 mg IVP Q6HR PRN PRN Reason: Pain Stop: 09/02/19 18:01 Levothyroxine Sodium (Synthroid) 50 mcg PO DAILY@0630 [facility] Last Admin: 08/31/19 07:17 Dose: 50 mcg Documented by: Losartan Potassium (Cozaar) 25 mg PO DAILY [facility] Last Admin: 08/31/19 13:33 Dose: 25 mg Documented by: Magnesium Hydroxide (Milk Of Magnesia) 2,400 mg PO DAILY PRN PRN Reason: Constipation Last Admin: 08/31/19 15:02 Dose: 2,400 mg Documented by: Metoclopramide HCl (Reglan) 10 mg IVP Q4H [facility] Last Admin: 08/31/19 18:20 Dose: Not Given Documented by: Metoprolol Tartrate (Lopressor) 12.5 mg PO BID [facility] Last Admin: 08/31/19 20:33 Dose: 12.5 mg Documented by: Miscellaneous Information (Potassium Per Protocol) 1 each MISCELLANE DAILY PRN; Protocol PRN Reason: Per Protocol Miscellaneous Information (Magnesium Per Protocol) 1 each MISCELLANE DAILY PRN; Protocol PRN Reason: Per Protocol Miscellaneous Information (Phosphorus Per Protocol) 1 each MISCELLANE DAILY PRN; Protocol PRN Reason: Per Protocol Mupirocin (Bactroban Oint) 1 applic NASAL BID [facility] Stop: 08/31/19 21:01 Last Admin: 08/31/19 20:33 Dose: 1 applic Documented by: Ondansetron HCl (Zofran) 4 mg IVP Q6HR PRN PRN Reason: Nausea And Vomiting Last Admin: 08/30/19 13:16 Dose: 4 mg Documented by: Pantoprazole Sodium (Protonix) 40 mg PO AC-BRKFST [facility] Last Admin: 08/31/19 07:17 Dose: 40 mg Documented by: Senna/Docusate Sodium (Senokot-S) 2 each PO HS [facility] Last Admin: 08/31/19 20:32 Dose: 2 each Documented by: Sodium Chloride (Saline Flush) 10 ml IV BID [facility] Last Admin: 08/31/19 20:33 Dose: 10 ml Documented by: Physical examination: Vital signs-37.9, 80, 14, 152/73, 94% room air GENERAL: Sitting up in a recliner, comfortable EYES: Pupils equal. Conjunctiva normal. HEENT: External appearance of nose and ears normal, oral cavity grossly normal. NECK: JVD not raised; masses not palpable. HEART: First and second heart sounds are normal; no edema. LUNGS: Respiratory rate increased, decreased breath sounds ABDOMEN: Soft, nontender, liver spleen not palpable, no masses palpable. PSYCH: Alert and oriented x3; mood and affect slightly anxious MUSCULOSKELETAL: Evidence of OA in the hands INVESTIGATIONS, reviewed in the clinical context: White count 7.2 hemoglobin 6.2 platelets 140 potassium 4.8 Previous testing White count 6.2 hemoglobin 12.6 platelets 272 potassium 4 creatinine 0.7 Troponin I 0.066, 0.071, 0.065 ProBNP 436 EKG tracing personally reviewed by me-sinus rhythm left bundle branch block Chest x-ray film personally reviewed by me-lung galvin clear Cardiac catheterization showing severe triple-vessel disease Assessment: -Acute non-Q-wave myocardial infarction -Severe triple-vessel disease-followed by 4vessel coronary bypass -Acute postop blood loss severe anemia as expected from surgery -Diabetes mellitus type 2 on oral hypoglycemic -Essential hypertension -Hiatal hernia, symptomatic with GERD -Hypothyroid -Primary osteoarthritis -Obesity BMI 35.3 -Left bundle branch block Plan: Patient did get a unit of blood. Other medication treatment plan to continue. Follow CBC
[2019-08-31 21:20] LABS: Glucose,Whole Blood 137 mg/dL (75-99)
[2019-09-01] MEDS: METOCLOPRAMIDE 5 MG/ML 2 ML VIAL IVP SCH ×6 (04:48→23:32)
[2019-09-01 06:14] LABS: Anisocytosis Slight; Basophils % (A) 0 %; Eosinophils # (A) 0.1 k/uL (0-0.7); Eosinophils % (A) 2 %; HCT 25.2 % (34.0-46.0); Lymphocytes # (A) 1.1 k/uL (1.0-4.8); Lymphocytes % (A) 16 %; MCH 27.4 pg (25.0-35.0); MCHC 32.3 g/dL (31.0-37.0); MCV 84.8 fL (80.0-100.0); Mean Platelet Volume 7.1; Monocytes # (A) 0.6 k/uL (0-1.0); Monocytes % (A) 9 %; Neutrophils # (A) 4.8 k/uL (1.3-7.7); Neutrophils % (A) 70 %; Platelet Count 219 k/uL (150-450); Poikilocytosis Slight; RBC 2.97 m/uL (3.80-5.40); RDW 16.4 % (11.5-15.5); WBC 6.9 k/uL (3.8-10.6)
[2019-09-01 06:23] LABS: African American GFR (CKD) >90 (>60 ml/min/1.73 sqM); Anion Gap 8 mmol/L; Blood Urea Nitrogen 17 mg/dL (7-17); Calcium 8.8 mg/dL (8.4-10.2); Carbon Dioxide 30 mmol/L (22-30); Chloride 103 mmol/L (98-107); Glucose 125 mg/dL (74-99); Non-African American GFR(CKD) 83 (>60 ml/min/1.73 sqM); Potassium 4.2 mmol/L (3.5-5.1); Sodium 141 mmol/L (137-145)
[2019-09-01] MEDS: LEVOTHYROXINE 50 MCG TAB PO SCH (06:45)
[2019-09-01 06:58] LABS: HGB 8.1 gm/dL (11.4-16.0)
[2019-09-01 07:11] LABS: Glucose,Whole Blood 136 mg/dL (75-99)
[2019-09-01] MEDS: ASCORBIC ACID 500 MG TAB PO SCH ×2 (07:15→16:10)
[2019-09-01] MEDS: INSULIN ASPART (NovoLOG) 100 UNIT/ML VIAL SQ SCH ×4 (07:15→21:21)
[2019-09-01] MEDS: PANTOPRAZOLE 40 MG TABLET PO SCH (07:15)
[2019-09-01] MEDS: FERROUS SULFATE 325 MG TAB PO SCH ×2 (07:15→16:09)
[2019-09-01] MEDS: IPRATROPIUM-ALBUTEROL 3 ML NEB INHALATION SCH ×4 (08:13→20:33)
--- NOTE | 2019-09-01 08:32 | XR ---
EXAMINATION TYPE: XR chest 1V portable DATE OF EXAM: 09/01/2019 HISTORY: Shortness of breath. COMPARISON: 08/31/2019 TECHNIQUE: Single view of the chest is submitted. FINDINGS: Demonstrated are scattered senescent parenchymal change. Removal left-sided chest tube without sizable pneumothorax. There is no evidence for focal infiltrate. The heart is stable. Hilar and mediastinal structures are within normal limits. Degenerative changes are seen of the dorsal spine. IMPRESSION: 1. Removal left-sided chest tube without sizable pneumothorax. 2. There is no evidence for focal infiltrate.
[2019-09-01] MEDS: CLOPIDOGREL 75 MG TAB PO SCH (08:46)
[2019-09-01] MEDS: LOSARTAN 25 MG TAB PO SCH (08:46)
[2019-09-01] MEDS: HEPARIN SODIUM,PORCINE 5,000 UNIT/ML 1 ML VIAL SQ SCH ×3 (08:46→23:33)
[2019-09-01] MEDS: ATORVASTATIN 40 MG TAB PO SCH (08:46)
[2019-09-01] MEDS: ASPIRIN 325 MG TAB PO SCH (08:49)
[2019-09-01] MEDS: METOPROLOL TARTRATE 12.5 MG TAB PO SCH ×2 (08:49→21:21)
[2019-09-01] MEDS ORDERED: BISACODYL 10 MG SUPP RECTAL STA (08:58)
[2019-09-01] MEDS ORDERED: LOSARTAN 25 MG TAB PO ONE (09:00)
[2019-09-01] MEDS ORDERED: FUROSEMIDE 10 MG/ML 4 ML VIAL IV STA (10:30)
--- NOTE | 2019-09-01 10:35 | P.PN ---
Subjective Progress Note Date: 09/01/19 Principal diagnosis: Coronary artery disease This is a very pleasant 63-year-old female patient who follows with Dr. Roca as her primary care physician. She has a history of diabetes mellitus, gastroesophageal reflux disease, hypertension, hyperlipidemia, hypothyroidism, coronary artery disease with previous stent placement. She also has a history of gastric bypass surgery and a hiatal hernia. She was actually scheduled to come see Dr. Walden yesterday for an EGD based on recent complaints of indigestion especially following meals. The night before however the pain gets too uncomfortable and she presented here early in the morning on 08/24/2019 with ongoing chest discomfort. She was utilizing nitroglycerin with some relief. She did undergo coronary cardiac catheterization yesterday and was found to have chronic total occlusion of the distal RCA which may be an in-stent stenosis, severe disease involving the distal left main as well as the ostial left circ umflex and LAD. Preserved LV function with ejection fraction 55-60%. She's been seen and evaluated by cardiothoracic surgery. We are consulted for the same. She is currently resting comfortably in bed. Awake and alert in no acute distress. Denies any chest discomfort currently. No shortness of breath, cough or congestion. No palpitations or lightheadedness. On room air. No previous history of any form of pulmonary disease. No COPD or asthma. Nonsmoker. No inhalers or oxygen at home. Lung function testing pending. Chest x-ray reveals no acute cardiopulmonary process. She remains on a heparin drip. White count 6.7. Hemoglobin 10.8. Peak troponin 0.071. Creatinine 0.66. The patient is seen today 08/26/2019 in follow-up on the selective care unit. She is awake and alert in no acute distress. No further chest discomfort. No palpitations, dizziness or lightheadedness. No shortness of breath, cough or congestion. She is maintaining good O2 saturations in the mid 90s on room air. She's afebrile. Hemodynamically stable. She remains on a heparin drip. The plan is for coronary artery revascularization on 08/28/2019. On 08/27/2019 patient seen in follow-up on selective care unit, she is awake and alert, in no acute distress, no complaints of chest pain overnight, no shortness of breath, vital signs are stable, she is on room air, with a pulse ox of 97%, no fever or chills, she remains on heparin infusion, she is plan for bypass surgery tomorrow by Dr. Obregon, she is working on incentive spirometer, she is achieving 2915-4431 mL on it. On 08/28/2019 patient seen in follow-up in the intensive care unit after 4 vessel coronary bypass grafting surgery with GAO to the LAD, SVG to the diagonal, and serial to the OM, and PDA. Patient is seen still sedated, intubated on mechanical ventilator with current vent settings of SIMV mode of ventilation, with a rate of 12, tidal volume of 350, FiO2 of 100% and PEEP of 10. Postoperative blood gases have been reviewed, showing pO2 of 232, patient has been switched to assist control mode of ventilation with a rate of 20, tidal volume 350, FiO2 dropped down to 60% and PEEP is at 10, postoperative chest x- ray reviewed showing no sizable pneumothorax, ET tube NG tube PA catheter in appropriate positions. He is tidal on the left pleural chest tubes with scant amount of sanguinous output, no air leak noted, epicardial wires in place, connected to temporary pacemaker patient is being a truly paced at a rate of 80 BPM, underlying rhythm sinus bradycardia at a rate of 40-50 BPM, current drips include nitroglycerin at 5 mics per minute, insulin drip is at 0.5 units per hour, and chylothorax is at 4 mg per hour. Patient is hemodynamically stable, output is 4.3 and cardiac index is 2.3. On 08/29/2019 patient seen in follow-up in the intensive care unit, this is postoperative day 1, status post four-vessel coronary artery bypass grafting, patient was successfully extubated yesterday on postop day 0, at around 2000 in the evening, doing very well this morning, she sits up in the chair, on 4 L per nasal cannula, with a pulse ox of 94%, hemodynamically stable, sinus bradycardia on the monitor, she still being paced occasionally, with the AAI mode with a rate of 60, Cardiac output and index are 4.8 and 2.6 this morning, PA pressure 24/5, CVP is 1, patient has received 500 mL of 5% albumin this morning, this morning's labs have been reviewed, with blood cell count is 9.3, hemoglobin is 7.5, and renal profile is within normal limits, sodium is 135, potassium is 5.0. Lactated Ringer's at a rate of 50, insulin drip is at 3 units per hour, nitroglycerin and clevidipine drip are discontinued. Patient is sitting up in the recliner, in no acute distress, she is achieving 1500 on her incentive s pirometry today, pain is controlled, 2 mediastinal and left pleural chest tubes with no output, no air leak. Lung sounds are clear, diminished at the bases. Patient has been started on clear liquid diet, she is tolerating diet well. Today's chest x-ray has been reviewed, and is negative for any acute abnormalities. On 08/30/2019 patient seen in follow-up in the intensive care unit, this is pos toperative day 2, status post four-vessel coronary artery bypass grafting, patient is doing well, she is currently up ambulating, she has ambulated 220 feet this morning, tolerated activity very well. She is on 2 L of oxygen with a pulse ox of 96%, hemodynamically stable, she is still pacing at a rate of 60, and AAI mode. No vasoactive drips, maintenance IV fluid lactated Ringer's at a rate of 50, and spirometer effort is 750. This morning's labs have been reviewed, white blood cell count is 8.2, hemoglobin is 6.6, platelet count is 138. Patient has 2 mediastinal and left pleural chest tube, there is been 330 mL of thin serosanguineous output from the mediastinal chest tubes, and only 55 out of the left pleural. No air leak noted, CT surgeries plan on removing the chest tubes today, Palisades-Pasquale catheter has been discontinued, and the catheter has been discontinued. On 09/01/2019 patient seen in follow-up in the intensive care unit, and this is postoperative day 4 status post four-vessel coronary artery bypass grafting. Patient is doing well, she is off the oxygen, pulse ox is 94-96%, hemodynamically stable, sinus mechanism, with a rate of 70 BPM, afebrile, pain is well controlled, no shortness of breath, and has been tolerating ambulation, incentive spirometer effort is 750-1000 mL today. Today's chest x-ray shows interval removal of left-sided chest tube without sizable pneumothorax, no evidence of focal infiltrate. Today's lab work has been reviewed, showing white blood cell count of 6.9, hemoglobin is 8.1, electrolytes and renal profile are all within normal limits. No acute events overnight, epicardial wires and all chest tubes have been discontinued, [place] has been discontinued, patient is voiding. Is feeling little constipated, but no nausea, no vomiting, no diarrhea, tolerating oral intake. Objective - Vital Signs Vital signs: Vital Signs Temp 98.1 F 09/01/19 08:00 Pulse 73 09/01/19 08:30 Resp 18 09/01/19 08:00 BP 140/60 09/01/19 08:00 Pulse Ox 96 09/01/19 08:13 Intake & Output 08/31/19 09/01/19 09/01/19 18:59 06:59 18:59 Intake Total 510 Output Total 3050 950 Balance -2540 -950 Weight 87.3 kg 84.2 kg Intake: Oral 200 Blood Product 310 Rc As-1 Unit 310 [id number] Output: Chest Tube Drainage 100 Left pleural 100 Urine 2950 950 Other: Voiding Method Toilet Toilet # Voids 1 1 # Bowel Movements 1 ABP, PAP, CO, CI - Last Documented Arterial Blood Pressure 134/45 Pulmonary Artery Pressure 62/62 Cardiac Output 4.8 Cardiac Index 2.6 - Exam GENERAL EXAM: Awake and alert, pleasant 63-year-old white female On room air with a pulse ox of 96%, in no acute distress HEAD: Normocephalic/atraumatic. EYES: Normal reaction of pupils, equal size. Conjunctiva pink, sclera white. NOSE: Clear with pink turbinates. THROAT: No erythema or exudates. NECK: No masses, no JVD, no thyroid enlargement, no adenopathy. CHEST: No chest wall deformity. Symmetrical expansion. Midsternal incision's clean dry and intact, interval removal of 2 mediastinal and left pleural chest tubes and epicardial wires LUNGS: Equal air entry with no crackles, wheeze, rhonchi or dullness. CVS: Regular rate and rhythm, normal S1 and S2, no gallops, no murmurs, no rubs ABDOMEN: Soft, nontender. No hepatosplenomegaly, normal bowel sounds, no guarding or rigidity. EXTREMITIES: No clubbing, no edema, no cyanosis, 2+ pulses and upper and lower extremities. MUSCULOSKELETAL: Muscle strength and tone normal. SPINE: No scoliosis or deformity SKIN: No rashes CENTRAL NERVOUS SYSTEM: Awake and alert, oriented 3. No focal deficits, tone is normal in all 4 extremities. - Labs CBC & Chem 7: 09/01/19 05:31 09/01/19 05:31 Labs: Abnormal Lab Results - Last 24 Hours (Table) 08/31/19 08/31/19 08/31/19 Range/Units 08:44 11:53 16:51 RBC (3.80-5.40) m/uL Hgb (11.4-16.0) gm/dL Hct (34.0-46.0) % RDW (11.5-15.5) % Glucose (74-99) mg/dL POC Glucose (mg/dL) 135 H 130 H (75-99) mg/dL Magnesium (1.6-2.3) mg/dL Crossmatch See Detail 08/31/19 09/01/19 09/01/19 Range/Units 21:09 05:29 05:31 RBC 2.97 L (3.80-5.40) m/uL Hgb 8.1 L D (11.4-16.0) gm/dL Hct 25.2 L (34.0-46.0) % RDW 16.4 H (11.5-15.5) % Glucose (74-99) mg/dL POC Glucose (mg/dL) 137 H (75-99) mg/dL Magnesium 2.4 H (1.6-2.3) mg/dL Crossmatch 09/01/19 09/01/19 Range/Units 05:31 07:00 RBC (3.80-5.40) m/uL Hgb (11.4-16.0) gm/dL Hct (34.0-46.0) % RDW (11.5-15.5) % Glucose 125 H (74-99) mg/dL POC Glucose (mg/dL) 136 H (75-99) mg/dL Magnesium (1.6-2.3) mg/dL Crossmatch Assessment and Plan Plan: Assessment: #1. Coronary artery disease, status post four-vessel bypass grafting including GAO to LAD, SVG to the diagonal, SaO2 the OM and PDA, operative day 4 #2. Routine ventilator management, Patient was successfully extubated yesterday on postoperative day 0, at 2000 in the evening, OR exit time 1450 on 08/28/2019, patient was extubated in under 6 hours of OR exit #3. Chest discomfort on presentation and patient found to have significant coronary artery disease with calcified right and left coronary systems. Chronic total occlusion of the distal RCA suspected in-stent restenosis, severe disease involving the distal left main as well as involving the ostial left circumflex and LAD. Patient was found to have preserved left ventricular systolic function the EF of 55% #4. Diabetes mellitus #5. Hypertension #6. Previous coronary artery disease with stent placements #7. Hyperlipidemia #8. Hypothyroidism #9. Previous gastric bypass surgery #10. Lifelong nonsmoker Plan: Doing well, no acute events overnight, no specific complaints, tolerating ambulation, she is on room air, vital signs are stable. Awaiting transfer to selective care unit today, and possible discharge in another 24 hours he remains stable. Today's chest x-ray has been reviewed and no evidence of pneumothorax, no focal infiltrates. Today's labs have been reviewed. Continue encouraging deep breathing and coughing and incentive spirometry use, encourage ambulation. I performed a history & physical examination of the patient and discussed their management with my nurse practitioner, Saniya Camacho. I reviewed the nurse practitioner's note and agree with the documented findings and plan of care. Lung sounds are positive for clear breath sounds. The findings and the impression was discussed with the patient. I attest to the documentation by the nurse practitioner. Time with Patient: Less than 30
--- NOTE | 2019-09-01 11:05 | P.PN ---
Subjective Progress Note Date: 09/01/19 Principal diagnosis: Triple-vessel coronary artery disease with significant left main disease, non- STEMI this admission. Previous medical history of coronary artery disease status post stenting, noncompliance with cardiac follow-up, hypertension, hyperlipidemia, hypothyroidism, type 2 diabetes mellitus with hemoglobin A1c 6.9%, hiatal hernia, obesity with a history of Eusebio-en-Y gastric bypass in 2003, and significant family history of premature coronary artery disease. POD #4 urgent coronary artery bypass grafting x 4 vessels, left internal mammary artery to the left anterior descending artery, a reverse greater saphenous vein graft from the aorta to the diagonal coronary artery, a reverse greater saphenous vein graft from the aorta to the obtuse marginal coronary artery, a reverse greater saphenous vein graft from the aorta to the posterior descending coronary artery. Endoscopic harvesting of the left greater saphenous vein. Epi-aortic ultrasound and intraoperative transesophageal echocardiogram. Postoperative acute blood loss anemia, expected outcome given hemodilution and cardiopulmonary bypass pump. The patient is currently sitting up to the bedside chair in the intensive care unit. She is in no acute distress. Denies any complaints of pain, shortness of breath, or nausea. She is hemodynamically stable and is currently on no inotropic or pressor support. Oxygen saturations are 98% on 2 L nasal cannula and she is achieving 1000 mL on her incentive spirometry. She reports ambulating in the intensive care unit hallway yesterday with minimal assistance from nursing staff, physical and occupational therapy and tolerated walking the distance of the intensive care unit hallway. Objective - Vital Signs Vital signs: Vital Signs Temp 98.1 F 09/01/19 08:00 Pulse 73 09/01/19 08:30 Resp 18 09/01/19 08:00 BP 140/60 09/01/19 08:00 Pulse Ox 96 09/01/19 08:13 Intake & Output 08/31/19 09/01/19 09/01/19 18:59 06:59 18:59 Intake Total 510 Output Total 3050 950 Balance -2540 -950 Weight 87.3 kg 84.2 kg Intake: Oral 200 Blood Product 310 Rc As-1 Unit 310 [id number] Output: Chest Tube Drainage 100 Left pleural 100 Urine 2950 950 Other: Voiding Method Toilet Toilet # Voids 1 1 # Bowel Movements 1 ABP, PAP, CO, CI - Last Documented Arterial Blood Pressure 134/45 Pulmonary Artery Pressure 62/62 Cardiac Output 4.8 Cardiac Index 2.6 - Constitutional General appearance: Present: cooperative, no acute distress, obese - Respiratory Details: Lung sounds are essentially clear throughout, few scattered crackles to bilateral bases. Respirations are symmetrical and nonlabored. Oxygen saturation 98% on 2 L nasal cannula and she is achieving 1000 mL on her incentive spirometry. - Cardiovascular Details: Regular rhythm and rate. S1 and S2 present, negative for S3, gallop or murmur. Sternum is stable. Generalized +1 edema. Heart hugger is in place and she is demonstrating appropriate use. Knee-high IFTIKHAR hose and sequential compression devices in place to bilateral lower extremities. Bedside telemetry showing normal sinus rhythm heart rate 75. - Gastrointestinal Gastrointestinal Comment(s): Abdomen is soft, nontender and nondistended. Hypoactive bowel sounds present in all 4 abdominal quadrants. No organomegaly appreciated. No guarding or rigidi ty. Tolerating oral intake. Passing flatus, bowel movement this a.m. - Genitourinary Genitourinary Comment(s): Voiding clear yellow urine. - Integumentary Integumentary Comment(s): Skin is warm and dry. No clubbing or cyanosis is present. Midline sternal incision is clean, dry and approximated. No drainage or redness is present. Gauze dressing is clean, dry and intact. Left lower extremity EVH site is clean, dry and approximated. No drainage or redness is present. - Neurologic Neurologic: Present: CNII-XII intact - Musculoskeletal Musculoskeletal: Present: gait normal, strength equal bilaterally - Psychiatric Psychiatric: Present: A&O x's 3, appropriate affect, intact judgment & insight - Allied health notes Allied health notes reviewed: nursing - Labs CBC & Chem 7: 09/01/19 05:31 09/01/19 05:31 Labs: Abnormal Lab Results - Last 24 Hours (Table) 08/31/19 08/31/19 08/31/19 Range/Units 08:44 11:53 16:51 RBC (3.80-5.40) m/uL Hgb (11.4-16.0) gm/dL Hct (34.0-46.0) % RDW (11.5-15.5) % Glucose (74-99) mg/dL POC Glucose (mg/dL) 135 H 130 H (75-99) mg/dL Magnesium (1.6-2.3) mg/dL Crossmatch See Detail 08/31/19 09/01/19 09/01/19 Range/Units 21:09 05:29 05:31 RBC 2.97 L (3.80-5.40) m/uL Hgb 8.1 L D (11.4-16.0) gm/dL Hct 25.2 L (34.0-46.0) % RDW 16.4 H (11.5-15.5) % Glucose (74-99) mg/dL POC Glucose (mg/dL) 137 H (75-99) mg/dL Magnesium 2.4 H (1.6-2.3) mg/dL Crossmatch 09/01/19 09/01/19 Range/Units 05:31 07:00 RBC (3.80-5.40) m/uL Hgb (11.4-16.0) gm/dL Hct (34.0-46.0) % RDW (11.5-15.5) % Glucose 125 H (74-99) mg/dL POC Glucose (mg/dL) 136 H (75-99) mg/dL Magnesium (1.6-2.3) mg/dL Crossmatch - Imaging and Cardiology Chest x-ray: report reviewed, image reviewed Assessment and Plan Assessment: 1. Triple-vessel coronary artery disease with significant left main disease, non-STEMI, status post four-vessel myocardial revascularization 2. Previous history of coronary artery disease with multiple stents placed, noncompliance with follow-up 3. Hypertension 4. Hyperlipidemia 5. Hypothyroid 6. Diabetes with hemoglobin A1c 6.9% 7. Hiatal hernia 8. Significant family history of premature coronary artery disease 9. Obesity with history of Eusebio-en-Y gastric bypass in 2003 10. Preoperative nasal screen positive for MSSA 11. Postoperative acute blood loss anemia Plan: 1. Continue medical therapy with full strength aspirin, statin, Plavix, and beta yana. We will increase her beta yana as tolerated. 2. Wean O2 as tolerated. Encourage incentive spirometry is 10 times every hour while awake. Bronchodilators per pulmonary 3. Increase activity, ambulate as tolerated. PT/OT/cardiac rehab following. 4. Will monitor daily labs and chest x-rays. Electrolytes replacement per protocol. 5. Pain control with current medication regimen. 6. Insulin management per primary care service. 7. Increase Cozaar to 50 mg by mouth daily at noon for afterload reduction. 8. We will transfer the patient to the cardiac stepdown for further rehabilitation needs. 9. Anticipate discharge home with home health care in the next 24-[address]charge planning in place. 10. Lasix 40 mg IV 1 now. 11. More recommendations to follow based on patient's clinical course. Time with Patient: Greater than 30
[2019-09-01 11:51] LABS: Glucose,Whole Blood 141 mg/dL (75-99)
--- NOTE | 2019-09-01 12:24 | PN ---
PROGRESS NOTE Lashonda is a 63-year-old lady who is admitted to hospital with unstable angina and underwent bypass surgery. She is doing very well. Has had some postop blood loss and anemia for which she required blood transfusions is otherwise doing well. Denies any symptoms. She is ambulating without any problems. PHYSICAL E: She is comfortable at rest. Vital signs are stable. Chest exam reveals diminished air entry at the bases. Heart exam reveals first and second heart sounds. No gallop. Exam of extremities did not reveal any edema. The patient is currently on Lopressor 12.5 b.i.d., losartan 50 daily, aspirin. Lipitor,. and Plavix. ASSESSMENT: 1. Coronary artery disease, status post coronary artery bypass grafting. 2. Acute blood loss anemia, status post blood transfusion. PLAN: Patient is doing well. She will continue her current medications. MMODL / IJN: [id number] /
[2019-09-01 17:04] LABS: Glucose,Whole Blood 125 mg/dL (75-99)
[2019-09-01 20:49] LABS: Glucose,Whole Blood 172 mg/dL (75-99)
[2019-09-01] MEDS: SENNOSIDES-DOCUSATE SODIUM 1 EACH TAB PO SCH (21:22)
--- NOTE | 2019-09-01 22:50 | P.PN ---
Progress Note - Text Progress Note Date: 09/01/19 Interval history: This is a very pleasant 63-year-old patient of Dr. Roca. Chronic stable me dical conditions include diabetes, hypertension, hiatal hernia, hypothyroid, primary osteoarthritis. Patient has a known history of coronary artery disease stent. Last was several years ago. Has not had a stress test since then. Patient also being worked up by Dr. Walden for her hiatal hernia. Was supposed to have her endoscopy done today. Some of the symptoms she's been having was felt to be from a hiatal hernia. Does get some bloating and discomfort in the upper abdomen. Patient now presented to us last night she had heaviness in the central part of the chest. Last 4 good 2 hours. There was nausea. Dizziness. [place] flushed. There was no radiation radiation to the neck or the arm. Troponin was started to to be positive. Admitted with acute non-Q-wave [place]. Had a cardiac catheterization on August 24. Showed severe triple-vessel disease. Underwent coronary artery bypass four-vessel started on 08/28/2019.. Did receive a unit of blood Today-in the ICU. Breathing continues to improve. Feeling better. Tolerating diet. Did have a bowel movement. Did walk in the hallway. Review of systems: Was done for constitutional, cardiovascular, GI, pulmonary. relevant finding as above Active Medications Acetaminophen (Tylenol Tab) 1,000 mg PO Q6HR PRN PRN Reason: Fever and/ or Mild Pain Last Admin: 08/31/19 20:36 Dose: 1,000 mg Documented by: Albuterol/Ipratropium (Duoneb 0.5 Mg-3 Mg/3 Ml Soln) 3 ml INHALATION RT-Q2H PRN PRN Reason: Shortness Of Breath Or Wheezing Albuterol/Ipratropium (Duoneb 0.5 Mg-3 Mg/3 Ml Soln) 3 ml INHALATION RT-QID [facility] Last Admin: 09/01/19 20:33 Dose: Not Given Documented by: Ascorbic Acid (Vitamin C) 500 mg PO BID-W/MEALS [facility] Last Admin: 09/01/19 16:10 Dose: 500 mg Documented by: Aspirin (Aspirin) 325 mg PO DAILY [facility] Last Admin: 09/01/19 08:49 Dose: 325 mg Documented by: Atorvastatin Calcium (Lipitor) 40 mg PO DAILY [facility] Last Admin: 09/01/19 08:46 Dose: 40 mg Documented by: Clopidogrel Bisulfate (Plavix) 75 mg PO DAILY [facility] Last Admin: 09/01/19 08:46 Dose: 75 mg Documented by: Ferrous Sulfate (Feosol) 325 mg PO BID-W/MEALS [facility] Last Admin: 09/01/19 16:09 Dose: 325 mg Documented by: Heparin Sodium (Porcine) (Heparin) 5,000 unit SQ Q8HR [facility] Last Admin: 09/01/19 16:09 Dose: 5,000 unit Documented by: Amiodarone HCl 150 mg/ (Dextrose/Water) 103 mls @ 618 mls/hr IV .Q10M PRN; Protocol PRN Reason: A.FIB/FLUTTER Amiodarone HCl 360 mg/ (Dextrose/Water) 200 mls @ 33.333 mls/hr IV .Q6H PRN; Protocol PRN Reason: A.FIB/FLUTTER Amiodarone HCl 300 mg/ (Dextrose/Water) 250 mls @ 25 mls/hr IV .Q10H PRN; Protocol PRN Reason: A.FIB/FLUTTER Insulin Aspart (Novolog) 0 unit SQ ACHS [facility]; Protocol Last Admin: 09/01/19 21:21 Dose: 2 unit Documented by: Ketorolac Tromethamine (Toradol) 15 mg IVP Q6HR PRN PRN Reason: Pain Stop: 09/02/19 18:01 Levothyroxine Sodium (Synthroid) 50 mcg PO DAILY@0630 [facility] Last Admin: 09/01/19 06:45 Dose: 50 mcg Documented by: Losartan Potassium (Cozaar) 50 mg PO DAILY [facility] Magnesium Hydroxide (Milk Of Magnesia) 2,400 mg PO DAILY PRN PRN Reason: Constipation Last Admin: 08/31/19 15:02 Dose: 2,400 mg Documented by: Metoclopramide HCl (Reglan) 10 mg IVP Q4H [facility] Last Admin: 09/01/19 21:22 Dose: 10 mg Documented by: Metoprolol Tartrate (Lopressor) 12.5 mg PO BID [facility] Last Admin: 09/01/19 21:21 Dose: 12.5 mg Documented by: Miscellaneous Information (Potassium Per Protocol) 1 each MISCELLANE DAILY PRN; Protocol PRN Reason: Per Protocol Miscellaneous Information (Magnesium Per Protocol) 1 each MISCELLANE DAILY PRN; Protocol PRN Reason: Per Protocol Miscellaneous Information (Phosphorus Per Protocol) 1 each MISCELLANE DAILY PRN; Protocol PRN Reason: Per Protocol Ondansetron HCl (Zofran) 4 mg IVP Q6HR PRN PRN Reason: Nausea And Vomiting Last Admin: 08/30/19 13:16 Dose: 4 mg Documented by: Pantoprazole Sodium (Protonix) 40 mg PO AC-BRKFST [facility] Last Admin: 09/01/19 07:15 Dose: 40 mg Documented by: Senna/Docusate Sodium (Senokot-S) 2 each PO HS [facility] Last Admin: 09/01/19 21:22 Dose: Not Given Documented by: Sodium Chloride (Saline Flush) 10 ml IV BID [facility] Last Admin: 09/01/19 21:22 Dose: 10 ml Documented by: Physical examination: Vital signs-98, 75, 18, 132/62, 94% room air GENERAL: Sitting up in a recliner, comfortable EYES: Pupils equal. Conjunctiva normal. HEENT: External appearance of nose and ears normal, oral cavity grossly normal. NECK: JVD not raised; masses not palpable. HEART: First and second heart sounds are normal; no edema. LUNGS: Respiratory rate increased, decreased breath sounds ABDOMEN: Soft, nontender, liver spleen not palpable, no masses palpable. PSYCH: Alert and oriented x3; mood and affect slightly anxious MUSCULOSKELETAL: Evidence of OA in the hands INVESTIGATIONS, reviewed in the clinical context: Hemoglobin 8.1 creatinine 0.76 Previous testing White count 6.2 hemoglobin 12.6 platelets 272 potassium 4 creatinine 0.7 Troponin I 0.066, 0.071, 0.065 ProBNP 436 EKG tracing personally reviewed by me-sinus rhythm left bundle branch block Chest x-ray film personally reviewed by me-lung galvin clear Cardiac catheterization showing severe triple-vessel disease Assessment: -Acute non-Q-wave myocardial infarction -Severe triple-vessel disease-followed by 4vessel coronary bypass -Acute postop blood loss severe anemia as expected from surgery -Diabetes mellitus type 2 on oral hypoglycemic -Essential hypertension -Hiatal hernia, symptomatic with GERD -Hypothyroid -Primary osteoarthritis -Obesity BMI 35.3 -Left bundle branch block Plan: Overall feeling much better. Stable.
[2019-09-02 00:30] VITALS: RESP 18
[2019-09-02] MEDS: METOCLOPRAMIDE 5 MG/ML 2 ML VIAL IVP SCH ×3 (05:42→13:08)
[2019-09-02 06:21] LABS: Glucose,Whole Blood 145 mg/dL (75-99)
--- NOTE | 2019-09-02 06:31 | XR ---
EXAMINATION TYPE: XR chest 2V DATE OF EXAM: 09/02/2019 COMPARISON: Chest x-ray from yesterday and older studies HISTORY: Post open cardiac surgery progress study. TECHNIQUE: Frontal and lateral views of the chest are obtained. FINDINGS: Overlying EKG leads are redemonstrated. Overlying sternal wires and mediastinal clips are again seen. There is persistent cardiomegaly with central vascular congestion and small bilateral ple ural effusions along with Reva B-lines or interstitial edema in the periphery slightly worse versus most recent prior. No new suspicious focal infiltrate or pneumothorax bilaterally. Multilevel spurri ng lower thoracic spine is present. IMPRESSION: Findings consistent with worsening CHF exacerbation or fluid overload state as there is cardiomegaly with mild to moderate central vascular congestion along with interstitial edema and smal l bilateral pleural effusions identified more prominent versus the most recent prior.
[2019-09-02] MEDS: FERROUS SULFATE 325 MG TAB PO SCH (06:32)
[2019-09-02] MEDS: ASCORBIC ACID 500 MG TAB PO SCH (06:32)
[2019-09-02] MEDS: ACETAMINOPHEN TAB 500 MG TAB PO PRN (06:32)
[2019-09-02] MEDS: LEVOTHYROXINE 50 MCG TAB PO SCH (06:32)
[2019-09-02] MEDS: PANTOPRAZOLE 40 MG TABLET PO SCH (06:32)
[2019-09-02] MEDS: INSULIN ASPART (NovoLOG) 100 UNIT/ML VIAL SQ SCH ×2 (06:33→13:08)
[2019-09-02 06:46] LABS: Anisocytosis Slight; HCT 26.8 % (34.0-46.0); HGB 9.1 gm/dL (11.4-16.0); Hypochromasia Slight; MCH 29.2 pg (25.0-35.0); MCHC 33.9 g/dL (31.0-37.0); Mean Platelet Volume 6.2; Platelet Count 295 k/uL (150-450); RBC 3.12 m/uL (3.80-5.40); RDW 16.6 % (11.5-15.5); WBC 7.7 k/uL (3.8-10.6)
[2019-09-02 06:54] LABS: African American GFR (CKD) >90 (>60 ml/min/1.73 sqM); Anion Gap 10 mmol/L; Blood Urea Nitrogen 19 mg/dL (7-17); Calcium 9.2 mg/dL (8.4-10.2); Carbon Dioxide 26 mmol/L (22-30); Chloride 104 mmol/L (98-107); Glucose 127 mg/dL (74-99); Non-African American GFR(CKD) >90 (>60 ml/min/1.73 sqM); Potassium 4.2 mmol/L (3.5-5.1); Sodium 140 mmol/L (137-145)
[2019-09-02] MEDS ORDERED: metFORMIN 500 MG TAB PO SCH (07:30)
[2019-09-02 07:54] VITALS: BP 127/60; PULSE 76; TEMP 98.2
[2019-09-02] MEDS: IPRATROPIUM-ALBUTEROL 3 ML NEB INHALATION SCH ×2 (08:20→11:52)
[2019-09-02] MEDS ORDERED: FUROSEMIDE 10 MG/ML 4 ML VIAL IV STA (08:53)
[2019-09-02] MEDS ORDERED: LOSARTAN 50 MG TAB PO SCH (09:00)
[2019-09-02] MEDS: CLOPIDOGREL 75 MG TAB PO SCH (09:27)
[2019-09-02] MEDS: METOPROLOL TARTRATE 12.5 MG TAB PO SCH (09:27)
[2019-09-02] MEDS: ASPIRIN 325 MG TAB PO SCH (09:27)
[2019-09-02] MEDS: ATORVASTATIN 40 MG TAB PO SCH (09:27)
[2019-09-02] MEDS: HEPARIN SODIUM,PORCINE 5,000 UNIT/ML 1 ML VIAL SQ SCH (09:28)
--- NOTE | 2019-09-02 10:00 | P.DS ---
Providers Date of admission: 08/24/19 15:22 Expected date of discharge: 09/02/19 Attending physician: Tanner Obregon Consults: 08/24/19 01:33 Consult Physician Urgent Consulting Provider: [facility] Consult Reason/Comments: unstable angina Do you want consulting provider notified?: Yes, Notify in am 08/24/19 08:14 Consult Physician Urgent Consulting Provider: Zaira Yarbrough Consult Reason/Comments: known patient, canceled outpt RGD Do you want consulting provider notified?: Yes 08/24/19 19:13 Consult Physician Routine Consulting Provider: Yonny Marcano Consult Reason/Comments: triple vessel disease/ open heart work up Do you want consulting provider notified?: Yes, Notify in am 08/25/19 07:47 Consult Physician Routine Consulting Provider: Berhane Webber Consult Reason/Comments: preop cabg Do you want consulting provider notified?: Yes 08/27/19 08:03 Consult to Anesthesia Routine Consulting Provider: Anesthesia,Services Consult Reason/Comments: Cardiac Surgery Pre-Op 08/28/19 14:31 Consult Physician Routine Consulting Provider: Emiliano Daigle Consult Reason/Comments: md wang Do you want consulting provider notified?: Already Contacted Primary care physician: [facility] Course: FINAL DIAGNOSIS: 1. Triple-vessel coronary artery disease with significant left main disease 2. Non-STEMI this admission 3. Previous history of coronary artery disease with multiple stents placed, noncompliance with follow-up 3. Hypertension 4. Hyperlipidemia 5. Hypothyroid 6. Diabetes mellitus type II with an admission hemoglobin A1c 6.9% 7. Hiatal hernia 8. Significant family history of premature coronary artery disease 9. Obesity with history of Eusebio-en-Y gastric bypass in 2003 10. Preoperative nasal screen positive for MSSA 11. Postoperative acute blood loss anemia PRINCIPAL PROCEDURE: 1. Selective right and left coronary angiogram, left heart catheterization performed by Dr. Payton. 2. Urgent coronary artery bypass grafting surgery 4 vessels, left internal mammary artery to the left anterior setting coronary artery, a reverse greater saphenous vein graft from the aorta to the diagonal coronary artery, a reverse greater saphenous vein graft from the aorta to the obtuse marginal coronary artery, a reverse greater saphenous vein graft from the aorta to the posterior descending coronary artery. 3. Endoscopic harvesting of the left greater saphenous vein. 4. Intraoperative transesophageal echocardiogram and epi-aortic ultrasound. HISTORY OF PRESENT ILLNESS: This is 63-year-old female patient who follows with Dr. Thai Philip on an outpatient basis. She has a past medical history significant for coronary artery disease status post stenting by Dr. Payton with noncompliance on follow-up care, hypertension, hyperlipidemia, hypothyroid, diabetes mellitus type 2, hiatal hernia, obesity with history of Eusebio-en-Y gastric bypass surgery in 2003 and significant family history of coronary artery disease. Recently, the patient was having complaints of chest heaviness located in the center of her chest with associated nausea present at rest. Subsequently she presented to the emergency department here at [facility] for further evaluation and treatment. While in the emergency department a 12-lead EKG was completed demonstrating normal sinus rhythm with a left bundle branch block. Labs were drawn which demonstrated elevated troponins as high as 0.071 and she was ruled in for a non-ST elevated myocardial infarction. She was seen by cardiology associates who recommended a transesophageal echocardiogram and cardiac catheterization. Her cardiac catheterization demonstrated severe triple vessel coronary artery disease with complete total occlusion of the right coronary artery with collateral from the left side, distal left main stenosis of 70%, an 80-90% ostial circumflex stenosis, mid circumflex with an in-stent stenosis, mild disease to her proximal left anterior descending coronary artery and a 70- 80% stenosis to her mid left anterior descending coronary artery with her diagonal branch showing severe disease. The transesophageal echocardiogram results showed severe concentric left ventricular hypertrophy, normal left ventricular systolic function with an ejection fraction of 55-60%, grade 1 diastolic dysfunction, mild mitral valve regurgitation and mild tricuspid valve regurgitation. Due to the patient's presenting symptoms, positive troponins and findings on her cardiac catheterization a consult was placed to Dr. Tanner Obregon from cardiothoracic surgery. Dr. Obregon met with the patient, discussed the findings on her cardiac catheterization and recommended an urgent myocardial revascularization surgery. Risks and benefits of the surgery including the STS risk score were discussed with the patient and she wished to proceed with the urgent myocardial revascularization surgery. HOSPITAL COURSE: The patient was admitted to the hospital, and after obtaining consent was taken to the preoperative area on 08/28/2019, prepared in the usual fashion and subsequently taken to the operating room where Dr. Tanner Obregon performed an urgent coronary artery bypass grafting surgery 4 vessels, left internal mammary artery to the left anterior setting coronary artery, a reverse greater saphenous vein graft from the aorta to the diagonal coronary artery, a reverse greater saphenous vein graft from the aorta to the obtuse marginal coronary artery, a reverse greater saphenous vein graft from the aorta to the posterior descending coronary artery, endoscopic harvesting of the left greater saphenous vein, intraoperative transesophageal echocardiogram and epi-aortic ultrasound. Upon completion of the surgery the patient was transferred to the cardiovascular intensive care unit where she was recovered, monitored hemodynamically and where she progressed to cardiac rehabilitation phase 1. She was extubated, all lines, and supportive drips were discontinued when appropriate and she was transferred to the cardiac stepdown unit for further rehabilitation needs on postoperative day number #5. Her oxygen was titrated down, she continued to work with physical and occupational therapy, she was tolerating an oral diet, her pain was well controlled and she was ready to be discharged home on postoperative day #5 with [facility] visiting nurses. She has received written and verbal instructions regarding her medications, activity restrictions, signs and symptoms requiring physician notification and her follow-up appointments. COMPLICATIONS: there were no postoperative complications. CONSULTATIONS: 1. Dr. Payton for cardiology management. 2. Dr. Daigle for medical management. 3. Dr. Lee for pulmonary and ventilator management. 4. Dr. Walden for general surgery management. DISCHARGE INSTRUCTIONS: 1. No driving for 4 weeks, or until physician gives their ok. 2. The patient should sleep in their own bed, no medical bed needed. 3. Stairs are not an issue. If the bedroom is upstairs, it is advised that the patient go up at night and down in the morning for the first week. Go slowly, using handrail and take 1 step at a time. 4. IFTIKHAR hose are to be worn for 30 days or until physician discontinues. 5. Heart hugger is to be worn 100% of the time until physician discontinues.(except when showering) 6. No lifting, pushing, or pulling more than 10 pounds for 12 weeks. The physician will advise of any restriction changes. 7. The patient is expected to continue the prescribed walking program. 8. Continue pain control per as needed orders. 9. Continue with incentive spirometry and splinting/heart hugger until otherwise directed by the physician. 10. Must shower daily using liquid antibacterial soap and a separate white washcloth for each individual incision. 11. Routine sternal incision care, no ointments, lotions or powders on the incisions. 12. Please notify surgeon/nurse practitioner for temperature greater than 101F or purulent drainage from incisions 13. Prescriptions for first 30 days given per cardiac surgery service. After 30 days, all prescription refills obtained through cardiology/primary care physician. 14. A red arm and has been placed on this patient it should be worn for 30 days post surgery and will be removed by the cardiothoracic surgeons. If an ER visit is necessary, please make sure the number on the red arm band is called. HOME HEALTH SERVICES TO PROVIDE: RN SKILLED HOME CARE SERVICES FOR POST-OP SURGICAL PATIENTS WITH THE FOLLOWING: Coronary Artery Bypass Surgery (CABG), Mitral Valve Replacement/Repair ( MVR), Aortic Valve Replacement/Repair (AVR) RN TO CONTINUE EDUCATION FROM ``ROAD TO A HEALTH HEART PATIENT EDUCATION MANUAL" (GIVEN TO PATIENT IN THE HOSPITAL) MEDICATION RECONCILIATION WITH EDUCATION NEEDED ON FIRST HOME VISIT EMPHASIZE IMPORTANCE OF WEARING BREAST SUPPORT/HEART HUGGER ENCOURAGE USE OF INCENTIVE SPIROMETER 10 X EVERY HOUR WHILE AWAKE ENCOURAGE UTILIZATION OF LOWER EXTREMITY COMPRESSION STOCKINGS/IFTIKHAR HOSE and ELEVATE LEGS ABOVE LEVEL OF HEART WHILE AT REST. ENCOURAGE AMBULATION 3-5x/day INCREASING TOLERATES, WHILE AVOID EXTREMES IN TEMPERATURE FREQUENCY: RN TO OPEN THE PATIENT WITHIN 24 HOURS OF DISCHARGE FROM THE HOSPITAL WITH TELEHEALTH INSTALLED AT [facility], RN TO VISIT 2-3 X A WEEK FOR 4 WEEKS ESTABLISHED BY PATIENT NEEDS. LABORATORY: CBC, CMP TO BE DRAWN ON THE THIRD DAY HOME, (RUN STAT) FAX RESULTS TO [phone]. TELEHEALTH PARAMETERS: WEIGHT: NOTIFY MD OF WEIGHT GAIN OF 2 LBS IN 24 HOURS OR 5 LBS IN ONE WEEK HR: NOTIFY MD OF HR <55 BPM OR HR>100 BPM BP: NOTIFY MD IF BP <90/55 OR BP>140/100 O2 SAT: NOTIFY MD IF PO2<93% ON ROOM AIR SEND TELEHEALTH REPORT TO [employer]BI[employer] OPERATOR AND CARDIOVASCULAR SURGEON THE FIRST WEEK OF CARE AND THEN BI-WEEKLY. PLEASE ADDITIONALLY COMMUNICATE ANY ABNORMALS AND NEW FINDINGS TO THE SURGEONS OFFICE. The patient has been instructed to check her blood sugars before meals meals twice a day, keep a log of her blood sugars in bring them to her follow-up appointment with Dr. Philip. Patient Condition at Discharge: Serious Plan - Discharge Summary Discharge Rx Participant: No New Discharge Prescriptions: New Aspirin 325 mg PO DAILY tab Losartan [Cozaar] 50 mg PO DAILY #30 tab Atorvastatin [Lipitor] 40 mg PO DAILY #30 tab Metoprolol Tartrate [Lopressor] 12.5 mg PO BID #60 tab Clopidogrel [Plavix] 75 mg PO DAILY #30 tab Sennosides-Docusate Sodium [Senokot-S] 2 each PO HS #14 tab Acetaminophen Tab [Tylenol] 1,000 mg PO Q6HR PRN tab PRN Reason: Fever and/ or Mild Pain Furosemide [Lasix] 40 mg PO DAILY 5 Days #5 tablet Continue Levothyroxine Sodium [Synthroid] 50 mcg PO DAILY metFORMIN HCL ER [Glucophage Xr] 500 mg PO BID #60 tab Pantoprazole Sodium [Protonix] 40 mg PO DAILY #30 tab Discontinued Lisinopril [Zestril] 10 mg PO DAILY Aspirin 81 mg PO DAILY Atorvastatin [Lipitor] 20 mg PO DAILY Discharge Medication List Levothyroxine Sodium [Synthroid] 50 mcg PO DAILY 08/23/19 [History] Acetaminophen Tab [Tylenol] 1,000 mg PO Q6HR PRN tab 09/02/19 [Rx] Aspirin 325 mg PO DAILY tab 09/02/19 [Rx] Atorvastatin [Lipitor] 40 mg PO DAILY #30 tab 09/02/19 [Rx] Clopidogrel [Plavix] 75 mg PO DAILY #30 tab 09/02/19 [Rx] Furosemide [Lasix] 40 mg PO DAILY 5 Days #5 tablet 09/02/19 [Rx] Losartan [Cozaar] 50 mg PO DAILY #30 tab 09/02/19 [Rx] Metoprolol Tartrate [Lopressor] 12.5 mg PO BID #60 tab 09/02/19 [Rx] Pantoprazole Sodium [Protonix] 40 mg PO DAILY #30 tab 09/02/19 [Rx] Sennosides-Docusate Sodium [Senokot-S] 2 each PO HS #14 tab 09/02/19 [Rx] metFORMIN HCL ER [Glucophage Xr] 500 mg PO BID #60 tab 09/02/19 [Rx] Follow up Appointment(s)/Referral(s): Thai Philip MD [Primary Care Provider] - 1-2 days Mc Payton MD [STAFF PHYSICIAN] - 12/03/19 11:30 am Zaira Yarbrough MD [STAFF PHYSICIAN] - 1 Week [facility], [NON-STAFF] - 1-2 Days Tanner Obregon MD [STAFF PHYSICIAN] - 4 Weeks Elke Lee MD [STAFF PHYSICIAN] - 1 Week Dina Hernandez NPC [Nurse Practitioner] - 09/07/19 11:00 am (Please follow-up at [address] [place] [address] 1, [facility]. Office number is [phone].) Ambulatory/Diagnostic Orders: Complete Blood Count w/diff [LAB.AMB] Time Frame: 09/05/19, Facility: [facility], Location: Laboratory [facility] Comprehensive Metabolic Panel [LAB.AMB] Time Frame: 09/05/19, Facility: [facility], Location: Laboratory [facility] Activity/Diet/Wound Care/Special Instructions: DISCHARGE INSTRUCTIONS: 1. No driving for 4 weeks, or until physician gives their ok. 2. The patient should sleep in their own bed, no medical bed needed. 3. Stairs are not an issue. If the bedroom is upstairs, it is advised that the patient go up at night and down in the morning for the first week. Go slowly, using handrail and take 1 step at a time. 4. IFTIKHAR hose are to be worn for 30 days or until physician discontinues. 5. Heart hugger is to be worn 100% of the time until physician discontinues.(except when showering) 6. No lifting, pushing, or pulling more than 10 pounds for 12 weeks. The physician will advise of any restriction changes. 7. The patient is expected to continue the prescribed walking program. 8. Continue pain control per as needed orders. 9. Continue with incentive spirometry and splinting/heart hugger until otherwise directed by the physician. 10. Must shower daily using liquid antibacterial soap and a separate white washcloth for each individual incision. 11. Routine sternal incision care, no ointments, lotions or powders on the incisions. 12. Please notify surgeon/nurse practitioner for temperature greater than 101F or purulent drainage from incisions 13. Prescriptions for first 30 days given per cardiac surgery service. After 30 days, all prescription refills obtained through cardiology/primary care physician. 14. A red arm and has been placed on this patient it should be worn for 30 days post surgery and will be removed by the cardiothoracic surgeons. If an ER visit is necessary, please make sure the number on the red arm band is called. HOME HEALTH SERVICES TO PROVIDE: RN SKILLED HOME CARE SERVICES FOR POST-OP SURGICAL PATIENTS WITH THE FOLLOWING: Coronary Artery Bypass Surgery (CABG), Mitral Valve Replacement/Repair ( MVR), Aortic Valve Replacement/Repair (AVR) RN TO CONTINUE EDUCATION FROM ``ROAD TO A HEALTH HEART PATIENT EDUCATION MANUAL" (GIVEN TO PATIENT IN THE HOSPITAL) MEDICATION RECONCILIATION WITH EDUCATION NEEDED ON FIRST HOME VISIT EMPHASIZE IMPORTANCE OF WEARING BREAST SUPPORT/HEART HUGGER ENCOURAGE USE OF INCENTIVE SPIROMETER 10 X EVERY HOUR WHILE AWAKE ENCOURAGE UTILIZATION OF LOWER EXTREMITY COMPRESSION STOCKINGS/IFTIKHAR HOSE and ELEVATE LEGS ABOVE LEVEL OF HEART WHILE AT REST. ENCOURAGE AMBULATION 3-5x/day INCREASING TOLERATES, WHILE AVOID EXTREMES IN TEMPERATURE FREQUENCY: RN TO OPEN THE PATIENT WITHIN 24 HOURS OF DISCHARGE FROM THE HOSPITAL WITH TELEHEALTH INSTALLED AT [facility], RN TO VISIT 2-3 X A WEEK FOR 4 WEEKS ESTABLISHED BY PATIENT NEEDS. LABORATORY: CBC, CMP TO BE DRAWN ON THE THIRD DAY HOME, (RUN STAT) FAX RESULTS TO [phone]. TELEHEALTH PARAMETERS: WEIGHT: NOTIFY MD OF WEIGHT GAIN OF 2 LBS IN 24 HOURS OR 5 LBS IN ONE WEEK HR: NOTIFY MD OF HR <55 BPM OR HR>100 BPM BP: NOTIFY MD IF BP <90/55 OR BP>140/100 O2 SAT: NOTIFY MD IF PO2<93% ON ROOM AIR SEND TELEHEALTH REPORT TO [employer] OPERATOR AND CARDIOVASCULAR SURGEON THE FIRST WEEK OF CARE AND THEN BI-WEEKLY. PLEASE ADDITIONALLY COMMUNICATE ANY ABNORMALS AND NEW FINDINGS TO THE SURGEONS OFFICE. The patient has been instructed to check her blood sugars before meals meals twice a day, keep a log of her blood sugars in bring them to her follow-up appointment with Dr. Philip Discharge Disposition: HOME WITH HOME HEALTH SERVICES
--- NOTE | 2019-09-02 11:48 | PN ---
PROGRESS NOTE FOLLOW-UP NOTE: Lashonda is a 63-year-old lady with coronary artery disease, status post CABG. This morning she is feeling well and is free of symptoms. On exam, comfortable at rest. Vital signs are stable. Chest exam reveals good air entry bilaterally. Heart exam reveals first and second heart sounds. No gallop. Examination of extremities did not reveal any edema. Peripheral pulses are felt. The patient is on aspirin, Lipitor, Plavix, Cozaar and metoprolol. ASSESSMENT: Coronary artery disease, status post coronary artery bypass grafting. The patient is stable for discharge. Follow up with Cardiology. MMODL / IJN: [id number] /
[2019-09-02 12:20] LABS: Glucose,Whole Blood 132 mg/dL (75-99)
--- NOTE | 2019-09-02 21:58 | P.PN ---
Progress Note - Text Progress Note Date: 09/02/19 Interval history: This is a very pleasant 63-year-old patient of Dr. Roca. Chronic stable med ical conditions include diabetes, hypertension, hiatal hernia, hypothyroid, primary osteoarthritis. Patient has a known history of coronary artery disease stent. Last was several years ago. Has not had a stress test since then. Patient also being worked up by Dr. Walden for her hiatal hernia. Was supposed to have her endoscopy done today. Some of the symptoms she's been having was felt to be from a hiatal hernia. Does get some bloating and discomfort in the upper abdomen. Patient now presented to us last night she had heaviness in the central part of the chest. Last 4 good 2 hours. There was nausea. Dizziness. [place] flushed. There was no radiation radiation to the neck or the arm. Troponin was started to to be positive. Admitted with acute non-Q-wave IN. Had a cardiac catheterization on August 24. Showed severe triple-vessel disease. Underwent coronary artery bypass four-vessel started on 08/28/2019.. Did receive a unit of blood Today-continues to feel well. breathing well. Feeling well. metformin resume today. Tolerating a diet. Review of systems: Was done for constitutional, cardiovascular, GI, pulmonary. relevant finding as above current medications reviewed from today's electronic records Physical examination: Vital signs-76, 18, 127/60, 94% room air GENERAL: sitting up, comfortable EYES: Pupils equal. Conjunctiva normal. HEENT: External appearance of nose and ears normal, oral cavity grossly normal. NECK: JVD not raised; masses not palpable. HEART: First and second heart sounds are normal; no edema. LUNGS: Respiratory rate increased, decreased breath sounds ABDOMEN: Soft, nontender, liver spleen not palpable, no masses palpable. PSYCH: Alert and oriented x3; mood and affect slightly anxious MUSCULOSKELETAL: Evidence of OA in the hands INVESTIGATIONS, reviewed in the clinical context: hemoglobin 9.1 Previous testing White count 6.2 hemoglobin 12.6 platelets 272 potassium 4 creatinine 0.7 Troponin I 0.066, 0.071, 0.065 ProBNP 436 EKG tracing personally reviewed by me-sinus rhythm left bundle branch block Chest x-ray film personally reviewed by me-lung galvin clear Cardiac catheterization showing severe triple-vessel disease Assessment: -Acute non-Q-wave myocardial infarction -Severe triple-vessel disease-followed by 4vessel coronary bypass -Acute postop blood loss severe anemia as expected from surgery -Diabetes mellitus type 2 on oral hypoglycemic -Essential hypertension -Hiatal hernia, symptomatic with GERD -Hypothyroid -Primary osteoarthritis -Obesity BMI 35.3 -Left bundle branch block Plan: metformin started today. Patient told to keep her morning Accu-Cheks log. Questions were answered.follow-up with PCP Thank you
== END 2019-09-02 13:42 | disposition home health service (06) | DRG 234 ==
LOC: EC 00:34 → 3SCARD 01:35 → OBSVTOIN 15:22 → 2SICU 18:24 → 3SCARD 08-25 20:49 → 2SICU 08-28 07:31 → 3SCARD 09-01 21:54
PROVIDERS: ADMIT Surgery; ATTEND Surgery
PROC: B2151ZZ Fluoroscopy of Left Heart using Low Osmolar Contrast (ICD-10-PCS; 2019-08-24)
PROC: 4A023N7 Measurement of Cardiac Sampling and Pressure, Left Heart, Percutaneous Approach (ICD-10-PCS; 2019-08-24)
PROC: B2111ZZ Fluoroscopy of Multiple Coronary Arteries using Low Osmolar Contrast (ICD-10-PCS; 2019-08-24)
PROC: 06BQ4ZZ Excision of Left Saphenous Vein, Percutaneous Endoscopic Approach (ICD-10-PCS; principal; 2019-08-28 08:00)
PROC: 5A1221Z Performance of Cardiac Output, Continuous (ICD-10-PCS; principal; 2019-08-28 08:00)
PROC: B246ZZ4 Ultrasonography of Right and Left Heart, Transesophageal (ICD-10-PCS; principal; 2019-08-28 08:00)
PROC: 021209W Bypass Coronary Artery, Three Arteries from Aorta with Autologous Venous Tissue, Open Approach (ICD-10-PCS; principal; 2019-08-28 08:00)
PROC: 02100Z9 Bypass Coronary Artery, One Artery from Left Internal Mammary, Open Approach (ICD-10-PCS; principal; 2019-08-28 08:00)
DX: I21.4 Non-ST elevation (NSTEMI) myocardial infarction (principal); D62 Acute posthemorrhagic anemia; T82.855A Stenosis of coronary artery stent, initial encounter; E03.9 Hypothyroidism, unspecified; E11.9 Type 2 diabetes mellitus without complications; E66.9 Obesity, unspecified; E78.5 Hyperlipidemia, unspecified; I11.9 Hypertensive heart disease without heart failure; I16.0 Hypertensive urgency; I25.110 Atherosclerotic heart disease of native coronary artery with unstable angina pectoris; I25.2 Old myocardial infarction; I44.7 Left bundle-branch block, unspecified; K21.9 Gastro-esophageal reflux disease without esophagitis; K44.9 Diaphragmatic hernia without obstruction or gangrene; K59.00 Constipation, unspecified; M19.91 Primary osteoarthritis, unspecified site; Y83.1 Surgical operation with implant of artificial internal device as the cause of abnormal reaction of the patient, or of later complication, without mention of misadventure at the time of the procedure; Z68.35 Body mass index [BMI] 35.0-35.9, adult; Z79.02 Long term (current) use of antithrombotics/antiplatelets; Z79.82 Long term (current) use of aspirin; Z79.84 Long term (current) use of oral hypoglycemic drugs; Z79.890 Hormone replacement therapy; Z79.899 Other long term (current) drug therapy; Z82.49 Family history of ischemic heart disease and other diseases of the circulatory system; Z83.3 Family history of diabetes mellitus; Z91.19 Patient's noncompliance with other medical treatment and regimen; Z98.84 Bariatric surgery status; Z90.49 Acquired absence of other specified parts of digestive tract
CPT/HCPCS: 36410; 36415; 36600; 71045; 71046; 76937; 80048; 80053; 80061; 81001; 82330; 82805; 83036; 83735; 83880; 84100; 84484; 85025; 85027; 85520; 85610; 85730; 86850; 86891; 86900; 86901; 86920; 87070; 93005; 93306; 93458; 93880; 93970; 94002; 94150; 94640; 96365; 96376; 99285

== ENCOUNTER → 2020-07-02 | Outpatient (CLI) | payer MEDICARE, OTHER ==
[2020-07-02 11:43] LABS: African American GFR (CKD) >90 (>60 ml/min/1.73 sqM); Blood Urea Nitrogen 17 mg/dL (7-17); Non-African American GFR(CKD) 83 (>60 ml/min/1.73 sqM)
--- NOTE | 2020-07-02 14:42 | CT ---
EXAMINATION TYPE: CT abdomen pelvis w con DATE OF EXAM: 07/02/2020 COMPARISON: 08/16/2019 INDICATION: Upper Abdominal pain with nausea. DLP: 1235 mGycm, Automated exposure control for dose reduction was used. CONTRAST: 100 mL of Isovue 300. Study performed with Oral Contrast TECHNIQUE: Axial images were obtained from above the diaphragm to the pubic rami in the axial plane a t 5 mm thick sections. Reconstructed images are reviewed on the computer in the coronal plane. FINDINGS: Limited CT sections are obtained the lung bases. The lung bases are clear. CT ABDOMEN: Large periumbilical hernia containing mesenteric fat. Liver: Normal Spleen: Normal Pancreas: Normal Adrenal glands: The adrenal glands are normal. Gallbladder: Surgically absent Kidneys: No masses are evident. No hydronephrosis is present. No cysts are present. Delayed images were obtained through the kidneys, which remain unremarkable. Aorta: Vascular calcification is within the aorta. Inferior vena cava: Normal. CT PELVIS: Loops of bowel within the abdomen and pelvis are normal. There are loops of bowel which are incom pletely distended or lack oral contrast limiting their evaluation. Large fecal bolus at the rectum. Appendix: Normal as visualized. Urinary bladder: Normal. Genitourinary structures: Uterus is normal. Adnexal regions are clear. Osseous structures: No suspicious lytic or sclerotic lesions. No suspicious lymphadenopathy is evident. IMPRESSIONS: 1. Periumbilical fat-containing hernia. No loops of bowel are involved. 2. Mild fecal retention.
== END | disposition home or self-care (01) ==
LOC: RADCTMAIN 10:43
PROVIDERS: ATTEND Surgery Plastic and Reconstructive Surgery
DX: K42.9 Umbilical hernia without obstruction or gangrene (principal); K59.00 Constipation, unspecified
CPT/HCPCS: 82565; 84520; 74177; 36415; Q9967

== ENCOUNTER 2020-07-04 06:32 | Day surgery (SDC) | payer MEDICARE, OTHER ==
[2020-07-01 10:16] VITALS: BMI 32.0
[~2020-07-04 06:32] MED LIST: LACTATED RINGERS 1,000 ML IV SCH
--- NOTE | 2020-07-04 06:38 | P.GSHP ---
History of Present Illness H&P Date: 07/04/20 CHIEF COMPLAINT: GERD HISTORY OF PRESENT ILLNESS: The patient is a 64-year-old female who presents reports gastroesophageal reflux disease. Upper endoscopy was offered for further evaluation and management. PAST MEDICAL HISTORY: Please see list. PAST SURGICAL HISTORY: Please see list. MEDICATIONS: Please see list. ALLERGIES: Please see list. SOCIAL HISTORY: No illicit drug use FAMILY HISTORY: No reports of Crohn disease or ulcerative colitis. REVIEW OF ORGAN SYSTEMS: CONSTITUTIONAL: No reports of fevers or chills. GI: Denies any blood in stools or constipation. PHYSICAL EXAM: VITAL SIGNS: Stable GENERAL: Well-developed and pleasant in no acute distress. HEENT: No scleral icterus. Extraocular movements grossly intact. Moist buccal mucosa. NECK: Supple without lymphadenopathy. CHEST: Unlabored respirations. Equal bilateral excursions. CARDIOVASCULAR: Regular rate and rhythm. Distal 2+ pulses. ABDOMEN: Soft, nondistended. MUSCULOSKELETAL: No clubbing, cyanosis, or edema. ASSESSMENT: 1. Gastroesophageal reflux disease PLAN: 1. Recommend proceeding with an upper endoscopy Past Medical History Past Medical History: Coronary Artery Disease (CAD), Chest Pain / Angina, Diabetes Mellitus, GERD/Reflux, Hyperlipidemia, Hypertension, Myocardial Infarction ([place]), Thyroid Disorder Additional Past Medical History / Comment(s): hernia; Last Myocardial Infarction Date:: 2018 History of Any Multi-Drug Resistant Organisms: None Reported Past Surgical History: Bariatric Surgery, Section, Cholecystectomy, Coronary Bypass/CABG, Heart Catheterization With Stent Past Anesthesia/Blood Transfusion Reactions: Previous Problems w/ Anesthesia, Postoperative Nausea & Vomiting (PONV) Additional Past Anesthesia/Blood Transfusion Reaction / Comment(s): post of nausea Date of Last Stent Placement:: 2011 Smoking Status: Never smoker - Past Family History Mother Family Medical History: CVA/TIA, Diabetes Mellitus, Hypertension Father Family Medical History: Hyperlipidemia, Hypertension Brother(s) Family Medical History: Coronary Artery Disease (CAD) Additional Family Medical History / Comment(s): Both brother and sister diagnosed with heart disease for the age of 60, multiple family members on patient's mother's side with coronary artery disease status post bypass Sister(s) Family Medical History: Coronary Artery Disease (CAD) Medications and Allergies Home Medications Medication Instructions Recorded Confirmed Type Levothyroxine Sodium [Synthroid] 50 mcg PO DAILY 08/23/19 07/01/20 History Acetaminophen Tab [Tylenol] 1,000 mg PO Q6HR PRN tab 09/02/19 07/01/20 Rx Aspirin 325 mg PO DAILY tab 09/02/19 07/01/20 Rx Clopidogrel [Plavix] 75 mg PO DAILY #30 tab 09/02/19 07/01/20 Rx Pantoprazole Sodium [Protonix] 40 mg PO DAILY #30 tab 09/02/19 07/01/20 Rx metFORMIN HCL ER [Glucophage Xr] 500 mg PO BID #60 tab 09/02/19 07/01/20 Rx Metoprolol Tartrate [Lopressor] 12.5 mg PO DAILY 07/01/20 07/01/20 History Rosuvastatin [Crestor] 20 mg PO DAILY 07/01/20 07/01/20 History Sennosides-Docusate Sodium 2 each PO Q2D 07/01/20 07/01/20 History [Senokot-S] Allergies Allergy/AdvReac Type Severity Reaction Status Date / Time No Known Allergies Allergy Verified 07/01/20 09:53
[2020-07-04 07:00] VITALS: RESP 16; TEMP 96.6
[2020-07-04] MEDS ORDERED: LIDOCAINE 1% (10MG/ML) FOR IV START INTRADERMA ONE (07:12)
[2020-07-04 07:15] LABS: Glucose,Whole Blood 120 mg/dL (75-99)
[2020-07-04] MEDS ORDERED: LIDOCAINE 1% INJ 10MG/ML (20 ML MDV) ONE (07:44)
[2020-07-04] MEDS ORDERED: PROPOFOL 10 MG/ML 20 ML VIAL IV ONE (07:44)
--- NOTE | 2020-07-04 07:56 | P.PCN ---
Date of Procedure: 07/04/20 Description of Procedure: PREOPERATIVE DIAGNOSES: 1. Epigastric abdominal pain. 2. Gastroesophageal reflux disease 3. History of gastric bypass. POSTOPERATIVE DIAGNOSES: 1. Epigastric abdominal pain. 2. Gastroesophageal reflux disease 3. History of gastric bypass. PROCEDURE PERFORMED: Esophagogastrojejunoscopy. SURGEON: Zaira Yarbrough MD ANESTHESIA: MAC. INDICATIONS: The patient is a 64-year-old female with prior history of Eusebio-en-Y gastric bypass. She reports abdominal pain, history of gastroesophageal reflux disease abdominal pain. With his history of Eusebio-en-Y gastric bypass, upper endoscopy was offered for further evaluation and management. DESCRIPTION: Patient was brought to the endoscopy suite and laid in the left lateral decubitus position. After adequate IV sedation, a bite block was placed. An Olympus gastroscope was passed along the posterior oropharynx down to the distal esophagus where the squamocolumnar junction was found at approximately 40 cm from the incisors. The anastomosis was found at 43 cm, consistent with approximately 3 cm gastric pouch. The scope was advanced 50 cm from the incisors. No evidence of foreign body was found. No evidence of active gastrojejunal ulcerations were encountered. The GI tract was desufflated. The patient tolerated the procedure well. FINDINGS: 1. No acute gastrojejunal ulceration. 2. No foreign body found along the anastomosis. PLAN: 1. Recommend upper endoscopy as needed. 2. May benefit from additional studies with history of epigastric abdominal pain such as upper GI barium study. Plan - Discharge Summary Discharge Rx Participant: Yes New Discharge Prescriptions: Continue Levothyroxine Sodium [Synthroid] 50 mcg PO DAILY Aspirin 325 mg PO DAILY tab Clopidogrel [Plavix] 75 mg PO DAILY #30 tab Acetaminophen Tab [Tylenol] 1,000 mg PO Q6HR PRN tab PRN Reason: Fever and/ or Mild Pain metFORMIN HCL ER [Glucophage Xr] 500 mg PO BID #60 tab Pantoprazole Sodium [Protonix] 40 mg PO DAILY #30 tab Sennosides-Docusate Sodium [Senokot-S] 2 each PO Q2D Metoprolol Tartrate [Lopressor] 12.5 mg PO DAILY Rosuvastatin [Crestor] 20 mg PO DAILY Discharge Medication List Levothyroxine Sodium [Synthroid] 50 mcg PO DAILY 08/23/19 [History] Acetaminophen Tab [Tylenol] 1,000 mg PO Q6HR PRN tab 09/02/19 [Rx] Aspirin 325 mg PO DAILY tab 09/02/19 [Rx] Clopidogrel [Plavix] 75 mg PO DAILY #30 tab 09/02/19 [Rx] Pantoprazole Sodium [Protonix] 40 mg PO DAILY #30 tab 09/02/19 [Rx] metFORMIN HCL ER [Glucophage Xr] 500 mg PO BID #60 tab 09/02/19 [Rx] Metoprolol Tartrate [Lopressor] 12.5 mg PO DAILY 07/01/20 [History] Rosuvastatin [Crestor] 20 mg PO DAILY 07/01/20 [History] Sennosides-Docusate Sodium [Senokot-S] 2 each PO Q2D 07/01/20 [History] Follow up [facility]ment(s[facility] [place] [facility] [place] [facility] Patient Instructions/Handouts: Gastroesophageal Reflux Disease (DC), Nutrition after Bariatric Surgery (GEN), Bowel Management After Bariatric Surgery (DC) Discharge Disposition: HOME SELF-CARE
[2020-07-04 08:09] VITALS: BP 145/73; PULSE 46
== END 2020-07-04 08:52 | disposition home or self-care (01) ==
LOC: ORWHC2ENDO 06:32
PROVIDERS: ATTEND Surgery Plastic and Reconstructive Surgery
DX: R10.13 Epigastric pain (principal); K21.9 Gastro-esophageal reflux disease without esophagitis; E11.9 Type 2 diabetes mellitus without complications; I25.10 Atherosclerotic heart disease of native coronary artery without angina pectoris; E78.5 Hyperlipidemia, unspecified; I10 Essential (primary) hypertension; I25.2 Old myocardial infarction; E07.9 Disorder of thyroid, unspecified; K46.9 Unspecified abdominal hernia without obstruction or gangrene; Z98.84 Bariatric surgery status; Z98.890 Other specified postprocedural states; Z90.49 Acquired absence of other specified parts of digestive tract; Z95.1 Presence of aortocoronary bypass graft; Z95.5 Presence of coronary angioplasty implant and graft; Z91.89 Other specified personal risk factors, not elsewhere classified; Z87.898 Personal history of other specified conditions; Z79.890 Hormone replacement therapy; Z79.82 Long term (current) use of aspirin; Z79.02 Long term (current) use of antithrombotics/antiplatelets; Z79.899 Other long term (current) drug therapy; Z79.84 Long term (current) use of oral hypoglycemic drugs; Z82.3 Family history of stroke; Z83.3 Family history of diabetes mellitus; Z82.49 Family history of ischemic heart disease and other diseases of the circulatory system; Z83.438 Family history of other disorder of lipoprotein metabolism and other lipidemia
CPT/HCPCS: 43235; J2001; J2704

== ENCOUNTER → 2020-07-24 | Outpatient (CLI) | payer MEDICARE, OTHER ==
[2020-07-24 15:40] LABS: HCT 40.4 % (34.0-46.0); HGB 12.8 gm/dL (11.4-16.0); MCH 27.9 pg (25.0-35.0); MCHC 31.8 g/dL (31.0-37.0); MCV 87.9 fL (80.0-100.0); Mean Platelet Volume 7.3; Platelet Count 218 k/uL (150-450); RBC 4.59 m/uL (3.80-5.40); RDW 15.9 % (11.5-15.5); WBC 5.6 k/uL (3.8-10.6)
[2020-07-25 01:36] LABS: Hemoglobin A1C 6.3 % (4.0-6.0)
[2020-07-25 02:50] LABS: INR 0.97 (0.90-1.11); Partial Thromboplastin Time 27.3 sec (24.7-29.9); Prothrombin Time 10.4 sec (9.9-11.9)
[2020-07-25 03:31] LABS: % Iron Saturation 17.08 (12.00-45.00); African American GFR (CKD) 104.6 (60.0-200.0); Albumin 4.7 g/dL (3.80-4.90); Albumin/Globulin Ratio 2.04 (1.60-3.17); Anion Gap 7.7 mmol/L (4.00-12.00); Calcium 9.8 mg/dL (8.7-10.3); Carbon Dioxide 28.3 mmol/L (21.6-31.8); Chol/HDL Ratio 3.38; Ferritin 9.7 ng/mL (10.0-291.0); Folate, Serum 12.1 ng/mL; Globulin 2.3 g/dL (1.6-3.3); LDL Cholesterol,Calculated 50.4 mg/dL (0.0-131.0); Non-African American GFR(CKD) 90.3 (60.0-200.0); Phosphorus 4.1 mg/dL (2.4-5.1); Potassium 4.4 mmol/L (3.5-5.5); Total Bilirubin 0.5 mg/dL (0.3-1.2); VLDL Calculation 25.6 mg/dL (5.00-40.00)
[2020-07-25 12:10] LABS: Zinc, Serum 63 ug/dL (60-130)
== END | disposition home or self-care (01) ==
LOC: LABWHC1 14:29
PROVIDERS: ATTEND Surgery Plastic and Reconstructive Surgery
DX: E66.01 Morbid (severe) obesity due to excess calories (principal); E89.1 Postprocedural hypoinsulinemia; D50.8 Other iron deficiency anemias; K90.89 Other intestinal malabsorption; E55.9 Vitamin D deficiency, unspecified; K74.1 Hepatic sclerosis; N19 Unspecified kidney failure; K50.90 Crohn's disease, unspecified, without complications
CPT/HCPCS: 36415; 80053; 80061; 82306; 82525; 82607; 82728; 82746; 83036; 83540; 83550; 83735; 83970; 84100; 84134; 84255; 84425; 84443; 84590; 84630; 85027; 85610; 85730; 93005

== ENCOUNTER → 2020-07-24 | Outpatient (CLI) | payer MEDICARE, OTHER ==
[2020-07-24 13:54] VITALS: BP 179/75; PULSE 49; RESP 18; TEMP 98.1; BMI 33.2
--- NOTE | 2020-07-24 14:21 | P.PN ---
Subjective Progress Note Date: 07/24/20 DATE OF SERVICE: 07/24/2020 REASON FOR CONSULTATION: Initial bariatric evaluation. HISTORY OF PRESENT ILLNESS: Lashonda Guo is a 65-year-old female who comes with lifelong morbid obesity. She comes in with history of gastric bypass. She comes in with multiple abdominal hernias. She completed an upper endoscopy. She comes in with recurrent ventral hernia. She has history of post-op nausea and vomiting. She presents for surgical intervention. At height of 5 feet 1.5 inches, her ideal body weight is 131 pounds. She comes in 178 pounds. Her body mass index is 33.2. She is 47 pounds overweight. PAST MEDICAL HISTORY: 1. Morbid obesity due to excess calories 2. Body mass index of 38.0, initial 3. Coronary artery disease 4. Angina 5. Diabetes type II 6. Gastroesophageal reflux disease 7. Hyperlipidemia 8. Hypertensive heart disease 9. Myocardial infarction 10. Hypothyroidism 11. Post-op nausea and vomiting PAST SURGICAL HISTORY: 1. section 2. Cholecystectomy 3. Coronary artery disease 4. Heart catheterization with stent 5. Bariatric surgery HOME MEDICATIONS: Home Medications Medication Instructions Recorded Confirmed Levothyroxine Sodium [Synthroid] 50 mcg PO DAILY 08/23/19 07/24/20 Metoprolol Tartrate [Lopressor] 12.5 mg PO DAILY 07/01/20 07/24/20 Rosuvastatin [Crestor] 20 mg PO DAILY 07/01/20 07/24/20 Sennosides-Docusate Sodium 2 each PO Q2D 07/01/20 07/24/20 [Senokot-S] Previous Rx's Medication Instructions Recorded Acetaminophen Tab [Tylenol] 1,000 mg PO Q6HR PRN tab 09/02/19 Aspirin 325 mg PO DAILY tab 09/02/19 Clopidogrel [Plavix] 75 mg PO DAILY #30 tab 09/02/19 Pantoprazole Sodium [Protonix] 40 mg PO DAILY #30 tab 09/02/19 metFORMIN HCL ER [Glucophage Xr] 500 mg PO BID #60 tab 09/02/19 ALLERGIES: Allergies Allergy/AdvReac Type Severity Reaction Status Date / Time No Known Allergies Allergy Verified 07/24/20 13:47 SOCIAL HISTORY: No past tobacco use. FAMILY HISTORY: No family history of ulcerative colitis disease or Crohn's disease. Family history of morbid obesity. No lupus in the family. No reports of stomach or esophageal cancer. REVIEW OF ORGAN SYSTEMS: CONSTITUTIONAL: At height of 5 feet 1.5 inches, her ideal body weight is 131 pounds. She comes in 178 pounds. Her body mass index is 33.2. She is 47 pounds overweight. HEENT: Denies any active troubles with vision or hearing. ENDOCRINE: Has diabetes. Has hypothyroidism. CARDIOVASCULAR: Past reports of palpitations or heart attacks or chest pain. Has past myocardial infarction. Has coronary artery disease. RESPIRATORY: Has daytime somnolence. Has asthma. GASTROINTESTINAL: Denies any bright red blood per rectum. No diarrhea. No constipation. MUSCULOSKELETAL: Has lower back pain and joint pain. Has osteoarthritis of the knees. NEURO: No headaches. No seizure disorders. PSYCH: Has depression. No suicidal ideation. RHEUMATOLOGIC: No lupus. No rheumatoid arthritis. HEMATOLOGIC: Denies any abnormal bleeding or bruising. No personal history of DVTs. SKIN: No rash. No skin cancer. PHYSICAL EXAM: VITAL SIGNS: Height 5 foot 1.5 inches, weight 178 pounds. BMI 33.2 Vital Signs Temp 98.1 F 07/24/20 13:46 Pulse 49 L 07/24/20 13:46 Resp 18 07/24/20 13:46 BP 179/75 07/24/20 13:46 Pulse Ox GENERAL: Well-developed in no acute distress. HEENT: No scleral icterus. Extraocular movements grossly intact. Hears conversational speech. No nasal drainage. NECK: Supple without lymphadenopathy. CHEST: Nonlabored respirations with equal bilateral excursions. CARDIOVASCULAR: Regular rate and regular rhythm. Distal 2+ pulses. ABDOMEN: Obese, soft, nontender, nondistended. MUSCULOSKELETAL: No clubbing, cyanosis. NEURO: No focal or lateralizing signs. Cranial nerves 2 through 12 grossly within normal limits. PSYCH: Appropriate affect. Alert and oriented to person, place and time. SKIN: Good skin turgor. Well perfused. EGD FINDINGS: 1. No acute gastrojejunal ulceration. 2. No foreign body found along the anastomosis. STUDIES: CT of the abdomen and pelvis reviewed with fat containing incisional hernia. Fecal impaction along the rectum. This is my independent interpretation. LABS: Hgb A1c elevated 6.3%. Vitamin A is low. Vitamin B-12 is low. Vitamin D is low. EKG: Septal infarct with marked sinus bradycardia. ASSESSMENT: 1. Morbid obesity due to excess calories 2. Body mass index of 38.0, initial 3. Coronary artery disease 4. Angina 5. Diabetes type II 6. Gastroesophageal reflux disease 7. Hyperlipidemia 8. Hypertensive heart disease 9. Myocardial infarction 10. Hypothyroidism 11. Post-op nausea and vomiting 12. Incisional hernia repair PLAN: 1. She comes in with multiple abdominal hernias with history of gastric bypass. Recommend robotic incisional hernia repair. 2. She is elevated risk for complications with pre-existing myocardial infarction. 3. Will need cardiac clearance Objective - Vital Signs Vital signs: Vital Signs Temp 98.1 F 07/24/20 13:46 Pulse 49 L 07/24/20 13:46 Resp 18 07/24/20 13:46 BP 179/75 07/24/20 13:46 Pulse Ox Intake & Output 07/23/20 07/24/20 07/24/20 18:59 06:59 18:59 Weight 81.102 kg
== END | disposition home or self-care (01) ==
LOC: BARWHC3 13:12
PROVIDERS: ATTEND Surgery Plastic and Reconstructive Surgery
DX: Z48.815 Encounter for surgical aftercare following surgery on the digestive system (principal); E66.01 Morbid (severe) obesity due to excess calories; I25.119 Atherosclerotic heart disease of native coronary artery with unspecified angina pectoris; E11.9 Type 2 diabetes mellitus without complications; K21.9 Gastro-esophageal reflux disease without esophagitis; E78.5 Hyperlipidemia, unspecified; I11.9 Hypertensive heart disease without heart failure; I21.9 Acute myocardial infarction, unspecified; E03.9 Hypothyroidism, unspecified; T81.89XA Other complications of procedures, not elsewhere classified, initial encounter; R11.2 Nausea with vomiting, unspecified; Z68.38 Body mass index [BMI] 38.0-38.9, adult; Z83.49 Family history of other endocrine, nutritional and metabolic diseases; Z79.02 Long term (current) use of antithrombotics/antiplatelets; Z79.82 Long term (current) use of aspirin; Z79.84 Long term (current) use of oral hypoglycemic drugs; Z79.890 Hormone replacement therapy; Z79.899 Other long term (current) drug therapy
CPT/HCPCS: 99211

== ENCOUNTER 2025-04-05 07:02 | Day surgery (SDC) | payer MEDICARE, OTHER ==
[~2025-04-05 07:02] MED LIST changes: +ALPRAZolam 0.25 MG TAB PO PRN; +HEPARIN SODIUM,PORCINE (1 ML) 2,500 UNIT in SODIUM CHLORIDE 0.9% 250 ML IRRIGATION PRN; +HEPARIN SODIUM,PORCINE 10,000 UNIT in SODIUM CHLORIDE 0.9% 1,000 ML IRRIGATION PRN; -LACTATED RINGERS 1,000 ML IV SCH; +NITROGLYCERIN SL TABS 0.4 MG TAB SUBLINGUAL PRN
[2025-04-05] MEDS: ASPIRIN 325 MG TAB PO STA (07:41)
[2025-04-05] MEDS: ATORVASTATIN 80 MG TAB PO STA (07:41)
[2025-04-05] MEDS: SODIUM CHLORIDE 0.9% 1,000 ML in EMPTY BAG 1 BAG IV SCH ×2 (07:41→15:23)
[2025-04-05] MEDS: ALPRAZolam 0.5 MG TAB PO PRN (07:41)
[2025-04-05] MEDS: IV FLUID CONTINUATION 1,000 ML IV ONE (07:43)
[2025-04-05 07:47] LABS: Glucose,Whole Blood 181 mg/dL (70-110)
[2025-04-05 07:52] LABS: Basophils # (A) 0.03 10*3/uL (0.00-0.10); Basophils % (A) 0.4 %; Eosinophils # (A) 0.13 10*3/uL (0.04-0.35); Eosinophils % (A) 1.8 %; HCT 38.3 % (37.2-46.3); HGB 12.9 g/dL (12.0-15.0); Lymphocytes # (A) 1.93 10*3/uL (0.90-5.00); Lymphocytes % (A) 27.3 %; MCH 29.6 pg (27.0-32.0); MCHC 33.7 g/dL (32.0-37.0); MCV 87.8 fL (80.0-97.0); Monocytes # (A) 0.86 10*3/uL (0.20-1.00); Monocytes % (A) 12.2 %; Neutrophils # (A) 4.10 10*3/uL (1.80-7.70); Neutrophils % (A) 58.0 %; Platelet Count 210 10*3/uL (140-440); RBC 4.36 10*6/uL (4.10-5.20); RDW 13.5 % (11.5-14.5); WBC 7.07 10*3/uL (4.50-10.00)
[2025-04-05 08:13] LABS: African American GFR (CKD) >90 (>60 ml/min/1.73 sqM); Anion Gap 12 mmol/L; Blood Urea Nitrogen 21 mg/dL (7-17); Calcium 9.6 mg/dL (8.4-10.2); Carbon Dioxide 27 mmol/L (22-30); Chloride 101 mmol/L (98-107); Glucose 185 mg/dL (74-99); Non-African American GFR(CKD) 88 (>60 ml/min/1.73 sqM); Potassium 3.9 mmol/L (3.5-5.1); Sodium 140 mmol/L (137-145)
[2025-04-05] MEDS: METOCLOPRAMIDE 5 MG/ML 2 ML VIAL IVP STA (08:40)
[2025-04-05] MEDS: MIDAZOLAM 2 MG/2 ML VIAL IVP ONE (09:52)
[2025-04-05] MEDS: fentaNYL (PF) 50 MCG/1 ML VIAL IVP ONE (09:52)
[2025-04-05] MEDS: LIDOCAINE 1% INJ 10MG/ML (30 ML VIAL-PF) SQ ONE (10:10)
[2025-04-05] MEDS: HEPARIN SODIUM 1,000 UN/ML (10ML VL) IVP ONE (10:13)
[2025-04-05] MEDS ORDERED: RX INFO: IV CONTRAST WAS GIVEN 1 EACH MISC MISCELLANE PRN (10:42)
[2025-04-05] MEDS ORDERED: MAG HYDROX/AL HYDROX/SIMETH 30 ML CUP PO PRN (10:42)
[2025-04-05] MEDS ORDERED: ZOLPIDEM 5 MG TAB PO PRN (10:42)
[2025-04-05] MEDS ORDERED: NITROGLYCERIN SL TABS 0.4 MG TAB SUBLINGUAL PRN (10:42)
[2025-04-05] MEDS ORDERED: ATROPINE SULFATE 0.1 MG/ML 10ML SYRINGE IV PRN (10:42)
[2025-04-05] MEDS: IOPAMIDOL-370 100ML BTL INJ ONE (10:45)
--- NOTE | 2025-04-05 10:46 | P.PCN ---
Date of Procedure: 04/05/25 Operative Findings: PERCUTANEOUS CORONARY INTERVENTION Performing physician Mc Payton M.D. Procedure Performed: 1. Successful stenting of the SVG to OM using 3.0 x 12 mm Xience drug-eluting stent with an excellent angiographic results. 2. Adjunctive use of IVUS 3. SVG to OM angiogram and SVG to diagonal angiogram and RCA angiogram 4. Ultrasound-guided access of the right common femoral artery and selective right common femoral artery angiogram Indication: Chest discomfort concerning for unstable angina Approach: Right common femoral artery Complications: None Level of Sedation: Moderate with a sedation length of 33 minutes Procedure Discussion: After obtaining informed consent the patient was brought to the cardiac Senior Telecommunications Consultant. The right common femoral artery was cannulated using micropuncture technique under ultrasound guidance a micropuncture wire passed easily then I placed a 6 Ukrainian 11 cm sheath at the right common femoral artery. I did start anticoagulation using heparin with continuous ACT monitoring. Subsequently I did engage the SVG to OM using an AL-1 guiding catheter. I did wired from the get go using 2 wires a run-through wire and whisper wire to give me more bleeding and support. Balloon angioplasty was performed using 2 mm semicompliant balloon before I did IVUS which showed a diameter around 3 mm. I did stenting of the SVG to OM distally using 3.0 x 12 mm stent which was postdilated using 3 mm NC balloon with an angiogram after the patient was given nitro and nicardipine showing excellent angiographic results and the procedure was completed with no complication. We did incidentally selective SVG to diagonal angiogram. I checked the RCA which was stented recently and that showed that the stent is patent. Postprocedure Management: 1. Dual antiplatelet therapy using aspirin and Plavix for at least 6 to 12 months 2. Aggressive cholesterol control 3. Risk factors modification
[2025-04-05] MEDS: ACETAMINOPHEN TAB 500 MG TAB PO STA (13:15)
[2025-04-05] MEDS ORDERED: DEXTROSE 50% SYRINGE 50 ML IVP PRN ×2 (13:26)
[2025-04-05] MEDS: SODIUM CHLORIDE 0.9% 500 ML 500 ML IV ONE (13:30)
[2025-04-05] MEDS: ONDANSETRON 4 MG/2 ML VIAL IVP STA (13:35)
[2025-04-05] MEDS: ACETAMINOPHEN TAB 325 MG TAB PO PRN (16:44)
[2025-04-05 18:04] LABS: Glucose,Whole Blood 137 mg/dL (70-110)
[2025-04-05] MEDS: INSULIN LISPRO (HumaLOG) 100 UNIT/ML 10 mL VL SQ SCH (18:11)
[2025-04-05 19:59] LABS: Glucose,Whole Blood 208 mg/dL (70-110)
[2025-04-05] MEDS: LOSARTAN 25 MG TAB PO SCH (20:43)
[2025-04-05] MEDS: LEVOTHYROXINE 50 MCG TAB PO SCH (20:43)
[2025-04-05] MEDS: ATORVASTATIN 40 MG TAB PO SCH (20:43)
[2025-04-06 02:32] VITALS: TEMP 98.1
[2025-04-06 06:00] LABS: Glucose,Whole Blood 167 mg/dL (70-110)
[2025-04-06] MEDS: glipiZIDE 5 MG TAB PO SCH (06:29)
[2025-04-06 06:39] LABS: African American GFR (CKD) >90 (>60 ml/min/1.73 sqM); Non-African American GFR(CKD) >90 (>60 ml/min/1.73 sqM)
[2025-04-06 07:23] VITALS: BP 131/70; PULSE 49; RESP 16
[2025-04-06] MEDS: CLOPIDOGREL 75 MG TAB PO SCH (08:43)
[2025-04-06] MEDS: ASPIRIN 81 MG PO SCH (08:43)
--- NOTE | 2025-04-06 08:58 | P.DS ---
Providers Attending physician: Mc Patyon Consults: 04/05/25 10:42 Consult Physician Routine Consulting Provider: [facility] Consult Reason/Comments: Post Interventional Patient Do you want consulting provider notified?: Already Contacted Primary care physician: [facility] Course: The patient is a pleasant 69-year-old female patient who underwent yesterday heart catheterization and PCI of the SVG to LCx She was seen and evaluated this morning. She is asymptomatic. The chest discomfort has resolved completely. The right groin is soft and nontender with no bruises The patient will be discharged home on dual antiplatelet therapy and I will follow-up with the patient next week in the office Plan - Discharge Summary Discharge Rx Participant: No New Discharge Prescriptions: Continue Levothyroxine Sodium [Synthroid] 50 mcg PO HS Clopidogrel [Plavix] 75 mg PO DAILY #30 tab Rosuvastatin [Crestor] 20 mg PO HS Aspirin EC [Ecotrin Low Dose] 81 mg PO DAILY metFORMIN HCL [Glucophage] 1,000 mg PO BID hydroCHLOROthiazide [Hydrodiuril] 12.5 mg PO DAILY glipiZIDE [Glucotrol] 5 mg PO AC-BRKFST Losartan [Cozaar] 25 mg PO HS Cholecalciferol (Vitamin D3) [Vitamin D3 (1250 Mcg = 50,000 Iu)] 1,250 mcg PO WE Discharge Medication List Levothyroxine Sodium [Synthroid] 50 mcg PO HS 08/23/19 [History] Clopidogrel [Plavix] 75 mg PO DAILY #30 tab 09/02/19 [Rx] Rosuvastatin [Crestor] 20 mg PO HS 07/01/20 [History] Aspirin EC [Ecotrin Low Dose] 81 mg PO DAILY 03/01/25 [History] Cholecalciferol (Vitamin D3) [Vitamin D3 (1250 Mcg = 50,000 Iu)] 1,250 mcg PO WE 03/01/25 [History] Losartan [Cozaar] 25 mg PO HS 03/01/25 [History] glipiZIDE [Glucotrol] 5 mg PO AC-BRKFST 03/01/25 [History] hydroCHLOROthiazide [Hydrodiuril] 12.5 mg PO DAILY 03/01/25 [History] metFORMIN HCL [Glucophage] 1,000 mg PO BID 04/04/25 [History] Follow up Appointment(s)/Referral(s): Mc Payton MD [STAFF PHYSICIAN] - 1 Week (OFFICE WILL CALL PATIENT WITH FOLLOW UP APPOINTMENT DATE/TIME. ) Patient Instructions/Handouts: *Surgery [facility] - After Heart Catheterization - Training Designer Instructions, Moderate Sedation (DC), Fall Prevention (DC), Coronary Intravascular Stent Placement (DC), Coronary Angioplasty (DC) Activity/Diet/Wound Care/Special Instructions: NO METFORMIN FOR 48 HOURS. NO DRIVING FOR TWO DAYS. OK TO SHOWER TOMORROW (REMOVE DRESSING FIRST) NO BATHS, POOLS, TUBS FOR FIVE DAYS TO PREVENT INFECTION. AVOID PUSHING PULLING LIFTING MORE THAN 5 LBS FOR FIVE DAYS TO AVOID RISK OF BLEEDING. MONITOR FOR SIGNS OF INFECTION IE: FEVER RASH UNUSUAL DRAINAGE HARD KNOT OR LUMP CONTACT DR TO BE EVALUATED IF PUNCTURE SITE BLEEDS APPLY FIRM PRESSURE AND GO TO ER. MEDS PER OUTSIDE SALES ACCOUNT MANAGER FALL PRECAUTIONS TODAY FOLLOW UP DIRECTED
[2025-04-11] MEDS ORDERED: CHOLECALCIFEROL 25 MCG (1000 IU) TABLET PO SCH (10:41)
== END 2025-04-06 09:58 | disposition home or self-care (01) ==
LOC: CATHCVL 07:02 → 6NMEDSUR 12:59 → CATHCVL 04-06 09:58
PROVIDERS: ATTEND Internal Medicine Interventional Cardiology
DX: I25.110 Atherosclerotic heart disease of native coronary artery with unstable angina pectoris (principal); E66.3 Overweight; E78.5 Hyperlipidemia, unspecified; I10 Essential (primary) hypertension; Z95.1 Presence of aortocoronary bypass graft; Z98.84 Bariatric surgery status; Z79.82 Long term (current) use of aspirin; Z79.02 Long term (current) use of antithrombotics/antiplatelets; Z79.84 Long term (current) use of oral hypoglycemic drugs; Z79.899 Other long term (current) drug therapy
CPT/HCPCS: 92978; 80048; 82565; 85025; 99152; 99153; C9604; C1769 ×4; C1887; C1725 ×2; C1894; C1874; C1753; J2250; J2765; J2003; J1644; Q9967; J3010